=== PATIENT | female | born 1985 | race Caucasian/White ===

== ENCOUNTER 2023-04-18 13:20 | Outpatient (AMB) | payer OTHER, SELFPAY ==
[2023-04-18 13:48] VITALS: BP 145/79; PULSE 96; RESP 18; O2SAT 96
--- NOTE | 2023-04-18 13:48 | MHC.OFFVIS ---
Intake Vital Signs 04/18/23 13:48 Weight 180 lb BP 145/79 H Blood Pressure Location Lt brachial Position Sitting Respiration 18 Pulse 96 Pulse Source Pulse Oximeter Pulse Oximetry (%) 96 Oxygen Delivery Method Room Air Intake Visit Reasons: Chronic back pain, Scoliosis/Lvm Allergies codeine Adverse Reaction (Unknown, Verified 04/18/23 14:00) Unknown Opioids - Morphine Analogues Adverse Reaction (Unknown, Verified 04/18/23 14:00) Unknown oxycodone Adverse Reaction (Unknown, Verified 04/18/23 14:00) Unknown HPI HPI Comments History of Present Illness Details Lise is a very pleasant 37 year old female who presents to the office today for evaluation and management of her chronic all over back pain. Patient reports that she has been suffering with this pain for ?my entire life ?. She states that she was bored with scoliosis, diagnosed as a child and has been suffering with pain since. She denies any treatment for the scoliosis previously. Patient does have a history of left S IJ fusion and L5-S1 partial discectomy both performed in 2018. She states her surgeon has since retired. She had evaluation with neurosurgeon less than 1 year ago and was told that surgery was not an option for treatment. All imaging has been completed echo [facility], she does not know when her most recent MRI was, records have been requested. Patient states she has never done physical therapy for her back, chiropractor has declined to treat her due to her scoliosis and she has never tried acupuncture or massage. She reports a remote history of injections to her back and states that they ?never worked ?. She is currently taking a muscle relaxer as needed and reports she only uses this when it is very bad, naproxen daily which provides some relief. Patient has red flag symptoms including new loss of bowel, bladder or saddle anesthesia. In terms of muscle damage condition is described as aching, spasming, shooting, tiring, exhausting and throbbing. Pain is constant throughout the entire day and night, negatively impacting her enjoyment of life, general activity, mood, normal work, recreational activities, sleep and walking. Review of Systems Const All systems reviewed & are unremarkable except as noted in HPI and below Physical Exam Vital Signs: Last Vital Signs Pulse 96 04/18/23 13:48 Resp 18 04/18/23 13:48 BP 145/79 H 04/18/23 13:48 Pulse Ox 96 04/18/23 13:48 Oxygen Delivery Method Room Air 04/18/23 13:48 General: awake, alert, oriented. Answers questions appropriately. Fully engaged in examination. Skin: warm, dry, intact HEENT: Normocephalic. Hearing intact. Cardiac: External chest normal in appearance. Respiratory: No cough, audible wheezing or stridor. Abdomen: without gross distension. MS: No obvious swelling or deformities. Able to stand on bilateral tiptoes and bilateral heels.? Able to transition from sit to stand unassisted. Ambulates with bilaterally normal heel strike and toe off SLR with and without dorsiflexion negative bilaterally Mark positive on left ROM: Flexion to 40 degrees, extension to 10 degrees. both with reported pain increase Tender to palpation over upper/middle/lower trapezius, tender to palpation across lower back. Tender to palpation over lumbar paraspinal muscles and PSIS. Neurological: Oriented to person, place, time and situation. Thought process intact. No gait abnormalities appreciated. Psychiatric: Appropriate mood and affect. Good judgment and insight. Assessment & Plan Assessment & Plan (1) Lower back pain: Code(s): M54.50 - Low back pain, unspecified (2) Trapezius muscle strain: Code(s): S46.819A - Strain of other muscles, fascia and tendons at shoulder and upper arm level, unspecified arm, initial encounter (3) Myofascial muscle pain: Code(s): M79.18 - Myalgia, other site (4) Post laminectomy syndrome: Code(s): M96.1 - Postlaminectomy syndrome, not elsewhere classified Yasemin Lezama presents the office today for evaluation and management of her chronic back pain. Order placed for PT eval and treat. Rec given to patient to take to physical therapy office closer to her home as she lives quite a distance from [facility]. Order placed for baclofen 5 mg p.o. t.i.d., patient instructed on use. Records have been requested from [facility] to include recent imaging. Patient is unsure when her last MRI was. Advised patient that if he had has been over 1 year we will plan for update of the MRI. Discussed options for treatment including diagnostic interventional testing, epidural steroid injections, peripheral nerve stimulation with Sprint, RFA and more permanent neuromodulation. Informational pamphlets provided. Patient is suffering from post laminectomy syndrome, we discussed in length Nevro spinal cord stimulator. Patient advised she would need mental health clearance with psych eval prior to any implantable devices. Brochures for Nevro and [employer]vant[employer] point given to the patient. She will review these before her next visit. All questions and concerns have been answered and patient agrees with the plan. Follow up after trial of PT, muscle relaxer and after review of records. Orders: Orders PT Evaluation and Treatment Today M54.50 - Low back pain, unspecified, M79.18 - Myalgia, other site, S46.819A - Strain of other muscles, fascia and tendons at shoulder and upper arm level, unspecified arm, initial encounter Medications: New baclofen may cause drowsiness. do not drive while taking this medication. Do not take with alcohol or other [employer] depressants 5 mg PO TID 60 tabs 0RF Coding Level of Care Code New Pt Level 4 (62780) Diagnoses Lower back pain M54.50 Trapezius muscle strain S46.819A Myofascial muscle pain M79.18 Post laminectomy syndrome M96.1
== END 2023-04-18 14:32 | disposition home or self-care (01) ==
PROVIDERS: PCP Nurse Practitioner Family; Referring Provider Family Medicine; Visit Provider Registered Nurse Emergency
DX: M54.50 Low back pain, unspecified (principal); S46.819A Strain of other muscles, fascia and tendons at shoulder and upper arm level, unspecified arm, initial encounter; M79.18 Myalgia, other site; M96.1 Postlaminectomy syndrome, not elsewhere classified
CPT/HCPCS: 99204

== ENCOUNTER → 2023-04-18 13:20 | Outpatient (BNVA) | payer OTHER, SELFPAY | PROVIDERS: PCP Nurse Practitioner Family; Referring Provider Family Medicine; Visit Provider Registered Nurse Emergency | DX: M54.50 Low back pain, unspecified (principal); M79.18 Myalgia, other site; M96.1 Postlaminectomy syndrome, not elsewhere classified; S46.819A Strain of other muscles, fascia and tendons at shoulder and upper arm level, unspecified arm, initial encounter; X58.XXXA Exposure to other specified factors, initial encounter; Y93.9 Activity, unspecified; Y92.9 Unspecified place or not applicable; Y99.9 Unspecified external cause status | CPT/HCPCS: 99202 ==

== ENCOUNTER 2023-09-18 10:32 | Outpatient (AMB) | payer OTHER, SELFPAY ==
--- NOTE | 2023-09-18 10:44 | HO.SPINEOV ---
Intake Intake Visit Reasons: degenerative disc disease Intake Note: Ms. Zamorano is here today c/o low back pain. 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 She is a pleasant 37-year-old female who comes in today with a chief complaint of low back pain with radiation into her left lower extremity. She states that this has been ongoing for the past few years, and was previously addressed with a L5-S1 left-sided [place]diske[place] [address] Reeves. She states that her symptoms never fully resolved, and have progressed over time. They are now to the point where she has shooting pains diffusely down her left leg and numbness in her left foot. The numbness in her left foot has caused her to fall several times per her report. She is unable to identify a specific dermatomal distribution and reports that her pain is all throughout the leg, and the numbness is all over her foot. Additionally, she reports right-sided axial low back pain which is newer, and has became more prevalent over the course of the last 6 months. She has a pertinent surgical history of a left-sided SI joint fusion in a left total knee arthroplasty. She reports that bending over/lifting makes her pain worse, but is unable to identify any positional changes that help alleviate her pain. She attempted physical therapy, and reports she had to stop a few weeks ago as it caused her too much pain. She has tried a plethora of [id number] remedies, and is currently taking cyclobenzaprine and naproxen which provide her with modest pain relief. PMH: History of left-sided SI joint fusion and left-sided L5-S1 microdiskectomy completed by Dr. Reeves from [facility] (both done in 2018, he has since retired). History of left-sided total knee replacement. Hx of Asthma. Social hx: Patient does not smoke, reports no substance use. Medications: Albuterol, azelastine, baclofen, cyclobenzaprine, epinephrine, out Chirinos, mometasone, montelukast, naproxen. Allergies: Codeine, oxycodone. Physical exam: The patient has 4/5 strength with knee flexion on the left. The rest of her strength testing is 5/5. Her sensation is grossly intact. Her reflexes are 2+ intact. (-) Mark's, (-) Blanca finger test, (-) Mckeon's, (-) clonus, (-) straight leg raise bilaterally. The patient sits on her right side bracing herself in the right side of the chair. She is able to rise from a seated position without difficulty. She does walk with a somewhat antalgic gait favoring her right side. Imaging review: MRI of the lumbar spine completed at [facility] shows an L5-S1 posterior disc bulge causing severe left sided foraminal stenosis and compression of the left S1 nerve root. There is also what appears to be a slight grade 1 spondylolisthesis at L5-S1. cervical MRI also complete at [facility] is generally unremarkable from a neurosurgery standpoint. Impression: Lise is a pleasant 37-year-old female who comes in today with a chief complaint of low back pain with radiation into her left lower extremity. Interestingly, her low back pain is right-sided axial and her radiculopathy is left-sided. She is unable to identify a specific dermatomal distribution in which her pain radiates, but does state that the pain is severe and constant throughout the day. She also endorses a feeling of complete numbness in her left foot, however states that it waxes and wanes in severity throughout the day. This is particularly concerning because she is now experiencing falls per her report because of the numbness in her foot. I believe that Lise is a good candidate for a left-sided L5-S1 microdiskectomy. Due to the slight spondylolisthesis seen at L5-S1 I will be sending her for a set of flexion/extension x-rays to ensure that she does not have any instability at this level. Assuming that the x-rays do not show significant instability I will be presenting her as a case to Dr. Rajan for an L5-S1 left sided microdiskectomy. I will call the patient update her after I have reviewed this case with Dr. Rajan. Thank you for allowing us to care for your patient. The total time spent with this visit with this patient was 45 minutes reviewing history, physical exam, Cervical and Lumabr MRI imaging review, and implementation of treatment plan or further diagnostic testing Hiren Rajan MD,PhD [facility] Orders: Orders XR lumbar spine 4V min Today M54.16 - Radiculopathy, lumbar region Coding Level of Care Code New Pt Level 4 (92279) Diagnoses Lumbar radiculopathy M54.16
== END 2023-09-18 11:28 | disposition home or self-care (01) ==
PROVIDERS: PCP Nurse Practitioner Family; Referring Provider Family Medicine; Visit Provider Physician Assistant
DX: M54.16 Radiculopathy, lumbar region (principal)
CPT/HCPCS: 99204

== ENCOUNTER 2023-09-18 10:32 | Outpatient (REF) | payer OTHER, SELFPAY ==
--- NOTE | ~2023-09-18 | XR_ITS ---
EXAMINATION: XR LUMBOSACRAL SPINE WITH OBLIQUES CLINICAL INFORMATION: Radiculopathy lumbar region. COMPARISON: None available. TECHNIQUE: AP, lateral neutral, flexion, and extension views of the lumbar spine FINDINGS: Two coiled devices overlie the upper sacrum on the left. Radiopaque device overlies the upper thoracic spine on the frontal view, but is not included on the lateral view. S-shaped thoracolumbar scoliosis. Facet arthritis in the lower lumbar spine. Mild multilevel lumbar spondylosis with loss of disc space height at L5-S1. XR/XR lumbar spine 4V min IMPRESSION: Mild multilevel lumbar spondylosis with loss of disc space height at L5-S1.
== END 2023-09-18 10:33 | disposition home or self-care (01) ==
LOC: HO.HOSX 10:32
PROVIDERS: PCP Nurse Practitioner Family; Visit Provider Physician Assistant
DX: M54.16 Radiculopathy, lumbar region (principal)
CPT/HCPCS: 72110; 99202

== ENCOUNTER 2023-11-13 06:35 | Day surgery (SDC) | payer OTHER, SELFPAY ==
[2023-10-30 12:12] VITALS: BP 133/87; PULSE 84; RESP 16; O2SAT 98; BMI 32.9
--- NOTE | 2023-10-30 12:42 | HO.ANESPROP2 ---
Documented by User: Therese Cordoba NP 10/30/23 12:52 HPI - Anesthesia Eval Consult details Narrative: 37yo F for Left L5-S1 MicroLumbar discectomy Recent sinus infx, abx course completed, resolved Seasonal allergies - allergy shots weekly No CP/SOB with ADLs PONV. Scop patch not effective. Will try aponvie TMJ. No surgery, never locked open. OK right now. Tx with massage and heat when flares up Asthma. Stable. No rescue inhaler for a few months. Unable to swallow pills, needs crushed PMFSH Active Problems Active Problems: All Active Problems Lumbar radiculopathy (Acute) Post laminectomy syndrome (Acute) Lower back pain (Acute) Trapezius muscle strain (Acute) Myofascial muscle pain (Acute) Past Medical History Medical History Fragrance hypersensitivity Hypoglycemia TMJ tenderness, right Osteoarthritis CTS (carpal tunnel syndrome) PONV (postoperative nausea and vomiting) DJD (degenerative joint disease) Asthma Seasonal allergies Environmental allergies Scoliosis Back pain Family History Family history of problems with anesthesia: No Surgical History Surgical History Hx of surgical fusion joint Hx of lumbar discectomy (~2018) History of arthroplasty of left knee Hx of sinus surgery Hx of bilateral breast reduction surgery History of ear surgery History of Problems with Anesthesia: Yes (PONV - scopolamine patch ineffective) Social History Social History Are you a primary health care social worker to a significant other at home: No Do you presently have visiting nurse or other home services: No Comment: aware of trip hazard Patient Tobacco Use Status: Never used Tobacco Second Hand Smoke Exposure: Yes (parents smoked in the home) Use of substances other than those prescribed or required for medical reasons: No Have you been hit, kicked, punched, or otherwise hurt by someone within the past year? If so, by whom?: No Are you DNR?: No Advance Directives: No Advance Directives Information Provided: Yes Advance Directives on File: No Recently lost weight without trying: No Nutrition Risks: No Nutritional Risk Patient : No FDLMP: 09/2022 : No Poor oral hygiene: No Meds Allergies Allergy/AdvReac Type Severity Reaction Status Date / Time codeine Allergy Severe Anaphylaxis Verified 11/13/23 07:04 oxycodone Allergy Intermediate skin Verified 11/13/23 07:04 redness morphine AdvReac Intermediate Nausea and Verified 11/13/23 07:04 Vomiting Opioids - Morphine Analogues AdvReac Unknown Unknown Verified 11/13/23 07:04 flu vaccine Allergy Severe Nausea and Uncoded 11/13/23 07:04 Vomiting, dehydration, weakness Home Medications ?Medication ?Instructions ?Recorded ?Confirmed ?Last Taken ?Type COVID-19 antigen test (QuickVue #1 ea 04/17/23 Unknown History At-Home COVID-19 Test kit) albuterol sulfate 2.5 mg/3 mL 2.5 mg inhalation Q4-6H PRN 04/17/23 10/30/23 Unknown History (0.083 %) solution for nebulization Shortness Of Breath Or Wheezing albuterol sulfate 90 mcg/actuation 2 inh inhalation Q4-6H PRN 04/17/23 10/30/23 Unknown History aerosol inhaler Shortness Of Breath Or Wheezing cyclobenzaprine 10 mg tablet 10 mg PO BEDTIME 04/17/23 10/30/23 Unknown History epinephrine 0.3 mg/0.3 mL 0.3 ml subcut ONCE PRN Allergic 04/17/23 10/30/23 Unknown History injection, auto-injector Reaction levonorgestrel 0.15 mg-ethinyl 1 tab PO DAILY 04/17/23 10/30/23 Unknown History estradiol 0.03 mg tablet (Altavera (28)) montelukast 10 mg tablet 10 mg PO DAILY 04/17/23 10/30/23 Unknown History naproxen 500 mg tablet 500 mg PO BID 04/17/23 10/30/23 Unknown History diphenhydramine HCl 25 mg tablet 25 mg PO TID PRN Allergic Reaction 10/30/23 10/30/23 Unknown History (Benadryl Allergy) fluticasone furoate 100 1 ea inhalation DAILY 10/30/23 10/30/23 Unknown History mcg-vilanterol 25 mcg/dose inhalation powder (Breo Ellipta) topiramate 100 mg tablet 100 mg PO DAILY PRN Headache 10/30/23 10/30/23 Unknown History triamcinolone acetonide 55 mcg 1 spray intranasal DAILY PRN 10/30/23 10/30/23 Unknown History nasal spray aerosol (Nasacort) Allergy Symptoms Exam Height,Weight and Vital Signs: Height 5 ft 2 in Weight 81.647 kg Last Vital Signs Pulse 84 10/30/23 12:12 Resp 16 10/30/23 12:12 BP 133/87 10/30/23 12:12 Pulse Ox 98 10/30/23 12:12 O2 Del Method Room Air 10/30/23 12:12 Airway Mallampati Class: III (Limited mouth opening d/t TMJ) TM Dist: >3cm Neck ROM: Full Heart: RRR Lungs: CTAB Assessment and Plan Assessment Anesthesia Assessment: Anesthesia Plan Discussed and PAT Visit Final Anesthetic Review Family History of Problems with Anesthesia: No History of Problems with Anesthesia: Yes (PONV - scopolamine patch ineffective) Documented by User: Viri Wilson MD 11/13/23 09:35 PMFSH Active Problems Active Problems: All Active Problems Lumbar radiculopathy (Acute) Post laminectomy syndrome (Acute) Lower back pain (Acute) Trapezius muscle strain (Acute) Myofascial muscle pain (Acute) Asthma- allergic. No symptoms for 2 months Past Medical History Medical History Fragrance hypersensitivity Hypoglycemia TMJ tenderness, right Osteoarthritis CTS (carpal tunnel syndrome) PONV (postoperative nausea and vomiting) DJD (degenerative joint disease) Asthma Seasonal allergies Environmental allergies Scoliosis Back pain Family History Family history of problems with anesthesia: No Surgical History Surgical History Hx of surgical fusion joint Hx of lumbar discectomy (~2018) History of arthroplasty of left knee Hx of sinus surgery Hx of bilateral breast reduction surgery History of ear surgery Social History Social History Are you a primary health care social worker to a significant other at home: No Do you presently have visiting nurse or other home services: No Comment: aware of trip hazard Patient Tobacco Use Status: Never used Tobacco Second Hand Smoke Exposure: Yes (parents smoked in the home) Use of substances other than those prescribed or required for medical reasons: No Have you been hit, kicked, punched, or otherwise hurt by someone within the past year? If so, by whom?: No Are you DNR?: No Advance Directives: No Advance Directives Information Provided: Yes Advance Directives on File: No Recently lost weight without trying: No Nutrition Risks: No Nutritional Risk Patient : No FDLMP: 09/2022 : No Poor oral hygiene: No Meds Allergies Allergy/AdvReac Type Severity Reaction Status Date / Time codeine Allergy Severe Anaphylaxis Verified 11/13/23 07:04 oxycodone Allergy Intermediate skin Verified 11/13/23 07:04 redness morphine AdvReac Intermediate Nausea and Verified 11/13/23 07:04 Vomiting Opioids - Morphine Analogues AdvReac Unknown Unknown Verified 11/13/23 07:04 flu vaccine Allergy Severe Nausea and Uncoded 11/13/23 07:04 Vomiting, dehydration, weakness Home Medications ?Medication ?Instructions ?Recorded ?Confirmed ?Last Taken ?Type COVID-19 antigen test (QuickVue #1 ea 04/17/23 Unknown History At-Home COVID-19 Test kit) albuterol sulfate 2.5 mg/3 mL 2.5 mg inhalation Q4-6H PRN 04/17/23 10/30/23 Unknown History (0.083 %) solution for nebulization Shortness Of Breath Or Wheezing albuterol sulfate 90 mcg/actuation 2 inh inhalation Q4-6H PRN 04/17/23 10/30/23 Unknown History aerosol inhaler Shortness Of Breath Or Wheezing cyclobenzaprine 10 mg tablet 10 mg PO BEDTIME 04/17/23 10/30/23 Unknown History epinephrine 0.3 mg/0.3 mL 0.3 ml subcut ONCE PRN Allergic 04/17/23 10/30/23 Unknown History injection, auto-injector Reaction levonorgestrel 0.15 mg-ethinyl 1 tab PO DAILY 04/17/23 10/30/23 Unknown History estradiol 0.03 mg tablet (Altavera (28)) montelukast 10 mg tablet 10 mg PO DAILY 04/17/23 10/30/23 Unknown History naproxen 500 mg tablet 500 mg PO BID 04/17/23 10/30/23 Unknown History diphenhydramine HCl 25 mg tablet 25 mg PO TID PRN Allergic Reaction 10/30/23 10/30/23 Unknown History (Benadryl Allergy) fluticasone furoate 100 1 ea inhalation DAILY 10/30/23 10/30/23 Unknown History mcg-vilanterol 25 mcg/dose inhalation powder (Breo Ellipta) topiramate 100 mg tablet 100 mg PO DAILY PRN Headache 10/30/23 10/30/23 Unknown History triamcinolone acetonide 55 mcg 1 spray intranasal DAILY PRN 10/30/23 10/30/23 Unknown History nasal spray aerosol (Nasacort) Allergy Symptoms Exam Height,Weight and Vital Signs: Height 5 ft 2 in Weight 81.647 kg Last Vital Signs Pulse 84 10/30/23 12:12 Resp 16 10/30/23 12:12 BP 133/87 10/30/23 12:12 Pulse Ox 98 10/30/23 12:12 O2 Del Method Room Air 10/30/23 12:12 Vital Signs Temp Pulse Resp BP Pulse Ox O2 Del Method 11/13/23 07:35 98 18 11/13/23 07:07 97.3 F 98 18 136/84 100 Room Air Pertinent Lab Results Pertinent Lab Results: Lab Results 11/13/23 11/13/23 Range/Units 06:42 07:33 POC Glucose 102 (60-115) mg/dL Urine Test NEGATIVE (NEGATIVE) Airway Mallampati Class: IV (Limited mouth opening d/t TMJ. Overbite. Prominent top incisors) TM Dist: >3cm Neck ROM: Full Assessment and Plan Assessment Anesthesia Assessment: Anesthesia Plan Discussed and Chart Reviewed Final Anesthetic Review Family History of Problems with Anesthesia: No NPO: Yes ASA Class: II Final Preanesthetic Review: No Changes in Pt Med Stat, Meds/Allgs Chart Reviewed, Consent Obtained/Reviewed and Anes Risks/Benef Reviewed Patient Risk: Intermediate Procedure Risk: Intermediate Assessment/Block/Sedation in SS: Assess/Block/Sedation-SS Anesthetic Plan Anesthetic Plan: GA Disposition: Standard PACU
[2023-11-13] VITALS (12 sets, daily range): BP systolic 121–140; BP diastolic 72–84; PULSE 86–104; RESP 14–21; TEMP 36.2–36.3; O2SAT 94–100; BMI 33.5
--- NOTE | ~2023-11-13 | FL_ITS ---
EXAMINATION: XR FLUOROSCOPY WITH IMAGES CLINICAL INFORMATION: Microlumbar discectomy L5-S1. COMPARISON: None available. TECHNIQUE: Fluoroscopy Supervised By: Dr. Yuri Rajan. Fluoroscopy Time: 0.2 seconds. Cumulative Dose: 1.2558 mGy. DAP: 4354 Gycm2. Images: 3. FINDINGS: Intraoperative fluoroscopy and spot films were performed during a procedure in the OR. Bennett or instruments are seen at the L5-S1 level. Please see Dr. Yuri Rajan's report for complete details. FL/FL guidance in OR IMPRESSION: Intraoperative fluoroscopy and spot films were obtained. Please see Dr. Yuri Rajan's report for complete details.
--- NOTE | 2023-11-13 06:55 | MHC.SHP ---
Pre-Procedural Eval Section A - 24 Hr Update-Section A only Date of Service: 11/13/23 Section B - Complete if H&P > 30 days Chief Complaint: Radiculopathy, lumbar region Allergies: Allergies Allergy/AdvReac Type Severity Reaction Status Date / Time codeine Allergy Severe Anaphylaxis Verified 10/30/23 10:17 oxycodone Allergy Intermediate skin Verified 10/30/23 10:17 redness morphine AdvReac Intermediate Nausea and Verified 10/30/23 10:17 Vomiting Opioids - Morphine Analogues AdvReac Unknown Unknown Verified 04/18/23 14:00 flu vaccine Allergy Severe Nausea and Uncoded 10/30/23 12:27 Vomiting, dehydration, weakness Review of Systems Sugical H&P ROS: Negative: Constitution, Cardiovascular, Respiratory, Neurological, Psychiatric, Hem-Onc, Allergic/Immunologic, Gastrointestinal, Genitourinary, Musculoskeletal, Integumentary, Endocrine and Eyes/Ears/Nose/Throat Exam Surgical H&P Exam: Not Evaluated: HEENT, Not Evaluated: Heart, Not Evaluated: Lungs, Not Evaluated: Extremities, Not Evaluated: Abdomen, Not Evaluated: Skin and Not Evaluated: Neurological Plan I have reviewed the history and physical and performed a pertinent physical examination on my patient. No changes have occurred unless specified. Plan remains the same, right-sided L5-S1 microdiskectomy. Time Spent With Patient Time: Total time managing care of this patient today __9__ minutes.
[2023-11-13 07:17] LABS: UPreg QC Valid YES; Urine Pregnancy NEGATIVE (NEGATIVE)
[2023-11-13] MEDS: Albuterol Sulfate (0.083%) 2.5 MG/3 ML VIAL.NEB INHALE (07:25)
[2023-11-13] MEDS: Aprepitant 32 MG/4.4 ML VIAL IVPUSH (07:29)
[2023-11-13] MEDS: Lactated Ringers 1,000 ML 100 ML IVCONT (07:29)
[2023-11-13] MEDS: methocarbamoL 750 MG TABLET PO (07:30)
[2023-11-13 07:36] LABS: Glucose, Whole Blood 102 mg/dL (60-115)
[2023-11-13] MEDS: Scopolamine 1.5 MG PATCH.TD.3 TRANSDERMA (09:38)
--- NOTE | 2023-11-13 10:59 | P.OP_ITS ---
Operative Note Operative Note Date of Service: 11/13/23 Narrative: Preoperative diagnosis: Recurrent left S1 radiculopathy due to disc herniation Postoperative diagnosis: Same Procedure: Recurrent L5-S1 lumbar microdiskectomy , left side with microscope Surgeon: Yunier Rajan MD, PhD Hydrochloric Area Supervisor: VALDO Montoya This patient underwent a lumbar microdiskectomy 2018 in another institution. She presented with recurrent symptoms. MRI suspicious for recurrent disc herniation compressing the left S1 nerve root.. The patient was offered a repeat lumbar microdiskectomy to decompress the nerve root. The procedure complications were explained. The patient was consented. The patient was brought to the operating room and endotracheally intubated. The patient was turned in a prone position on the Leandro frame. Prepping and draping was done followed by time-out. The previous mid lumbar incision was made followed by release of the paravertebral muscles on the left side side to expose the L5-S1 interspace. An intraoperative x-rays obtained to confirm the correct level. The microscope was brought in. The previous L5 laminotomy was extended cranially. The thecal sac and the origin of the S1 nerve root was identified. Scar tissue was released from S1 nerve root in the lateral recess. An annulotomy was done with a pituitary some fragments were removed from under the S1 nerve root. However most compression was caused by scar tissue wrist was removed as well. This resulted in an excellent decompression of the S1 nerve root. Hemostasis was done. The microscope was removed. Marcaine was injected intramuscularly.The incision was closed in two layers. Steri-Strips used to approximate seizure. An op-site were taken there was used to cover the incision. All sponge and needle counts were correct. Patient was extubated and transported in stable condition to recovery room. this procedure was done with the aid of a physician contract assistant who performed the initial exposure until the microscope was brought in and performed the closure of the incision. Anesthesia: General Blood loss: 10 mL Complications: None Specimen: None Surgical time: 45 minutes Disposition: Discharge home
[2023-11-13] MEDS: fentaNYL citrate/PF 100 MCG/2 ML VIAL 25 MCG IVPUSH ×2 (11:46→11:51)
[2023-11-13 12:03] LABS: Glucose, Whole Blood 126 mg/dL (60-115)
--- NOTE | 2023-11-13 12:19 | PM.DS ---
DS: Providers Provider Date of Service: 11/13/23 Primary care physician: RANDEE Garcia DS: Summary Time Attestation Discharge Coordination Time (in mins): 15 Quality: Safe Use of Opioids Does Pt have an Active Cancer Diagnosis on the Problem List?: No Quality: Stroke Does the patient have a stroke diagnosis?: No Physical Exam Vital Signs: Vital Signs: Last Vital Signs Temp 97.2 F 11/13/23 11:11 Pulse 89 11/13/23 11:56 Resp 14 11/13/23 11:56 BP 121/79 11/13/23 11:56 Pulse Ox 97 11/13/23 11:56 O2 Del Method Room Air 11/13/23 11:56 O2 Flow Rate 3 11/13/23 11:26 BMI result Body Mass Index 33.5 DS: Data Data Completed and Pending Labs on day of discharge: Laboratory Results - last 24 hr 11/13/23 11/13/23 11/13/23 06:42 07:33 11:36 POC Glucose 102 126 H Urine Test NEGATIVE Discharge Plan Discharge Patient Disposition: Home, Self-Care Referrals: Kylee Gómez FNP [Primary Care Provider] - 1 Week Discharge Medications: New hydrocodone-acetaminophen 5-325 mg tablet 1 tab PO Q6H PRN (Reason: severe pain (scale score 7-10)) Qty: 30 0RF Rx Instructions: Partial Fill upon patient request. Continued fluticasone furoate-vilanterol [Breo Ellipta] 100-25 mcg/dose blister with device 1 ea INHALATION DAILY topiramate 100 mg tablet 100 mg PO DAILY PRN (Reason: Headache) diphenhydramine HCl [Benadryl Allergy] 25 mg Tablet 25 mg PO TID PRN (Reason: Allergic Reaction) triamcinolone acetonide [Nasacort] 55 mcg Aerosol,Fleming 1 spray INTRANASAL DAILY PRN (Reason: Allergy Symptoms) Rx Instructions: administer into each nostril montelukast 10 mg tablet 10 mg PO DAILY albuterol sulfate 2.5 mg /3 mL (0.083 %) solution for nebulization 2.5 mg inhalation Q4-6H PRN (Reason: Shortness Of Breath Or Wheezing) naproxen 500 mg tablet 500 mg PO BID albuterol sulfate 90 mcg/actuation HFA aerosol inhaler 2 inh inhalation Q4-6H PRN (Reason: Shortness Of Breath Or Wheezing) cyclobenzaprine 10 mg tablet 10 mg PO BEDTIME levonorgestrel-ethinyl estrad [Altavera (28)] 0.15-0.03 mg tablet 1 tab PO DAILY epinephrine 0.3 mg/0.3 mL auto-injector 0.3 ml subcut ONCE PRN (Reason: Allergic Reaction) (DME) [employer] At-Home COVID-19 Test Kit See Rx Instructions .ROUTE DIRECTED Qty: 1 Rx Instructions: As directed Discharge Orders: Discharge Order (Routine); Ordered 11/13/23 Ordered By: Hiren Hurley Diet: Advance to usual diet Activity on Discharge: As tolerated Activity Restrictions/Additional Instructions: After your spinal surgery we ask you to observe the following restrictions/guidelines: Activity: It is normal to feel some discomfort as you increase your activity, but that will improve with time. We ask you avoid heavy lifting or acitivities that cause pain. As a general rule, 8lbs is a safe limit for lifting right after surgery. Walk as much as you feel comfortable but not to exhaustion. You will feel extra tired the first few days after surgery. Stay well hydrated. It is OK to walk up and down stairs You may return to driving when you are off narcotics (such as vicodin, oxycodone, dilaudid, etc), and you are back to normal functional capacity. If you have any concerns please check with office before driving. Return to work is specific to each patient and each surgery, so please speak with your doctor/PA at first follow up. Please bring paperwork such as FMLA at that time if you need it filled out. Medications: We will give you a short supply of narcotics after surgery (usually one weeks worth). If you need more please call the office but do not use more than prescribed. You will need to give our office 48 hours notice if you need narcotics refilled and we do not fill narcotics on weekends or evenings. If you are on a narcotic, it is a good idea to take a stool softener such as colace or senna to avoid constipation If you take blood thinner such as aspirin, Plavix, Coumadin, Effient, Eliquis etc for conditions such as Afib, DVT, Pulmonary embolus, coronary disease, stents etc please speak with your surgeon about specific details as to when you can resume these medications. You can resume NSAIDs on post op day 1 (eg: Motrin, Naproxen, etc). Follow up: Please call the office, , after surgery to arrange a 3 week follow up for wound check. Wound Care: You may remove your dressing on the first day after surgery. ?You may ?leave open to air. Please do not remove the steri strips underneath. they will fall off on their own in one week. IT IS NORMAL FOR THE WOUND TO OOZE OR BE BLOODY FOR A FEW DAYS AFTER SURGERY. ?IF THIS HAPPENS JUST PLACE NEW DRESSING OVER IT TO AVOID STAINING CLOTHES. You may shower on post op day # 1 We ask that you do not let the water soak the wound. If it does get wet, just towel dry lightly. Please do not scrub your incision or place any type of chemical/ointment on the wound. No tub baths, pools or jacuzzis for one month. If you have any leaking or redness from your wound, or fevers, please call the office. Print Language: Mohawk
== END 2023-11-13 13:03 | disposition home or self-care (01) ==
PROVIDERS: Nurse Practitioner; PCP Nurse Practitioner Family; Visit Provider Neurological Surgery
PROC: (CPT 63042; principal; 2023-11-13 09:20)
DX: M51.16 Intervertebral disc disorders with radiculopathy, lumbar region (principal); J45.909 Unspecified asthma, uncomplicated; M96.1 Postlaminectomy syndrome, not elsewhere classified; Z79.899 Other long term (current) drug therapy
CPT/HCPCS: 63042; 81025; 82947; 94640; C9145; J0131; J0330; J0690; J1100; J1885; J2250; J2405; J2704; J3010

== ENCOUNTER → 2023-11-13 06:35 | Outpatient (BNV) | payer OTHER, SELFPAY | PROVIDERS: PCP Nurse Practitioner Family; Visit Provider Neurological Surgery | DX: M51.17 Intervertebral disc disorders with radiculopathy, lumbosacral region (principal) | CPT/HCPCS: 63042; 99499 ==

== ENCOUNTER 2023-12-05 11:25 | Outpatient (AMB) | payer OTHER, SELFPAY ==
--- NOTE | 2023-12-05 11:27 | HO.SPINEOV ---
Intake Visit Reasons: 1st post op Intake Note: Ms. Zamorano is here today for 1st post-op Business Systems Analyst Required: No Allergies codeine Allergy (Severe, Verified 11/13/23 07:04) Anaphylaxis oxycodone Allergy (Intermediate, Verified 11/13/23 07:04) skin redness morphine Adverse Reaction (Intermediate, Verified 11/13/23 07:04) Nausea and Vomiting Opioids - Morphine Analogues Adverse Reaction (Unknown, Verified 11/13/23 07:04) Unknown flu vaccine Allergy (Severe, Uncoded 11/13/23 07:04) Nausea and Vomiting, dehydration, weakness Assessment & Plan Assessment & Plan (1) S/P lumbar microdiscectomy: Code(s): Z98.890 - Other specified postprocedural states Category: Surgical Plan Procedure: Recurrent L5-S1 lumbar microdiskectomy , left side Lise comes in today for her 1st postoperative visit. Unfortunately, she reports that her left-sided leg pain is still very similar to how it was prior to surgery. Thankfully, she is up walking around and completing the majority of her ADLs. She reports an overall lack of compliance with her postoperative recommendations, and states there have been situations around the home where she has to ?do things? and ends up lifting twisting bending etc. unfortunately this is likely contributing to her postoperative inflammation and causing her symptoms to persist. She states that the pain medications we gave him after surgery did not do anything, so she has mostly been relying on naproxen. I advised her to stop this for a few days, utilize Tylenol, and take Medrol Dosepak that I am going to be sending into her pharmacy. Ideally that will help get her inflammation under control. I encouraged her to refrain from any excessive heavy lifting bending/twisting and to stay out of her pool as she asked about that as well. No new neurological deficits. Patient is able to ambulate well, rises from a seated position without difficulty. Incision site is closed, well healing, with no signs of drainage. She was concerned that a tiny piece of scabbing may be a suture that it protruded through the skin, so I cleansed the area with alcohol, cut the tiny piece of atypical scab off with sterile scissors, and reapproximated the area with exofin. At the end of this visit I also discussed with the patient that Dr. Babb is not going to be able to readjust her SI joint fusion screws as she would previously requested. I sent in a Medrol Dosepak to her pharmacy. We will follow-up with the patient in 6 weeks for their 2nd postoperative visit. Hiren Rajan MD,PhD [facility] Medications: New methylprednisolone PO PER PKG DIR 21 ea 0RF Discontinued methylprednisolone Discontinued Reason: Entered in error PO PER PKG DIR 21 ea 0RF Coding Level of Care Code Global (92028) Diagnoses S/P lumbar microdiscectomy Z98.890
== END 2023-12-05 11:40 | disposition home or self-care (01) ==
PROVIDERS: PCP Nurse Practitioner Family; Visit Provider Physician Assistant
DX: Z98.890 Other specified postprocedural states (principal)
CPT/HCPCS: 99024

== ENCOUNTER → 2023-12-05 11:25 | Outpatient (BNVA) | payer OTHER, SELFPAY | PROVIDERS: PCP Nurse Practitioner Family; Visit Provider Physician Assistant | DX: Z48.89 Encounter for other specified surgical aftercare (principal); Z98.890 Other specified postprocedural states | CPT/HCPCS: 99212 ==

== ENCOUNTER 2024-01-13 11:29 | Outpatient (AMB) | payer OTHER, SELFPAY ==
--- NOTE | 2024-01-13 10:23 | A.SPINEOV_ITS ---
Intake Visit Reasons: 2nd post op Intake Note: Ms. Zamorano is here today for her 2nd post-op visit. Architectural Project Manager Required: No Allergies codeine Allergy (Severe, Verified 11/13/23 07:04) Anaphylaxis oxycodone Allergy (Intermediate, Verified 11/13/23 07:04) skin redness morphine Adverse Reaction (Intermediate, Verified 11/13/23 07:04) Nausea and Vomiting Opioids - Morphine Analogues Adverse Reaction (Unknown, Verified 11/13/23 07:04) Unknown flu vaccine Allergy (Severe, Uncoded 11/13/23 07:04) Nausea and Vomiting, dehydration, weakness Assessment & Plan Assessment & Plan (1) S/P lumbar microdiscectomy: Code(s): Z98.890 - Other specified postprocedural states Category: Surgical Plan Procedure: Left sided L5-S1 lumbar microdiskectomy for recurrent disc herniation Lise is a pleasant 38 y/o female who comes in today for a subsequent follow up visit after having a L5-S1 microdiskectomy completed by Dr. Rajan. She reports continued severe left-sided shooting radiculopathy since the surgery. She states that it is actually worsened and now includes numbness in her anterior thigh. She feels the steroid regimen was not helpful for her at all. As she stated prior to surgery, there is no specific distribution to her pain, but she feels the pain diffusely throughout her leg. She is able to locate a specific area for numbness as previously described. She has not been able to return to work aside from a few hours per week. She is filing disability with t he state, and is very concerned that her symptoms will not resolve. She is in obvious pain/agony on examination. She sits on her right hip avoiding the left. She walks with an antalgic gait favoring her right side. Her posterior incision site appears closed and well healed. As previously discussed during her last office visit I am concerned that she began extensive activity around the home to quickly after her microdiskectomy. She may have had a reherniation at the area. She has already susceptible to this as this was a recurrent disc herniation microdiskectomy. I would like to send her for a stat lumbar MRI, to evaluate for any evidence of reherniation. After this MRI is completed we will see her back in the office to discuss options. In the meantime I encouraged her to call the office if she develops any saddle anesthesia, bowel or bladder incontinence, or diffuse numbness throughout the foot/leg. The patient understands and agrees to this plan. Hiren Rajan MD,PhD [facility] Orders: Orders MR lumbar spine wo con Today Z98.890 - Other specified postprocedural states Coding Level of Care Code Global (17317) Diagnoses S/P lumbar microdiscectomy Z98.890
== END 2024-01-13 12:11 | disposition home or self-care (01) ==
PROVIDERS: PCP Nurse Practitioner Family; Visit Provider Physician Assistant
DX: Z98.890 Other specified postprocedural states (principal)
CPT/HCPCS: 99024

== ENCOUNTER → 2024-01-13 11:29 | Outpatient (BNVA) | payer OTHER, SELFPAY | PROVIDERS: PCP Nurse Practitioner Family; Visit Provider Physician Assistant | DX: Z48.89 Encounter for other specified surgical aftercare (principal); Z98.890 Other specified postprocedural states | CPT/HCPCS: 99212 ==

== ENCOUNTER 2024-01-14 20:13 | Outpatient (REF) | payer OTHER, SELFPAY ==
--- NOTE | ~2024-01-14 | MR_ITS ---
MR LUMBAR SPINE WITHOUT CONTRAST CLINICAL INFORMATION: Leg numbness status post lumbar microdiscectomy. COMPARISON: Lumbar spine radiographs September 18, 2023. TECHNIQUE: MRI of the lumbar spine was obtained using routine sequences without contrast. FINDINGS: There are 5 nonrib-bearing lumbar-type vertebral bodies. There is a partially imaged rightward convex scoliotic curvature of the thoracic spine and there is a leftward convex scoliotic curvature of the upper lumbar spine. The vertebral body heights are maintained. There is moderate disc volume loss and there is disc desiccation at L5-S1. Remaining disc volumes are preserved and the remaining discs remain well-hydrated. There is no bone marrow edema. There are no acute fractures. Partially imaged left SI joint screws. There are no significant extraspinal soft tissue findings. The imaged lower thoracic spinal cord is unremarkable. The conus terminates at the L2 level. At L1-L2, the disc contour is normal and there is no central canal stenosis nor foraminal stenosis. At L2-L3, there is a shallow right paracentral disc protrusion that mildly indents the right ventral thecal sac. There is no central canal stenosis and there is no foraminal stenosis. At L3-L4, there is a diffuse annular disc bulge and there is moderate bilateral facet arthropathy. There is no central canal stenosis and there is no foraminal stenosis. At L4-L5, there is a diffuse annular disc bulge and there is severe bilateral facet arthropathy and ligamentum flavum thickening. No central canal stenosis and no foraminal stenosis. At L5-S1, there are postoperative changes following left hemilaminectomy and microdiscectomy. There is a favored recurrent left paracentral disc protrusion compressing the traversing left S1 nerve root within the left subarticular zone. There is also granulation/scar tissue within the epidural space inseparable from the traversing left S1 nerve root. Postcontrast imaging could be obtained to more definitively distinguish between disc and scar. The central canal remains patent and there is no foraminal stenosis. MR/MR lumbar spine wo con IMPRESSION: At L5-S1, there are postoperative changes following left hemilaminectomy and microdiscectomy. There is a favored recurrent left paracentral disc protrusion compressing the traversing left S1 nerve root within the left subarticular zone. There is also granulation/scar tissue within the epidural space inseparable from the traversing left S1 nerve root. Postcontrast imaging could be obtained to more definitively distinguish between disc and scar tissue.
== END 2024-01-14 20:14 | disposition home or self-care (01) ==
LOC: HO.MRI 20:13
PROVIDERS: PCP Nurse Practitioner Family; Visit Provider Physician Assistant
DX: Z98.890 Other specified postprocedural states (principal)
CPT/HCPCS: 72148

== ENCOUNTER 2024-01-20 13:06 | Outpatient (AMB) | payer OTHER, SELFPAY ==
--- NOTE | 2024-01-20 13:17 | HO.SPINEOV ---
Intake Visit Reasons: MRI follow up Intake Note: Ms. Zamorano is here today for her Mri f/u Hosted Services Analyst Required: No Allergies codeine Allergy (Severe, Verified 11/13/23 07:04) Anaphylaxis oxycodone Allergy (Intermediate, Verified 11/13/23 07:04) skin redness morphine Adverse Reaction (Intermediate, Verified 11/13/23 07:04) Nausea and Vomiting Opioids - Morphine Analogues Adverse Reaction (Unknown, Verified 11/13/23 07:04) Unknown flu vaccine Allergy (Severe, Uncoded 11/13/23 07:04) Nausea and Vomiting, dehydration, weakness Assessment & Plan Assessment & Plan (1) Lumbar radiculopathy: Code(s): M54.16 - Radiculopathy, lumbar region Category: Medical Plan Mrs Zamorano is coming in today to review her MRI. She had a redo left L5-S1 microdiskectomy done about 2 months ago. She did not experience any improvement in the pain before surgery shooting down her left leg. The operative report dictated suggests that there was not much in the way of disc material found but rather mostly scar tissue which was debulked and the S1 nerve root was well decompressed at the time of closure. She did not have even a single day of relief from the leg pain, in fact she states that it is 10 times worse. It shoots down from the buttock into the posterior thigh into the posterior calf and at times will go into her foot. This is very similar to what happened when she had her 1st microdiskectomy done by Dr. Shahid. She did not have any relief of the leg pain at that time either. This is all suggesting that she could have a chronic radiculopathy related to nerve damage from the original disc herniation. Her current MRI shows postsurgical changes at L5-S1. I do not have the old MRI to compare but there is a small disc bulge on the left with possibly some displacement of the left S1 nerve root. Unfortunately the study was done without contrast which would be helpful to isolate the nerve root from the scar tissue and the disc herniation that we see. It appears that there is something there that may still be deflecting the S1 nerve root posteriorly, but in light of the fact that Dr. Rajan did not find a disc herniation of any meaningful size last time and that it was mostly scar tissue suggests that this is probably what we are dealing with currently. It would be different if the patient had had a significant relief for a period of time but then the symptoms came back, but she is very clear that not even for 1 day did she have any relief for the pain. The discussion was had last week with her about a possible fusion, but we need to be clear about the fact that there is likely some degree of nerve damage that success of the fusion will not be as high as it normally would. She is willing to undertake any surgery that we can do to try to alleviate any of the compression of the nerve. I will have to review this with Dr. Rajan to see if he is willing to offer her surgery or if he thinks this is something that should go in the direction of a spinal cord stimulator instead. Eder Rajan MD, PhD [facility] Coding Level of Care Code Global (32152) Diagnoses Lumbar radiculopathy M54.16
== END 2024-01-20 13:38 | disposition home or self-care (01) ==
PROVIDERS: PCP Nurse Practitioner Family; Visit Provider Physician Assistant
DX: M54.16 Radiculopathy, lumbar region (principal)
CPT/HCPCS: 99024

== ENCOUNTER → 2024-01-20 13:06 | Outpatient (BNVA) | payer OTHER, SELFPAY | PROVIDERS: PCP Nurse Practitioner Family; Visit Provider Physician Assistant | DX: M54.16 Radiculopathy, lumbar region (principal) | CPT/HCPCS: 99212 ==

== ENCOUNTER 2024-02-14 08:30 | Outpatient (AMB) | payer MEDICAID, SELFPAY ==
--- NOTE | 2024-02-14 08:52 | A.OFFVIS_ITS ---
Vital Signs 02/14/24 08:53 Height 5 ft 2 in Weight 180 lb BMI 32.9 BP 134/70 Blood Pressure Location Rt brachial Position Sitting Pulse 112 H Pulse Source Pulse Oximeter Pulse Oximetry (%) 97 Oxygen Delivery Method Room Air Intake Visit Reasons: Postlaminectomy Syndrome Allergies codeine Allergy (Severe, Verified 02/14/24 08:54) Anaphylaxis fluticasone [From Flonase] Allergy (Severe, Verified 02/14/24 08:56) Anaphylaxis oxycodone Allergy (Intermediate, Verified 02/14/24 08:54) skin redness morphine Adverse Reaction (Intermediate, Verified 02/14/24 08:54) Nausea and Vomiting Opioids - Morphine Analogues Adverse Reaction (Unknown, Verified 02/14/24 08:54) Unknown flu vaccine Allergy (Severe, Uncoded 02/14/24 08:54) Nausea and Vomiting, dehydration, weakness Medication List - Last Reconciled 02/14/24 by Corina Gay albuterol sulfate 90 mcg/actuation 2 inhalations inhalation Q4-6H PRN albuterol sulfate 2.5 mg inhalation Q4-6H PRN COVID-19 antigen test (QuickVue At-Home COVID-19 Test kit) As directed cyclobenzaprine 10 mg PO BEDTIME diphenhydramine HCl (Benadryl Allergy) 25 mg PO TID PRN epinephrine 0.3 mL subcut ONCE PRN fluticasone furoate-vilanterol 100-25 mcg/dose (Breo Ellipta) 1 ea inhalation DAILY hydrocodone-acetaminophen 5-325 mg 1 tab PO Q8H PRN levonorgestrel-ethinyl estrad 0.15-0.03 mg (Altavera (28)) 1 tab PO DAILY methylprednisolone PO PER PKG DIR montelukast 10 mg PO DAILY naproxen 500 mg PO BID topiramate 100 mg PO DAILY PRN triamcinolone acetonide (Nasacort) 1 spray intranasal DAILY PRN HPI Comments Details: Lise presents back to the office today for follow-up chronic back pain in the setting of post laminectomy syndrome Since last visit patient was evaluated by Neurosurgery. She underwent microdiskectomy on 10/2023 without improvement of her symptoms She has been suffering with left lower back pain with radiation down the left leg. This has worsened since her visit here 1 year ago. Completed physical therapy approximately 7 months ago without improvement of her symptoms. Patient has return here to further discuss spinal cord stimulation. Currently taking muscle relaxers and nonsteroidal anti-inflammatory medications without improvement of her pain. Has tried gabapentin but did not tolerate. Pain today is rated a 7/10, constant. Left lower back pain with radiation down the left leg. Also endorses left leg numbness and weakness. She has had to quit her job secondary to this pain. Denies red flag symptoms including new loss of bowel, bladder or saddle anesthe junaid. Recent MRI reviewed, results as per below Initial visit 04/18/2023: Lise is a very pleasant 37 year old female who presents to the office today for evaluation and management of her chronic all over back pain. Patient reports that she has been suffering with this pain for ?my entire life ?. She states that she was bored with scoliosis, diagnosed as a child and has been suffering with pain since. She denies any treatment for the scoliosis previously. Patient does have a history of left S IJ fusion and L5-S1 partial discectomy both performed in 2018. She states her surgeon has since retired. She had evaluation with neurosurgeon less than 1 year ago and was told that surgery was not an option for treatment. All imaging has been completed echo [facility], she does not know when her most recent MRI was, records have been requested. Patient states she has never done physical therapy for her back, chiropractor has declined to treat her due to her scoliosis and she has never tried acupuncture or massage. She reports a remote history of injections to her back and states that they ?never worked ?. She is currently taking a muscle relaxer as needed and reports she only uses this when it is very bad, naproxen daily which provides some relief. Patient has red flag symptoms including new loss of bowel, bladder or saddle anesthesia. In terms of muscle damage condition is described as aching, spasming, shooting, tiring, exhausting and throbbing. Pain is constant throughout the entire day and night, negatively impacting her enjoyment of life, general activity, mood, normal work, recreational activities, sleep and walking. [facility] Medical History Fragrance hypersensitivity Hypoglycemia TMJ tenderness, right Osteoarthritis CTS (carpal tunnel syndrome) PONV (postoperative nausea and vomiting) DJD (degenerative joint disease) Asthma Seasonal allergies Environmental allergies Scoliosis Back pain Surgical History Hx of surgical fusion joint Hx of lumbar discectomy (~2018) History of arthroplasty of left knee Hx of sinus surgery Hx of bilateral breast reduction surgery History of ear surgery Social History Are you a primary health care attorney to a significant other at home: No Do you presently have visiting nurse or other home services: No Comment: aware of trip hazard Patient Tobacco Use Status: Never used Tobacco Second Hand Smoke Exposure: Yes (parents smoked in the home) Review of Systems Const All systems reviewed & are unremarkable except as noted in HPI and below Physical Exam Vital Signs: Last Vital Signs Pulse 112 H 02/14/24 08:53 BP 134/70 02/14/24 08:53 Pulse Ox 97 02/14/24 08:53 Oxygen Delivery Method Room Air 02/14/24 08:53 BMI result Body Mass Index 32.9 General: awake, alert, oriented. Answers questions appropriately. Fully engaged in examination. Appears uncomfortable Skin: warm, dry, intact HEENT: Normocephalic. Hearing intact. Cardiac: External chest normal in appearance. Respiratory: No cough, audible wheezing or stridor. Abdomen: without gross distension. MS: No obvious swelling or deformities. Able to stand on bilateral tiptoes and bilateral heels.? Able to transition from sit to stand unassisted. Ambulates with bilaterally normal heel strike and toe off SLR positive unless Mark positive on left ROM: Flexion to 50 degrees, extension to 10 degrees. both with reported pain increase Tenderness to palpation left paraspinal muscles and left lumbar musculature. Negative footdrop Neurological: Oriented to person, place, time and situation. Thought process intact. Ambulates with the use of a cane Psychiatric: Appropriate mood and affect. Good judgment and insight. Results Reviewed Results Reviewed: 01/14/24 MR/MR lumbar spine wo con FINDINGS: There are 5 nonrib-bearing lumbar-type vertebral bodies. There is a partially imaged rightward convex scoliotic curvature of the thoracic spine and there is a leftward convex scoliotic curvature of the upper lumbar spine. The vertebral body heights are maintained. There is moderate disc volume loss and there is disc desiccation at L5-S1. Remaining disc volumes are preserved and the remaining discs remain well-hydrated. There is no bone marrow edema. There are no acute fractures. Partially imaged left SI joint screws. There are no significant extraspinal soft tissue findings. The imaged lower thoracic spinal cord is unremarkable. The conus terminates at the L2 level. At L1-L2, the disc contour is normal and there is no central canal stenosis nor foraminal stenosis. At L2-L3, there is a shallow right paracentral disc protrusion that mildly indents the right ventral thecal sac. There is no central canal stenosis and there is no foraminal stenosis. At L3-L4, there is a diffuse annular disc bulge and there is moderate bilateral facet arthropathy. There is no central canal stenosis and there is no foraminal stenosis. At L4-L5, there is a diffuse annular disc bulge and there is severe bilateral facet arthropathy and ligamentum flavum thickening. No central canal stenosis and no foraminal stenosis. At L5-S1, there are postoperative changes following left hemilaminectomy and microdiscectomy. There is a favored recurrent left paracentral disc protrusion compressing the traversing left S1 nerve root within the left subarticular zone. There is also granulation/scar tissue within the epidural space inseparable from the traversing left S1 nerve root. Postcontrast imaging could be obtained to more definitively distinguish between disc and scar. The central canal remains patent and there is no foraminal stenosis. IMPRESSION: At L5-S1, there are postoperative changes following left hemilaminectomy and microdiscectomy. There is a favored recurrent left paracentral disc protrusion compressing the traversing left S1 nerve root within the left subarticular zone. There is also granulation/scar tissue within the epidural space inseparable from the traversing left S1 nerve root. Postcontrast imaging could be obtained to more definitively distinguish between disc and scar tissue. Assessment & Plan Assessment & Plan (1) Lower back pain: Code(s): M54.50 - Low back pain, unspecified Category: Medical (2) Trapezius muscle strain: Code(s): S46.819A - Strain of other muscles, fascia and tendons at shoulder and upper arm level, unspecified arm, initial encounter Category: Medical (3) Myofascial muscle pain: Code(s): M79.18 - Myalgia, other site Category: Medical (4) Post laminectomy syndrome: Code(s): M96.1 - Postlaminectomy syndrome, not elsewhere classified Category: Medical Plan Lise presents back to the office today for follow-up chronic back pain and to discuss spinal cord stimulation Patient has exhausted conservative therapy including nonsteroidal anti- inflammatory medications, physical therapy, muscle relaxers and surgical intervention. Discussed options for treatment including diagnostic interventional testing, epidural steroid injections, peripheral nerve stimulation with [employer], RFA and more permanent neuromodulation. Informational pamphlets provided. Patient is suffering from post laminectomy syndrome, we discussed in length spinal cord stimulator with [employer] ([employer] Patient advised she would need mental health clearance with psych eval prior to any implantable devices, [employer] pamphlet was provided. She would like to proceed with SCS trial. Will call [employer]. Patient advised we can not proceed with scheduling the procedure until we have mental health clearance. Will schedule for fluoroscopy guided SCS trial with [employer] under anesthesia. New prescription for amitriptyline, 10 mg at bedtime. May increase to 20 mg at bedtime after 2 weeks if tolerating well. All questions and concerns have been answered and patient agrees with the plan. Follow up after procedure, sooner if needed Medications: New amitriptyline 10mg daily at bedtime for 2 weeks then may increase to 20mg daily at bedtime. 10 mg PO BEDTIME 60 tabs 0RF Coding Level of Care Code Est Pt Level 4 (08300) Diagnoses Lower back pain M54.50 Trapezius muscle strain S46.819A Myofascial muscle pain M79.18 Post laminectomy syndrome M96.1
[2024-02-14 08:53] VITALS: BP 134/70; PULSE 112; O2SAT 97; BMI 32.9
== END 2024-02-14 09:28 | disposition home or self-care (01) ==
PROVIDERS: PCP Nurse Practitioner Family; Visit Provider Registered Nurse Emergency
DX: M54.50 Low back pain, unspecified (principal); S46.819A Strain of other muscles, fascia and tendons at shoulder and upper arm level, unspecified arm, initial encounter; M79.18 Myalgia, other site; M96.1 Postlaminectomy syndrome, not elsewhere classified
CPT/HCPCS: 99214

== ENCOUNTER → 2024-02-14 08:30 | Outpatient (BNVA) | payer MEDICAID, SELFPAY | PROVIDERS: PCP Nurse Practitioner Family; Visit Provider Registered Nurse Emergency | DX: M54.50 Low back pain, unspecified (principal); M79.18 Myalgia, other site; M96.1 Postlaminectomy syndrome, not elsewhere classified; S46.819A Strain of other muscles, fascia and tendons at shoulder and upper arm level, unspecified arm, initial encounter; X58.XXXA Exposure to other specified factors, initial encounter; Y93.9 Activity, unspecified; Y92.9 Unspecified place or not applicable; Y99.9 Unspecified external cause status | CPT/HCPCS: 99212 ==

== ENCOUNTER → 2024-06-26 10:38 | Day surgery (SDC) | payer MEDICAID, SELFPAY ==
--- NOTE | 2024-06-25 09:09 | HO.ANESPROP2 ---
Documented by User: Therese Cordoba NP 06/25/24 09:12 HPI - Anesthesia Eval Consult details Narrative: 38yo F for Spinal Cord Stimulation Trial s/p Left L5-S1 MicroLumbar discectomy 10/2023 with GA-ETT 7 PONV. Scop patch not effective. No documented nausea post discectomy with Zofran 4mg TMJ. No surgery, never locked open. Tx with massage and heat when flares up Asthma. Stable. No rescue inhaler for a few months. Unable to swallow pills, needs crushed PMFSH Active Problems Active Problems: All Active Problems S/P lumbar microdiscectomy (Acute) Lumbar radiculopathy (Acute) Post laminectomy syndrome (Acute) Lower back pain (Acute) Trapezius muscle strain (Acute) Myofascial muscle pain (Acute) Past Medical History Medical History Fragrance hypersensitivity Hypoglycemia TMJ tenderness, right Osteoarthritis CTS (carpal tunnel syndrome) PONV (postoperative nausea and vomiting) DJD (degenerative joint disease) Asthma Seasonal allergies Environmental allergies Scoliosis Back pain Family History Family history of problems with anesthesia: No Surgical History Surgical History Hx of surgical fusion joint Hx of lumbar discectomy (~2018) History of arthroplasty of left knee Hx of sinus surgery Hx of bilateral breast reduction surgery History of ear surgery History of Problems with Anesthesia: Yes (PONV - scopolamine patch ineffective) Social History Social History Are you a primary patient care representative to a significant other at home: No Do you presently have visiting nurse or other home services: No Comment: aware of trip hazard Patient Tobacco Use Status: Former Tobacco user Second Hand Smoke Exposure: Yes (parents smoked in the home) Have you been hit, kicked, punched, or otherwise hurt by someone within the past year? If so, by whom?: No Are you DNR?: No Advance Directives: No Advance Directives Information Provided: Yes Recently lost weight without trying: No Nutrition Risks: No Nutritional Risk FDLMP: every 3 months Meds Allergies Allergy/AdvReac Type Severity Reaction Status Date / Time codeine Allergy Severe Anaphylaxis Verified 06/26/24 11:29 fluticasone [From Flonase] Allergy Severe Anaphylaxis Verified 06/26/24 11:29 oxycodone Allergy Intermediate skin Verified 02/14/24 08:54 redness morphine AdvReac Intermediate Nausea and Verified 06/26/24 11:29 Vomiting Opioids - Morphine Analogues AdvReac Unknown Unknown Verified 06/26/24 11:29 flu vaccine Allergy Severe Nausea and Uncoded 06/26/24 11:29 Vomiting, dehydration, weakness Home Medications ?Medication ?Instructions ?Recorded ?Confirmed ?Last Taken ?Type COVID-19 antigen test (QuickVue #1 ea 04/17/23 06/26/24 Unknown History At-Home COVID-19 Test kit) albuterol sulfate 2.5 mg/3 mL 2.5 mg inhalation Q4-6H PRN 04/17/23 06/26/24 Unknown History (0.083 %) solution for nebulization Shortness Of Breath Or Wheezing albuterol sulfate 90 mcg/actuation 2 inh inhalation Q4-6H PRN 04/17/23 06/26/24 Unknown History aerosol inhaler Shortness Of Breath Or Wheezing cyclobenzaprine 10 mg tablet 10 mg PO BEDTIME 04/17/23 06/26/24 Unknown History epinephrine 0.3 mg/0.3 mL 0.3 ml subcut ONCE PRN Allergic 04/17/23 06/26/24 Unknown History injection, auto-injector Reaction levonorgestrel 0.15 mg-ethinyl 1 tab PO DAILY 04/17/23 06/26/24 Unknown History estradiol 0.03 mg tablet (Altavera (28)) montelukast 10 mg tablet 10 mg PO DAILY 04/17/23 06/26/24 Unknown History naproxen 500 mg tablet 500 mg PO BID 04/17/23 06/26/24 Unknown History diphenhydramine HCl 25 mg tablet 25 mg PO TID PRN Allergic Reaction 10/30/23 06/26/24 Unknown History (Benadryl Allergy) fluticasone furoate 100 1 ea inhalation DAILY 10/30/23 06/26/24 Unknown History mcg-vilanterol 25 mcg/dose inhalation powder (Breo Ellipta) topiramate 100 mg tablet 100 mg PO DAILY PRN Headache 10/30/23 06/26/24 Unknown History triamcinolone acetonide 55 mcg 1 spray intranasal DAILY PRN 10/30/23 06/26/24 Unknown History nasal spray aerosol (Nasacort) Allergy Symptoms Exam Airway Mallampati Class: IV (Limited mouth opening d/t TMJ. Overbite. Prominent top incisors) TM Dist: >3cm Neck ROM: Full Assessment and Plan Assessment Anesthesia Assessment: Chart Reviewed Final Anesthetic Review Family History of Problems with Anesthesia: No History of Problems with Anesthesia: Yes (PONV - scopolamine patch ineffective) Documented by User: Lara Cunningham MD 06/26/24 12:54 PMFSH Past Medical History Medical History Fragrance hypersensitivity Hypoglycemia TMJ tenderness, right Osteoarthritis CTS (carpal tunnel syndrome) PONV (postoperative nausea and vomiting) DJD (degenerative joint disease) Asthma Seasonal allergies Environmental allergies Scoliosis Back pain Surgical History Surgical History Hx of surgical fusion joint Hx of lumbar discectomy (~2018) History of arthroplasty of left knee Hx of sinus surgery Hx of bilateral breast reduction surgery History of ear surgery Social History Social History Are you a primary patient care representative to a significant other at home: No Do you presently have visiting nurse or other home services: No Comment: aware of trip hazard Patient Tobacco Use Status: Former Tobacco user Second Hand Smoke Exposure: Yes (parents smoked in the home) Have you been hit, kicked, punched, or otherwise hurt by someone within the past year? If so, by whom?: No Are you DNR?: No Advance Directives: No Advance Directives Information Provided: Yes Recently lost weight without trying: No Nutrition Risks: No Nutritional Risk FDLMP: every 3 months Meds Allergies Allergy/AdvReac Type Severity Reaction Status Date / Time codeine Allergy Severe Anaphylaxis Verified 06/26/24 11:29 fluticasone [From Flonase] Allergy Severe Anaphylaxis Verified 06/26/24 11:29 oxycodone Allergy Intermediate skin Verified 02/14/24 08:54 redness morphine AdvReac Intermediate Nausea and Verified 06/26/24 11:29 Vomiting Opioids - Morphine Analogues AdvReac Unknown Unknown Verified 06/26/24 11:29 flu vaccine Allergy Severe Nausea and Uncoded 06/26/24 11:29 Vomiting, dehydration, weakness Home Medications ?Medication ?Instructions ?Recorded ?Confirmed ?Last Taken ?Type COVID-19 antigen test (QuickVue #1 ea 04/17/23 06/26/24 Unknown History At-Home COVID-19 Test kit) albuterol sulfate 2.5 mg/3 mL 2.5 mg inhalation Q4-6H PRN 04/17/23 06/26/24 Unknown History (0.083 %) solution for nebulization Shortness Of Breath Or Wheezing albuterol sulfate 90 mcg/actuation 2 inh inhalation Q4-6H PRN 04/17/23 06/26/24 Unknown History aerosol inhaler Shortness Of Breath Or Wheezing cyclobenzaprine 10 mg tablet 10 mg PO BEDTIME 04/17/23 06/26/24 Unknown History epinephrine 0.3 mg/0.3 mL 0.3 ml subcut ONCE PRN Allergic 04/17/23 06/26/24 Unknown History injection, auto-injector Reaction levonorgestrel 0.15 mg-ethinyl 1 tab PO DAILY 04/17/23 06/26/24 Unknown History estradiol 0.03 mg tablet (Altavera (28)) montelukast 10 mg tablet 10 mg PO DAILY 04/17/23 06/26/24 Unknown History naproxen 500 mg tablet 500 mg PO BID 04/17/23 06/26/24 Unknown History diphenhydramine HCl 25 mg tablet 25 mg PO TID PRN Allergic Reaction 10/30/23 06/26/24 Unknown History (Benadryl Allergy) fluticasone furoate 100 1 ea inhalation DAILY 10/30/23 06/26/24 Unknown History mcg-vilanterol 25 mcg/dose inhalation powder (Breo Ellipta) topiramate 100 mg tablet 100 mg PO DAILY PRN Headache 10/30/23 06/26/24 Unknown History triamcinolone acetonide 55 mcg 1 spray intranasal DAILY PRN 10/30/23 06/26/24 Unknown History nasal spray aerosol (Nasacort) Allergy Symptoms Exam Airway Heart: rrr Lungs: cta Assessment and Plan Assessment Anesthesia Assessment: Anesthesia Plan Discussed Final Anesthetic Review NPO: Yes ASA Class: III Final Preanesthetic Review: No Changes in Pt Med Stat, Meds/Allgs Chart Reviewed, Consent Obtained/Reviewed and Anes Risks/Benef Reviewed Patient Risk: Intermediate Procedure Risk: Low Anesthetic Plan Anesthetic Plan: MAC: Disposition: Standard PACU
[2024-06-26] MEDS: Lactated Ringers 1,000 ML 100 ML IVCONT (11:18)
[2024-06-26 11:28] VITALS: BP 127/82; PULSE 96; RESP 18; TEMP 36.8; O2SAT 98; BMI 32.9
[2024-06-26 11:58] LABS: UPreg QC Valid YES; Urine Pregnancy NEGATIVE (NEGATIVE)
--- NOTE | 2024-06-26 12:16 | MHC.SHP ---
Pre-Procedural Eval Section A - 24 Hr Update-Section A only Date of Service: 06/26/24 The patient is an INPATIENT: No Changes since office visit: Yes Patient answered all questions The patient has been examined within 24 hours of the surgical procedure. The History & Physical has been completed within 30 days and I have reviewed it.: No Section B - Complete if H&P > 30 days Chief Complaint: Postlaminectomy syndrome, not elsewhere classified Details of Present Illness: as above Relevant Family History (Specify if Yes): No Relevant Social History: None Present Medications: see Short Stay Collaborative assessment Medical History: No relevant PMH History of Previous Operations: Relevant previous surgery/procedure and date(s) Allergies: Allergies Allergy/AdvReac Type Severity Reaction Status Date / Time codeine Allergy Severe Anaphylaxis Verified 06/26/24 11:29 fluticasone [From Flonase] Allergy Severe Anaphylaxis Verified 06/26/24 11:29 oxycodone Allergy Intermediate skin Verified 02/14/24 08:54 redness morphine AdvReac Intermediate Nausea and Verified 06/26/24 11:29 Vomiting Opioids - Morphine Analogues AdvReac Unknown Unknown Verified 06/26/24 11:29 flu vaccine Allergy Severe Nausea and Uncoded 06/26/24 11:29 Vomiting, dehydration, weakness Review of Systems Sugical H&P ROS: Negative: Constitution, Cardiovascular, Respiratory, Neurological, Psychiatric, Hem-Onc, Allergic/Immunologic, Gastrointestinal, Genitourinary, Integumentary, Endocrine and Eyes/Ears/Nose/Throat and Yes, Specify: Musculoskeletal (postlaminectomy syndrome) Exam Surgical H&P Exam: Normal: HEENT, Normal: Heart, Normal: Lungs, Normal: Extremities, Normal: Abdomen, Normal: Skin and Normal: Neurological Plan Diagnosis/Plan: Unchanged I have reviewed the history and physical and performed a pertinent physical examination on my patient. No changes have occurred unless specified. Time Spent With Patient Time: Total time managing care of this patient today ____ minutes.
--- NOTE | 2024-06-26 12:23 | P.OP_ITS ---
Operative Note Operative Note Date of Service: 06/26/24 Narrative: Trial of [place] [employer] spinal cord stimulator thoracic position. Lise is very pleasant 38 years old lady who came today- to the operating room for trial of spinal cord stimulator [employer] for the treatment of postlaminectomy syndrome and chronic pain syndrome. ?Preoperatively patient received ? cefazolin 2 g approximately 20 minutes before the incision. After obtaining informed consent where risks and benefits as well as alternatives were explained to the patient including risk of bleeding, infection, peripheral nerve damage, spinal cord damage and headache, the patient was taken to the operating room. She was positioned prone on operating table, ASA monitor were applied and the patient was minimally sedated. ?Time-out was performed delineating correct site, side, the nature of the procedure, patient's allergy, preoperative antibiotic if needed.? All operating room staff was participating in OR time-out procedure. Patient's entire back was prepped with Chloraprep twice and draped with full body fenestrated laparoscopy drape.? Sterilely draped C-arm was brought over operating field and square picture of the T11, T12, L1, L2 vertebrae? were demonstrated on the screen.? Severe scoliosis was noted. The position of the C- arm during the case was adjusted appropriately to receive images as close to sq as possible. ?Attention FIRST? was concentrated on the T12-L1 epidural interspace. The location of the projection of L2 vertebra right pedicle was found on the skin using C-arm.? This location was injected with mixture of lidocaine 2% and ropi vacaine 0.5% - 5 cc. and subcutaneous tissues were also anesthetized with the same solution.? After that 11 blade was used to make a small calista on the skin.? 10 cm 14 gauge? introducer epidural needle was inserted through the calista and advanced to right T12-L1 epidural interspace. The advancement of the needle was performed on anterior posterior and lateral views. Loss of resistance to air technique were used to locate epidural space. Guitar wire was used to confirm position of the needle in the epidural space, and after that epidural stimulating lead was inserted and? advanced in the posterior epidural space to the top of T8 vertebral body projection. The position of the electrode was verified by anterior posterior and lateral views. The right side inserted el ectrode was positioned as close to midline as possible. ? .? After that? the location of the projection of the LEFT pedicle center of the?L2 vertebra was found on the skin using C-arm.? This location was injected with mixture of lidocaine 2% and Marcaine 0.5% 5 cc.? After that 11 blade was used to make a calista on the skin.? 10 cm 14 gauge introducer epidural needle was inserted through the calista and advanced to T11-T12 epidural interspace.? The advancement of the needle was performed on anterior posterior and lateral views.? Guitar wire and loss of resistance to air technique were used to locate epidural space.? When guitar wire was spread in the epidural fashion, epidural lead was inserted through the needle. After the the epidural lead advanced into the posterior epidural space and advanced to the top of T9 projection epidural space also very close to midline slightly left to the existing electrode. Lateral view demonstrated position of the lead in the posterior epidural space. the position of electrodes in the posterior epidural space was verified by Fluoroscopy image. At this moment patient was awake and stimulation was applied. The patient reported stimulation corresponding to the area of her pain. After that the skin at the site of the mixture of lidocaine 2% and ropivacaine 0.5% one-to-one was injected, the epidural needles were withdrawn, the stylette wires were removed from the epidural leads.? The anchoring devices were dislodged on the leads and advanced to the level of the skin.? The anchoring devices were sutured with two 0-0 ?Silk sutures per each anchor to the skin of the patient. The central fixation screw of each anchor was rotated until three clicks were heard. The leads were connected to testing device.? Bacitracin ointment was applied to the entrance point of bilateral wires.? Sterile dressing was applied to the patient's back.? The testing device was also taped to the patient's back.? the patient tolerated procedure well she was taken outside of the operating room to recovery room.
[2024-06-26 14:26] VITALS: BP 124/89; PULSE 93; RESP 16; TEMP 36.1; O2SAT 99
--- NOTE | 2024-06-26 14:31 | P.BOP_ITS ---
Brief Operative Note Date of Service: 06/26/24 Pre-op diagnosis: Postlaminectomy syndrome, chronic pain syndrome. Post-op diagnosis: same Procedure: Trial of [place] [employer] spinal cord stimulator. Surgeon: Anuel Metz MD Anesthesia: MAC Was an Cash Applications Associate used for this Procedure?: No Estimated blood loss (mL): 8 Condition: stable Disposition: PACU
[2024-06-26 14:40] VITALS: BP 127/79; PULSE 93; RESP 16; O2SAT 99
[2024-06-26 14:55] VITALS: BP 126/84; PULSE 95; RESP 16; O2SAT 99
[2024-06-26 15:10] VITALS: BP 123/61; PULSE 95; RESP 16; TEMP 36.1; O2SAT 99
[2024-06-26 15:25] VITALS: BP 132/58; PULSE 95; RESP 16; TEMP 36.1; O2SAT 99
== END | disposition home or self-care (01) ==
PROVIDERS: Nurse Practitioner; PCP Nurse Practitioner Family; Visit Provider Anesthesiology
PROC: (CPT 63650; principal; 2024-06-26 12:30)
DX: M96.1 Postlaminectomy syndrome, not elsewhere classified (principal); G89.4 Chronic pain syndrome; M41.85 Other forms of scoliosis, thoracolumbar region; Z79.899 Other long term (current) drug therapy; Z79.1 Long term (current) use of non-steroidal anti-inflammatories (NSAID); Z79.51 Long term (current) use of inhaled steroids; Z88.5 Allergy status to narcotic agent; Z88.8 Allergy status to other drugs, medicaments and biological substances; Z88.7 Allergy status to serum and vaccine
CPT/HCPCS: 63650 ×2; 81025; C1889; C1897; J0665; J0690; J2003; J2250; J2704; Q9967

== ENCOUNTER → 2024-06-26 10:38 | Outpatient (BNV) | payer MEDICAID, SELFPAY | PROVIDERS: PCP Nurse Practitioner Family; Visit Provider Anesthesiology | DX: M96.1 Postlaminectomy syndrome, not elsewhere classified (principal) | CPT/HCPCS: 63650 ==

== ENCOUNTER 2024-07-03 09:23 | Outpatient (AMB) | payer MEDICAID, SELFPAY ==
--- NOTE | 2024-07-03 09:25 | MHC.OFFVIS ---
Vital Signs 07/03/24 09:26 Height 5 ft 2 in Weight 180 lb BMI 32.9 BP 132/67 Blood Pressure Location Lt brachial Position Sitting Respiration 16 Pulse 118 H Pulse Source Pulse Oximeter Pulse Oximetry (%) 98 Oxygen Delivery Method Room Air Intake Visit Reasons: S/p [place] [employer] SCS Trial 06/26/24 Allergies codeine Allergy (Severe, Verified 07/03/24 09:33) Anaphylaxis fluticasone [From Flonase] Allergy (Severe, Verified 07/03/24 09:33) Anaphylaxis oxycodone Allergy (Intermediate, Verified 07/03/24 09:33) skin redness morphine Adverse Reaction (Intermediate, Verified 07/03/24 09:33) Nausea and Vomiting Opioids - Morphine Analogues Adverse Reaction (Unknown, Verified 07/03/24 09:33) Unknown flu vaccine Allergy (Severe, Uncoded 07/03/24 09:33) Nausea and Vomiting, dehydration, weakness Medication List - Last Reconciled 07/03/24 by Katlin Orozco LPN albuterol sulfate 90 mcg/actuation 2 inhalations inhalation Q4-6H PRN albuterol sulfate 2.5 mg inhalation Q4-6H PRN amitriptyline 10 mg PO BEDTIME COVID-19 antigen test ([employer] At-Home COVID-19 Test kit) As directed cyclobenzaprine 10 mg PO BEDTIME diphenhydramine HCl (Benadryl Allergy) 25 mg PO TID PRN epinephrine 0.3 mL subcut ONCE PRN fluticasone furoate-vilanterol 100-25 mcg/dose (Breo Ellipta) 1 ea inhalation DAILY levonorgestrel-ethinyl estrad 0.15-0.03 mg (Altavera (28)) 1 tab PO DAILY montelukast 10 mg PO DAILY naproxen 500 mg PO BID topiramate 100 mg PO DAILY PRN triamcinolone acetonide (Nasacort) 1 spray intranasal DAILY PRN HPI Comments Details: Patient presents back to the office today for follow up, 1 week S/P SCS trial with [place] [facility] She reports 90% pain relief with improvement in function and mobility Was able to ambulate without a cane, slept better and did not cry because of the pain. Denies any untoward effects of the device. Prior: Lise presents back to the office today for follow-up chronic back pain in the setting of post laminectomy syndrome Since last visit patient was evaluated by Neurosurgery. She underwent microdiskectomy on 10/2023 without improvement of her symptoms She has been suffering with left lower back pain with radiation down the left leg. This has worsened since her visit here 1 year ago. Completed physical therapy approximately 7 months ago without improvement of her symptoms. Patient has return here to further discuss spinal cord stimulation. Currently taking muscle relaxers and nonsteroidal anti-inflammatory medications without improvement of her pain. Has tried gabapentin but did not tolerate. Pain today is rated a 7/10, constant. Left lower back pain with radiation down the left leg. Also endorses left leg numbness and weakness. She has had to quit her job secondary to this pain. Denies red flag symptoms including new loss of bowel, bladder or saddle anesthesia. Recent MRI reviewed, results as per below Initial visit 04/18/2023: Lise is a very pleasant 37 year old female who presents to the office today for evaluation and management of her chronic all over back pain. Patient reports that she has been suffering with this pain for ?my entire life ?. She states that she was bored with scoliosis, diagnosed as a child and has been suffering with pain since. She denies any treatment for the scoliosis previously. Patient does have a history of left S IJ fusion and L5-S1 partial discectomy both performed in 2018. She states her surgeon has since retired. She had evaluation with neurosurgeon less than 1 year ago and was told that surgery was not an option for treatment. All imaging has been completed echo [facility], she does not know when her most recent MRI was, records have been requested. Patient states she has never done physical therapy for her back, chiropractor has declined to treat her due to her scoliosis and she has never tried acupuncture or massage. She reports a remote history of injections to her back and states that they ?never worked ?. She is currently taking a muscle relaxer as needed and reports she only uses this when it is very bad, naproxen daily which provides some relief. Patient has red flag symptoms including new loss of bowel, bladder or saddle anesthesia. In terms of muscle damage condition is described as aching, spasming, shooting, tiring, exhausting and throbbing. Pain is constant throughout the entire day and night, negatively impacting her enjoyment of life, general activity, mood, normal work, recreational activities, sleep and walking. [facility] Medical History Fragrance hypersensitivity Hypoglycemia TMJ tenderness, right Osteoarthritis CTS (carpal tunnel syndrome) PONV (postoperative nausea and vomiting) DJD (degenerative joint disease) Asthma Seasonal allergies Environmental allergies Scoliosis Back pain Surgical History Hx of surgical fusion joint Hx of lumbar discectomy (~2018) History of arthroplasty of left knee Hx of sinus surgery Hx of bilateral breast reduction surgery History of ear surgery Social History Are you a primary property caretaker to a significant other at home: No Do you presently have visiting nurse or other home services: No Comment: aware of trip hazard Patient Tobacco Use Status: Former Tobacco user Second Hand Smoke Exposure: Yes (parents smoked in the home) Review of Systems Const All systems reviewed & are unremarkable except as noted in HPI and below Physical Exam Vital Signs: Last Vital Signs Pulse 118 H 07/03/24 09:26 Resp 16 07/03/24 09:26 BP 132/67 07/03/24 09:26 Pulse Ox 98 07/03/24 09:26 Oxygen Delivery Method Room Air 07/03/24 09:26 BMI result Body Mass Index 32.9 General: awake, alert, oriented. Answers questions appropriately. Fully engaged in examination. Appears uncomfortable Skin: warm, dry, intact HEENT: Normocephalic. Hearing intact. Cardiac: External chest normal in appearance. Respiratory: No cough, audible wheezing or stridor. Abdomen: without gross distension. MS: No obvious swelling or deformities. Neurological: Oriented to person, place, time and situation. Thought process intact. Psychiatric: Appropriate mood and affect. Good judgment and insight. [place] [employer] SCS Trial lead removal: Dressing was taken down, area was cleansed with chloraprep, insertion site was visualized and without redness/irritation/drainage. Sutures removed and both leads withdrawn without resistance; leads examined and noted to be without concern, tips intact. Area cleansed again, bacitracin dressing was applied, area covered with tegaderm. Results Reviewed Results Reviewed: 01/14/24 MR/MR lumbar spine wo con FINDINGS: There are 5 nonrib-bearing lumbar-type vertebral bodies. There is a partially imaged rightward convex scoliotic curvature of the thoracic spine and there is a leftward convex scoliotic curvature of the upper lumbar spine. The vertebral body heights are maintained. There is moderate disc volume loss and there is disc desiccation at L5-S1. Remaining disc volumes are preserved and the remaining discs remain well-hydrated. There is no bone marrow edema. There are no acute fractures. Partially imaged left SI joint screws. There are no significant extraspinal soft tissue findings. The imaged lower thoracic spinal cord is unremarkable. The conus terminates at the L2 level. At L1-L2, the disc contour is normal and there is no central canal stenosis nor foraminal stenosis. At L2-L3, there is a shallow right paracentral disc protrusion that mildly indents the right ventral thecal sac. There is no central canal stenosis and there is no foraminal stenosis. At L3-L4, there is a diffuse annular disc bulge and there is moderate bilateral facet arthropathy. There is no central canal stenosis and there is no foraminal stenosis. At L4-L5, there is a diffuse annular disc bulge and there is severe bilateral facet arthropathy and ligamentum flavum thickening. No central canal stenosis and no foraminal stenosis. At L5-S1, there are postoperative changes following left hemilaminectomy and microdiscectomy. There is a favored recurrent left paracentral disc protrusion compressing the traversing left S1 nerve root within the left subarticular zone. There is also granulation/scar tissue within the epidural space inseparable from the traversing left S1 nerve root. Postcontrast imaging could be obtained to more definitively distinguish between disc and scar. The central canal remains patent and there is no foraminal stenosis. IMPRESSION: At L5-S1, there are postoperative changes following left hemilaminectomy and microdiscectomy. There is a favored recurrent left paracentral disc protrusion compressing the traversing left S1 nerve root within the left subarticular zone. There is also granulation/scar tissue within the epidural space inseparable from the traversing left S1 nerve root. Postcontrast imaging could be obtained to more definitively distinguish between disc and scar tissue. Assessment & Plan Assessment & Plan (1) Lower back pain: Code(s): M54.50 - Low back pain, unspecified Category: Medical (2) Trapezius muscle strain: Code(s): S46.819A - Strain of other muscles, fascia and tendons at shoulder and upper arm level, unspecified arm, initial encounter Category: Medical (3) Myofascial muscle pain: Code(s): M79.18 - Myalgia, other site Category: Medical (4) Post laminectomy syndrome: Code(s): M96.1 - Postlaminectomy syndrome, not elsewhere classified Category: Medical Plan Lise presents back to the office today for follow-up, one-week status post [place] [employer] SCS trial She reports 90% pain relief with improvement in function and mobility during the trial. Leads removed as per above. Patient tolerated well. Patient is suffering from post laminectomy syndrome, we discussed at length spinal cord stimulator implant. Will schedule for fluoroscopy guided SCS trial with [employer] under anesthesia. All questions and concerns have been answered and patient agrees with the plan. Follow up after procedure, sooner if needed Coding Level of Care Code Est Pt Level 3 (48350) Complex EM visit Add On G2211 Diagnoses Lower back pain M54.50 Trapezius muscle strain S46.819A Myofascial muscle pain M79.18 Post laminectomy syndrome M96.1
[2024-07-03 09:26] VITALS: BP 132/67; PULSE 118; RESP 16; O2SAT 98; BMI 32.9
== END 2024-07-03 09:52 | disposition home or self-care (01) ==
PROVIDERS: PCP Nurse Practitioner Family; Visit Provider Registered Nurse Emergency
DX: M54.50 Low back pain, unspecified (principal); S46.819A Strain of other muscles, fascia and tendons at shoulder and upper arm level, unspecified arm, initial encounter; M79.18 Myalgia, other site; M96.1 Postlaminectomy syndrome, not elsewhere classified
CPT/HCPCS: 99213

== ENCOUNTER → 2024-07-03 09:23 | Outpatient (BNVA) | payer MEDICAID, SELFPAY | PROVIDERS: PCP Nurse Practitioner Family; Visit Provider Registered Nurse Emergency | DX: M96.1 Postlaminectomy syndrome, not elsewhere classified (principal); M54.50 Low back pain, unspecified; M79.18 Myalgia, other site; S46.819A Strain of other muscles, fascia and tendons at shoulder and upper arm level, unspecified arm, initial encounter | CPT/HCPCS: 99212 ==

== ENCOUNTER → 2024-07-24 06:00 | Outpatient (BNV) | payer MEDICAID, SELFPAY | PROVIDERS: PCP Nurse Practitioner Family; Visit Provider Anesthesiology | DX: M96.1 Postlaminectomy syndrome, not elsewhere classified (principal) | CPT/HCPCS: 63650; 63685 ==

== ENCOUNTER → 2024-07-31 09:16 | Outpatient (AMB) | payer MEDICAID, SELFPAY | END | disposition home or self-care (01) | PROVIDERS: PCP Nurse Practitioner Family; Visit Provider Registered Nurse Emergency | CPT/HCPCS: 99024 ==

== ENCOUNTER → 2024-07-31 09:16 | Outpatient (BNVA) | payer MEDICAID, SELFPAY | PROVIDERS: PCP Nurse Practitioner Family; Visit Provider Registered Nurse Emergency | DX: M54.50 Low back pain, unspecified (principal); M79.18 Myalgia, other site; M96.1 Postlaminectomy syndrome, not elsewhere classified; S46.819A Strain of other muscles, fascia and tendons at shoulder and upper arm level, unspecified arm, initial encounter; X58.XXXA Exposure to other specified factors, initial encounter; Y93.9 Activity, unspecified; Y92.9 Unspecified place or not applicable; Y99.9 Unspecified external cause status | CPT/HCPCS: 99212 ==

== ENCOUNTER 2024-08-07 09:06 | Outpatient (AMB) | payer MEDICAID, SELFPAY ==
--- NOTE | 2024-08-07 09:13 | MHC.OFFVIS ---
Vital Signs 08/07/24 09:18 Height 5 ft 2 in Weight 180 lb BMI 32.9 BP 131/77 Blood Pressure Location Lt brachial Position Sitting Pulse 91 Pulse Source Pulse Oximeter Pulse Oximetry (%) 97 Oxygen Delivery Method Room Air Intake Visit Reasons: S/p [place] [employer] SCS Implant (2nd Visit) 07/24/24 Intake Note: Pain today 4/10 Technical Delivery Manager Required: No Accompanied by: Self / Same As Patient Allergies codeine Allergy (Severe, Verified 08/07/24 09:19) Anaphylaxis fluticasone [From Flonase] Allergy (Severe, Verified 08/07/24 09:19) Anaphylaxis oxycodone Allergy (Intermediate, Verified 08/07/24 09:19) skin redness morphine Adverse Reaction (Intermediate, Verified 08/07/24 09:19) Nausea and Vomiting Opioids - Morphine Analogues Adverse Reaction (Unknown, Verified 08/07/24 09:19) Unknown flu vaccine Allergy (Severe, Uncoded 07/24/24 06:24) Nausea and Vomiting, dehydration, weakness HPI Comments Details: Patient presents back to the office today for follow-up, two weeks status post SCS implant with [place] [employer] Pain today is rated as a 4/10. Average pain relief 60-70%. Denies any untoward effects with the procedure. States in the week after implant she was diagnosed with COVID, last week she was diagnosed with flu a. Due to the viral illnesses she has not been getting around or doing as much as she would hope. This has made evaluating the results of SCS implant difficult. Initial visit 04/18/2023: Lsie is a very pleasant 37 year old female who presents to the office today for evaluation and management of her chronic all over back pain. Patient reports that she has been suffering with this pain for ?my entire life ?. She states that she was bored with scoliosis, diagnosed as a child and has been suffering with pain since. She denies any treatment for the scoliosis previously. Patient does have a history of left S IJ fusion and L5-S1 partial discectomy both performed in 2018. She states her surgeon has since retired. She had evaluation with neurosurgeon less than 1 year ago and was told that surgery was not an option for treatment. All imaging has been completed echo [facility], she does not know when her most recent MRI was, records have been requested. Patient states she has never done physical therapy for her back, chiropractor has declined to treat her due to her scoliosis and she has never tried acupuncture or massage. She reports a remote history of injections to her back and states that they ?never worked ?. She is currently taking a muscle relaxer as needed and reports she only uses this when it is very bad, naproxen daily which provides some relief. Patient has red flag symptoms including new loss of bowel, bladder or saddle anesthesia. In terms of muscle damage condition is described as aching, spasming, shooting, tiring, exhausting and throbbing. Pain is constant throughout the entire day and night, negatively impacting her enjoyment of life, general activity, mood, normal work, recreational activities, sleep and walking. [facility] Medical History Fragrance hypersensitivity Hypoglycemia TMJ tenderness, right Osteoarthritis CTS (carpal tunnel syndrome) PONV (postoperative nausea and vomiting) DJD (degenerative joint disease) Asthma Seasonal allergies Environmental allergies Scoliosis Back pain Surgical History Hx of surgical fusion joint Hx of lumbar discectomy (~2018) History of arthroplasty of left knee Hx of sinus surgery Hx of bilateral breast reduction surgery History of ear surgery Social History Household Members Other:: S.O. parents Are you a primary career professional to a significant other at home: No Do you presently have visiting nurse or other home services: No Comment: aware of trip hazard Patient Tobacco Use Status: Former Tobacco user Second Hand Smoke Exposure: Yes (parents smoked in the home) Review of Systems Const All systems reviewed & are unremarkable except as noted in HPI and below Physical Exam Vital Signs: Last Vital Signs Pulse 91 08/07/24 09:18 BP 131/77 08/07/24 09:18 Pulse Ox 97 08/07/24 09:18 Oxygen Delivery Method Room Air 08/07/24 09:18 BMI result Body Mass Index 32.9 General: awake, alert, oriented. Answers questions appropriately. Fully engaged in examination. Appears uncomfortable Skin: warm, dry, intact HEENT: Normocephalic. Hearing intact. Cardiac: External chest normal in appearance. Respiratory: No cough, audible wheezing or stridor. Abdomen: without gross distension. MS: No obvious swelling or deformities. Neurological: Oriented to person, place, time and situation. Thought process intact. Psychiatric: Appropriate mood and affect. Good judgment and insight. Dressings removed. The two incisional wounds were examined today. They are healing without complications. The wounds are clean, no pathological discharge, no redness, no swelling, no local temperature, no tenderness on palpation. [place] removed from both incisions, patient tolerated well. The wounds were washed with ChloraPrep and bacitracin ointment with dry sterile dressings were applied. Patient is wearing abdominal binder. Results Reviewed Results Reviewed: 01/14/24 MR/MR lumbar spine wo con FINDINGS: There are 5 nonrib-bearing lumbar-type vertebral bodies. There is a partially imaged rightward convex scoliotic curvature of the thoracic spine and there is a leftward convex scoliotic curvature of the upper lumbar spine. The vertebral body heights are maintained. There is moderate disc volume loss and there is disc desiccation at L5-S1. Remaining disc volumes are preserved and the remaining discs remain well-hydrated. There is no bone marrow edema. There are no acute fractures. Partially imaged left SI joint screws. There are no significant extraspinal soft tissue findings. The imaged lower thoracic spinal cord is unremarkable. The conus terminates at the L2 level. At L1-L2, the disc contour is normal and there is no central canal stenosis nor foraminal stenosis. At L2-L3, there is a shallow right paracentral disc protrusion that mildly indents the right ventral thecal sac. There is no central canal stenosis and there is no foraminal stenosis. At L3-L4, there is a diffuse annular disc bulge and there is moderate bilateral facet arthropathy. There is no central canal stenosis and there is no foraminal stenosis. At L4-L5, there is a diffuse annular disc bulge and there is severe bilateral facet arthropathy and ligamentum flavum thickening. No central canal stenosis and no foraminal stenosis. At L5-S1, there are postoperative changes following left hemilaminectomy and microdiscectomy. There is a favored recurrent left paracentral disc protrusion compressing the traversing left S1 nerve root within the left subarticular zone. There is also granulation/scar tissue within the epidural space inseparable from the traversing left S1 nerve root. Postcontrast imaging could be obtained to more definitively distinguish between disc and scar. The central canal remains patent and there is no foraminal stenosis. IMPRESSION: At L5-S1, there are postoperative changes following left hemilaminectomy and microdiscectomy. There is a favored recurrent left paracentral disc protrusion compressing the traversing left S1 nerve root within the left subarticular zone. There is also granulation/scar tissue within the epidural space inseparable from the traversing left S1 nerve root. Postcontrast imaging could be obtained to more definitively distinguish between disc and scar tissue. Assessment & Plan Assessment & Plan (1) Lower back pain: Code(s): M54.50 - Low back pain, unspecified Category: Medical (2) Trapezius muscle strain: Code(s): S46.819A - Strain of other muscles, fascia and tendons at shoulder and upper arm level, unspecified arm, initial encounter Category: Medical (3) Myofascial muscle pain: Code(s): M79.18 - Myalgia, other site Category: Medical (4) Post laminectomy syndrome: Code(s): M96.1 - Postlaminectomy syndrome, not elsewhere classified Category: Medical Plan Patient presented to the office today for follow-up, 2 weeks status post Implantation of SCS [employer] [employer]. Endorses 60-70% pain relief since implant. Denies any untoward effects. Sutures were removed and dressings changed, as per above Continue wearing abdominal binder. Reviewed activity restrictions. All questions were answered and patient agrees with the plan. Follow up as needed.. Coding Level of Care Code Est Pt Level 3 (95532) Complex EM visit Add On G2211 Diagnoses Lower back pain M54.50 Trapezius muscle strain S46.819A Myofascial muscle pain M79.18 Post laminectomy syndrome M96.1
[2024-08-07 09:18] VITALS: BP 131/77; PULSE 91; O2SAT 97; BMI 32.9
--- OUTSIDE RECORDS SUMMARY | 2024-08-07 09:30 | XMS_ITS | Encounter Summary ---
Author Organization [employer] Address [address] [place] [address] Care Team Providers Care Wire Fence Builder Name Role Phone Kylee Gómez Primary Care Provider +1 -[phone] Gladys Foster Unavailable Unavailable Encounter Details Date Type Department Care Team (Late st Contact Info) Description 07/15/[address] [facility] [address] [place] [address] Kylee Gómez FNP [address] [place] [address] Social History Tobacco Use Types Packs/Day Years Used Date Smoking Tobacco: Never Passive Smoke Exposure: Never Smokeless Tobacco: Never Alcohol Use Standard Drinks/Week Comments Not Currently 0 (1 standard drink = 0.6 oz pur e alcohol) Alcohol Answer Date Recorded How often do you have a drink containing alcohol ? 0 04/25/2024 How many drinks containing a lcohol do you have on a typical day when you are drinking? 0 04/25/2024 How often do you have six or more drinks on one occasion? 0 04/25/2024 Depression Answer Date Recorded Patient Health Questionnaire-9 Score 25 05/12/2024 Patient Health Questionnaire-9 Score 25 05/12/2024 Last PHQ-9: Questionnaire Data Not on file 1 07/12/2023 Housing Stability Answer Date Recorded What is your housing situation today? I have viridiana garcia 04/25/[address] you li ve. Do you have problems with any of the following? None of the above 04/25/2024 Food Insecurity Answer Date Recorded Within the past 12 months, y ou worried that your food would run out before you got money to buy more: Never True 04/25/2024 Within the past 12 months,th e food you bought just didn't last and you didn't have enough money to get more: Never True 07/2023 Transportation Answer Date Recorded In the past 12 months, has l ack of transportation kept you from medical appts, meetings, work or from getting things needed for daily living? No 04/25/2024 Intimate Partner Violence Answer Date R ecorded Within the last year, have y ou been afraid of your partner or ex-partner? 2 04/25/2024 Within the last year, have y ou been humiliated or emotionally abused in other ways by your partner or ex-partner? 2 Within the last year, have y ou been kicked, hit, slapped, or otherwise physically hurt by your partner or ex-partner? 2 04/25/2024 Within the last year, have y ou been raped or forced to have any kind of sexual activity by your partner or ex-partner? 2 04/25/2024 Utilities Answer Date Recorded In the past 12 months, has t he [employer], gas, oil or water [employer] threatened to shut off services in your home? No 04/25/2024 Depression Answer Date Recorded Patient Health Questionnaire-2 Score 6 05/12/2024 Internet Access Answer Date Recorded Internet Access Q1 Yes 04/25/2024 Internet Access Q2 Not on file 04/25/2024 Comments No Sex and Gender Information Value Date Recorded Sex Assigned at Female 06/29/2022 3:16 PM EST Legal Sex Female 8:34 PM EDT Gender Identity Female 06/29/2022 3:16 PM EST Sexual Orientation Don't know 06/29/2022 3: 16 PM EST documented as of this encounter Miscellaneous Notes * Telephone Encounter - Yarelis Akbar - 07/21/2024 3:20 PM EST error documented in this encounter Plan of Treatment Upcoming Encounters Date Type Department Care Team (Late st Contact Info) Description 01/19/2025 8:30 AM EDT Office Visit [facility] [address] [place] [address] [place] [address] Jazmine Perez documented as of this encounter Visit Diagnoses Not on filedocumented in this encounter Additional Health Concerns Assessment Noted Time PHQ-9 Depression Total Score: 25 024 4:14 PM EST documented as of this encounter Care Teams Wire Fence Builder Relationship Specialty Start Date End Date Kylee Gómez FNP [address] [place] [address] PCP - General Family Medicine 07/05/22 Gladys Foster Health Navigator 04/27/24 documented as of this encounter
--- OUTSIDE RECORDS SUMMARY | 2024-08-07 09:30 | XMS_ITS | Encounter Summary ---
Author Organization [employer] Address [address] [place] [address] 7[address] [place] [address] Care Team Providers Care Home Care Companion Name Role Phone Kylee Gómez Primary Care Provider +1 [phone] Gladys Foster Unavailable Unavailable Reason for Visit * Reason Comments Med Refill Encounter Details Date Type Department Care Team (Late st Contact Info) Description 07/09/[address] [facility] MED[facility] [address] [place] [address] Kylee Gómez FNP [address] [place] [address] Encounter for contraceptive management, unspecified Social History Tobacco Use Types Packs/Day Years [...] the past 12 months, has t he electric, gas, oil or water company threatened to shut off services in your [...] PM EST documented as of this encounter Plan of Treatment Upcoming Encounters Date Type Department Care Team (Late st Contact Info) Description 01/19/2025 8:30 AM EDT Office Visit [facility] [address] [place] [address] Jazmine Perez documented as of this encounter Visit Diagnoses Diagnosis Encounter for contraceptive management, unspecified documented in this encounter Additional Health Concerns Assessment Noted Time PHQ-9 Depression Total Score: 25 024 4:14 PM EST documented as of this encounter Care Teams Home Care Companion Relationship Specialty Start Date End Date Kylee Gómez FNP [address] [place] [address] PCP - General Family Medicine 07/05/22 Gladys Foster Health Navigator 04/27/24 documented as of this encounter
--- OUTSIDE RECORDS SUMMARY | 2024-08-07 09:30 | XMS_ITS | Encounter Summary ---
Author Organization [employer] Address [address] [place] [address] 7[address] [place] [address] Care Team Providers Care Drop Wire Hanger Name Role Phone Kylee Gómez Primary Care Provider [phone] [phone] Gladys Foster Unavailable Unavailable Encounter Details Date Type Department Care Team (Late st Contact Info) Description 12/17/2023 Orders Only [facility] [address] [place] [address] Kylee Gómez FNP [address] [place] [address] Social History Tobacco Use Types Packs/Day Years Used Date Smoking Tobacco: Never Alcohol Use Standard Drinks/Week Comments Not Currently 0 (1 standard drink = 0.6 oz pur e alcohol) Comments Unknown Sex and Gender Information Value Date Recorded Sex Assigned at Female 06/29/2022 3:16 PM EST Legal Sex Female 8:34 PM EDT Gender Identity Female 06/29/2022 3:16 PM EST Sexual Orientation Don't know 06/29/2022 3: 16 PM EST documented as of this encounter Plan of Treatment Upcoming Encounters Date Type Department Care Team (Late st Contact Info) Description 01/19/2025 8:30 AM EDT Office Visit [facility] [address] [place] [address] Jazmine Perez documented as of this encounter Procedures Procedure Name Priority Date/Time Associated Diagnosis Comments XR LUMBAR SPINE COMPLETE 4+ VW Routine 09/18/2023 12:12 PM EDT documented in this encounter Results * XR LUMBAR SPINE COMPLETE 4+ VW (09/18/2023 12:12 PM EDT) Anatomical Region Laterality Modality Radiographic Edita ging Kylee JEFF IMG XR PROCEDURES Final R esult documented in this encounter Visit Diagnoses Not on filedocumented in this encounter Care Teams Drop Wire Hanger Relationship Specialty Start Date End Date Kylee Gómez FNP [address] [place] [address] PCP - General Family Medicine 07/05/22 Gladys Foster Health Navigator 04/27/24 documented as of this encounter
--- OUTSIDE RECORDS SUMMARY | 2024-08-07 09:30 | XMS_ITS | Encounter Summary ---
Author Organization [employer] Address [address] [place] [address] 7[address] [place] [address] Care Team Providers Care Merchandise Team Manager Name Role Phone Kylee Gómez Primary Care Provider [phone] [phone] Gladys Foster Unavailable Unavailable Encounter Details Date Type Department Care Team (Late st Contact Info) Description 10/09/2023 Orders Only [facility] [address] [place] [address] Kylee Gómez FNP [address] [place] [address] Social History Tobacco Use Types Packs/Day Years [...] Description 01/19/2025 8:30 AM EDT Office Visit [facility] [address] [place] [address] Jazmine Perez documented as of this encounter Procedures Procedure Name Priority Date/Time Associated Diagnosis Comments PULMONARY FUNCTION TESTING Routine 10/03/2023 10:21 AM EDT documented in this encounter Results * Pulmonary function testing (10/03/2023 10:21 AM EDT) Kylee JEFF PFT ORDERABLES Final Res ult documented in this encounter Visit Diagnoses Not on filedocumented in this encounter Care Teams Merchandise Team Manager Relationship Specialty Start Date End Date Kylee Gómez FNP [address] [place] [address] PCP - General Family Medicine 07/05/22 Gladys Foster Health Navigator 04/27/24 documented as of this encounter
--- OUTSIDE RECORDS SUMMARY | 2024-08-07 09:30 | XMS_ITS | Encounter Summary ---
Author Organization [employer] Address [address] [place] [address] [address]t [place] [address] Care Team Providers Care Licensed Psychologist Name Role Phone Kylee Gómez Primary Care Provider +1 [phone] Gladys Foster Unavailable Unavailable Encounter Details Date Type Department Care Team (Late st Contact Info) Description 04/20/2024 Orders Only [facility] [address] [place] [address] Kylee Gómez FNP [address] [place] [address] Social History Tobacco Use Types Packs/Day Years [...] Description 01/19/2025 8:30 AM EDT Office Visit [facility] D[facility] [address] [place] [address] Jazmine Perez documented as of this encounter Procedures Procedure Name Priority Date/Time Associated Diagnosis Comments PATHOLOGY REPORT (HISTOPATHOLOGY) Routine 04/16/2024 1:38 PM EDT documented in this encounter Results * Pathology Report (Histopathology) (04/16/2024 1:38 PM EDT) Tissue Kylee JEFF LAB PATHOLOGY ORDERABLES Final Result documented in this encounter Visit Diagnoses Not on filedocumented in this encounter Care Teams Licensed Psychologist Relationship Specialty Start Date End Date Kylee Gómez FNP [address] [place] [address] PCP - General Family Medicine 07/05/22 Gladys Foster Health Navigator 04/27/24 documented as of this encounter
--- OUTSIDE RECORDS SUMMARY | 2024-08-07 09:30 | XMS_ITS | Encounter Summary ---
Author Organization [employer] Address [address] [place] [address] Care Team Providers Care Intelligence Senior Sergeant Name Role Phone Kylee Gómez PASTEURIZING MACHINE OPERATOR Primary Care Provider [phone] [phone] Gladys Foster Unavailable Unavailable Reason for Visit * Reason Comments Routine Cleaning Dental Exam Encounter Details Date Type Department Care Team (Latest Contact Info) Description 07/15/2024 11:00 AM EST Office Visit [facility] [address] [place] [address] Chaya Lewis Encounter for dental examination (Primary Dx); Stage 2 grade B generalized periodontitis per AAP/EFP 2017 classification Social History Tobacco Use Types Packs/Day Years [...] t he electric, gas, oil or water [employer] threatened to shut off services in your [...] PM EST documented as of this encounter Progress Notes * Chaya Lewis - 07/15/2024 11:00 AM EST Subjective: CC: Pt. Presents to the clinic for routine cleaning. MH: no changes since last visit Objective: Extra oral exam: WNL Intra oral exam: Adult OCS: WNL. Progression of periodontal problems. Perio Case Type: Type II Generalized. Grade B Oral Hygiene: Fair. Generalized moderate plaque and calculus. X-rays: FMX exposed for evaluation. Assessment and plan: Light scaling with hand instruments and Cavitron. ultrasonic with Releaf high speed suction Polishing done with handpiece and prophy angle with paste. OHI:tooth brushing with Degroot technique and flossing instruction. I/O limited mouth opening, Patient unable to open wide for maxillary for the PA second molars Exam complete by Dr. Retana. Advised pt. On brushing habits, use of waterpik and flossing NV: Hygiene recall NOTES: Patient did great!! Chaya Lewis documented in this encounter Plan of Treatment Upcoming Encounters Date Type Department Care Team (Late st Contact Info) Description 01/19/2025 8:30 AM EDT Office Visit [facility] [address] [place] [address] Jazmine Perez documented as of this encounter Procedures Procedure Name Priority Date/Time Associated Diagnosis Comments Full PROPHYLAXIS - ADULT Routine 025 11:00 AM EST PERIODIC ORAL EVALUATION - ESTABLISHED PATIENT Routine 07/15/2024 11:00 AM EST ORAL HYGIENE INSTRUCTIONS Routine 2024 11:00 AM EST INTRAORAL - COMPLETE SERIES OF RADIOGRAPHIC IMAGES Routine 07/15/2024 11:00 AM EST CASE PRESENTATION, DETAILED AND EXTENSIVE TREATMENT PLANNING Routine 07/15/2024 11:00 AM EST documented in this encounter Visit Diagnoses Diagnosis Encounter for dental examination- Primary Stage 2 grade B generalized periodontitis per AAP/EFP 2017 classification documented in this encounter Additional Health Concerns Assessment Noted Time PHQ-9 Depression Total Score: 25 024 4:14 PM EST documented as of this encounter Care Teams Intelligence Senior Sergeant Relationship Specialty Start Date End Date Kylee Gómez FNP [address] [place] [address] PCP - General Family Medicine 07/05/22 Gladys Foster Health Navigator 04/27/24 documented as of this encounter
--- OUTSIDE RECORDS SUMMARY | 2024-08-07 09:30 | XMS_ITS | Encounter Summary ---
Author Organization [employer] Address [address] [place] [address] [address]t [address] [place] [id number] Care Team Providers Care Cork Molder Name Role Phone Kylee Gómez Primary Care Provider +1 -[phone] Gladys Foster Unavailable Unavailable Encounter Details Date Type Department Care Team (Latest Contact Info) Description 07/20/2019 Abstract [facility] Dental, Provider, DDS Social History Tobacco Use Types Packs/Day Years Used Date Smoking Tobacco: Never Assessed Comments Unknown Sex and Gender Information Value [...] 01/19/2025 8:30 AM EDT Office Visit [facility] [address] [place] [address] Jazmine Perez documented as of this encounter Visit Diagnoses Not on filedocumented in this encounter Care Teams Cork Molder Relationship Specialty Start Date End Date Kylee Gómez FNP [address] [place] [address] PCP - General Family Medicine 07/05/22 Gladys Foster Health Navigator 04/27/24 documented as of this encounter
--- OUTSIDE RECORDS SUMMARY | 2024-08-07 09:30 | XMS_ITS | Encounter Summary ---
Author Organization [employer] Address [address] [place] [address] [address] [place] [address] Care Team Providers Care Neurosurgery Research Director Name Role Phone Kylee Gómez Primary Care Provider +1 -[phone] Gladys Foster Unavailable Unavailable Encounter Details Date Type Department Care Team (Latest Contact Info) Description 01/22/2022 Abstract [facility] Dental, Provider, DDS Social [...] 01/19/2025 8:30 AM EDT Office Visit [facility] [address] [place] [address] Jazmine Perez documented as of this encounter Visit Diagnoses Not on filedocumented in this encounter Care Teams Neurosurgery Research Director Relationship Specialty Start Date End Date Kylee Gómez FNP [address] [place] [address] PCP - General Family Medicine 07/05/22 Gladys Foster Health Navigator 04/27/24 documented as of this encounter
--- OUTSIDE RECORDS SUMMARY | 2024-08-07 09:30 | XMS_ITS | Encounter Summary ---
Author Organization [employer] Address [address] [place] [address] [address] [place] [address] Care Team Providers Care Wind Energy Systems Installer Name Role Phone Kylee Gómez Primary Care Provider +1 -[phone] Gladys Foster Unavailable Unavailable Reason for Visit * Reason Onset Date Comments RTT, difficulty breathing 08/03/2024 Encounter Details Date Type Department Care Team (Late st Contact Info) Description 08/03/2024 Telephone [facility] [address] [place] [address] Kylee Gómez FNP [address] [place] [address] RTT, difficulty breathing Social History Tobacco Use Types Packs/Day Years [...] encounter Miscellaneous Notes * Telephone Encounter - Deysi Albert LPN - 08/03/2024 9:14 AM EST Call transferred to nursing. Patient was seen on 07/26/24 for c/o SOB, nasal drainage and temp. at [facility] and discharged on 07/27/24. Dx: Covid 19. Patient was given Paxlovid and completed medication. Patient states she tested negative for Covid on 07/30/24. Patient states she went to bed last night and hada fever of 101.4. Patient took Nyquil and went to bed. Fever remains the same today. Advised patient to take tylenol now. Patient complains of continued cough, at times phlegm is cloudy white/yellow. Also c/o sometimes yellow nasal drainage. Patient denies SOB, states she has been using her inhaler. Patient has been in contact with her father in law who states is also sick. Patient thinks shehas pneumonia. RTT appointment scheduled today, will arrive 15 mins early for testing. * Telephone Encounter - Annetta Aly - 08/03/2024 8:49 AM EST Patient called stating she is having difficulty breathing through her nose and can only breath through her mouth. Patient states she refuses to go the hospital to wait and has a fever of 101.4 that started last night (08/02/24). Patient states she had a spinal cord stimulator implant on 07/24/24. Patient states on Saturday (07/26/24), she tested positive for COVID and last (07/30/24) she tested negative COVID. Patient states symptoms include: not able to breath through nose, my throat is sore, choking on everything going down on the back of throat including mucus and buggers, tested negative for the flu and RSV. Patient would like a call back. Okay to leave a detailed message. Thank you! documented in this encounter Plan of Treatment Upcoming Encounters Date Type Department Care Team (Late st Contact Info) Description 01/19/2025 8:30 AM EDT Office Visit [facility] [address] [place] [address] Jazmine Perez documented as of this encounter Visit Diagnoses Not on filedocumented in this encounter Additional Health Concerns Assessment Noted Time PHQ-9 Depression Total Score: 024 4:14 PM EST documented as of this encounter Care Teams [employer] Energy Systems Installer Relationship Specialty Start Date End Date Kylee Gómez FNP [address] [facility] [place] [address] PCP - General Family Medicine 07/05/22 Gladys Foster Health Navigator 04/27/24 documented as of this encounter
--- OUTSIDE RECORDS SUMMARY | 2024-08-07 09:30 | XMS_ITS | Clinical Summary ---
Author Organization [employer] Address [address] [place] [address] [address] [place] [address] Care Team Providers Care Manager Rn Name Role Phone Kylee Gómez MUSIC THERAPY SPECIALIST Primary Care Provider [phone] Gladys Foster Unavailable Unavailable Allergies Active Allergy Reactions Criticality Noted Date Comments Codeine 02/27/2017 Other reaction(s): mouth swelling/sores Swelling of mouth Fluticasone 04/01/2018 Due to smell Cephalexin Nausea 07/06/2024 Stomach pain Morphine Nausea And Vomiting 12/18/2021 Oxycodone 02/27/2017 Other reaction(s): legs turned red Other reaction(s): GI Upset Pollen Extract Unknown 07/04/2022 Powder Scent Fragrance 07/24/2019 All perfumes Sumatriptan 07/04/2022 Other reaction(s): dizziness Medications diphenhydrAMINE (BENADryl) 25 MG tablet 1 tablet in the morning and 1 tablet at noon and 1 tablet in the evening and 1 tablet before bedtime. 013 Active EPINEPHrine (Epipen) 0.3 MG/0.3ML injection syringe DIRECTED INJECTION ONCE NEEDED FOR ANAPHYLAXIS 1 DAY 022 Active triamcinolone (Nasacort) 55 MCG/ACT nasal inhaler Administer 2 sprays into affected nostril(s) in the morning. Active albuterol (2.5 MG/3ML) 0.083% nebulizer solution PLEASE SEE ATTACHED FOR DETAILED DIRECTIONS 022 Active albuterol 108 (90 Base) MCG/ACT inhaler Inhale 2 puffs every 4 (four) hours if needed. 021 Active topiramate (Topamax) 100 MG tablet Take 100 mg by mouth at bedtime. Active montelukast (Singulair) 10 MG tablet Take 10 mg by mouth at bedtime. Active cyclobenzaprine (Flexeril) 10 MG tabletIndication s:Chronic pain of left knee TAKE 1 TABLET BY MOUTH AT BEDTIME NEEDED FOR MUSCLE SPASM 30 tablet Active Breo Ellipta 200-25 MCG/ACT aerosol powder TAKE 1 PUFF BY MOUTH EVERY DAY Active hydrOXYzine HCl (Atarax) 25 MG tabletIndication s:Anxiety Take 1 tablet (25 mg) by mouth if needed at bedtime for anxiety for up to 180 doses. 90 tablet 1 Active amitriptyline (Elavil) 10 MG tabletIndication s:Anxiety Take 1 tablet (10 mg) by mouth if needed at bedtime for sleep. 90 tablet 2 024 2024 Active pregabalin (Lyrica) 25 MG capsuleIndicatio ns:Degenerative disc disease at L5-S1 level Take 1 capsule (25 mg) by mouth 2 times daily. 60 capsule Active Altavera 0.15-30 MG-MCG tabletIndication s:Encounter for contraceptive management, unspecified TAKE 1 TABLET ORALLY ONCE A DAY. SKIP PLACEBO WEEK 2 MONTHS OUT OF EVERY 3 PACKS 84 DAYS 112 tablet 2 Active naproxen (EC Naprosyn) 500 MG EC tablet Take 500 mg by mouth with breakfast and with evening meal. Do not crush, chew, or split. Active Altavera 0.15-30 MG-MCG tabletIndication s:Encounter for contraceptive management, unspecified TAKE 1 TABLET ORALLY ONCE A DAY. SKIP PLACEBO WEEK 2 MONTHS OUT OF EVERY 3 PACKS 84 DAYS 112 tablet 2 024 2024 Discontinued(R eorder (will not trigger notification to Pharmacy)) predniSONE (Deltasone) 20 MG tablet /08/23 024 2024 Discontinued predniSONE (Deltasone) 20 MG tabletIndication s:Eustachian tube dysfunction, left Take 1 tablet (20 mg) by mouth Once per day for 5 days. 5 tablet 025 2024 amoxicillin-clav ulanate (Augmentin) 875-125 MG tablet Take 1 tablet by mouth 2 times daily for 10 days. 20 tablet 025 2024 Active Problems Problem Noted Date Diagnosed Date Acute maxillary sinusitis 07/16/2024 Eustachian tube dysfunction, left 07/16/2024 Recurrent sinus infections 05/26/2024 Assessment & Plan (05/26/2024 9:53 PM EST): No red flag symptoms, start warm salt water gargles TID/HS, rest, hydration Antibiotic as ordered and followup in person if any new or worsening symptoms or no improvement Vaginal odor 03/23/2024 Overview (03/23/2024): A/P: Lise Zamorano is a 38 y.o. female G0 here to discuss US and management of painful/heavy periods. Desires definitive management. Does not desire future fertility. Discussed options for management again. Discussed concerns around surgery with back injury and surgical history. - plan for EMB to begin preop planning - vaginitis swab collected for vaginal odor complaint. Problem List Items Addressed This Visit None Visit Diagnoses Vaginal odor - Primary Relevant Orders Vaginitis (VG), NuSwab New Prescriptions No medications on file Return in about 2 weeks (around 03/12/2024) for fu endometrail biopsy. Ale Kinney MD Chronic pain of left knee 08/29/2023 Overview (03/02/2024): 3/4 - coritsone knee injection, continues with pain Sinusitis, maxillary, chronic 09/26/2022 Assessment & Plan (10/14/2023 9:36 AM EDT): Sx consistent with sinusitis. Will tx with augmentin, SED. Pt unable to take pills so will send suspension. Continue allergy meds Degenerative disc disease at L5-S1 level 023 Overview (03/02/2024): -Tried and failed meloxicam, lidocaine patch and capsaicin cream for pain -MR refill, referral for psych eval for spinal cord stimulator Scoliosis 07/05/2022 Overview (03/02/2024): Chronic back pain. Was seen at [facility] 05/25/22 and recommended non- operative tx. They suggested PT, injections. Referred to [facility] neurosurgery for second opinion and she said it was not useful. Was referred for pain management. MRI 06/2023 showed Cervical spine degenerative changes as described, most notable at C3-C4 where there is worsened moderate spinal canal stenosis. No evidence of high-grade foraminal stenosis. Has was referred to PT by pain management but stopped going due to pain. She states pain is now radiating down right leg. Will trial lyrica for this at this time, while awaiting spinal cord stimulator eval Assessment & Plan (08/23/2023 11:17 AM EST): Gave note for work that state she should be allowed to sit prn and wear pants other than jeasn due to ongoing back pain. She should continue with pain management will defer to them regarding continued tx Seasonal allergies 12/16/2017 Overview (09/26/2022): Last Assessment & Plan: Worsening symptoms of rhinosinusitis with postnasal drip. Continued to nasal sprays with nasal steroids and Azelastine. Nasal saline mist provided for trial Recommend resume montelukast as above. Patient to call if no improvement. Continue immunotherapy. Will need to back up dose 1 level today given missing over 2 weeks of therapies. Moderate persistent asthma without complication 12/16/2017 Overview (09/26/2022): Last Assessment & Plan: Mild intermittent versus persistent asthma. Currently off all maintenance therapy though with recent exacerbation. Multiple allergic triggers including mold in the home concerning for poorly controlled asthma. For start with resuming Glucotrol and inhibitor. Poor compliance with twice daily Accolate, thus will retry montelukast 10 mg nightly. Patient tolerated well in the past. If inadequate control, would resume low-dose ICS/LAMA. Encounters Date Type Department Care Team Description 08/03/2024 3:15 PM EST Office Visit [address] [address] Kitty Mason, Influenza A (Primary Dx); Moderate persistent asthma without complication 08/03/[address] [address] Kylee Gómez FNP RTT, difficulty breathing 07/16/2024 11:00 AM EST Office Visit [address] [address] Deysi Hutson FNP-C Acute maxillary sinusitis, recurrence not specified (Primary Dx); Eustachian tube dysfunction, left 07/15/2024 11:00 AM EST Office Visit [facility] [address] [place] [address] Chaya Lewis Encounter for dental examination (Primary Dx); Stage 2 grade B generalized periodontitis per AAP/EFP 2017 classification 07/15/[address] [address] Kylee Gómez FNP 07/09/[address] [address] Kylee Gómez FNP Encounter for contraceptive management, unspecified 07/06/2024 9:40 AM EST Office Visit [address] [address] Kylee Gómez FNP Stomach pain (Primary Dx); Nail deformity 06/29/[address] [address] Kylee Gómez FNP Degenerative disc disease at L5-S1 level 06/29/[address] [address] Beatriz Chavez RN 05/26/2024 7:00 PM EST Telemedicine [facility] MEDICAL [address] [place] [address] Cely Olmos NP Recurrent sinus infections (Primary Dx) 05/20/2024 Telephone [facility] MEDICAL [address] [place] [address] Francia Ko CNP 05/15/2024 Orders Only [facility] [address] [place] [address] Kylee Gómez FNP 05/12/2024 4:00 PM EST Consult [facility] [address] [place] [address] Francia Ko CNP Preoperative clearance (Primary Dx); Anxiety; PTSD (post-traumatic stress disorder); Severe episode of recurrent major depressive disorder, without psychotic features (CMS/HCC) from Last 3 Months Immunizations Name Administration Dates Next Due HPV 9-Valent 05/02/2007,02/28/2007,09/03/2006 Hep B, adult 11/16/2009,10/17/2009 Meningococcal MCV4P [id number]-135 02/28/2007 TD (adult), 2 Lf tetanus tox oid, preservative free, adsorbed 12/14/2008 Tdap 07/25/2011 Social History Tobacco Use Types Packs/Day Years Used Date Smoking Tobacco: Never Passive Smoke Exposure: Never Smokeless Tobacco: Never Tobacco Cessation:Counseling Given: Not Answered Alcohol Use Standard Drinks/Week Comments Not Currently [...] Don't know 06/29/2022 3: 16 PM EST Last Filed Vital Signs Vital Sign Reading Time Taken Comments Blood Pressure 121/78 08/03/2024 3:03 PM EST Pulse 114 08/03/2024 3:03 PM EST Temperature 36.7 ??C (98.1 ??F) 08/03/2024 3:03 PM ES T Respiratory Rate 16 07/16/2024 10:59 AM EST Oxygen Saturation 97% 08/03/2024 3:03 PM EST Inhaled Oxygen Concentration - - Weight 81.6 kg (180 lb) 08/03/2024 3:03 PM EST Height 157.5 cm (5' 2 ) 08/03/2024 3:03 PM EST Body Mass Index 32.92 08/03/2024 3:03 PM EST Plan of Treatment Upcoming Encounters Date Type Department Care Team (Late st Contact Info) Description 01/19/2025 8:30 AM EDT Office Visit [facility] [address] [place] [address] Jazmine Perez Health Maintenance Due Date Last Done Comments HIV Screening 1986 Hepatitis C Screening 2004 HPV Vaccines (3 - 3-dose series) 07/25/2007 05/02/2007, 02/28/2007, 09/03/2006 Cervical Cancer Screening 08/02/2016 HPV/Cotest 08/02/2016 Pap Smear 08/02/2016 08/02/2011, 06/15/2010 DTaP/Tdap/Td Vaccines (2 - Td or Tdap) 07/25/2021 07/25/2011, 12/14/2008 COVID-19 Vaccine ( - 2023- season) 2024 Influenza Vaccine (#1) 2024 Depression Monitoring (PHQ-9) 11/09/2024 05/12/2024, 05/12/2024 Pneumococcal Vaccine: Pediatrics (0 to 5 Years) and At-Risk Patients (6 to 49) Years) (1 of 2 - PCV) 12/17/2024 Postponed from 2005 (Patient Refused) Dental Oral Exam 01/13/2025 07/15/2024, 02/2023, 07/17/2021, Additional history exists Dental Prophylaxis 01/13/2025 07/15/2024, 0 08/02/2022, 01/22/2022, Additional history exists Alcohol/Substance Use Screening 04/25/2025 04/25/2024 Family Planning (PISQ) 04/25/2025 04/25/2024 SDOH Screening 04/25/2025 04/25/2024 Depression Screening 05/12/2025 05/12/2024, 05/12/20 24 Dental X-Ray: Bitewings 07/16/2025 07/15/19 25, 07/17/2021, 12/08/2020, Additional history exists Tobacco Screening 07/16/2025 07/16/2024 Dental X-Ray: Full Mouth 07/16/2027 025, 10/26/2022, 04/08/2008, Additional history exists Zoster Vaccines (1 of 2) 2036 RSV Patients and Patients Aged 60 years or older (1 - 1-dose 75+ series) 2061 Meningococcal Vaccine Aged Out 02/28/2007 No víctor henrique eligible based on patient's age to complete this topic Hepatitis B Vaccines Discontinued 11/16/2009, 10/18/19 10 HIB Vaccines Aged Out No longer eligi ble based on patient's age to complete this topic Hepatitis A Vaccines Aged Out No long er eligible based on patient's age to complete this topic IPV Vaccines Aged Out No longer eligi ble based on patient's age to complete this topic RSV under 20 months Aged Out No longe r eligible based on patient's age to complete this topic Rotavirus Vaccines Aged Out No longer eligible based on patient's age to complete this topic Procedures Procedure Name Priority Date/Time Associated Diagnosis Comments POCT RAPID COVID ANTIGEN Routine 08/03/2024 3:37 PM EST Influenza A Moderate persistent asthma without complication POCT INFLUENZA A/B Routine 08/03/2024 3: 35 PM EST Influenza A Moderate persistent asthma without complication CASE PRESENTATION, DETAILED AND EXTENSIVE TREATMENT PLANNING Routine 07/15/2024 11:00 AM EST ORAL HYGIENE INSTRUCTIONS Routine 07/15/2024 11:00 AM EST Full PROPHYLAXIS - ADULT Routine 07/15/2024 11:00 AM EST PERIODIC ORAL EVALUATION - ESTABLISHED PATIENT Routine 07/15/2024 11:00 AM EST INTRAORAL - COMPLETE SERIES OF RADIOGRAPHIC IMAGES Routine 07/15/2024 11:00 AM EST URINE CULTURE, ROUTINE (NON ORDERABLE) Routine 07/08/2024 10:48 AM EST MICROSCOPIC EXAMINATION (NON ORDERABLE) Routine 07/08/2024 10:48 AM EST URINALYSIS, COMPLETE, WITH REFLEX TO CULTURE Routine 07/08/2024 10:48 AM EST Stomach pain VITAMIN B12 Routine 07/08/2024 10:40 AM EST Nail deformity FOLATE, SERUM Routine 07/08/2024 10:40 AM EST Nail deformity AMYLASE Routine 07/08/2024 10:39 AM EST Stomach pain LIPASE Routine 07/08/2024 10:39 AM EST Stomach pain COMPREHENSIVE METABOLIC PANEL Routine 07/08/2024 10:39 AM EST Stomach pain TSH W/REFLEX TO FT4 Routine 07/08/2024 1 0:39 AM EST Hair loss EMG Routine 05/14/2024 11:51 AM EST PAP SMEAR Routine 08/02/2011 12:00 AM EST from Last 3 Months or Most Recently Relevant to Health Maintenance Results * POCT Rapid COVID Ag (08/03/2024 3:37 PM EST) Pathologist [facility] Rapid COVID Ag Negative Swab 08/03/2024 3:37 PM EST [facility] POINT OF CARE TEST ENTER/EDIT ORDERABLES Final Result * (ABNORMAL) POCT Influenza A/B manually resulted (08/03/2024 3:35 PM EST) Pathologist [facility] Rapid Influenza A Ag Positive(A) Negative, Indeterminate Rapid Influenza B Ag Negative Negative, Indeterminate Swab 08/03/2024 3:35 PM EST [facility] POINT OF CARE TEST ENTER/EDIT ORDERABLES Final Result * Urine Culture, Routine (07/08/2024 10:48 AM EST) Pathologist [facility] Culture, Urine, Routine Final report [facility] 2 Result 1 No growth [facility] 2 07/08/2024 10:4 8 AM EST 07/08/2024 Narrative [facility] 2 - 07/10/2024 2:05 PM EST Performed at: ??02 - [facility] [address], [address], [place], [place] ??[id number] Nurse Office: Sha Damon MD, Phone: ??[phone] [facility] HISTORICAL/NON ORDERABLE LABS Final Result Performing Organization Address [facility]/ZIP Co de Phone Number [facility] 2 * (ABNORMAL) Microscopic Examination (07/08/2024 10:48 AM EST) WBC, Urine 0-5 0 - 5 /hpf [facility] 1 RBC, Urine 0-2 0 - 2 /hpf [facility] 1 Epithelial Cells (non renal) >10(A) 0 - 10 /hpf [facility] 1 Casts None seen None seen /lpf [facility] 1 Crystals Present(A) N/A [facility] 1 Crystal Type Calcium Oxalate N/A [facility] 1 Bacteria Many(A) None seen/Few [facility] 1 07/08/2024 10:4 8 AM EST 07/08/2024 Narrative [facility] 1 - 07/10/2024 2:05 PM EST Performed at: ??01 - [facility] [address] ??[id number] Nurse Office: Cha Alford MD, Phone: ??[phone] [facility] HISTORICAL/NON ORDERABLE LABS Final Result Performing Organization Address [facility]/ZIP Co de Phone Number [facility] 1 * (ABNORMAL) Urinalysis, Complete, with Reflex to Culture (07/08/2024 10:48 AM EST) Specific [place] 1.029 1.005 - 1.030 [facility] 1 pH, Urine 5.5 5.0 - 7.5 [facility] 1 Color Yellow Yellow [facility] 1 Appearance Cloudy(A) Clear [facility] 1 Leukocyte esterase, Urine Negative Negative [facility] 1 Protein,Urine Trace Negative/Tra ce [facility] 1 Glucose, Urine Negative Negative [facility] 1 Ketones,Urine Negative Negative [facility] 1 Occult Blood,Urine Negative Negative [facility] 1 Bilirubin,Urine Negative Negative [facility] 1 Urobilinogen,Se mi-Qn 0.2 0.2 - 1.0 mg/dL [facility] 1 Nitrite,Urine Negative Negative [facility] 1 Microscopic Examination [facility] 1 Comment:Microscopic follows if indicated. Microscopic Examination See below: [facility] 1 Comment:Microscopic was magaly cated and was performed. Urinalysis Reflex [facility] 1 Comment:This specimen has re flexed to a Urine Culture. Urine 07/08/2024 10:4 8 AM EST 07/08/2024 Narrative [facility] 1 - 07/10/2024 2:05 PM EST Performed at: ??[address] ??[id number] Nurse Office: Cha Alford MD, Phone: ??[phone] [facility] Hien l Result Performing Organization Address [facility] de Phone Number [facility] 1 * Folate (07/08/2024 10:40 AM EST) Pathologist [facility] Folate, Serum 12.2 >3.0 ng/mL [facility] 1 Comment: A serum folate concentration of less than 3.1 ng/mL is considered to represent clinical deficiency. Blood Venous blood specimen / Unknown 07/08/2024 10:40 AM EST 07/08/2024 Narrative [facility] 1 - 07/09/2024 6:05 AM EST Performed at: ??01 - [address] ??[id number] Nurse Office: Cha Alford MD, Phone: ??[phone] [facility]e [facility] LAB BLOOD ORDERABLES Hien l Result Performing Organization Address [facility] Co de Phone Number [facility] 1 * Vitamin B12 (07/08/2024 10:40 AM EST) Vitamin B12 266 232 - 1,245 pg/mL [facility] 1 Blood Venous blood specimen / Unknown 07/08/2024 10:40 AM EST 07/08/2024 Narrative [facility] 1 - 07/09/2024 6:05 AM EST Performed at: ??[address] [facility] [address] ??[id number] Nurse Office: Cha Alford MD, Phone: ??[phone] [facility] LAB BLOOD ORDERABLES Hien l Result Performing Organization Address [facility] Co de Phone Number [facility] 1 * TSH with Reflex to Free T4 [[id number]] (07/08/2024 10:39 AM EST) TSH 1.140 0.450 - 4.500 uIU/mL [facility] 1 Blood Venous blood specimen / Unknown 07/08/2024 10:39 AM EST 07/08/2024 Narrative [facility] 1 - 07/09/2024 12:05 AM EST Performed at: ??01 - [facility] ??[id number] Nurse Office: Cha Alford MD, Phone: ??[phone] [facility] LAB BLOOD ORDERABLES Hien l Result Performing Organization Address City/[facility] Co de Phone Number [facility] 1 * Lipase (07/08/2024 10:39 AM EST) Lipase 33 14 - 72 U/L [facility] 1 Blood Venous blood specimen / Unknown 07/08/2024 10:39 AM EST 07/08/2024 Narrative [facility] 1 - 07/09/2024 8:07 AM EST Performed at: ??[address] [facility] [address] ??[id number] Nurse Office: Cha Alford MD, Phone: ??[phone] [facility] LAB BLOOD ORDERABLES Hien l Result [facility] * Amylase (07/08/2024 10:39 AM EST) Pathologist [facility] Amylase 72 31 - 110 U/L [facility] 1 Blood Venous blood specimen / Unknown 07/08/2024 10:39 AM EST 07/08/2024 Narrative [facility] 1 - 07/14/2024 8:05 PM EST Performed at: ??01 - [facility] [address] ??[id number] Nurse Office: Cha Alford MD, Phone: ??[phone] [facility] LAB BLOOD ORDERABLES Hien l Result Performing Organization Address [facility] Co de Phone Number [facility] 1 * (ABNORMAL) Comprehensive metabolic panel (07/08/2024 10:39 AM EST) [facility] Glucose 89 70 - 99 mg/dL [facility] 1 Urea Nitrogen (BUN) 12 6 - 20 mg/dL [facility] 1 Creatinine, Serum 0.80 0.57 - 1.00 mg/dL [facility] 1 eGFR 97 >59 mL/min/1.7 3 [facility] 1 BUN/Creatinine Ratio 15 9 - 23 [facility] 1 Sodium 138 134 - 144 mmol/L [facility] 1 Potassium 4.3 3.5 - 5.2 mmol/L [facility] 1 Chloride 106 96 - 106 mmol/L [facility] 1 Anion Gap 15.0 10.0 - 18.0 mmol/L [facility] 1 Carbon Dioxide 17(L) 20 - 29 mmol/L [facility] 1 Calcium 9.8 8.7 - 10.2 mg/dL [facility] 1 Protein, Total 7.1 6.0 - 8.5 g/dL [facility] 1 Albumin 4.3 3.9 - 4.9 g/dL [facility] 1 Globulin 2.8 1.5 - 4.5 g/dL [facility] 1 Bilirubin, Total 0.2 0.0 - 1.2 mg/dL [facility] 1 Alkaline Phosphatase 68 44 - 121 IU/L [facility] 1 AST 21 0 - 40 IU/L [facility] 1 ALT 27 0 - 32 IU/L [facility] 1 Blood Venous blood specimen / Unknown 07/08/2024 10:39 AM EST 07/08/2024 Narrative [facility] 1 - 07/09/2024 12:05 AM EST Performed at: ??01 - [facility] [address] ??[id number] Nurse Office: Cha Alford MD, Phone: ??[phone] [facility] LAB BLOOD ORDERABLES Hien l Result [facility] 1 * EMG (05/14/2024 11:51 AM EST) [facility] NEUROLOGY ORDERABLES Hien l Result * Pap Smear (08/02/2011 12:00 AM EST) Swab Historical Provider LAB CYTOLOGY ORDERABLES F inal Result from Last 3 Months or Most Recently Relevant to Health Maintenance Insurance [facility] AD[place] Care Teams Manager Rn Relationship Specialty Start Date End Date Kylee Gómez FNP [address] [place] [address] PCP - General Family Medicine 07/05/22 Gladys Foster Navigator 04/27/24
--- OUTSIDE RECORDS SUMMARY | 2024-08-07 09:30 | XMS_ITS | Encounter Summary ---
Author Organization [employer] Address [address] [facility] [address] [place] [address] Care Team Providers Care Automated Logistics Specialist Name Role Phone Kylee Gómez Primary Care Provider [phone] Gladys Foster Unavailable Unavailable Encounter Details Date Type Department Care Team (Late st Contact Info) Description 05/15/2024 Orders Only [facility] [address] [place] [address] Kylee Gómez FNP [address] [place] [address] Social History Tobacco Use Types Packs/Day Years [...] t he electric, gas, oil or water [employer] threatened to shut off services in your [...] Description 01/19/2025 8:30 AM EDT Office Visit [facility] [address] [place] [address] Jazmine Perez documented as of this encounter Procedures Procedure Name Priority Date/Time Associated Diagnosis Comments EMG Routine 05/14/2024 11:51 AM EST documented in this encounter Results * EMG (05/14/2024 11:51 AM EST) Kylee JEFF NEUROLOGY ORDERABLES Hien l Result documented in this encounter Visit Diagnoses Not on filedocumented in this encounter Additional Health Concerns Assessment Noted Time PHQ-9 Depression Total Score: 25 024 4:14 PM EST documented as of this encounter Care Teams Automated Logistics Specialist Relationship Specialty Start Date End Date Kylee Gómez FNP [address] [place] [address] PCP - General Family Medicine 07/05/22 Gladys Foster Health Navigator 04/27/24 documented as of this encounter
--- OUTSIDE RECORDS SUMMARY | 2024-08-07 09:30 | XMS_ITS | Encounter Summary ---
Author Organization [employer] Address [address] [place] [address] [address] [place] [address] Care Team Providers Care Senior Tech Manufacturing Engineering Name Role Phone Kylee Gómez Primary Care Provider [phone] Gladys Foster Unavailable Unavailable Encounter Details Date Type Department Care Team (Late Contact Info) Description 12/12/2022 Orders Only [facility] MEDICAL [address] [place] [address] Kylee Gómez FNP [address] [place] [address] Social History Tobacco Use Types Packs/Day Years [...] Don't know 06/29/2022 3: 16 PM EST COVID-19 Exposure Response Date Recorded In the last 10 days, have yo u been in contact with someone who was confirmed or suspected to have Coronavirus/COVID-19? No / Unsure 12/03/2022 10:57 AM EDT documented as of this encounter Plan of Treatment Upcoming Encounters Date Type Department Care Team (Late st Contact Info) Description 01/19/2025 8:30 AM EDT Office Visit [facility] [address] [place] [address] Jazmine Perez documented as of this encounter Visit Diagnoses Not on filedocumented in this encounter Care Teams [employer] Manufacturing Engineering Relationship Specialty Start Date End Date Kylee Gómez FNP [address] [place] [address] PCP - General Family Medicine 07/05/22 Gladys Foster Navigator 04/27/24 documented as of this encounter
--- OUTSIDE RECORDS SUMMARY | 2024-08-07 09:30 | XMS_ITS | Encounter Summary ---
Author Organization [employer] Address [address] [facility] [address] [place] [address] Care Team Providers Care Engagement Manager Name Role Phone Kylee Gmóez Primary Care Provider [phone] Gladys Foster Unavailable Unavailable Reason for Visit * Reason Comments Med Change Request Encounter Details Date Type Department Care Team (Late st Contact Info) Description 12/19/2023 Refill [facility] [address] [place] [address] Kylee Gómez FNP [address] [place] [address] Social History Tobacco Use Types Packs/Day Years [...] encounter Miscellaneous Notes * Telephone Encounter - RANDEE Xavier - 12/20/2023 3:58 PM EDT Pt will get otc * Telephone Encounter - Beatriz Chavez RN - 12/20/2023 3:14 PM EDT Placed call to [facility], they do not stock this product and state it is OTC. Advised patient to purchase OTC, she is agreeable. documented in this encounter Plan of Treatment Upcoming Encounters Date Type Department Care Team (Late st Contact Info) Description 01/19/2025 8:30 AM EDT Office Visit [facility] [address] [place] [address] Jazmine Perez documented as of this encounter Visit Diagnoses Not on filedocumented in this encounter Care Teams Engagement Manager Relationship Specialty Start Date End Date Kylee Gómez FNP [address] [place] [address] PCP - General Family Medicine 07/05/22 Gladys Foster Health Navigator 04/27/24 documented as of this encounter
--- OUTSIDE RECORDS SUMMARY | 2024-08-07 09:30 | XMS_ITS | Encounter Summary ---
Author Organization [employer] Address [address] [place] [address] Care Team Providers Care Equal Opportunity Director Name Role Phone JefranibertKylee FITNESS MANAGEMENT DIRECTOR Primary Care Provider [phone] Gladys Foster Unavailable Unavailable Reason for Visit * Reason Comments Cough Headache Nasal congestion sta rt 07/26/24 Encounter Details Date Type Department Care Team (Late st Contact Info) Description 08/03/2024 3:15 PM EST Office Visit [facility] [address] [place] [address] Kitty Mason DO [address] [place] [address] Influenza A (Primary Dx); Moderate persistent asthma without complication Social History Tobacco Use Types Packs/Day Years [...] PM EST documented as of this encounter Last Filed Vital Signs Vital Sign Reading Time Taken Comments Blood Pressure 121/78 08/03/2024 3:03 PM EST Pulse 114 08/03/2024 3:03 PM EST Temperature 36.7 ??C (98.1 ??F) 08/03/2024 3:03 PM ES T Respiratory Rate - - Oxygen Saturation 97% 08/03/2024 3:03 PM EST Inhaled Oxygen Concentration - - Weight 81.6 kg (180 lb) 08/03/2024 3:03 PM EST Height 157.5 cm (5' 2 ) 08/03/2024 3:03 PM EST Body Mass Index 32.92 08/03/2024 3:03 PM EST documented in this encounter Progress Notes * Kitty Mason, DO - 08/03/2024 3:15 PM EST 08/03/24 Lise Zamoarno 1985 [id number] HPI: Lise Zamorano is a 38 y.o. female here today for Cough and Headache (Nasal congestion start 07/26/24). SUBJECTIVE: Lise Zamorano is a 38 y.o. female who present complaining of flu-like symptoms: fevers, chills, myalgias, congestion, sore throat and cough for 8 days. Seen in ED 07/26/24 positive COVID-19; then tested negative 07/30/24. Symptoms worsened again yesterday 08/02/24. Thick mucus in back of throat, coughing up mucus. Occasional dyspnea with exertion, but not severe. Denies wheezing. Of note, had spinal cord stimulator placed 07/23/24 and has not been using Breo as she was told to avoid steroids post procedure. OBJECTIVE: ASSESSMENT: Influenza PLAN: Review of Symptoms: ROS negative except as noted in HPI Physical Exam: BP 121/78 (BP Location: Right arm, Patient Position: Sitting) Pulse (!) 114 Temp 98.1 ??F (36.7??C) (Tympanic) Ht 5' 2 (1.575 m) Wt 180 lb (81.6 kg) SpO2 97% BMI 32.92 kg/m?? Appears moderately ill but not toxic; temperature as noted in vitals. Pharynx mildly erythematous. Cervical adenopathy present. Nasal mucosa erythematous, clear rhinorrhea noted, with enlarged nasal turbinates. Breathing nonlabored, with mildly diminished breath sounds, but no wheezes, rales, or rhonchi. Office Visit on 08/03/2024 Component Date Value Ref Range Status Rapid Influenza A Ag 08/03/2024 Positive (A) Negative, Indeterminate Final Rapid Influenza B Ag 08/03/2024 Negative Negative, Indeterminate Final Rapid COVID Ag 08/03/2024 Negative Final ASSESSMENT AND PLAN Diagnosis Plan 1. Influenza A POCT Influenza A/B manually resulted POCT Rapid COVID Ag 2. Moderate persistent asthma without complication POCT Influenza A/B manually resulted POCT Rapid COVID Ag Symptomatic therapy suggested: rest, increase fluids, use mist of vaporizer prn, OTC acetaminophen,ibuprofen, antihistamine-decongestant of choice, cough suppressant of choice. And albuterol prn. Call or return to clinic prn if these symptoms worsen or fail to improve as anticipated. No follow-ups on file. Kitty Mason DO [facility] [address] [place] [address] documented in this encounter Plan of Treatment Upcoming Encounters Date Type Department Care Team (Late st Contact Info) Description 01/19/2025 8:30 AM EDT Office Visit [facility] [address] [place] [address] Jazmine Perez documented as of this encounter Procedures Procedure Name Priority Date/Time Associated Diagnosis Comments POCT RAPID COVID ANTIGEN Routine 08/03/2024 3:37 PM EST Influenza A Moderate persistent asthma without complication POCT INFLUENZA A/B Routine 08/03/2024 3: 35 PM EST Influenza A Moderate persistent asthma without complication documented in this encounter Results * POCT Rapid COVID Ag (08/03/2024 3:37 PM EST) Rapid COVID Ag Negative Swab 08/03/2024 3:37 PM EST Kitty Mason DO POINT OF CARE TEST ENTER/EDIT ORDERABLES Final Result * (ABNORMAL) POCT Influenza A/B manually resulted (08/03/2024 3:35 PM EST) Rapid Influenza A Ag Positive(A) Negative, Indeterminate Rapid Influenza B Ag Negative Negative, Indeterminate Swab 08/03/2024 3:35 PM EST [facility] POINT OF CARE TEST ENTER/EDIT ORDERABLES Final Result documented in this encounter Visit Diagnoses Diagnosis Influenza A- Primary Influenza with other respiratory manifestations Moderate persistent asthma without complication documented in this encounter Additional Health Concerns Assessment Noted Time PHQ-9 Depression Total Score: 25 024 4:14 PM EST documented as of this encounter Care Teams Equal Opportunity Director Relationship Specialty Start Date End Date Kylee Gómez FNP [address] [place] [address] PCP - General Family Medicine 07/05/22 Gladys Foster Health Navigator 04/27/24 documented as of this encounter
--- OUTSIDE RECORDS SUMMARY | 2024-08-07 09:30 | XMS_ITS | Encounter Summary ---
Author Organization [employer] Address [address] [place] [address] Care Team Providers Care Deckhand Engineer Name Role Phone JefKylee herr SOLUTIONS ARCHITECT Primary Care Provider [phone] Gladys Foster Unavailable Unavailable Reason for Visit * Reason Comments Sinus Problem Pt here today with a complaint of sinus congestion, pain in her L ear, ongoing for the past few days Encounter Details Date Type Department Care Team (Late st Contact Info) Description 07/16/2024 11:00 AM EST Office Visit [facility] [address] [place] [address] Deysi Hutson FNP-C [address] [place] [address] Acute maxillary sinusitis, recurrence not specified (Primary Dx); Eustachian tube dysfunction, left Social History Tobacco Use Types Packs/Day Years [...] Sign Reading Time Taken Comments Blood Pressure 124/84 07/16/2024 10:59 AM EST Pulse 84 07/16/2024 10:59 AM EST Temperature 36.6 ??C (97.8 ??F) 07/16/2024 10:[address] Respiratory Rate 16 07/16/2024 10:59 AM EST Oxygen Saturation - - Inhaled Oxygen Concentration - - Weight 81.6 kg (180 lb) 07/16/2024 10:59 AM EST Height 157.5 cm (5' 2 ) 07/16/2024 10:59 AM EST Body Mass Index 32.92 07/16/2024 10:59 AM EST documented in this encounter Progress Notes * Deysi ReyesAntonia, SOLUTIONS ARCHITECT-C - 07/16/2024 11:00 AM EST Subjective Patient ID: Lise Zamorano is a 38 y.o. female who presents for Sinus Problem (Pt here today with acomplaint of sinus congestion, pain in her L ear, ongoing for the past few days). HPI Pt began to develop a sinus infection on Saturday07/10/2024. Symptoms include PND with a nasty taste, coughing and blowing green mucus. No fevers. Pain under both eyes. Patient has not been taking anything except benadryl which is not working. Pt is scheduled for stimulator placement next week and does not wish to have it posponed. Review of Systems Constitutional: Positive for appetite change. HENT: Positive for congestion, ear pain, postnasal drip, sinus pressure and sinus pain. Eyes: Negative. Respiratory: Positive for cough. Negative for shortness of breath, wheezing and stridor. Gastrointestinal: Negative. Endocrine: Negative. Genitourinary: Negative. Musculoskeletal: Negative. Skin: Negative. Allergic/Immunologic: Positive for environmental allergies. Neurological: Negative. Hematological: Negative. Psychiatric/Behavioral: Negative. All other systems reviewed and are negative. Objective Physical Exam Vitals and nursing note reviewed. Constitutional: Appearance: Normal appearance. HENT: Head: Normocephalic and atraumatic. Right Ear: Ear canal and external ear normal. Left Ear: Ear canal and external ear normal. Ears: Comments: Bulging of RT TM Nose: Congestion and rhinorrhea present. Mouth/Throat: Mouth: Mucous membranes are dry. Pharynx: Oropharyngeal exudate and posterior oropharyngeal erythema present. Cardiovascular: Rate and Rhythm: Normal rate and regular rhythm. Pulses: Normal pulses. Heart sounds: Normal heart sounds. Pulmonary: Breath sounds: No stridor. No wheezing, rhonchi or rales. Chest: Chest wall: No tenderness. Skin: General: Skin is warm and dry. Neurological: General: No focal deficit present. Mental Status: She is alert and oriented to person, place, and time. Assessment/Plan Augmentin 875/125 ordered. Take 2 x daily with food and complete all medication even if you think condition has resolved. Take one prednisone tab daily for 5 days. Obtain OTC 12 hour extended relief Sudafed, not Sudafed PE. You will need to obtain it from the pharmacy desk. Drink plenty of fluids to thin mucus. Visit Vitals BP 124/84 (BP Location: Left arm, Patient Position: Held, BP Cuff Size: Large adult) Pulse 84 Temp 97.8 ??F (36.6 ??C) Resp 16 Allergies Allergen Reactions Codeine Other reaction(s): mouth swelling/sores Swelling of mouth Fluticasone Due to smell Keflex [Cephalexin] Nausea Stomach pain Morphine Nausea And Vomiting Oxycodone Other reaction(s): legs turned red Other reaction(s): GI Upset Pollen Extract Unknown Powder Scent Fragrance All perfumes Sumatriptan Other reaction(s): dizziness Allergies Allergen Reactions Codeine Other reaction(s): mouth swelling/sores Swelling of mouth Fluticasone Due to smell Keflex [Cephalexin] Nausea Stomach pain Morphine Nausea And Vomiting Oxycodone Other reaction(s): legs turned red Other reaction(s): GI Upset Pollen Extract Unknown Powder Scent Fragrance All perfumes Sumatriptan Other reaction(s): dizziness Current Outpatient Medications on File Prior to Visit Medication Sig Dispense Refill albuterol (2.5 MG/3ML) 0.083% nebulizer solution PLEASE SEE ATTACHED FOR DETAILED DIRECTIONS albuterol 108 (90 Base) MCG/ACT inhaler Inhale 2 puffs every 4 (four) hours if needed. Altavera 0.15-30 MG-MCG tablet TAKE 1 TABLET ORALLY ONCE A DAY. SKIP PLACEBO WEEK 2 MONTHS OUT OF EVERY 3 PACKS 84 DAYS 112 tablet 2 amitriptyline (Elavil) 10 MG tablet Take 1 tablet (10 mg) by mouth if needed at bedtime for sleep. 90 tablet 2 Breo Ellipta 200-25 MCG/ACT aerosol powder TAKE 1 PUFF BY MOUTH EVERY DAY cyclobenzaprine (Flexeril) 10 MG tablet TAKE 1 TABLET BY MOUTH AT BEDTIME NEEDED FOR MUSCLE SPASM 30 tablet 0 diphenhydrAMINE (BENADryl) 25 MG tablet 1 tablet in the morning and 1 tablet at noon and 1 tablet in the evening and 1 tablet before bedtime. EPINEPHrine (Epipen) 0.3 MG/0.3ML injection syringe DIRECTED INJECTION ONCE NEEDED FOR ANAPHYLAXIS 1 DAY hydrOXYzine HCl (Atarax) 25 MG tablet Take 1 tablet (25 mg) by mouth if needed at bedtime for anxiety for up to 180 doses. 90 tablet 1 montelukast (Singulair) 10 MG tablet Take 10 mg by mouth at bedtime. pregabalin (Lyrica) 25 MG capsule Take 1 capsule (25 mg) by mouth 2 times daily. 60 capsule 0 topiramate (Topamax) 100 MG tablet Take 100 mg by mouth at bedtime. triamcinolone (Nasacort) 55 MCG/ACT nasal inhaler Administer 2 sprays into affected nostril(s) in the morning. [DISCONTINUED] predniSONE (Deltasone) 20 MG tablet No current facility-administered medications on file prior to visit. documented in this encounter Plan of Treatment Upcoming Encounters Date Type Department Care Team (Late st Contact Info) Description 01/19/2025 8:30 AM EDT Office Visit [facility] [address] [place] [address] Jazmien Perez documented as of this encounter Visit Diagnoses Diagnosis Acute maxillary sinusitis, recurrence not specified- Primary Eustachian tube dysfunction, left documented in this encounter Additional Health Concerns Assessment Noted Time PHQ-9 Depression Total Score: 25 024 4:14 PM EST documented as of this encounter Care Teams Deckhand Engineer Relationship Specialty Start Date End Date Kylee Gómez FNP [address] [place] [address] PCP - General Family Medicine 07/05/22 Gladys Foster Health Navigator 04/27/24 documented as of this encounter
== END 2024-08-07 09:43 | disposition home or self-care (01) ==
PROVIDERS: PCP Nurse Practitioner Family; Visit Provider Registered Nurse Emergency
DX: M54.50 Low back pain, unspecified (principal); S46.819A Strain of other muscles, fascia and tendons at shoulder and upper arm level, unspecified arm, initial encounter; M79.18 Myalgia, other site; M96.1 Postlaminectomy syndrome, not elsewhere classified
CPT/HCPCS: 99213

== ENCOUNTER → 2024-08-07 09:06 | Outpatient (BNVA) | payer MEDICAID, SELFPAY | PROVIDERS: PCP Nurse Practitioner Family; Visit Provider Registered Nurse Emergency | DX: M54.50 Low back pain, unspecified (principal); M79.18 Myalgia, other site; M96.1 Postlaminectomy syndrome, not elsewhere classified; S46.819A Strain of other muscles, fascia and tendons at shoulder and upper arm level, unspecified arm, initial encounter; X58.XXXA Exposure to other specified factors, initial encounter; Y93.9 Activity, unspecified; Y92.9 Unspecified place or not applicable; Y99.9 Unspecified external cause status | CPT/HCPCS: 99212 ==

== ENCOUNTER 2024-09-09 14:32 | Outpatient (AMB) | payer MEDICAID, SELFPAY ==
--- NOTE | 2024-09-09 14:37 | MHC.OFFVIS ---
Vital Signs 09/09/24 14:38 Height 5 ft 2 in Weight 180 lb BMI 32.9 BP 135/82 Blood Pressure Location Lt brachial Position Sitting Respiration 16 Pulse 115 H Pulse Source Pulse Oximeter Pulse Oximetry (%) 98 Oxygen Delivery Method Room Air Intake Visit Reasons: Neck Pain Casing Running Machine Tender Required: No Allergies codeine Allergy (Severe, Verified 09/09/24 14:39) Anaphylaxis fluticasone [From Flonase] Allergy (Severe, Verified 09/09/24 14:39) Anaphylaxis oxycodone Allergy (Intermediate, Verified 09/09/24 14:39) skin redness morphine Adverse Reaction (Intermediate, Verified 09/09/24 14:39) Nausea and Vomiting Opioids - Morphine Analogues Adverse Reaction (Unknown, Verified 09/09/24 14:39) Unknown flu vaccine Allergy (Severe, Uncoded 09/09/24 14:39) Nausea and Vomiting, dehydration, weakness Medication List - Last Reconciled 09/09/24 by Katlin Orozco LPN albuterol sulfate 90 mcg/actuation 2 inhalations inhalation Q4-6H PRN albuterol sulfate 2.5 mg inhalation Q4-6H PRN amitriptyline 10 mg PO BEDTIME COVID-19 antigen test ([employer] At-Home COVID-19 Test kit) As directed cyclobenzaprine 10 mg PO BEDTIME diphenhydramine HCl (Benadryl Allergy) 25 mg PO TID PRN epinephrine 0.3 mL subcut ONCE PRN fluticasone furoate-vilanterol 100-25 mcg/dose (Breo Ellipta) 1 ea inhalation DAILY hydroxyzine HCl 25 mg PO DAILY levonorgestrel-ethinyl estrad 0.15-0.03 mg (Altavera (28)) 1 tab PO DAILY montelukast 10 mg PO DAILY naproxen 500 mg PO BID pregabalin 25 mg PO BID topiramate 100 mg PO DAILY PRN triamcinolone acetonide (Nasacort) 1 spray intranasal DAILY PRN HPI Comments Details: The patient is a 38-year-old female presenting with management of chronic cervical and lower back pain. She reports that neck pain is longstanding and progressively worsening, characterized as a constant, dull ache that becomes sharp with certain movements or pressure. The pain radiates into her head, exacerbating her migraine headaches. Despite treatment with naproxen and cyclobenzaprine, relief is inadequate. The patient reports neck pain is exacerbated by pressure from glasses and certain head movements. Her medical history includes osteoarthritis in her neck, aggravating the cervical pain, and this condition has likewise been challenging to manage with current treatments. She mentions earlier back surgery but no cervical surgeries and seeks non-surgical pain relief methods to improve functionality. Her goal is to achieve adequate pain control to improve daily living activities without heavy reliance on multiple pain medications. - Onset and Timing: Chronic, worsening over many years - Quality: Dull ache, becomes sharp with movement or pressure - Location: Neck and head, radiating into the head; Lower back - Exacerbating Factors: Wearing glasses, pressure in the neck area, sitting, walking, certain neck movements - Relieving Factors: Temporary relief with anti-inflammatory medications - Interference with Activities: Impacts activities of daily living - Affect: Reports impact on daily function and mood due to chronic pain - Analgesia: Using naproxen and cyclobenzaprine without adequate relief; migraines uncontrolled by current regimen - Adverse Effects: None reported from current medications - Activities of Daily Living: Pain limits activity, including walking and sitting; patient desires improved function without multiple medications - Aberrant Drug Related Behaviors: None reported Prior: Patient presents back to the office today for follow-up, two weeks status post SCS implant with [facility] Pain today is rated as a 4/10. Average pain relief 60-70%. Denies any untoward effects with the procedure. States in the week after implant she was diagnosed with COVID, last week she was diagnosed with flu a. Due to the viral illnesses she has not been getting around or doing as much as she would hope. This has made evaluating the results of SCS implant difficult. Initial visit 04/18/2023: Lise is a very pleasant 37 year old female who presents to the office today for evaluation and management of her chronic all over back pain. Patient reports that she has been suffering with this pain for ?my entire life ?. She states that she was bored with scoliosis, diagnosed as a child and has been suffering with pain since. She denies any treatment for the scoliosis previously. Patient does have a history of left S IJ fusion and L5-S1 partial discectomy both performed in 2018. She states her surgeon has since retired. She had evaluation with neurosurgeon less than 1 year ago and was told that surgery was not an option for treatment. All imaging has been completed echo [facility], she does not know when her most recent MRI was, records have been requested. Patient states she has never done physical therapy for her back, chiropractor has declined to treat her due to her scoliosis and she has never tried acupuncture or massage. She reports a remote history of injections to her back and states that they ?never worked ?. She is currently taking a muscle relaxer as needed and reports she only uses this when it is very bad, naproxen daily which provides some relief. Patient has red flag symptoms including new loss of bowel, bladder or saddle anesthesia. In terms of muscle damage condition is described as aching, spasming, shooting, tiring, exhausting and throbbing. Pain is constant throughout the entire day and night, negatively impacting her enjoyment of life, general activity, mood, normal work, recreational activities, sleep and walking. [facility] Medical History Fragrance hypersensitivity Hypoglycemia TMJ tenderness, right Osteoarthritis CTS (carpal tunnel syndrome) PONV (postoperative nausea and vomiting) DJD (degenerative joint disease) Asthma Seasonal allergies Environmental allergies Scoliosis Back pain Surgical History Hx of surgical fusion joint Hx of lumbar discectomy (~2018) History of arthroplasty of left knee Hx of sinus surgery Hx of bilateral breast reduction surgery History of ear surgery Social History Household Members Other:: S.O. parents Are you a primary pharmacist critical care to a significant other at home: No Do you presently have visiting nurse or other home services: No Comment: aware of trip hazard Patient Tobacco Use Status: Former Tobacco user Second Hand Smoke Exposure: Yes (parents smoked in the home) Review of Systems Const Details: - Neurological: Reports headaches, worsened by neck pain - Musculoskeletal: Reports worsening of chronic neck and back pain Physical Exam Vital Signs: Last Vital Signs Pulse 115 H 09/09/24 14:38 Resp 16 09/09/24 14:38 BP 135/82 09/09/24 14:38 Pulse Ox 98 09/09/24 14:38 Oxygen Delivery Method Room Air 09/09/24 14:38 BMI result Body Mass Index 32.9 General: awake, alert, oriented. Answers questions appropriately. Fully engaged in examination. Appears uncomfortable Skin: warm, dry, intact HEENT: Normocephalic. Hearing intact. Cardiac: External chest normal in appearance. Respiratory: No cough, audible wheezing or stridor. Abdomen: without gross distension. MS: No obvious swelling or deformities. CS: Visible inspection without gross abnormality Tenderness to palpation over occiput Tender to palpation midline cervical vertebrae and cervical paraspinal muscles decreased cervical ROM in all planes Spurling compression test positive BUE strength 5/5 Neurological: Oriented to person, place, time and situation. Thought process intact. Psychiatric: Appropriate mood and affect. Good judgment and insight. Results Reviewed Results Reviewed: 01/14/24 MR/MR lumbar spine wo con FINDINGS: There are 5 nonrib-bearing lumbar-type vertebral bodies. There is a partially imaged rightward convex scoliotic curvature of the thoracic spine and there is a leftward convex scoliotic curvature of the upper lumbar spine. The vertebral body heights are maintained. There is moderate disc volume loss and there is disc desiccation at L5-S1. Remaining disc volumes are preserved and the remaining discs remain well-hydrated. There is no bone marrow edema. There are no acute fractures. Partially imaged left SI joint screws. There are no significant extraspinal soft tissue findings. The imaged lower thoracic spinal cord is unremarkable. The conus terminates at the L2 level. At L1-L2, the disc contour is normal and there is no central canal stenosis nor foraminal stenosis. At L2-L3, there is a shallow right paracentral disc protrusion that mildly indents the right ventral thecal sac. There is no central canal stenosis and there is no foraminal stenosis. At L3-L4, there is a diffuse annular disc bulge and there is moderate bilateral facet arthropathy. There is no central canal stenosis and there is no foraminal stenosis. At L4-L5, there is a diffuse annular disc bulge and there is severe bilateral facet arthropathy and ligamentum flavum thickening. No central canal stenosis and no foraminal stenosis. At L5-S1, there are postoperative changes following left hemilaminectomy and microdiscectomy. There is a favored recurrent left paracentral disc protrusion compressing the traversing left S1 nerve root within the left subarticular zone. There is also granulation/scar tissue within the epidural space inseparable from the traversing left S1 nerve root. Postcontrast imaging could be obtained to more definitively distinguish between disc and scar. The central canal remains patent and there is no foraminal stenosis. IMPRESSION: At L5-S1, there are postoperative changes following left hemilaminectomy and microdiscectomy. There is a favored recurrent left paracentral disc protrusion compressing the traversing left S1 nerve root within the left subarticular zone. There is also granulation/scar tissue within the epidural space inseparable from the traversing left S1 nerve root. Postcontrast imaging could be obtained to more definitively distinguish between disc and scar tissue. Assessment & Plan Assessment & Plan (1) Lower back pain: Code(s): M54.50 - Low back pain, unspecified Category: Medical (2) Trapezius muscle strain: Code(s): S46.819A - Strain of other muscles, fascia and tendons at shoulder and upper arm level, unspecified arm, initial encounter Category: Medical (3) Myofascial muscle pain: Code(s): M79.18 - Myalgia, other site Category: Medical (4) Post laminectomy syndrome: Code(s): M96.1 - Postlaminectomy syndrome, not elsewhere classified Category: Medical (5) Cervical spondylosis: Code(s): M47.812 - Spondylosis without myelopathy or radiculopathy, cervical region Category: Medical Plan We addressed the chronic cervical the patient is experiencing, considering her history of cervical osteoarthritis. I discussed proceeding with a potential temporary peripheral nerve stimulator to address her pain with less dependency on medications, pending insurance authorization. This device could offer significant relief and improve her daily function. If approved, we plan to initiate one side and follow with the other two weeks subsequently. We have reviewed her current medications and noted the inadequate relief they offer, aligning with her goal of improved activity levels and reduced pain. We also agreed on the next steps for follow-up contingent upon insurance feedback. I thoroughly reviewed with the patient her chronic pain management options. We discussed the application of a temporary peripheral nerve stimulator as a means to provide her relief from chronic cervical neck pain. I provided a detailed explanation on the stimulator?s mechanism, procedure, expected relief, and longevity of effect. We opted to submit insurance authorization for this device and discussed timeline and procedural details for its application, should it be approved. If insurance requires diagnostic injections before the stimulator, I informed the patient of these prerequisites. We also considered revisiting medial branch blocks as alternative treatment plans if traditional injections were necessary. We agreed on the goal to rectify her pain while minimizing medication load and explored follow-up plans accordingly. - Await contact for scheduling if temporary nerve stimulator is approved by insurance. - Understand that two separate appointments are necessary for the complete stimulator procedure. - Continue using current medications as directed until further interventions. - Monitor and report any increase in pain or adverse effects from current medications. - Follow any specific procedural preparation instructions if provided before upcoming appointments. - Contact our office if there are new symptoms or worsening of current symptoms. Patient was informed and verbally consented to the use of an ambient scribe for clinic note documentation during this visit. Coding Level of Care Code Est Pt Level 3 (02368) Complex EM visit Add On G2211 Diagnoses Lower back pain M54.50 Trapezius muscle strain S46.819A Myofascial muscle pain M79.18 Post laminectomy syndrome M96.1 Cervical spondylosis M47.812
[2024-09-09 14:38] VITALS: BP 135/82; PULSE 115; RESP 16; O2SAT 98; BMI 32.9
--- OUTSIDE RECORDS SUMMARY | 2024-09-09 16:50 | XMS_ITS | Encounter Summary ---
Author Organization [email or web address] Address [address] [place] [address] [address] [place] [address] Care Team Providers Care Roulette Dealer Name Role Phone Kylee Gómez Primary Care Provider [phone] Gladys Foster Unavailable Unavailable Encounter Details Date Type Department Care Team (Late st Contact Info) Description 12/17/2023 Orders Only [facility] [address] [place] [address] Kylee Gómez FNP [address] [place] [address] Social History Tobacco Use Types Packs/Day Years [...] Description 01/19/2025 8:30 AM EDT Office Visit [facility] DENTAL [address] [place] [address] Jazmine Perez documented as of this encounter [...] on filedocumented in this encounter Care Teams Roulette Dealer Relationship Specialty Start Date End Date Kylee Gómez FNP [address] [place] [address] PCP - General Family Medicine 07/05/22 Gladys Foster Health Navigator 04/27/24 documented as of this encounter
--- OUTSIDE RECORDS SUMMARY | 2024-09-09 16:50 | XMS_ITS | Encounter Summary ---
Author Organization [employer] Address [address] [place] [address] [address] [place] [address] Care Team Providers Care Marketing Analytics Manager Name Role Phone Kylee Gómez Primary Care Provider [phone] Gladys Foster Unavailable Unavailable Encounter Details Date Type Department Care Team (Late Contact Info) Description 12/12/2022 Orders Only [facility] MEDICAL [address] [place] [address] Kylee Gómez FNP [address] [place] [address] Social History Tobacco Use Types Packs/Day Years [...] AM EDT Office Visit [facility] DENTAL [address] [place] [address] Jazmine Perez documented as of this encounter Visit Diagnoses Not on filedocumented in this encounter Care Teams Marketing Analytics Manager Relationship Specialty Start Date End Date Kylee Gómez FNP [address] [place] [address] PCP - General Family Medicine 07/05/22 Gladys Foster Navigator 04/27/24 documented as of this encounter
--- OUTSIDE RECORDS SUMMARY | 2024-09-09 16:50 | XMS_ITS | Encounter Summary ---
Author Organization [employer] Address [address] [place] [address] [address] [place] [address] Care Team Providers Care Wood Sash And Frame Carpenter Name Role Phone Kylee Gómez Primary Care Provider [phone] Gladys Foster Unavailable Unavailable Reason for Visit * Reason Onset Date Comments Med Refill 09/01/2024 Encounter Details Date Type Department Care Team (Late st Contact Info) Description 09/01/2024 Refill [place] [facility] MEDICAL [address] [place] [address] Kylee Gómez FNP [address] [place] [address] Degenerative disc disease at L5-S1 level Social History Tobacco Use Types Packs/Day Years [...] encounter Miscellaneous Notes * Telephone Encounter - Annetta Lu - 09/01/2024 9:44 AM EDT Patient called to refill prescription: naproxen (Naprosyn) 500 MG tablet Sig: TAKE 1 TABLET BY MOUTH TWICE A DAY (MORNING & BEDTIME ) NEEDED FOR MILD PAIN Patient states she is all out. Pharmacy: [id number] - [place], [place] - [address] AT [address]EXT TO [facility] documented in this encounter Plan of Treatment Upcoming Encounters Date Type Department Care Team (Late st Contact Info) Description 01/19/2025 8:30 AM EDT Office Visit [facility] D[facility]AL [address] [place] [address] Jazmine Perez documented as of this encounter Visit Diagnoses Diagnosis Degenerative disc disease at L5-S1 level documented in this encounter Additional Health Concerns Assessment Noted Time PHQ-9 Depression Total Score: 25 024 4:14 PM EST documented as of this encounter Care Teams Wood Sash And Frame Carpenter Relationship Specialty Start Date End Date Kylee Gómez FNP [address] [place] [address] PCP - General Family Medicine 07/05/22 Gladys Foster Health Navigator 04/27/24 documented as of this encounter
--- OUTSIDE RECORDS SUMMARY | 2024-09-09 16:50 | XMS_ITS | Encounter Summary ---
Author Organization [employer] Address [address] [facility] [address] [place] [address] Care Team Providers Care Pole Peeling Machine Operator Helper Name Role Phone RicoKylee RANDEE Primary Care Provider [phone] Gladys Foster Unavailable Unavailable Encounter Details Date Type Department Care Team ([facility] st Contact Info) Description 09/04/2024 Population Health Risk Score [facility] ([facility]) Department [address] [address] Provider, Population Health Generic Social History Tobacco Use Types Packs/Day Years [...] 01/19/2025 8:30 AM EDT Office Visit [facility] DENTAL [address] [place] [address] Jazmine Perez documented as of this encounter Visit Diagnoses Not on filedocumented in this encounter Additional Health Concerns Assessment Noted Time PHQ-9 Depression Total Score: 25 024 4:14 PM EST documented as of this encounter Care Teams Pole Peeling Machine Operator Helper Relationship Specialty Start Date End Date Kylee Gómez FNP [address] [place] [address] PCP - General Family Medicine 07/05/22 Gladys Foster Health Navigator 04/27/24 documented as of this encounter
--- OUTSIDE RECORDS SUMMARY | 2024-09-09 16:50 | XMS_ITS | Encounter Summary ---
Author Organization [employer] Address [address] [facility] [address] [place] [address] Care Team Providers Care Charter Coordinator Name Role Phone Kylee Gómez Primary Care Provider [phone] Gladys Foster Unavailable Unavailable Reason for Visit * Reason Onset Date Comments request 2 printed letters to waste picker 09/01/2024 Encounter Details Date Type Department Care Team (Late st Contact Info) Description 09/01/2024 Telephone [facility] [address] [place] [address] Kylee Gómez FNP [address] [place] [address] request 2 printed letters to waste picker Social History Tobacco Use Types Packs/Day Years [...] encounter Miscellaneous Notes * Telephone Encounter - Renetta Woodward LPN - 09/03/2024 2:55 PM EDT Pt. Came in and picked up the letters and felt that the letters were satisfactory. No questions voiced. * Telephone Encounter - Renetta Woodward LPN - 09/03/2024 11:11 AM EDT Spoke with pt. She will come to [facility] this afternoon for the PW she needs. * Telephone Encounter - Annetta Lu - 09/03/2024 10:05 AM EDT Patient left voicemail on 09/03/24 at 8:09 am stating fabian, this is Lise Zamorano, I'm calling because I was supposed to waste picker a letter at the help desk rep to bring to the meat curer and there's nobody'sin the medical department, they said that there's nothing for me to waste picker. So I'm actually kind of angry because it was supposed to go to the meat curer today. I messaged you guys through the portal last week and I was told on 08/26/24 that I would have had it by the 08/27/24 and nobody has messaged me or anything like that back. So I'm actually kind of mad right now. Please call me back. It's [phone]. Thank you. * Telephone Encounter - Audrey Roach LPN - 09/01/2024 1:[address] [facility] will print letters for patient * Telephone Encounter - Annetta Lu - 09/01/2024 9:50 AM EDT Patient called stating I need to give my meat curer two letters about my disabilities but can't figureout how to print them, the letters are: 1.) Letter from [facility] - see letter on 08/26/24 regarding patient's conditions 2.) Letter from [employer] - see TE on 05/20/25 regarding social security Patient states she would like to waste picker the two printed letters at [facility] tomorrow (09/02/24). TE sent to nursing, please advise, thank you! documented in this encounter Plan of Treatment Upcoming Encounters Date Type Department Care Team (Late st Contact Info) Description 01/19/2025 8:30 AM EDT Office Visit [facility] DENTAL [address] [place] [address] Jazmine Perez documented as of this encounter Visit Diagnoses Not on filedocumented in this encounter Additional Health Concerns Assessment Noted Time PHQ-9 Depression Total Score: 25 024 4:14 PM EST documented as of this encounter Care Teams Charter Coordinator Relationship Specialty Start Date End Date Kylee Gómez FNP [address] [place] [address] PCP - General Family Medicine 07/05/22 Gladys Foster Health Navigator 04/27/24 documented as of this encounter
--- OUTSIDE RECORDS SUMMARY | 2024-09-09 16:50 | XMS_ITS | Encounter Summary ---
Author Organization [employer] Address [address] [place] [address] [address] [place] [address] Care Team Providers Care Test Grader Name Role Phone Kylee Gómez Primary Care Provider [phone] Gladys Foster Unavailable Unavailable Encounter Details Date Type Department Care Team (Late st Contact Info) Description 10/09/2023 Orders Only [facility] [address] [place] [address] Kylee Gómez FNP [address] [place] [address] Social History Tobacco Use Types Packs/Day Years [...] Description 01/19/2025 8:30 AM EDT Office Visit [facility] DENTAL [address] [place] [address] Jazmine Perez documented as of this encounter Procedures Procedure Name Priority Date/Time Associated Diagnosis Comments PULMONARY FUNCTION TESTING Routine 10/03/2023 10:21 AM EDT documented in this encounter Results * Pulmonary function testing (10/03/2023 10:21 AM EDT) Kylee JEFF PFT ORDERABLES Final Res ult documented in this encounter Visit Diagnoses Not on filedocumented in this encounter Care Teams Test Grader Relationship Specialty Start Date End Date Kylee Gómez FNP [address] [place] [address] PCP - General Family Medicine 07/05/22 Gladys Foster Health Navigator 04/27/24 documented as of this encounter
--- OUTSIDE RECORDS SUMMARY | 2024-09-09 16:50 | XMS_ITS | Encounter Summary ---
Author Organization [employer] Address [address] [place] [address] 7t [place] [address] Care Team Providers Care Preparer Name Role Phone Kylee Gómez Primary Care Provider +1 -[phone] Gladys Foster Unavailable Unavailable Encounter Details Date Type Department Care Team (Late st Contact Info) Description 04/20/2024 Orders Only [facility] [address] [place] [address] Kylee Gómez FNP [address] [place] [address] Social History Tobacco Use Types Packs/Day Years [...] Description 01/19/2025 8:30 AM EDT Office Visit [facility] DENTAL [address] [place] [address] Jazmine Perez documented as of this encounter Procedures Procedure Name Priority Date/Time Associated Diagnosis Comments PATHOLOGY REPORT (HISTOPATHOLOGY) Routine 04/16/2024 1:38 PM EDT documented in this encounter Results * Pathology Report (Histopathology) (04/16/2024 1:38 PM EDT) Tissue Kylee JEFF LAB PATHOLOGY ORDERABLES Final Result documented in this encounter Visit Diagnoses Not on filedocumented in this encounter Care Teams Preparer Relationship Specialty Start Date End Date Kylee Gómez FNP [address] [place] [address] PCP - General Family Medicine 07/05/22 Gladys Foster Health Navigator 04/27/24 documented as of this encounter
--- OUTSIDE RECORDS SUMMARY | 2024-09-09 16:50 | XMS_ITS | Clinical Summary ---
Author Organization [employer] Address [address] [place] [address] 7t [place] [address] Care Team Providers Care Web Site Admin Name Role Phone Kylee Gómez DERMATOLOGY SALES REPRESENTATIVE Primary Care Provider +1 -[phone] Gladys Foster Unavailable Unavailable Allergies Active Allergy [...] Take 100 mg by mouth at bedtime. 023 Active montelukast (Singulair) 10 MG tablet Take 10 mg by mouth at bedtime. 024 Active cyclobenzaprine (Flexeril) 10 MG tabletIndication s:Chronic pain of left knee TAKE 1 TABLET BY MOUTH AT BEDTIME NEEDED FOR MUSCLE SPASM 30 tablet 024 Active Breo Ellipta 200-25 MCG/ACT aerosol powder TAKE 1 PUFF BY MOUTH EVERY DAY 024 Active hydrOXYzine HCl (Atarax) 25 MG tabletIndication s:Anxiety Take 1 tablet (25 mg) by mouth if needed at bedtime for anxiety for up to 180 doses. 90 tablet 1 024 Active amitriptyline (Elavil) 10 MG tabletIndication s:Anxiety Take 1 tablet (10 mg) by mouth if needed at bedtime for sleep. 90 tablet 2 024 2024 Active pregabalin (Lyrica) 25 MG capsuleIndicatio ns:Degenerative disc disease at L5-S1 level Take 1 capsule (25 mg) by mouth 2 times daily. 60 capsule 025 Active Altavera 0.15-30 MG-MCG tabletIndication s:Encounter for contraceptive management, unspecified TAKE 1 TABLET ORALLY ONCE A DAY. SKIP PLACEBO WEEK 2 MONTHS OUT OF EVERY 3 PACKS 84 DAYS 112 tablet 2 025 Active naproxen (EC Naprosyn) 500 MG EC tabletIndication s:Degenerative disc disease at L5-S1 level Take 1 tablet (500 mg) by mouth with breakfast and with evening meal for 720 doses. /90 days, Do not crush, chew, or split. 180 tablet 3 025 2025 Active naproxen (EC Naprosyn) 500 MG EC tablet Take 500 mg by mouth with breakfast and with evening meal. Do not crush, chew, or split. 2024 Discontinued(R eorder (will not trigger notification to Pharmacy)) Active Problems Problem Noted Date Diagnosed Date [...] (03/02/2024): Chronic back pain. Was seen at [facility] 05/25/22 and recommended non- operative tx. They suggested PT, injections. Referred to [facility] neurosurgery for second opinion and she said [...] Encounters Date Type Department Care Team Description 09/04/2024 Population Health Risk Score [facility] (C3) Department [address] [id number] Provider, Population Health Generic 09/01/2024 Telephone [facility] [address] [place] [address] Kylee Gómez FNP request 2 printed letters to cigar packer and picker 09/01/[address] [address] Kylee Gómez FNP Degenerative disc disease at L5-S1 level 08/03/2024 3:15 PM EST Office Visit [address] [address] Kitty Mason DO Influenza A (Primary Dx); Moderate persistent asthma without complication 08/03/[address] [address] Kylee Gómez FNP RTT, difficulty breathing 07/16/2024 11:00 AM EST Office Visit [address] [address] Deysi Hutson FNP-C Acute maxillary sinusitis, recurrence not specified (Primary Dx); Eustachian tube dysfunction, left 07/15/2024 11:00 AM EST Office Visit [facility] DENTAL [address] [place] [address] Chaya Lewis Encounter for dental examination (Primary Dx); Stage 2 grade B generalized periodontitis per AAP/EFP 2017 classification 07/15/[address] [address] Kylee Gómez FNP 07/09/[address] [address] Kylee Gómez FNP Encounter for contraceptive management, unspecified 07/06/2024 9:40 AM EST Office Visit [address] [address] Kylee Gómez FNP Stomach pain (Primary Dx); Nail deformity 06/29/[address] [address] Kylee Gómez FNP Degenerative disc disease at L5-S1 level 06/29/2024 Telephone [place] [address] [place] [address] Beatriz Chavez RN from Last 3 Months Immunizations Name Administration [...] the past 12 months, has t he [facility], [employer], oil or water [employer] threatened to shut off services in your [...] Description 01/19/2025 8:30 AM EDT Office Visit [facility] D[facility] [address] [place] [address] Jazmine Perez Health Maintenance Due Date Last Done Comments HIV Screening 1986 Hepatitis C Screening 2004 HPV Vaccines (3 - 3-dose series) 07/25/2007 05/02/2007, 02/28/2007, 09/03/2006 Cervical Cancer Screening 08/02/2016 HPV/Cotest 08/02/2016 Pap Smear 08/02/2016 08/02/2011, 06/15/2010 DTaP/Tdap/Td Vaccines (2 - Td or Tdap) 07/25/2021 07/25/2011, 12/14/2008 COVID-19 Vaccine ( - season) 2024 Influenza Vaccine (#1) 2024 Depression [...] 07/08/2024 1 0:39 AM EST Hair loss PAP SMEAR Routine 08/02/2011 12:00 AM EST from Last 3 Months or Most Recently Relevant to Health Maintenance Results * POCT Rapid COVID Ag (08/03/2024 3:37 PM EST) Rapid COVID Ag Negative Swab 08/03/2024 3:37 PM EST [facility] POINT OF CARE TEST ENTER/EDIT ORDERABLES Final Result * (ABNORMAL) POCT Influenza A/B manually resulted (08/03/2024 3:35 PM EST) Pathologist [facility] Rapid Influenza A Ag Positive(A) Negative, Indeterminate Rapid Influenza B Ag Negative Negative, Indeterminate Swab 08/03/2024 3:35 PM EST [facility] POINT OF CARE TEST ENTER/EDIT ORDERABLES Final Result * Urine Culture, Routine (07/08/2024 10:48 AM EST) Pathologist [facility] Culture, Urine, Routine Final report [facility] 2 Result 1 No growth [facility] 2 07/08/2024 10:4 8 AM EST 07/08/2024 Narrative [facility] 2 - 07/10/2024 2:05 PM EST Performed at: ??02 - [facility] [address], [place], [place] ??[id number] Sales Service Rep: Sha Damon MD, Phone: ??[phone] Kylee JEFF HISTORICAL/NON ORDERABLE LABS Final Result [facility] * (ABNORMAL) Microscopic Examination (07/08/2024 10:48 AM EST) Pathologist [facility] WBC, Urine 0-5 0 - 5 /hpf [...] PM EST Performed at: ??01 - [facility] [address] ??[id number] Sales Service Rep: Cha Alford MD, Phone: ??[phone] Kylee Gómez DERMATOLOGY SALES REPRESENTATIVE HISTORICAL/NON ORDERABLE LABS Final Result [facility] 1 * (ABNORMAL) Urinalysis, Complete, with Reflex to Culture (07/08/2024 10:48 AM EST) Specific [place] 1.029 1.005 - 1.030 [facility] 1 pH, [...] 2:05 PM EST Performed at: ??01 - [facility] ??[id number] Sales Service Rep: Cha Alford MD, Phone: ??[phone] [facility] LAB URINE ORDERABLES Hien l Result Performing Organization Address [facility] de Phone Number [facility] 1 * Folate (07/08/2024 10:40 AM EST) Folate, Serum 12.2 >3.0 ng/mL [facility] 1 Comment: A serum folate concentration of less than 3.1 ng/mL is considered to represent clinical deficiency. Blood Venous blood specimen / Unknown 07/08/2024 10:40 AM EST 07/08/2024 Narrative [facility] 1 - 07/09/2024 6:05 AM EST Performed at: ??01 - [facility] [address] ??[id number] Sales Service Rep: Cha Alford MD, Phone: ??[phone] [facility] LAB BLOOD ORDERABLES Hien l Result Performing Organization Address [facility] Phone Number [facility] * Vitamin B12 (07/08/2024 10:40 AM EST) Pathologist [facility] Vitamin B12 266 232 - 1,245 pg/mL [facility] 1 Blood Venous blood specimen / Unknown 07/08/2024 10:40 AM EST 07/08/2024 Narrative [facility] 1 - 07/09/2024 6:05 AM EST Performed at: ??01 - [facility] ??[id number] Sales Service Rep: Cha Alford MD, Phone: ??[phone] [facility] LAB BLOOD ORDERABLES Hien l Result Performing Organization Address [facility] Co de Phone Number [facility] 1 * TSH with Reflex to Free T4 [[id number]] (07/08/2024 10:39 AM EST) TSH 1.140 0.450 - 4.500 uIU/mL [facility] 1 Blood Venous blood specimen / Unknown 07/08/2024 10:39 AM EST 07/08/2024 Narrative [facility] 1 - 07/09/2024 12:05 AM EST Performed at: ??01 - [facility] [address] ??[id number] Sales Service Rep: Cha Alford MD, Phone: ??[phone] [facility] LAB BLOOD ORDERABLES Hien l Result Performing Organization Address City/[facility] de Phone Number [facility] * Lipase (07/08/2024 10:39 AM EST) Lipase 33 14 - 72 U/L [facility] 1 Blood Venous blood specimen / Unknown 07/08/2024 10:39 AM EST 07/08/2024 Narrative [facility] 1 - 07/09/2024 8:07 AM EST Performed at: ??[address] ??[id number] Sales Service Rep: Cha Alford MD, Phone: ??[phone] [facility] LAB BLOOD ORDERABLES Hien l Result Performing Organization Address City/[facility] Co de Phone Number [facility] * Amylase (07/08/2024 10:39 AM EST) Amylase 72 31 - 110 U/L [facility] 1 Blood Venous blood specimen / Unknown 07/08/2024 10:39 AM EST 07/08/2024 Narrative [facility] 1 - 07/14/2024 8:05 PM EST Performed at: ??[address] ??[id number] Sales Service Rep: Cha Alford MD, Phone: ??[phone] Kylee Golnemesio [facility] LAB BLOOD ORDERABLES Hien l Result [facility] * (ABNORMAL) Comprehensive metabolic panel (07/08/2024 10:39 AM EST) Glucose 89 70 - 99 mg/dL [facility] [...] AM EST Performed at: ??01 - [facility] [address] ??[id number] Sales Service Rep: Cha Alford MD, Phone: ??[phone] [facility] Rico [facility] LAB BLOOD ORDERABLES Hien l Result [facility] 1 * Pap Smear (08/02/2011 12:00 AM EST) Swab Historical Provider LAB CYTOLOGY ORDERABLES F inal Result from Last 3 Months or Most Recently Relevant to Health Maintenance Insurance [facility] C3 DENTAL-[facility] MEDICAID STAND ADULT Care Teams Web Site Admin Relationship Specialty Start Date End Date Kylee Gómez FNP [address] [facility] [place] [address] PCP - General Family Medicine 07/05/22 Gladys Foster Navigator 04/27/24
--- OUTSIDE RECORDS SUMMARY | 2024-09-09 16:50 | XMS_ITS | Encounter Summary ---
Author Organization [employer] Address [address] [facility] 7t [place] [address] Care Team Providers Care Instructional Design Consultant Name Role Phone Kylee Gómez Primary Care Provider +1 -[phone] Gladys Foster Unavailable Unavailable Encounter Details Date Type Department Care Team (Late st Contact Info) Description 05/15/2024 Orders Only [facility] [address] [place] [address] Kylee Gómez FNP [address] [place] [address] Social History Tobacco Use Types Packs/Day Years [...] t he electric, gas, oil or water [employer] threatened to shut off services in your [...] Description 01/19/2025 8:30 AM EDT Office Visit [facility] D[facility] [address] [place] [address] Jazmine Perez documented as of this encounter [...] documented as of this encounter Care Teams Instructional Design Consultant Relationship Specialty Start Date End Date Kylee Gómez FNP [address] [place] [address] PCP - General Family Medicine 07/05/22 Gladys Foster Health Navigator 04/27/24 documented as of this encounter
--- OUTSIDE RECORDS SUMMARY | 2024-09-09 16:50 | XMS_ITS | Encounter Summary ---
Author Organization [employer] Address [address] [place] [address] 7t h Floor [place] [id number] Care Team Providers Care Case Work Aide Name Role Phone Kylee Gómez Primary Care Provider +1 -[phone] Gladys Foster Unavailable Unavailable Encounter Details Date [...] 01/19/2025 8:30 AM EDT Office Visit [facility] D[facility] [address] [place] [address] Jazmine Perez documented as of this encounter Visit Diagnoses Not on filedocumented in this encounter Care Teams Case Work Aide Relationship Specialty Start Date End Date Kylee Gómez FNP [address] [place] [address] PCP - General Family Medicine 07/05/22 Gladys Foster Health Navigator 04/27/24 documented as of this encounter
--- OUTSIDE RECORDS SUMMARY | 2024-09-09 16:50 | XMS_ITS | Encounter Summary ---
Author Organization [employer] Address [address] [facility] 7t [place] [address] Care Team Providers Care Drier Tender Name Role Phone Kylee Gómez Primary Care Provider +1 -[phone] Gladys Foster Unavailable Unavailable Reason for Visit * Reason Comments Med Change Request Encounter Details Date Type Department Care Team (Late st Contact Info) Description 12/19/[address] [facility] MEDICAL [address] [place] [address] Kylee Gómez FNP [address] [place] [address] Social History Tobacco Use Types Packs/Day Years [...] 12/20/2023 3:14 PM EDT Placed call to [facility], they do not stock this product and state it is OTC. Advised patient to purchase OTC, she is agreeable. documented in this encounter Plan of Treatment Upcoming Encounters Date Type Department Care Team (Late st Contact Info) Description 01/19/2025 8:30 AM EDT Office Visit Karley [facility] D[facility] [address] [place] [address] Jazmine Perez documented as of this encounter Visit Diagnoses Not on filedocumented in this encounter Care Teams Drier Tender Relationship Specialty Start Date End Date Kylee Gómez FNP [address] [place] [address] PCP - General Family Medicine 07/05/22 Gladys Foster Health Navigator 04/27/24 documented as of this encounter
--- OUTSIDE RECORDS SUMMARY | 2024-09-09 16:50 | XMS_ITS | Encounter Summary ---
Author Organization [email or web address] Address [address] [place] [address] 7t [place] [address] Care Team Providers Care Record Press Operator Name Role Phone Kylee Gómez Primary Care Provider +1 -[phone] Gladys Foster Unavailable Unavailable Encounter Details Date [...] 01/19/2025 8:30 AM EDT Office Visit Kar[facility] DENTAL [address] [place] [address] Jazmine Perez documented as of this encounter Visit Diagnoses Not on filedocumented in this encounter Care Teams Record Press Operator Relationship Specialty Start Date End Date Kylee Gómez FNP [address] [place] [address] PCP - General Family Medicine 07/05/22 Gladys Foster Health Navigator 04/27/24 documented as of this encounter
== END 2024-09-09 15:40 | disposition home or self-care (01) ==
LOC: HO.PMC 14:33
PROVIDERS: PCP Nurse Practitioner Family; Visit Provider Registered Nurse Emergency
DX: M54.50 Low back pain, unspecified (principal); S46.819A Strain of other muscles, fascia and tendons at shoulder and upper arm level, unspecified arm, initial encounter; M79.18 Myalgia, other site; M96.1 Postlaminectomy syndrome, not elsewhere classified; M47.812 Spondylosis without myelopathy or radiculopathy, cervical region
CPT/HCPCS: 99213

== ENCOUNTER → 2024-09-09 14:32 | Outpatient (BNVA) | payer MEDICAID, SELFPAY | PROVIDERS: PCP Nurse Practitioner Family; Visit Provider Registered Nurse Emergency | DX: M54.50 Low back pain, unspecified (principal); M47.812 Spondylosis without myelopathy or radiculopathy, cervical region; M79.18 Myalgia, other site; M96.1 Postlaminectomy syndrome, not elsewhere classified; G89.4 Chronic pain syndrome; S46.819A Strain of other muscles, fascia and tendons at shoulder and upper arm level, unspecified arm, initial encounter | CPT/HCPCS: 99212 ==

== ENCOUNTER 2024-11-03 06:20 | Outpatient (REF) | payer MEDICAID, SELFPAY ==
--- NOTE | ~2024-11-03 | FL_ITS ---
EXAMINATION: FL GUIDANCE ONLY HISTORY: M47.812 - Spondylosis without myelopathy or radiculopathy, cervical region COMPARISON: None available. TECHNIQUE: Fluoroscopy time: 0.2 minutes. Cumulative Dose: [id number] mGy. DAP: [id number] mGym2 Images: 2. FINDINGS: Fluoroscopic spot films of the cervical spine in the AP projection demonstrate a lead in the right neck. FL/FL guidance in treatment room IMPRESSION: Fluoroscopy during procedure. Please see procedure report for additional information. Electronically signed by: Erich Lopez MD 11/03/2024 02:59 PM EDT
--- OUTSIDE RECORDS SUMMARY | 2024-11-03 06:22 | XMS_ITS | Encounter Summary ---
Author Organization [employer] Address [address] [facility] 7t [place] [address] Care Team Providers Care Machine Erector Name Role Phone Kylee Gómez [facility] Primary Care Provider +1 -[phone] Gladys Foster Unavailable Unavailable Reason for Visit * Reason Onset Date Comments Med Refill 11/02/2024 Encounter Details Date Type Department Care Team (Late st Contact Info) Description 11/02/2024 Refill Kar[facility] MED[facility] [address] [place] [address] Kylee Gómez FNP [address] [place] [address] Anaphylaxis, sequela; Chronic pain of left knee Social History Tobacco Use Types Packs/Day Years [...] encounter Miscellaneous Notes * Telephone Encounter - Radha Oliva - 11/02/2024 10:25 AM EDT EPINEPHrine (Epipen) 0.3 MG/0.3ML injection syringe Taken as needed cyclobenzaprine (Flexeril) 10 MG tablet Once a day CASS: 10/03/24 NOV: 11/04/24 [id number] [place], [place] - [address] AT NEXT TO [facility] documented in this encounter Plan of Treatment Upcoming Encounters Date Type Department Care Team (Late st Contact Info) Description 11/04/2024 2:00 PM EDT Office Visit [facility] MEDICAL [address] [place] [address] Kylee Gómez FNP [address] [place] [address] 01/19/2025 8:30 AM EDT Office Visit [facility] DENTAL [address] [place] [address] Jazmine Perez documented as of this encounter Visit Diagnoses Diagnosis Anaphylaxis, sequela Chronic pain of left knee documented in this encounter Additional Health Concerns Assessment Noted Time PHQ-9 Depression Total Score: 25 024 4:14 PM EST documented as of this encounter Care Teams Machine Erector Relationship Specialty Start Date End Date Kylee Gómez FNP [address] [place] [address] PCP - General Family Medicine 07/05/22 Gladys Foster Health Navigator 04/27/24 documented as of this encounter
--- OUTSIDE RECORDS SUMMARY | 2024-11-03 06:22 | XMS_ITS | Encounter Summary ---
Author Organization [employer] Address [address] [facility] 7t [place] [address] Care Team Providers Care Automatic Tire Tester Name Role Phone Kylee Gómez MOTORCYCLE ENGINE ASSEMBLER Primary Care Provider +1 -[phone] Gladys Foster Unavailable Unavailable Reason for Visit * Reason Comments Dental Exam Jaw pain Encounter Details Date Type Department Care Team (Late st Contact Info) Description 11/02/2024 9:30 AM EDT Office Visit [facility] D[facility] [address] [place] [address] Ligia Mitchell DDS [address] [place] [address] Pain, dental (Primary Dx); Dental caries Social History Tobacco Use Types Packs/Day Years [...] as of this encounter Progress Notes * Ligia Mitchell DDS - 11/02/2024 9:30 AM EDT Pt rtc for apt. No changes in med Hx. Pt was asked Covid 19 screening questions. A pre-rinse with [employer] mouthrinse for 1 min was completed. Dx: #30 MOD decay Admin: 2X 1 carpule 1.7 ml 2% Lidocaine 1:100,00 epi via IAB Tooth/teeth: #30 MOD Composite baptism prepared with complete caries removal and incomplete removal of existing restorations. Isolated area with high speed suction and cotton rolls. Bite block in place Liner/Base/Cement: [employer] Used [employer] [place] [employer] Preparation filled with composite material and with composite flowable material. Shade: A3. Trimmed and Polished. Verified occlusion and contacts. Notes:Pt reports return of severe jaw pain, this time she does not have limited opening, but it hurts to eat. Last year she had similar problem, that she was referred for but unable to follow throughdue to expense of eval and xrays, then symptoms resolved until now. Advised soft diet, avoiding repetitive chewing like gum. Pt to have nerve stimulator implanted in neck for 60 days, may also help jaw pain. Advised pt to continue pain med regimen when allowed. Consider occlusal guard if symptoms do not resolve. NV: re-eval jaw pain prn ARR documented in this encounter Plan of Treatment Upcoming Encounters Date Type Department Care Team (Late st Contact Info) Description 11/04/2024 2:00 PM EDT Office Visit [facility] MEDICAL [address] [place] [address] Kylee Gómez FNP [address] [place] [address] 01/19/2025 8:30 AM EDT Office Visit [facility] DENTAL [address] [place] [address] Jazmine Perez documented as of this encounter Procedures Procedure Name Priority Date/Time Associated Diagnosis Comments 30 MOD RESIN-BASED COMPOSITE - 3 SURF, POSTERIOR Routine 11/02/2024 9:30 AM EDT Dental caries 2 LIMITED ORAL EVALUATION - PROBLEM FOCUSED Routine 11/02/2024 9:30 AM EDT Pain, dental CASE PRESENTATION, DETAILED AND EXTENSIVE TREATMENT PLANNING Routine 11/02/2024 9:30 AM EDT Pain, dental Dental caries documented in this encounter Visit Diagnoses Diagnosis Pain, dental- Primary Dental caries Unspecified dental caries documented in this encounter Additional Health Concerns Assessment Noted Time PHQ-9 Depression Total Score: 25 11/19/2 024 4:14 PM EST documented as of this encounter Care Teams Automatic Tire Tester Relationship Specialty Start Date End Date Kylee Gómez FNP [address] [place] [address] PCP - General Family Medicine 07/05/22 Gladys Foster Health Navigator 04/27/24 documented as of this encounter
--- OUTSIDE RECORDS SUMMARY | 2024-11-03 06:22 | XMS_ITS | Encounter Summary ---
Author Organization [employer] Address [address] [place] [address] 7 [place] [address] Care Team Providers Care Beam Saw Operator Name Role Phone Kylee Gómez Primary Care Provider +1 -[phone] Gladys Foster Unavailable Unavailable Encounter Details Date Type Department Care Team (Late st Contact Info) Description 12/17/2023 Orders Only [facility] [address] [place] [address] Kylee Gómez FNP [address] [place] [address] Social History Tobacco Use Types Packs/Day Years [...] Description 11/04/2024 2:00 PM EDT Office Visit [facility] MEDICAL [address] [place] [address] Kylee Gómez FNP [address] [place] [address] 01/19/2025 8:30 AM EDT Office Visit [facility][1] DENTAL [address] [place] [address] Jazmine Perez documented as of this encounter [...] on filedocumented in this encounter Care Teams Beam Saw Operator Relationship Specialty Start Date End Date Kylee Gómez FNP [address] [facility] [place] [address] PCP - General Family Medicine 07/05/22 Gladys Foster Health Navigator 04/27/24 documented as of this encounter
--- OUTSIDE RECORDS SUMMARY | 2024-11-03 06:22 | XMS_ITS | Encounter Summary ---
Author Organization [employer] Address [address] [facility] 7t [place] [address] Care Team Providers Care Agricultural Extension Educator Name Role Phone Kylee Gómez Primary Care Provider +1 -[phone] Gladys Foster Unavailable Unavailable Reason for Visit * Reason Comments Med Change Request Encounter Details Date Type Department Care Team (Late st Contact Info) Description 12/19/2023 Refill Karley [facility] MEDICAL [address] [place] [address] Kylee Gómez FNP [address] [place] [address] Social History Tobacco Use Types Packs/Day Years [...] 12/20/2023 3:14 PM EDT Placed call to [facility], they do not stock this product and state it is OTC. Advised patient to purchase OTC, she is agreeable. documented in this encounter Plan of Treatment Upcoming Encounters Date Type Department Care Team (Late st Contact Info) Description 11/04/2024 2:00 PM EDT Office Visit [facility] MEDICAL [address] [place] [address] Kylee Gómez FNP [address] [place] [address] 01/19/2025 8:30 AM EDT Office Visit [facility] DENTAL [address] [place] [address] Jazmine Perez documented as of this encounter Visit Diagnoses Not on filedocumented in this encounter Care Teams Agricultural Extension Educator Relationship Specialty Start Date End Date Kylee Gómez FNP [address] [place] [address] PCP - General Family Medicine 07/05/22 Gladys Foster Health Navigator 04/27/24 documented as of this encounter
--- OUTSIDE RECORDS SUMMARY | 2024-11-03 06:22 | XMS_ITS | Encounter Summary ---
Author Organization [employer] Address [address] [facility] 7t [place] [address] Care Team Providers Care Deli Bakery Clerk Name Role Phone Kylee Gómez Primary Care Provider +1 [phone] Gladys Foster Unavailable Unavailable Encounter Details Date Type Department Care Team (Late st Contact Info) Description 05/15/2024 Orders Only [facility] [address] [place] [address] Kylee Gómez FNP [address] [place] [address] Social History Tobacco Use Types Packs/Day Years [...] Description 11/04/2024 2:00 PM EDT Office Visit [facility] MED[facility] [address] [place] [address] Kylee Gómez FNP [address] [place] [address] 01/19/2025 8:30 AM EDT Office Visit [facility] DENTAL [address] [place] [address] Jazmine Perez documented as of this encounter [...] documented as of this encounter Care Teams Deli Bakery Clerk Relationship Specialty Start Date End Date Kylee Gómez FNP [address] [place] [address] PCP - General Family Medicine 07/05/22 Gladys Foster Health Navigator 04/27/24 documented as of this encounter
--- OUTSIDE RECORDS SUMMARY | 2024-11-03 06:22 | XMS_ITS | Encounter Summary ---
Author Organization [employer] Address [address] [facility] [address] [place] [address] Care Team Providers Care Medication Coordinator Name Role Phone Kylee Gómez Primary Care Provider +1 [phone] Gladys Foster Unavailable Unavailable Encounter Details Date [...] Description 11/04/2024 2:00 PM EDT Office Visit [facility] MEDICAL [address] [place] [address] Kylee Gómez FNP 58 [place] [address] 01/19/2025 8:30 AM EDT Office Visit [facility] DENTAL [address] [place] [address] Jazmine Perez documented as of this encounter Visit Diagnoses Not on filedocumented in this encounter Care Teams Medication Coordinator Relationship Specialty Start Date End Date Kylee Gómez FNP 58 [place] [address] PCP - General Family Medicine 07/05/22 Gladys Foster Health Navigator 04/27/24 documented as of this encounter
--- OUTSIDE RECORDS SUMMARY | 2024-11-03 06:22 | XMS_ITS | Encounter Summary ---
Author Organization [employer] Address [address] [place] [address] 7 [place] [address] Care Team Providers Care Tape Making Machine Operator Name Role Phone Kylee Gómez Primary Care Provider +1 [phone] Gladys Foster Unavailable Unavailable Encounter Details Date Type Department Care Team (Late st Contact Info) Description 04/20/2024 Orders Only [facility] [address] [place] [address] Kylee Gómez FNP [address] [place] [address] Social History Tobacco Use Types Packs/Day Years [...] Description 11/04/2024 2:00 PM EDT Office Visit [facility] MEDICAL [address] [place] [address] Kylee Gómez FNP 58 [place] [address] 01/19/2025 8:30 AM EDT Office Visit [facility] DENTAL [address] [place] [address] Jazmine Perez documented as of this encounter Procedures Procedure Name Priority Date/Time Associated Diagnosis Comments PATHOLOGY REPORT (HISTOPATHOLOGY) Routine 04/16/2024 1:38 PM EDT documented in this encounter Results * Pathology Report (Histopathology) (04/16/2024 1:38 PM EDT) Tissue Kylee JEFF LAB PATHOLOGY ORDERABLES Final Result documented in this encounter Visit Diagnoses Not on filedocumented in this encounter Care Teams Tape Making Machine Operator Relationship Specialty Start Date End Date Kylee Gómez FNP [address] [facility] [place] [address] PCP - General Family Medicine 07/05/22 Gladys Foster Health Navigator 04/27/24 documented as of this encounter
--- OUTSIDE RECORDS SUMMARY | 2024-11-03 06:22 | XMS_ITS | Encounter Summary ---
Author Organization [employer] Address [address] [place] [address] [address] [place] [address] Care Team Providers Care Irs Agent Name Role Phone Kylee Gómez Primary Care Provider [phone] [phone] Gladys Foster Unavailable Unavailable Encounter Details Date [...] Description 11/04/2024 2:00 PM EDT Office Visit [facility] MEDICAL [address] [place] [address] Kylee Gómez FNP [address] [place] [address] 01/19/2025 8:30 AM EDT Office Visit [facility] DENTAL [address] [place] [address] Jazmine Perez documented as of this encounter Visit Diagnoses Not on filedocumented in this encounter Care Teams Irs Agent Relationship Specialty Start Date End Date Kylee Gómez FNP 58 [place] [address] PCP - General Family Medicine 07/05/22 Gladys Foster Health Navigator 04/27/24 documented as of this encounter
--- OUTSIDE RECORDS SUMMARY | 2024-11-03 06:22 | XMS_ITS | Encounter Summary ---
Author Organization [employer] Address 75 [facility] 7t [place] [address] Care Team Providers Care Industrial Safety And Health Manager Name Role Phone Kylee Gómez Primary Care Provider [phone] [phone] Gladys Foster Unavailable Unavailable Encounter Details Date Type Department Care Team (Late st Contact Info) Description 12/12/2022 Orders Only [facility] [address] [place] [address] Kylee Gómez FNP 58 [place] [address] Social History Tobacco Use Types Packs/Day Years [...] Description 11/04/2024 2:00 PM EDT [facility] [address] [place] [address] Kylee Gómez FNP 58 [place] [address] 01/19/2025 8:30 AM EDT Office Visit [facility] DENTAL [address] [place] [address] Jazmine Perez documented as of this encounter Visit Diagnoses Not on filedocumented in this encounter Care Teams Industrial Safety And Health Manager Relationship Specialty Start Date End Date Kylee Gómez FNP [address] [place] [address] PCP - General Family Medicine 07/05/22 Gladys Foster Health Navigator 04/27/24 documented as of this encounter
--- OUTSIDE RECORDS SUMMARY | 2024-11-03 06:22 | XMS_ITS | Clinical Summary ---
Author Organization [employer] Address [address] [place] [address] 7t [place] [address] Care Team Providers Care Fire Extinguisher Repairer Name Role Phone Kylee Gómez [facility] Primary Care Provider +1 [phone] Gladys Foster Unavailable Unavailable Allergies Active Allergy [...] and 1 tablet before bedtime. 013 Active albuterol (2.5 MG/3ML) 0.083% nebulizer solution PLEASE SEE ATTACHED FOR DETAILED DIRECTIONS 022 Active albuterol 108 (90 Base) MCG/ACT inhaler Inhale 2 puffs every 4 (four) hours if needed. 021 Active topiramate (Topamax) 100 MG tablet Take 100 mg by mouth at bedtime. 023 Active Breo Ellipta 200-25 MCG/ACT aerosol powder [...] split. 180 tablet 3 025 2025 Active EPINEPHrine (Epipen) 0.3 MG/0.3ML injection syringeIndicatio ns:Anaphylaxis, sequela Inject into upper leg as needed for anaphylaxis Call 911 after use. 0.3 mL 3 025 Active cyclobenzaprine (Flexeril) 10 MG tabletIndication s:Chronic pain of left knee TAKE 1 TABLET BY MOUTH AT BEDTIME NEEDED FOR MUSCLE SPASM 30 tablet 025 Active EPINEPHrine (Epipen) 0.3 MG/0.3ML injection syringe DIRECTED INJECTION ONCE NEEDED FOR ANAPHYLAXIS 1 DAY 022 2024 Discontinued(R eorder (will not trigger notification to Pharmacy)) cyclobenzaprine (Flexeril) 10 MG tabletIndication s:Chronic pain of left knee TAKE 1 TABLET BY MOUTH AT BEDTIME NEEDED FOR MUSCLE SPASM 30 tablet 024 2024 Discontinued(R eorder (will not trigger notification to Pharmacy)) cyclobenzaprine (Flexeril) 10 MG tabletIndication s:Chronic pain of left knee TAKE 1 TABLET BY MOUTH AT BEDTIME NEEDED FOR MUSCLE SPASM 30 tablet 025 2024 Discontinued(R eorder (will not trigger notification [...] (03/02/2024): Chronic back pain. Was seen at [facility] 05/25/22 and recommended non- operative tx. They suggested PT, injections. Referred to [facility] neurosurgery for second opinion and she said [...] Encounters Date Type Department Care Team Description 11/02/2024 9:30 AM EDT Office Visit [facility] DENTAL [address] [place] [address] Ligia Mitchell DDS Pain, dental (Primary Dx); Dental caries 11/02/[address] [address] Kylee Gómez FNP Anaphylaxis, sequela; Chronic pain of left knee 10/23/[address] [address] Kylee Gómez FNP discuss x-ray results 10/07/[address] [address] Kylee Gómez FNP Chronic pain of left knee 09/30/2024 4:00 PM EDT Office Visit [address] [address] Francia Ko CNP Degenerative disc disease at L5-S1 level (Primary Dx); Degenerative disc disease, cervical; Chronic pain of left knee; Chronic migraine without aura without status migrainosus, not intractable; Anxiety 09/24/[address] [address] Kylee Gómez FNP Paperwork/Forms 09/04/2024 Population Health Risk Score [facility] (C3) Department [address] [place] [id number] Provider, Population Health Generic 09/01/[address] [address] Kylee Gómez FNP request 2 printed letters to hop picker 09/01/[address] [address] Kylee Gómez FNP Degenerative disc disease at L5-S1 level from Last 3 Months Immunizations Name Administration [...] Sign Reading Time Taken Comments Blood Pressure 121/77 09/30/2024 3:51 PM EDT Pulse 101 09/30/2024 3:51 PM EDT Temperature 36.5 ??C (97.7 ??F) 09/30/2024 3:51 PM ED T Respiratory Rate 16 07/16/2024 10:59 AM EST Oxygen Saturation 98% 09/30/2024 3:51 PM EDT Inhaled Oxygen Concentration - - Weight 81.6 kg (180 lb) 09/30/2024 3:51 PM EDT Height 157.5 cm (5' 2 ) 09/30/2024 3:51 PM EDT Body Mass Index 32.92 09/30/2024 3:51 PM EDT Plan of Treatment Upcoming Encounters Date Type Department Care Team (Late st Contact Info) Description 11/04/2024 2:00 PM EDT Office Visit [facility] MEDICAL [address] [place] [address] Kylee Gómez FNP 58 [place] [address] 01/19/2025 8:30 AM EDT Office Visit [facility] DENTAL [address] [place] [address] Jazmine Perez Health Maintenance Due Date Last Done Comments HIV Screening 1986 Hepatitis C Screening 2004 HPV Vaccines (3 - 3-dose series) 07/25/2007 05/02/2007, 02/28/2007, 09/03/2006 Cervical Cancer Screening 08/02/2016 HPV/Cotest 08/02/2016 Pap Smear 08/02/2016 08/02/2011, 06/15/2010 DTaP/Tdap/Td Vaccines (2 - Td or Tdap) 07/25/2021 07/25/2011, 12/14/2008 COVID-19 Vaccine ( - 2023- season) 2024 Influenza Vaccine (#1) 2024 Pneumococcal Vaccine: Pediatrics (0 to 5 Years) [...] 07/17/2021, 12/08/2020, Additional history exists Tobacco Screening 09/30/2025 09/30/2024 Dental X-Ray: Full Mouth 07/16/2027 025, 10/26/2022, 04/08/2008, Additional history exists Zoster Vaccines (1 of 2) 2036 RSV Patients and Patients Aged 60 years or older (1 - 1-dose 75+ series) 2061 Meningococcal Vaccine Aged Out 02/28/2007 No víctor henrique eligible based on patient's age to complete this topic Hepatitis B Vaccines Discontinued 11/16/2009, 04/26/20 10 HIB Vaccines Aged Out No longer [...] Procedure Name Priority Date/Time Associated Diagnosis Comments 2 LIMITED ORAL EVALUATION - PROBLEM FOCUSED Routine 11/02/2024 9:30 AM EDT Pain, dental CASE PRESENTATION, DETAILED AND EXTENSIVE TREATMENT PLANNING Routine 11/02/2024 9:30 AM EDT Pain, dental Dental caries 30 MOD RESIN-BASED COMPOSITE - 3 SURF, POSTERIOR Routine 11/02/2024 9:30 AM EDT Dental caries MR CERVICAL SPINE WO CONTRAST Routine 10/21/2024 Degenerative disc disease, cervical Full PROPHYLAXIS - ADULT Routine 025 11:00 AM EST INTRAORAL - COMPLETE SERIES OF RADIOGRAPHIC IMAGES Routine 07/15/2024 11:00 AM EST PERIODIC ORAL EVALUATION - ESTABLISHED PATIENT Routine 07/15/2024 11:00 AM EST PAP SMEAR Routine 08/02/2011 12:00 AM EST from Last 3 Months or Most Recently Relevant to Health Maintenance Results * MR Cervical Spine w/o Contrast (10/21/2024) Anatomical Region Laterality Modality Spine, C-spine Magnetic Resonan ce Francia Ko CNP IMG MRI PROCEDURES Final Resu lt * Pap Smear (08/02/2011 12:00 AM EST) Swab us Historical Provider LAB CYTOLOGY ORDERABLES F inal Result from Last 3 Months or Most Recently Relevant to Health Maintenance Insurance [facility] [place] AD[place] Care Teams Fire Extinguisher Repairer Relationship Specialty Start Date End Date Kylee Gómez FNP [address] [place], [place] PCP - General Family Medicine 07/05/22 Gladys Foster Health Navigator 04/27/24
--- OUTSIDE RECORDS SUMMARY | 2024-11-03 06:22 | XMS_ITS | Encounter Summary ---
Author Organization [employer] Address [address] [place] [address] 7 [place] [address] Care Team Providers Care Vocational Training Instructor Name Role Phone Kylee Gómez Primary Care Provider +1 -[phone] Gladys Foster Unavailable Unavailable Encounter Details Date Type Department Care Team (Late st Contact Info) Description 10/09/2023 Orders Only [facility] [address] [place] [address] Kylee Gómez FNP [address] [place] [address] Social History Tobacco Use Types Packs/Day Years [...] Description 11/04/2024 2:00 PM EDT Office Visit [facility] MEDICAL [address] [place] [address] Kylee Gómez FNP [address] [place] [address] 01/19/2025 8:30 AM EDT Office Visit [facility] DENTAL [address] [place] [address] Jazmine Perez documented as of this encounter Procedures Procedure Name Priority Date/Time Associated Diagnosis Comments PULMONARY FUNCTION TESTING Routine 10/03/2023 10:21 AM EDT documented in this encounter Results * Pulmonary function testing (10/03/2023 10:21 AM EDT) Kylee JEFF PFT ORDERABLES Final Res ult documented in this encounter Visit Diagnoses Not on filedocumented in this encounter Care Teams Vocational Training Instructor Relationship Specialty Start Date End Date Kylee Gómez FNP [address] [facility] [place] [address] PCP - General Family Medicine 07/05/22 Gladys Foster Health Navigator 04/27/24 documented as of this encounter
--- OUTSIDE RECORDS SUMMARY | 2024-11-03 06:22 | XMS_ITS | Encounter Summary ---
Author Organization [employer] Address 75 [facility] 7 [place] [address] Care Team Providers Care Field Reviewer Name Role Phone Kylee Gómez Primary Care Provider +1 -[phone] Gladys Foster Unavailable Unavailable Reason for Visit * Reason Onset Date Comments discuss x-ray results 10/23/2024 Encounter Details Date Type Department Care Team (Late st Contact Info) Description 10/23/2024 Telephone [facility] MEDICAL [address] [place] [address] Kylee Gómez FNP [address] [place] [address] discuss x-ray results Social History Tobacco Use Types Packs/Day Years [...] Telephone Encounter - Renetta Woodward LPN - 10/27/2024 9:00 AM EDT Spoke with Lise. Reviewed MRI results. She will be seeing her neurosurgeon Dr. Anuel Metz from [facility] on November 03. She will be having a procedure that will implant a machine for her pain. She already has an implanted spinal cord stimulator. Her neck is where the pain is the worstcausing her to have more migraines. It was suggested to her to f/u with you so I scheduled an OV after she sees neurosurgery. Just FYI to KG. * Telephone Encounter - Francia Ko CNP - 10/26/2024 5:12 PM EDT Note previously placed in results of MRI and ok to advise pt, thanks: Mild to moderate multilevel cervical spondylosis in setting of congenital canal narrowing, progression of moderate canal narrowing at C4-C5. Follow up with pain management and your PCP * Telephone Encounter - Audrey Roach LPN - 10/26/2024 3:00 PM EDT To ordering provider to review. * Telephone Encounter - Renetta Woodward LPN - 10/26/2024 10:40 AM EDT Please review and advise On MRI findings. * Telephone Encounter - Audrey Roach LPN - 10/23/2024 4:45 PM EDT Spoke with patient. Patient had a MRI not a xray. Please obtain records from [facility] * Telephone Encounter - Annetta Lu - 10/23/2024 4:13 PM EDT Patient called stating I had an x-ray on my neck on Saturday (10/21/24) and I'd like someone to call me regarding the results of the x-ray, thank you! documented in this encounter Plan of Treatment Upcoming Encounters Date Type Department Care Team (Late st Contact Info) Description 11/04/2024 2:00 PM EDT Office Visit [facility] MEDICAL [address] [place] [address] Kylee Gómez FNP [address] [place] [address] 01/19/2025 8:30 AM EDT Office Visit [facility] DENTAL [address] [place] [address] Jazmine Perez documented as of this encounter Visit Diagnoses Not on filedocumented in this encounter Additional Health Concerns Assessment Noted Time PHQ-9 Depression Total Score: 25 024 4:14 PM EST documented as of this encounter Care Teams Field Reviewer Relationship Specialty Start Date End Date Kylee Gómez FNP [address] [place] [address] PCP - General Family Medicine 07/05/22 Gladys Foster Health Navigator 04/27/24 documented as of this encounter
== END 2024-11-03 06:21 | disposition home or self-care (01) ==
LOC: CF 06:20
PROVIDERS: Visit Provider Anesthesiology
DX: M47.812 Spondylosis without myelopathy or radiculopathy, cervical region (principal)
CPT/HCPCS: 64555; C1778; J2003

== ENCOUNTER 2024-11-03 12:11 | Outpatient (AMB) | payer MEDICAID, SELFPAY ==
[2024-11-03 12:27] VITALS: BP 120/80; PULSE 87; RESP 16; O2SAT 95
--- NOTE | 2024-11-03 12:27 | A.OFFVIS_ITS ---
Vital Signs 11/03/24 12:27 11/03/24 13:04 BP 120/80 120/82 Blood Pressure Location Lt brachial Lt brachial Position Sitting Sitting Respiration 16 16 Pulse 87 82 Pulse Source Pulse Oximeter Pulse Oximeter Pulse Oximetry (%) 95 98 Oxygen Delivery Method Room Air Room Air Intake Visit Reasons: RIGHT C4 SPRINT PNS TRIAL Strategic Communications Specialist Required: No Allergies codeine Allergy (Severe, Verified 11/03/24 12:28) Anaphylaxis fluticasone [From Flonase] Allergy (Severe, Verified 11/03/24 12:28) Anaphylaxis oxycodone Allergy (Intermediate, Verified 11/03/24 12:28) skin redness morphine Adverse Reaction (Intermediate, Verified 11/03/24 12:28) Nausea and Vomiting Opioids - Morphine Analogues Adverse Reaction (Unknown, Verified 11/03/24 12:28) Unknown flu vaccine Allergy (Severe, Uncoded 11/03/24 12:28) Nausea and Vomiting, dehydration, weakness Medication List - Last Reconciled 11/03/24 by Katlin Orozco LPN albuterol sulfate 90 mcg/actuation 2 inhalations inhalation Q4-6H PRN albuterol sulfate 2.5 mg inhalation Q4-6H PRN amitriptyline 10 mg PO BEDTIME COVID-19 antigen test (QuickVue At-Home COVID-19 Test kit) As directed cyclobenzaprine 10 mg PO BEDTIME diphenhydramine HCl (Benadryl Allergy) 25 mg PO TID PRN epinephrine 0.3 mL subcut ONCE PRN fluticasone furoate-vilanterol 100-25 mcg/dose (Breo Ellipta) 1 ea inhalation DAILY hydroxyzine HCl 25 mg PO DAILY levonorgestrel-ethinyl estrad 0.15-0.03 mg (Altavera (28)) 1 tab PO DAILY montelukast 10 mg PO DAILY naproxen 500 mg PO BID pregabalin 25 mg PO BID topiramate 100 mg PO DAILY PRN triamcinolone acetonide (Nasacort) 1 spray intranasal DAILY PRN PFSH Medical History Fragrance hypersensitivity Hypoglycemia TMJ tenderness, right Osteoarthritis CTS (carpal tunnel syndrome) PONV (postoperative nausea and vomiting) DJD (degenerative joint disease) Asthma Seasonal allergies Environmental allergies Scoliosis Back pain Surgical History Hx of surgical fusion joint Hx of lumbar discectomy (~2018) History of arthroplasty of left knee Hx of sinus surgery Hx of bilateral breast reduction surgery History of ear surgery Social History Household Members Other:: S.O. parents Are you a primary landcare facilitator to a significant other at home: No Do you presently have visiting nurse or other home services: No Comment: aware of trip hazard Patient Tobacco Use Status: Former Tobacco user Second Hand Smoke Exposure: Yes (parents smoked in the home) Physical Exam Vital Signs: Last Vital Signs Pulse 82 11/03/24 13:04 Resp 16 11/03/24 13:04 BP 120/82 11/03/24 13:04 Pulse Ox 98 11/03/24 13:04 Oxygen Delivery Method Room Air 11/03/24 13:04 Assessment & Plan Assessment & Plan (1) Cervical spondylosis: Code(s): M47.812 - Spondylosis without myelopathy or radiculopathy, cervical region Category: Medical Plan SPRINT C5 right PNS. Percutaneous implantation of peripheral nerve stimulation Sprint system. After the risks, benefits and alternatives were discussed with the patient and informed consent was obtained, patient was placed in the prone position and p added to foster comfort. Time out was performed delineating correct site and side of the procedure , name and of the patient, patient participated in time out procedure. Entire posterior neck, occipital portion of the head, upper back were prepped with ChloraPrep and draped with sterile utility towels. C-arm was brought over the operating field and clear picture of the C5 lamina on the right was delineated on the screen. The upper central portion of the lamina was chosen as a target of the needle tip insertion . After identifying and marking the intended target, the skin around the planned entry point and the subcutaneous tissues were injected with local anesthetic forming skin wheal.. A percutaneous sleeve and stimulating probe lead introduction system were assembled, inserted and advanced through the skin wheal to the point of interest under C-arm view in tunnel vision fashion, the introducer needle was delivered to a location in proximity to the nerve. Multiple stimulation parameters were used to deliver stimulation to the nerve in concert with stimulating at multiple positions around the nerve. nerve target acquisition was confirmed noting generation of in the corresponding to the nerve being stimulated. Various electrical parameter combinations were tested, and the lead location was adjusted (physically relocated) until the patient indicated overlapping the distribution of the patient?s typical region of pain. The stimulating probe was removed from the introducer and a percutaneous lead was guided through the needle and delivered to a location in similar proximity to the nerve. Final location was verified with electrical stimulation. The introducer needle was removed, and the exposed end of the percutaneous lead was attached to an external stimulator unit. At the end of the case various electrical parameter combinations were again tested until the patient indicated paresthesia or muscle tension overlapping the distribution of the patient?s typical region of pain. After confirming that lead impedance was in the normal range, the external unit was detached, the needle was removed, and the lead was anchored at the skin. The lead was threaded into the connector block and electrical continuity and desired patient response was confirmed. The connector block was attached to the external stimulator unit. The site was covered with a sterile occlusive dressing and a image was taken to document final placement Orders: Orders FL guidance in treatment room Today M47.812 - Spondylosis without myelopathy or radiculopathy, cervical region AMB Sprint PNS Today M47.812 - Spondylosis without myelopathy or radiculopathy, cervical region Medications: New lidocaine HCl 5 mL subcut ONCE 5 mL 0RF M47.812 - Spondylosis without myelopathy or radiculopathy, cervical region Coding Level of Care Code Procedure Only Diagnoses Cervical spondylosis M47.812 Implantable Device Implantable Device Implantable Devices Qty Certified Athletic Trainer Implant Date Expiration Date Analgesic PENS system 1 [employer] 11/03/24 Analgesic spinal cord electrical stimulation system 1 [employer] NEUROMODULATION Intralign 07/24/24 09/30/25 Analgesic spinal cord electrical stimulation system 1 [employer] NEUROMODULATION Intralign 07/24/24 10/16/25 Analgesic spinal cord electrical stimulation system 1 [employer] NEUROMODULATION Intralign 06/26/24 04/06/26 Analgesic spinal cord electrical stimulation system 1 [employer] Intralign 06/26/24 05/27/26 Analgesic spinal cord electrical stimulation system 1 [employer] NEUROMODULATION Intralign 06/26/24 05/27/26 Analgesic spinal cord electrical stimulation system 1 [employer] Intralign 07/24/24 04/23/26 [employer] 32 IPG SPINAL STIM 1 07/24/24 05/20/26
[2024-11-03 13:04] VITALS: BP 120/82; PULSE 82; RESP 16; O2SAT 98
--- OUTSIDE RECORDS SUMMARY | 2024-11-03 13:24 | XMS_ITS | Encounter Summary ---
Author Organization [employer] Address [address] [facility] 7t [place] [address] Care Team Providers Care Digital Media Analyst Name Role Phone Kylee Gómez Primary Care Provider +1 -[phone] Gladys Foster Unavailable Unavailable Encounter Details Date Type Department Care Team (Late st Contact Info) Description 12/12/2022 Orders Only [facility] [address] [place] [address] Kylee Gómez FNP [address] [place] [address] Social History Tobacco Use Types Packs/Day Years [...] Description 11/04/2024 2:00 PM EDT Office Visit [facility] [address] [place] [address] Kylee Gómez FNP [address] [place] [address] 01/19/2025 8:30 AM EDT Office Visit [facility] [address] [place] [address] Jazmine Perez documented as of this encounter Visit Diagnoses Not on filedocumented in this encounter Care Teams Digital Media Analyst Relationship Specialty Start Date End Date Kylee Gómez FNP [address] [place] [address] PCP - General Family Medicine 07/05/22 Gladys Foster Health Navigator 04/27/24 documented as of this encounter
--- OUTSIDE RECORDS SUMMARY | 2024-11-03 13:24 | XMS_ITS | Encounter Summary ---
Author Organization [email or web address] Address [address] [facility] 7 [place] [address] Care Team Providers Care Occupancy Specialist Name Role Phone Kylee Gómez Primary Care Provider +1 -[phone] Gladys Foster Unavailable Unavailable Reason for Visit * Reason Onset Date Comments discuss x-ray results 10/23/2024 Encounter Details Date Type Department Care Team (Late st Contact Info) Description 10/23/2024 Telephone [place] [facility] [address] [place] [address] Kylee Gómez FNP [address] [place] [address] discuss x-ray results Social History Tobacco Use [...] seeing her neurosurgeon Dr. Anuel Metz from [facility] on November 03. She will [...] not a xray. Please obtain records from [facility] * Telephone Encounter - Annetta Lu - [...] Description 11/04/2024 2:00 PM EDT Office Visit [place] [facility] [address] [place] [address] Kylee Gómez FNP [address] [place] [address] 01/19/2025 8:30 AM EDT Office Visit [facility] DENTAL [address] [place] [address] Jazmine Perez documented as of this encounter Visit Diagnoses Not on filedocumented in this encounter Additional Health Concerns Assessment Noted Time PHQ-9 Depression Total Score: 25 024 4:14 PM EST documented as of this encounter Care Teams Occupancy Specialist Relationship Specialty Start Date End Date Kylee Gómez FNP [address] [place] [address] PCP - General Family Medicine 07/05/22 Gladys Foster Health Navigator 04/27/24 documented as of this encounter
--- OUTSIDE RECORDS SUMMARY | 2024-11-03 13:24 | XMS_ITS | Encounter Summary ---
Author Organization [employer] Address [address] [place] [address] [facility] [place] [address] Care Team Providers Care Sales And Marketing Director Name Role Phone Kylee Gómez Primary Care Provider +1 -[phone] Gladys Foster Unavailable Unavailable Encounter Details Date [...] Description 11/04/2024 2:00 PM EDT Office Visit [facility] MEDICAL [address] [place] [address] Kylee Gómez FNP [address] [place] [address] 01/19/2025 8:30 AM EDT Office Visit [facility] DENTAL [address] [place] [address] Jazmine Perez documented as of this encounter Visit Diagnoses Not on filedocumented in this encounter Care Teams Sales And Marketing Director Relationship Specialty Start Date End Date Kylee Gómez FNP [address] [place] [address] PCP - General Family Medicine 07/05/22 Gladys Foster Health Navigator 04/27/24 documented as of this encounter
--- OUTSIDE RECORDS SUMMARY | 2024-11-03 13:24 | XMS_ITS | Encounter Summary ---
Author Organization [employer] Address 75 [facility] 7t [place] [address] Care Team Providers Care Sales And Service Consultant Name Role Phone Kylee Gómez Primary Care Provider +1 -[phone] Gladys Foster Unavailable Unavailable Encounter Details Date Type Department Care Team (Late st Contact Info) Description 05/15/2024 Orders Only [facility] [address] [place] [address] Kylee Gómez FNP [address] [place] [address] Social History Tobacco Use Types Packs/Day Years [...] Description 11/04/2024 2:00 PM EDT Office Visit [place] [facility] [address] [place] [address] Kylee Gómez FNP [address] [place] [address] 01/19/2025 8:30 AM EDT Office Visit [facility] [address] [place] [address] Jazmine Perez documented as of this encounter [...] documented as of this encounter Care Teams Sales And Service Consultant Relationship Specialty Start Date End Date Kylee Gómez FNP [address] [place] [address] PCP - General Family Medicine 07/05/22 Gladys Foster Health Navigator 04/27/24 documented as of this encounter
--- OUTSIDE RECORDS SUMMARY | 2024-11-03 13:24 | XMS_ITS | Encounter Summary ---
Author Organization [employer] Address 75 [facility] 7t [place] [address] Care Team Providers Care Manager Of Financial Reporting Name Role Phone Kylee Gómez [facility] Primary Care Provider +1 -[phone] Gladys Foster Unavailable Unavailable Reason for Visit * Reason Onset Date Comments Med Refill 11/02/2024 Encounter Details Date Type Department Care Team (Late st Contact Info) Description 11/02/2024 Refill [facility] MED[facility] [address] [place] [address] Kylee Gómez FNP [address] [place] [address] Anaphylaxis, sequela; Chronic pain of left knee [...] CASS: 10/03/24 NOV: 11/04/24 [id number] [place], [place] - [address] AT [address] [facility] documented in this encounter Plan of Treatment Upcoming Encounters Date Type Department Care Team (Late st Contact Info) Description 11/04/2024 2:00 PM EDT Office Visit [facility] MEDICAL [address] [place] [address] Kylee Gómez FNP [address] [place] [address] 01/19/2025 8:30 AM EDT Office Visit [facility] DENTAL [address] [place] [address] Jazmine Perez documented as of this encounter Visit Diagnoses Diagnosis Anaphylaxis, sequela Chronic pain of left knee documented in this encounter Additional Health Concerns Assessment Noted Time PHQ-9 Depression Total Score: 25 024 4:14 PM EST documented as of this encounter Care Teams Manager Of Financial Reporting Relationship Specialty Start Date End Date Kylee Gómez FNP [address] [place] [address] PCP - General Family Medicine 07/05/22 Gladys Foster Health Navigator 04/27/24 documented as of this encounter
--- OUTSIDE RECORDS SUMMARY | 2024-11-03 13:24 | XMS_ITS | Encounter Summary ---
Author Organization [employer] Address [address] [place] [address] 7 [place] [address] Care Team Providers Care Senior Environmental Practice Leader Name Role Phone Kylee Gómez Primary Care Provider [phone] [phone] Gladys Foster Unavailable Unavailable Encounter Details Date Type Department Care Team (Late st Contact Info) Description 10/09/2023 Orders Only [facility] [address] [place] [address] Kylee Gómez FNP [address] [place] [address] Social History Tobacco Use Types Packs/Day Years [...] Description 11/04/2024 2:00 PM EDT Office Visit [facility] MEDICAL [address] [place] [address] Kylee Gómez FNP [address] [place] [address] 01/19/2025 8:30 AM EDT Office Visit [facility] DENTAL [address] [place] [address] Jazmine Perez documented as of this encounter Procedures Procedure Name Priority Date/Time Associated Diagnosis Comments PULMONARY FUNCTION TESTING Routine 10/03/2023 10:21 AM EDT documented in this encounter Results * Pulmonary function testing (10/03/2023 10:21 AM EDT) Kylee JEFF PFT ORDERABLES Final Res ult documented in this encounter Visit Diagnoses Not on filedocumented in this encounter Care Teams Senior Environmental Practice Leader Relationship Specialty Start Date End Date Kylee Gómez FNP [address] [facility] [place] [address] PCP - General Family Medicine 07/05/22 Gladys Foster Health Navigator 04/27/24 documented as of this encounter
--- OUTSIDE RECORDS SUMMARY | 2024-11-03 13:24 | XMS_ITS | Encounter Summary ---
Author Organization [employer] Address 75 [facility] 7t [place] [address] Care Team Providers Care Human Resources Talent Manager Name Role Phone Kylee Gómez BONDING SUPERVISOR Primary Care Provider +1 -[phone] Gladys Foster Unavailable Unavailable Reason for Visit * Reason Comments Dental Exam Jaw pain Encounter Details Date Type Department Care Team (Late st Contact Info) Description 11/02/2024 9:30 AM EDT Office Visit [facility] [address] [place] [address] Ligia Mitchell DDS [address] [place] [address] Pain, dental (Primary Dx); Dental caries Social [...] epi via [employer] Tooth/teeth: #30 MOD Composite cheondoism prepared with complete caries removal and incomplete removal of existing restorations. Isolated area with high speed suction and cotton rolls. Bite block in place Liner/Base/Cement: [employer] [place] [facility] Preparation filled with composite material and [...] PM EDT Office Visit [facility] MEDICAL [address] [place] [address] Kylee Gómez FNP 58 [place] [address] 01/19/2025 8:30 AM EDT Office Visit [facility] DENTAL [address] [place] [address] Jazmine Perez documented as of this encounter [...] documented as of this encounter Care Teams Human Resources Talent Manager Relationship Specialty Start Date End Date Kylee Gómez FNP [address] [facility] [place] [address] PCP - General Family Medicine 07/05/22 Gladys Foster Health Navigator 04/27/24 documented as of this encounter
--- OUTSIDE RECORDS SUMMARY | 2024-11-03 13:24 | XMS_ITS | Encounter Summary ---
Author Organization [employer] Address 75 [facility] [place] [address] Care Team Providers Care Cost Reduction Engineer Name Role Phone Kylee Gómez Primary Care Provider +1 -[phone] Gladys Foster Unavailable Unavailable Encounter Details Date [...] 2:00 PM EDT Office Visit [facility] MEDICAL [address] [place] [address] Kylee Gómez FNP [address] [place] [address] 01/19/2025 8:30 AM EDT Office Visit [facility] DENT[facility] [address] [place] [address] Jazmine Perez documented as of this encounter Visit Diagnoses Not on filedocumented in this encounter Care Teams Cost Reduction Engineer Relationship Specialty Start Date End Date Kylee Gómez FNP 58 [place] [address] PCP - General Family Medicine 07/05/22 Gladys Foster Health Navigator 04/27/24 documented as of this encounter
--- OUTSIDE RECORDS SUMMARY | 2024-11-03 13:24 | XMS_ITS | Encounter Summary ---
Author Organization [employer] Address 75 [facility] 7t [place] [address] Care Team Providers Care Brickmason Helper Name Role Phone Kylee Gómez Primary Care Provider +1 -[phone] Gladys Foster Unavailable Unavailable Reason for Visit * Reason Comments Med Change Request Encounter Details Date Type Department Care Team (Late st Contact Info) Description 12/19/2023 Refill [facility] MED[facility] [address] [place] [address] Kylee Gómez FNP 58 [place] [address] Social History Tobacco Use Types Packs/Day Years [...] 3:14 PM EDT Placed call to [facility] [place], they do not stock this product and state it is OTC. Advised patient to purchase OTC, she is agreeable. documented in this encounter Plan of Treatment Upcoming Encounters Date Type Department Care Team (Late st Contact Info) Description 11/04/2024 2:00 PM EDT Office Visit [facility] MED[facility] [address] [place] [address] Kylee Gómez FNP [address] [place] [address] 01/19/2025 8:30 AM EDT Office Visit [facility] [address] [place] [address] Jazmine Perez documented as of this encounter Visit Diagnoses Not on filedocumented in this encounter Care Teams Brickmason Helper Relationship Specialty Start Date End Date Kylee Gómez FNP 58 [place] [address] PCP - General Family Medicine 07/05/22 Gladys Foster Health Navigator 04/27/24 documented as of this encounter
--- OUTSIDE RECORDS SUMMARY | 2024-11-03 13:24 | XMS_ITS | Encounter Summary ---
Author Organization [employer] Address [address] [place] [address] 7 [place] [address] Care Team Providers Care Head Filter Press Tender Name Role Phone Kylee Gómez Primary Care Provider +1 -[phone] Gladys Foster Unavailable Unavailable Encounter Details Date Type Department Care Team (Late st Contact Info) Description 04/20/2024 Orders Only [facility] [address] [place] [address] Kylee Gómez FNP [address] [place] [address] Social History Tobacco Use Types Packs/Day Years [...] Description 11/04/2024 2:00 PM EDT Office Visit [facility] MEDICAL [address] [place] [address] Kylee Gómez FNP 58 [place] [address] 01/19/2025 8:30 AM EDT Office Visit [facility] DENTAL [address] [place] [address] Jazmine Perez documented as of this encounter Procedures Procedure Name Priority Date/Time Associated Diagnosis Comments PATHOLOGY REPORT (HISTOPATHOLOGY) Routine 04/16/2024 1:38 PM EDT documented in this encounter Results * Pathology Report (Histopathology) (04/16/2024 1:38 PM EDT) Tissue Kylee JE[facility] LAB PATHOLOGY ORDERABLES Final Result documented in this encounter Visit Diagnoses Not on filedocumented in this encounter Care Teams Head Filter Press Tender Relationship Specialty Start Date End Date Kylee Gómez FNP [address] [facility] [place] [address] PCP - General Family Medicine 07/05/22 Gladys Foster Health Navigator 04/27/24 documented as of this encounter
--- OUTSIDE RECORDS SUMMARY | 2024-11-03 13:24 | XMS_ITS | Clinical Summary ---
Author Organization [employer] Address [address] [place] [address] 7t [place] [address] Care Team Providers Care Workers' Compensation Magistrate Name Role Phone Kylee Gómez [facility] Primary Care Provider +1 -[phone] Gladys Foster Unavailable Unavailable Allergies Active Allergy [...] (03/02/2024): Chronic back pain. Was seen at [facility] 05/25/22 and recommended non- operative tx. They suggested PT, injections. Referred to [facility] neurosurgery for second opinion and she said [...] Description 11/02/2024 9:30 AM EDT Office Visit [facility] DENTAL [address] [place] [address] Ligia Mitchell DDS Pain, dental (Primary Dx); Dental caries 11/02/[address] [address] Kylee Gómez FNP Anaphylaxis, sequela; Chronic pain of left knee 10/23/[address] [address] Kylee Gómez FNP discuss x-ray results 10/07/[address] [address] Kylee Gómze FNP Chronic pain of left knee 09/30/2024 4:00 PM EDT Office Visit [address] [address] Francia Ko CNP Degenerative disc disease at L5-S1 level (Primary Dx); Degenerative disc disease, cervical; Chronic pain of left knee; Chronic migraine without aura without status migrainosus, not intractable; Anxiety 09/24/[address] [address] Kylee Gómez FNP Paperwork/Forms 09/04/2024 Population Health Risk Score [facility] ([facility]) Department [address] [place] [id number] Provider, Population Health Generic 09/01/[address] [address] Kylee Gómez FNP request 2 printed letters to corn picker 09/01/[address] [address] Kylee Gómez FNP Degenerative disc disease at [...] Description 11/04/2024 2:00 PM EDT Office Visit [facility] MEDICAL [address] [place] [address] Kylee Gómez FNP 58 [place] [address] 01/19/2025 8:30 AM EDT Office Visit [facility] DENT[facility] [address] [place] [address] Jazmine Perez Health Maintenance Due Date Last [...] Most Recently Relevant to Health Maintenance Insurance [facility] ST[place] AD[place] Care Teams Workers' Compensation Magistrate Relationship Specialty Start Date End Date Kylee Gómez FNP 58 [place], [place] PCP - General Family Medicine 07/05/22 Gladys Foster Health Navigator 04/27/24
--- OUTSIDE RECORDS SUMMARY | 2024-11-03 13:24 | XMS_ITS | Encounter Summary ---
Author Organization [employer] Address [address] [place] [address] 7 [place] [address] Care Team Providers Care Literacy Specialist Name Role Phone Kylee Gómez Primary Care Provider +1 -[phone] Gladys Foster Unavailable Unavailable Encounter Details Date Type Department Care Team (Late st Contact Info) Description 12/17/2023 Orders Only [place] [facility] [address] [place] [address] Kylee Gómez FNP [address] [place] [address] Social History Tobacco Use Types Packs/Day Years [...] Description 11/04/2024 2:00 PM EDT Office Visit [facility] MEDICAL [address] [place] [address] Kylee Gómez FNP 58 [place] [address] 01/19/2025 8:30 AM EDT Office Visit [facility] DENTAL [address] [place] [address] Jazmine Perez documented as of this encounter [...] on filedocumented in this encounter Care Teams Literacy Specialist Relationship Specialty Start Date End Date Kylee Gómez FNP [address] [facility] [place] [address] PCP - General Family Medicine 07/05/22 Gladys Foster Health Navigator 04/27/24 documented as of this encounter
== END 2024-11-03 13:16 | disposition home or self-care (01) ==
LOC: HO.PMCPRC 12:11
PROVIDERS: PCP Nurse Practitioner Family; Visit Provider Anesthesiology
DX: M47.812 Spondylosis without myelopathy or radiculopathy, cervical region (principal)
CPT/HCPCS: 64555

== ENCOUNTER 2024-11-11 12:42 | Outpatient (AMB) | payer MEDICAID, SELFPAY ==
--- NOTE | 2024-11-11 12:43 | MHC.OFFVIS ---
Vital Signs 11/11/24 12:47 Height 5 ft 2 in Weight 180 lb BMI 32.9 BP 141/82 H Blood Pressure Location Rt brachial Position Sitting Pulse 94 Intake Visit Reasons: RIGHT C4 SPRINT PNS TRIAL Allergies codeine Allergy (Severe, Verified 11/11/24 12:50) Anaphylaxis fluticasone [From Flonase] Allergy (Severe, Verified 11/11/24 12:50) Anaphylaxis oxycodone Allergy (Intermediate, Verified 11/11/24 12:50) skin redness morphine Adverse Reaction (Intermediate, Verified 11/11/24 12:50) Nausea and Vomiting silver [From Tegaderm AG Mesh] Adverse Reaction (Mild, Verified 11/11/24 12:55) Redness of Skin Opioids - Morphine Analogues Adverse Reaction (Unknown, Verified 11/11/24 12:50) Unknown flu vaccine Allergy (Severe, Uncoded 11/03/24 12:28) Nausea and Vomiting, dehydration, weakness HPI Comments Details: The patient is a 38-year-old female presenting for pain management following right C-5 Sprint peripheral nerve stimulator placement and preparation for left-side procedure next week. She reports a notable improvement in right-side neck pain post-procedure but continues to experience pain in the left side that exacerbates when looking to the left. She has a history of cervical disc disease with disc narrowing, which is believed to contribute to her pain. Recent imaging noted disc narrowing, aligning with increased pain in her narrative. An allergy to specific Tegaderm dressings was identified, resulting in a significant skin reaction, managed with Benadryl. The patient?s need for additional no-sting barrier supplies was addressed. - Onset: Following right C5 Sprint nerve stimulator placement - Quality and Character: Improvement in pain on the right, persistent pain on the left side; occasional discomfort in other nerve areas - Location: Cervical region, specifically neck - Areas of Radiation: Triggering sensation in the nerve pathways - Exacerbating Factors: Head movement to the left - Relieving Factors: Adjustment of stimulation levels - Affect: Improved mood with pain management success on the right side - Analgesia: Reports improvement of pain with the nerve stimulator on right side; continued left neck pain - Adverse Effects: Allergic reactions linked to specific dressings - Activities of Daily Living: Right-side neck pain improvement aiding function; left pain remains a barrier when turning head - Aberrant Drug Related Behaviors: No issues reported [facility] Medical History Fragrance hypersensitivity Hypoglycemia TMJ tenderness, right Osteoarthritis CTS (carpal tunnel syndrome) PONV (postoperative nausea and vomiting) DJD (degenerative joint disease) Asthma Seasonal allergies Environmental allergies Scoliosis Back pain Surgical History Hx of surgical fusion joint Hx of lumbar discectomy (~2018) History of arthroplasty of left knee Hx of sinus surgery Hx of bilateral breast reduction surgery History of ear surgery Social History Household Members Other:: S.O. parents Are you a primary care specialist to a significant other at home: No Do you presently have visiting nurse or other home services: No Comment: aware of trip hazard Patient Tobacco Use Status: Former Tobacco user Second Hand Smoke Exposure: Yes (parents smoked in the home) Review of Systems Const Details: - Neurological: Reports improvement in pain on the right side following nerve stimulation - Musculoskeletal: Reports left-sided neck pain worsened by movement to the left - Allergic/Immunologic: Reports allergic reactions to certain Tegaderm dressings - Integumentary: Reports localized reaction with itching and burning managed by Benadryl Physical Exam Vital Signs: Last Vital Signs Pulse 94 11/11/24 12:47 BP 141/82 H 11/11/24 12:47 BMI result Body Mass Index 32.9 General: awake, alert, oriented. Answers questions appropriately. Fully engaged in examination. Appears uncomfortable Skin: warm, dry, intact. No rashes, redness, warmth, swelling, drainage noted HEENT: Normocephalic. Hearing intact. Cardiac: External chest normal in appearance. Respiratory: No cough, audible wheezing or stridor. Abdomen: without gross distension. MS: No obvious swelling or deformities. CS: Visible inspection without gross abnormality. Neurological: Oriented to person, place, time and situation. Thought process intact. Psychiatric: Appropriate mood and affect. Good judgment and insight. Results Reviewed Results Reviewed: 01/14/24 MR/MR lumbar spine wo con FINDINGS: There are 5 nonrib-bearing lumbar-type vertebral bodies. There is a partially imaged rightward convex scoliotic curvature of the thoracic spine and there is a leftward convex scoliotic curvature of the upper lumbar spine. The vertebral body heights are maintained. There is moderate disc volume loss and there is disc desiccation at L5-S1. Remaining disc volumes are preserved and the remaining discs remain well-hydrated. There is no bone marrow edema. There are no acute fractures. Partially imaged left SI joint screws. There are no significant extraspinal soft tissue findings. The imaged lower thoracic spinal cord is unremarkable. The conus terminates at the L2 level. At L1-L2, the disc contour is normal and there is no central canal stenosis nor foraminal stenosis. At L2-L3, there is a shallow right paracentral disc protrusion that mildly indents the right ventral thecal sac. There is no central canal stenosis and there is no foraminal stenosis. At L3-L4, there is a diffuse annular disc bulge and there is moderate bilateral facet arthropathy. There is no central canal stenosis and there is no foraminal stenosis. At L4-L5, there is a diffuse annular disc bulge and there is severe bilateral facet arthropathy and ligamentum flavum thickening. No central canal stenosis and no foraminal stenosis. At L5-S1, there are postoperative changes following left hemilaminectomy and microdiscectomy. There is a favored recurrent left paracentral disc protrusion compressing the traversing left S1 nerve root within the left subarticular zone. There is also granulation/scar tissue within the epidural space inseparable from the traversing left S1 nerve root. Postcontrast imaging could be obtained to more definitively distinguish between disc and scar. The central canal remains patent and there is no foraminal stenosis. IMPRESSION: At L5-S1, there are postoperative changes following left hemilaminectomy and microdiscectomy. There is a favored recurrent left paracentral disc protrusion compressing the traversing left S1 nerve root within the left subarticular zone. There is also granulation/scar tissue within the epidural space inseparable from the traversing left S1 nerve root. Postcontrast imaging could be obtained to more definitively distinguish between disc and scar tissue. Assessment & Plan Assessment & Plan (1) Lower back pain: Code(s): M54.50 - Low back pain, unspecified Category: Medical (2) Trapezius muscle strain: Code(s): S46.819A - Strain of other muscles, fascia and tendons at shoulder and upper arm level, unspecified arm, initial encounter Category: Medical (3) Myofascial muscle pain: Code(s): M79.18 - Myalgia, other site Category: Medical (4) Post laminectomy syndrome: Code(s): M96.1 - Postlaminectomy syndrome, not elsewhere classified Category: Medical (5) Cervical spondylosis: Code(s): M47.812 - Spondylosis without myelopathy or radiculopathy, cervical region Category: Medical Plan The patient will continue with her current regimen while preparing for the upcoming left-side nerve stimulator placement. We plan to address the persistent left-side neck pain through this procedure. Adjustments to stimulation settings will be made as needed in follow-ups. Additional no-sting barrier supplies will be arranged, and monitoring for any adverse skin reactions to dressings will be emphasized. Her treatment plan seeks to enhance day-to-day functionality while managing potential allergic reactions effectively. During this visit, I outlined the patient's current progress following her right C5 Sprint peripheral nerve stimulator procedure, highlighting the improvement in right-side neck pain. We discussed the anticipated outcomes and procedure for her left-side stimulator placement next week and further emphasized the necessity of continued management for her cervical disc disease. I provided guidance on addressing allergic reactions linked to Tegaderm dressings, and the patient was in agreement with the recommended plans for ongoing care and pain management. Follow-ups were outlined for post-procedure evaluation. Patient was informed and verbally consented to the use of an ambient scribe for clinic note documentation during this visit. Patient Instructions: - Continue using no-sting skin barriers and contact supplier if refills are necessary. - Monitor and report any changes in pain levels or new symptoms. - Take Benadryl for allergic reactions to dressings as advised. - Attend scheduled follow-up visits promptly after the left-side placement. - Modify nerve stimulation levels if discomfort occurs or pain recurs. Coding Level of Care Code Est Pt Level 3 (34748) Complex EM visit Add On G2211 Diagnoses Lower back pain M54.50 Trapezius muscle strain S46.819A Myofascial muscle pain M79.18 Post laminectomy syndrome M96.1 Cervical spondylosis M47.812
[2024-11-11 12:47] VITALS: BP 141/82; PULSE 94; BMI 32.9
--- OUTSIDE RECORDS SUMMARY | 2024-11-11 13:23 | XMS_ITS | Encounter Summary ---
Author Organization [employer] Address [address] [place] [address] [facility] [place] [address] Care Team Providers Care Convention Manager Name Role Phone Kylee Gómez Primary Care Provider +1 [phone] Gladys Foster Unavailable Unavailable Encounter Details Date Type Department Care Team (Late st Contact Info) Description 10/09/2023 Orders Only [facility] [address] [place] [address] Kylee Gómez FNP [address] [place] [address] Social History Tobacco Use Types Packs/Day Years [...] Care Team (Late st Contact Info) Description 12/08/2024 9:40 AM EDT Office Visit [facility] MEDICAL [address] [place] [address] Kylee Gómez FNP [address] [place] [address] 01/19/2025 8:30 AM EDT Office Visit [facility] DENTAL [address] [place] [address] Jazmine Perez documented as of this encounter Procedures Procedure Name Priority Date/Time Associated Diagnosis Comments PULMONARY FUNCTION TESTING Routine 10/03/2023 10:21 AM EDT documented in this encounter Results * Pulmonary function testing (10/03/2023 10:21 AM EDT) Kylee JEFF PFT ORDERABLES Final Res ult documented in this encounter Visit Diagnoses Not on filedocumented in this encounter Care Teams Convention Manager Relationship Specialty Start Date End Date Kylee Gómez FNP [address] [facility] [place] [address] PCP - General Family Medicine 07/05/22 Gladys Foster Health Navigator 04/27/24 documented as of this encounter
--- OUTSIDE RECORDS SUMMARY | 2024-11-11 13:23 | XMS_ITS | Encounter Summary ---
Author Organization [employer] Address [address] [place] [address] [facility] [place] [address] Care Team Providers Care Message Broker Developer Name Role Phone Kylee Góemz Primary Care Provider +1 [phone] Gladys Foster Unavailable Unavailable Encounter Details Date [...] Description 12/08/2024 9:40 AM EDT Office Visit [facility] MEDICAL [address] [place] [address] Kylee Gómez FNP [address] [place] [address] 01/19/2025 8:30 AM EDT Office Visit [facility] DENTAL [address] [place] [address] Jazmine Perez documented as of this encounter Visit Diagnoses Not on filedocumented in this encounter Care Teams Message Broker Developer Relationship Specialty Start Date End Date Kylee Gómez FNP [address] [place] [address] PCP - General Family Medicine 07/05/22 Gladys Foster Health Navigator 04/27/24 documented as of this encounter
--- OUTSIDE RECORDS SUMMARY | 2024-11-11 13:23 | XMS_ITS | Encounter Summary ---
Author Organization [employer] Address [address] [place] [address] 7t [place] [address] Care Team Providers Care Barber Name Role Phone Kylee Gómez Primary Care Provider +1 [phone] Gladys Foster Unavailable Unavailable Reason for Visit * Reason Comments Med Change Request Encounter Details Date Type Department Care Team (Late st Contact Info) Description 12/19/[address] [place] [facility] MEDICAL [address] [place] [address] Kylee Gómez FNP [address] [place] [address] Social History Tobacco Use Types Packs/Day Years [...] 3:14 PM EDT Placed call to [facility] [place], they do not stock this product and state it is OTC. Advised patient to purchase OTC, she is agreeable. documented in this encounter Plan of Treatment Upcoming Encounters Date Type Department Care Team (Late st Contact Info) Description 12/08/2024 9:40 AM EDT Office Visit [facility] MEDICAL [address] [place] [address] Kylee Gómez FNP [address] [place] [address] 01/19/2025 8:30 AM EDT Office Visit [facility] DENTAL [address] [place] [address] Jazmine Perez documented as of this encounter Visit Diagnoses Not on filedocumented in this encounter Care Teams Barber Relationship Specialty Start Date End Date Kylee Gómez FNP [address] [place] [address] PCP - General Family Medicine 07/05/22 Gladys Foster Health Navigator 04/27/24 documented as of this encounter
--- OUTSIDE RECORDS SUMMARY | 2024-11-11 13:23 | XMS_ITS | Encounter Summary ---
Author Organization [employer] Address [address] [place] [address] [address] [address] Care Team Providers Care Home Inspector Name Role Phone Kylee Gómez Primary Care Provider [phone] [phone] Gladys Foster Unavailable Unavailable Encounter Details Date [...] Description 12/08/2024 9:40 AM EDT Office Visit [facility] MEDICAL [address] [place] [address] Kylee Gómez FNP [address] [place] [address] 01/19/2025 8:30 AM EDT Office Visit [facility] DENTAL [address] [place] [address] Jazmine Perez documented as of this encounter Visit Diagnoses Not on filedocumented in this encounter Care Teams Home Inspector Relationship Specialty Start Date End Date Kylee Gómez FNP [address] [place] [address] PCP - General Family Medicine 07/05/22 Gladys Foster Health Navigator 04/27/24 documented as of this encounter
--- OUTSIDE RECORDS SUMMARY | 2024-11-11 13:23 | XMS_ITS | Encounter Summary ---
Author Organization [employer] Address [address] [place] [address] 7 [place] [address] Care Team Providers Care Director Global Sales Name Role Phone Kylee Gómez Primary Care Provider [phone] [phone] Gladys Foster Unavailable Unavailable Encounter Details Date Type Department Care Team (Late st Contact Info) Description 12/12/2022 Orders Only [facility] [address] [place] [address] Kylee Gómez FNP [address] [place] [address] Social History Tobacco Use Types Packs/Day Years [...] Description 12/08/2024 9:40 AM EDT Office Visit [facility] [address] [place] [address] Kylee Gómez FNP [address] [place] [address] 01/19/2025 8:30 AM EDT Office Visit [facility] DENTAL [address] [place] [address] Jazmine Perez documented as of this encounter Visit Diagnoses Not on filedocumented in this encounter Care Teams Director Global Sales Relationship Specialty Start Date End Date Kylee Gómez FNP [address] [place] [address] PCP - General Family Medicine 07/05/22 Gladys Foster Health Navigator 04/27/24 documented as of this encounter
--- OUTSIDE RECORDS SUMMARY | 2024-11-11 13:24 | XMS_ITS | Encounter Summary ---
Author Organization [employer] Address [address] [place] [address] [facility] [place] [address] Care Team Providers Care Division Merchandise Manager Name Role Phone Kylee Gómez Primary Care Provider [phone] [phone] Gladys Foster Unavailable Unavailable Encounter Details Date Type Department Care Team (Late st Contact Info) Description 04/20/2024 Orders Only [facility] [address] [place] [address] Kylee Gómez FNP [address] [place] [address] Social History Tobacco Use Types Packs/Day Years [...] Description 12/08/2024 9:40 AM EDT Office Visit [facility] MEDICAL [address] [place] [address] Kylee Gómez FNP [address] [place] [address] 01/19/2025 8:30 AM EDT Office Visit [facility] DENTAL [address] [place] [address] Jazmine Perez documented as of this encounter Procedures Procedure Name Priority Date/Time Associated Diagnosis Comments PATHOLOGY REPORT (HISTOPATHOLOGY) Routine 04/16/2024 1:38 PM EDT documented in this encounter Results * Pathology Report (Histopathology) (04/16/2024 1:38 PM EDT) Tissue Kylee JEFF LAB PATHOLOGY ORDERABLES Final Result documented in this encounter Visit Diagnoses Not on filedocumented in this encounter Care Teams Division Merchandise Manager Relationship Specialty Start Date End Date Kylee Gómez FNP [address] [facility] [place] [address] PCP - General Family Medicine 07/05/22 Gladys Foster Health Navigator 04/27/24 documented as of this encounter
--- OUTSIDE RECORDS SUMMARY | 2024-11-11 13:24 | XMS_ITS | Encounter Summary ---
Author Organization [employer] Address [address] [facility] 7t [place] [address] Care Team Providers Care Life Skills Worker Name Role Phone Kylee Gómez Primary Care Provider [phone] [phone] Gladys Foster Unavailable Unavailable Encounter Details Date Type Department Care Team (Late st Contact Info) Description 05/15/2024 Orders Only [facility] [address] [place] [address] Kylee Gómez FNP [address] [place] [address] Social History Tobacco Use Types Packs/Day Years [...] Description 12/08/2024 9:40 AM EDT Office Visit [place] MEDICAL [address] [place] [address] Kylee Gómez FNP [address] [place] [address] 01/19/2025 8:30 AM EDT Office Visit [facility] DENTAL [address] [place] [address] Jazmine Perez documented as of this encounter [...] documented as of this encounter Care Teams Life Skills Worker Relationship Specialty Start Date End Date Kylee Gómez FNP [address] [place] [address] PCP - General Family Medicine 07/05/22 Gladys Foster Health Navigator 04/27/24 documented as of this encounter
--- OUTSIDE RECORDS SUMMARY | 2024-11-11 13:24 | XMS_ITS | Clinical Summary ---
Author Organization [employer] Address [address] [place] [address] 7t [place] [address] Care Team Providers Care Vp Outcomes Name Role Phone Kylee Gómez [facility] Primary Care Provider [phone] [phone] Gladys Foster Unavailable Unavailable Allergies Active Allergy [...] (03/02/2024): Chronic back pain. Was seen at [facility] 05/25/22 and recommended non- operative tx. They suggested PT, injections. Referred to [facility] neurosurgery for second opinion and she [...] Description 11/02/2024 9:30 AM EDT Office Visit [facility] DENTAL [address] [place] [address] Ligia Mitchell DDS Pain, dental (Primary Dx); Dental caries 11/02/[address] [address] Kylee Gómez FNP Anaphylaxis, sequela; Chronic pain of left knee 10/23/[address] [address] Kylee Gómez FNP discuss x-ray results 10/07/[address] [address] Kylee Gómez FNP Chronic pain of left knee 09/30/2024 4:00 PM EDT Office Visit [address] [address] Francia Ko CNP Degenerative disc disease at L5-S1 level (Primary Dx); Degenerative disc disease, cervical; Chronic pain of left knee; Chronic migraine without aura without status migrainosus, not intractable; Anxiety 09/24/[address] [address] Kylee Gómez FNP Paperwork/Forms 09/04/2024 Population Health Risk Score [facility] () Department [address] [place] [id number] Provider, Population Health Generic 09/01/[address] [address] Kylee Gómez FNP request 2 printed letters to picking crew supervisor 09/01/[address] [address] Kylee Gómez FNP Degenerative disc disease at L5-S1 level from Last 3 Months Immunizations Immunization Administration Dates Next Due HPV 9-Valent 05/02/2007,02/28/2007,09/03/2006 [...] the past 12 months, has t he [employer], gas, oil or water company threatened to [...] Description 12/08/2024 9:40 AM EDT Office Visit [facility] MEDICAL [address] [place] [address] Kylee Gómez FNP [address] [place] [address] 01/19/2025 8:30 AM EDT Office Visit [facility] DENTAL [address] [place] [address] Jazmine Perez Health Maintenance Due Date Last Done Comments HIV Screening 1986 Hepatitis C Screening 2004 HPV Vaccines (3 - 3-dose series) 07/25/2007 05/02/2007, 02/28/2007, 09/03/2006 Cervical Cancer Screening 08/02/2016 HPV/Cotest 08/02/2016 Pap Smear 08/02/2016 08/02/2011, 06/15/2010 DTaP/Tdap/Td Vaccines (2 - Td or Tdap) 07/25/2021 07/25/2011, 12/14/2008 COVID-19 Vaccine (1 - 2023- season) 2024 Influenza Vaccine (#1) [...] 04/25/2024 Depression Screening 05/12/2025 05/12/2024, 05/12/20 24 Disability Screening 07/06/2025 07/06/2024 Dental X-Ray: Bitewings 07/16/2025 07/15/19 25, 07/17/2021, [...] on patient's age to complete this topic Meningococcal B Vaccine Aged Out No l onger eligible based on patient's age to complete [...] Most Recently Relevant to Health Maintenance Insurance [facility] [place] AD[place] Care Teams Vp Outcomes Relationship Specialty Start Date End Date Kylee Gómez FNP [address] [place] [address] PCP - General Family Medicine 07/05/22 Gladys Foster [facility] Navigator 04/27/24
--- OUTSIDE RECORDS SUMMARY | 2024-11-11 13:24 | XMS_ITS | Encounter Summary ---
Author Organization [employer] Address [address] [facility] 7 [place] [address] Care Team Providers Care Expert Medical Writer Name Role Phone Kylee Gómez Primary Care Provider +1 [phone] Gladys Foster Unavailable Unavailable Reason for Visit * Reason Onset Date Comments discuss x-ray results 10/23/2024 Encounter Details Date Type Department Care Team (Late st Contact Info) Description 10/23/2024 Telephone [facility] MED[facility] [address] [place] [address] Kylee Gómez FNP [address] [place] [address] discuss x-ray results Social History Tobacco Use [...] seeing her neurosurgeon Dr. Anuel Metz from [facility] on November 03. She will [...] not a xray. Please obtain records from [facility] * Telephone Encounter - Annetat Lu - 10/23/2024 4:13 PM EDT Patient called stating I had an x-ray on my neck on Saturday (10/21/24) and I'd like someone to call me regarding the results of the x-ray, thank you! documented in this encounter Plan of Treatment Upcoming Encounters Date Type Department Care Team (Late st Contact Info) Description 12/08/2024 9:40 AM EDT Office Visit [facility] MEDICAL [address] [place] [address] Kylee Gómez FNP [address] [place] [address] 01/19/2025 8:30 AM EDT Office Visit [facility] DENTAL [address] [place] [address] Jazmine Perez documented as of this encounter Visit Diagnoses Not on filedocumented in this encounter Additional Health Concerns Assessment Noted Time PHQ-9 Depression Total Score: 25 024 4:14 PM EST documented as of this encounter Care Teams Expert Medical Writer Relationship Specialty Start Date End Date Kylee Gómez FNP [address] [place] [address] PCP - General Family Medicine 07/05/22 Gladys Foster Health Navigator 04/27/24 documented as of this encounter
--- OUTSIDE RECORDS SUMMARY | 2024-11-11 13:24 | XMS_ITS | Encounter Summary ---
Author Organization [employer] Address [address] [place] [address] [facility] [place] [address] Care Team Providers Care Stock Control Clerk Name Role Phone Kylee Gómez Primary Care Provider [phone] Gladys Foster Unavailable Unavailable Encounter Details Date Type Department Care Team (Late st Contact Info) Description 12/17/2023 Orders Only [facility] [address] [place] [address] Kylee Gómez FNP [address] [place] [address] Social History Tobacco Use Types Packs/Day Years [...] Visit [facility] MEDICAL [address] [place] [address] Kylee Gómez FNP [address] [place] [address] 01/19/2025 8:30 AM EDT Office Visit [facility] DENTAL [address] [place] [address] Jazmine Perez documented as of this encounter [...] on filedocumented in this encounter Care Teams Stock Control Clerk Relationship Specialty Start Date End Date Kylee Gómez FNP [address] [facility] [place] [address] PCP - General Family Medicine 07/05/22 Gladys Foster Health Navigator 04/27/24 documented as of this encounter
== END 2024-11-11 13:05 | disposition home or self-care (01) ==
LOC: HO.PMC 12:42
PROVIDERS: PCP Nurse Practitioner Family; Visit Provider Registered Nurse Emergency
DX: M54.50 Low back pain, unspecified (principal); S46.819A Strain of other muscles, fascia and tendons at shoulder and upper arm level, unspecified arm, initial encounter; M79.18 Myalgia, other site; M96.1 Postlaminectomy syndrome, not elsewhere classified; M47.812 Spondylosis without myelopathy or radiculopathy, cervical region
CPT/HCPCS: 99024

== ENCOUNTER → 2024-11-11 12:42 | Outpatient (BNVA) | payer MEDICAID, SELFPAY | PROVIDERS: PCP Nurse Practitioner Family; Visit Provider Registered Nurse Emergency | DX: M54.50 Low back pain, unspecified (principal); M79.18 Myalgia, other site; M96.1 Postlaminectomy syndrome, not elsewhere classified; M47.812 Spondylosis without myelopathy or radiculopathy, cervical region; S46.819D Strain of other muscles, fascia and tendons at shoulder and upper arm level, unspecified arm, subsequent encounter | CPT/HCPCS: 99212 ==

== ENCOUNTER 2024-11-17 06:52 | Outpatient (REF) | payer MEDICAID, SELFPAY ==
--- NOTE | ~2024-11-17 | FL_ITS ---
EXAMINATION: FL GUIDANCE ONLY HISTORY: M47.812 - Spondylosis without myelopathy or radiculopathy, cervical region COMPARISON: None available. TECHNIQUE: Fluoroscopy time: 0.1 minutes. Cumulative Dose: 1.43 mGy. DAP: 0.0128 mGym2 Images: 1. FINDINGS: A single fluoroscopic spot film of the cervical spine in the AP projection demonstrates leads in the neck bilaterally. FL/FL guidance in treatment room IMPRESSION: Fluoroscopy during procedure. Please see procedure report for additional information. Electronically signed by: Erich Lopez MD 11/17/2024 03:40 PM EDT
--- OUTSIDE RECORDS SUMMARY | 2024-11-17 06:55 | XMS_ITS | Encounter Summary ---
Author Organization [employer] Address [address] [place] [address] 7 [place] [address] Care Team Providers Care Director Of Rehabilitation And Wellness Name Role Phone Kylee Gómez Primary Care Provider [phone] Gladys Foster Unavailable Unavailable Encounter Details Date Type Department Care Team (Late st Contact Info) Description 12/12/2022 Orders Only [facility] 58 [place] [address] Kylee Gómez FNP 58 [place] [address] Social History Tobacco Use Types Packs/Day Years [...] Description 12/08/2024 9:40 AM EDT Office Visit [facility] 58 [place] [address] Kylee Gómez FNP [address] [place] [address] 01/19/2025 8:30 AM EDT Office Visit [facility] D[facility] [address] [place] [address] Jazmine Perez documented as of this encounter Visit Diagnoses Not on filedocumented in this encounter Care Teams Director Of Rehabilitation And Wellness Relationship Specialty Start Date End Date Kylee Gómez FNP [address] [place] [address] PCP - General Family Medicine 07/05/22 Gladys Foster Health Navigator 04/27/24 documented as of this encounter
== END 2024-11-17 06:53 | disposition home or self-care (01) ==
LOC: CF 06:52
PROVIDERS: Visit Provider Anesthesiology
DX: M47.812 Spondylosis without myelopathy or radiculopathy, cervical region (principal)
CPT/HCPCS: 64555; J2003

== ENCOUNTER 2024-11-17 12:23 | Outpatient (AMB) | payer MEDICAID, SELFPAY ==
[2024-11-17 12:56] VITALS: BP 134/80; PULSE 96; RESP 18; O2SAT 98
--- NOTE | 2024-11-17 12:56 | A.OFFVIS_ITS ---
Vital Signs 11/17/24 12:56 11/17/24 13:33 Weight 180 lb BP 134/80 155/91 H Blood Pressure Location Lt brachial Lt brachial Position Sitting Sitting Respiration 18 20 Pulse 96 96 Pulse Source Pulse Oximeter Pulse Oximeter Pulse Oximetry (%) 98 Oxygen Delivery Method Room Air Intake Visit Reasons: LEFT C4 SPRINT PNS TRIAL Identification Printing Machine Setter Required: No Allergies codeine Allergy (Severe, Verified 11/17/24 12:57) Anaphylaxis fluticasone [From Flonase] Allergy (Severe, Verified 11/17/24 12:57) Anaphylaxis oxycodone Allergy (Intermediate, Verified 11/17/24 12:57) skin redness morphine Adverse Reaction (Intermediate, Verified 11/17/24 12:57) Nausea and Vomiting silver [From Tegaderm [employer] Mesh] Adverse Reaction (Mild, Verified 11/17/24 12:57) Redness of Skin Opioids - Morphine Analogues Adverse Reaction (Unknown, Verified 11/17/24 12:57) Unknown flu vaccine Allergy (Severe, Uncoded 11/03/24 12:28) Nausea and Vomiting, dehydration, weakness PFSH Medical History Fragrance hypersensitivity Hypoglycemia TMJ tenderness, right Osteoarthritis CTS (carpal tunnel syndrome) PONV (postoperative nausea and vomiting) DJD (degenerative joint disease) Asthma Seasonal allergies Environmental allergies Scoliosis Back pain Surgical History Hx of surgical fusion joint Hx of lumbar discectomy (~2018) History of arthroplasty of left knee Hx of sinus surgery Hx of bilateral breast reduction surgery History of ear surgery Social History Household Members Other:: S.O. parents Are you a primary healthcare technician to a significant other at home: No Do you presently have visiting nurse or other home services: No Comment: aware of trip hazard Patient Tobacco Use Status: Former Tobacco user Second Hand Smoke Exposure: Yes (parents smoked in the home) Physical Exam Vital Signs: Last Vital Signs Pulse 96 11/17/24 13:33 Resp 20 11/17/24 13:33 BP 155/91 H 11/17/24 13:33 Pulse Ox 98 11/17/24 12:56 Oxygen Delivery Method Room Air 11/17/24 12:56 Assessment & Plan Assessment & Plan (1) Cervical spondylosis: Code(s): M47.812 - Spondylosis without myelopathy or radiculopathy, cervical region Category: Medical Plan SPRINT C5 left PNS. Percutaneous implantation of peripheral nerve stimulation Sprint system. After the risks, benefits and alternatives were discussed with the patient and informed consent was obtained, patient was placed in the prone position and padded to foster comfort. Time out was performed delineating correct site and side of the procedure , name and of the patient, patient participated in time out procedure. Entire posterior neck, occipital portion of the head, upper back were prepped with ChloraPrep and draped with sterile utility towels. C-arm was brought over the operating field and clear picture of the C5 lamina on the left was delineated on the screen. The upper central portion of the lamina was chosen as a target of the needle tip insertion . After identifying and marking the intended target, the skin around the planned entry point and the subcutaneous tissues were injected with local anesthetic forming skin wheal.. A percutaneous sleeve and stimulating probe lead introduction system were assembled, inserted and advanced through the skin wheal to the point of inter est under C-arm view in tunnel vision fashion, the introducer needle was delivered to a location in proximity to the nerve. Multiple stimulation parameters were used to deliver stimulation to the nerve in concert with stimulating at multiple positions around the nerve. nerve target acquisition was confirmed noting generation of in the corresponding to the nerve being stimulated. Various electrical parameter combinations were tested, and the lead location was adjusted (physically relocated) until the patient indicated overlapping the distribution of the patient?s typical region of pain. The stimulating probe was removed from the introducer and a percutaneous lead was guided through the needle and delivered to a location in similar proximity to the nerve. Final location was verified with electrical stimulation. The introducer needle was removed, and the exposed end of the percutaneous lead was attached to an external stimulator unit. At the end of the case various electrical parameter combinations were again tested until the patient indicated paresthesia or muscle tension overlapping the distribution of the patient?s typical region of pain. After confirming that lead impedance was in the normal range, the external unit was detached, the needle was removed, and the lead was anchored at the skin. The lead was threaded into the connector block and electrical continuity and desired patient response was confirmed. The connector block was attached to the external stimulator unit. The site was covered with a sterile occlusive dressing and a image was taken to document final placement Orders: Orders FL guidance in treatment room Today M47.812 - Spondylosis without myelopathy or radiculopathy, cervical region Coding Level of Care Code Procedure Only Diagnoses Cervical spondylosis M47.812 Implantable Device Implantable Device Implantable Devices Qty Director Of Admissions Implant Date Expiration Date Analgesic PENS system 1 [employer] 11/03/24 Analgesic PENS system 1 SPR Ning [employer] 11/17/24 Analgesic spinal cord electrical stimulation system 1 Reviews42 NEUROMODULATION tabulate 07/24/24 09/30/25 Analgesic spinal cord electrical stimulation system 1 Reviews42 NEUROMODULATION tabulate 07/24/24 10/16/25 Analgesic spinal cord electrical stimulation system 1 Reviews42 NEUROMODULATION tabulate 06/26/24 04/06/26 Analgesic spinal cord electrical stimulation system 1 Reviews42 NEUROMODULATION tabulate 06/26/24 05/27/26 Analgesic spinal cord electrical stimulation system 1 Reviews42 NEUROMODULATION tabulate 06/26/24 05/27/26 Analgesic spinal cord electrical stimulation system 1 120 Sports 07/24/24 04/23/26 WAVEWRITER 32 IPG SPINAL STIM 1 07/24/24 05/20/26
[2024-11-17 13:33] VITALS: BP 155/91; PULSE 96; RESP 20
== END 2024-11-17 13:47 | disposition home or self-care (01) ==
LOC: HO.PMCPRC 12:23
PROVIDERS: PCP Nurse Practitioner Family; Visit Provider Anesthesiology
DX: M47.812 Spondylosis without myelopathy or radiculopathy, cervical region (principal)
CPT/HCPCS: 64555

== ENCOUNTER 2024-11-25 11:47 | Outpatient (AMB) | payer MEDICAID, SELFPAY ==
[2024-11-25 12:05] VITALS: BP 134/85; PULSE 98; RESP 16; O2SAT 98; BMI 32.9
--- NOTE | 2024-11-25 12:05 | MHC.OFFVIS ---
Vital Signs 11/25/24 12:05 Height 5 ft 2 in Weight 180 lb BMI 32.9 BP 134/85 Blood Pressure Location Rt brachial Position Sitting Respiration 16 Pulse 98 Pulse Source Pulse Oximeter Pulse Oximetry (%) 98 Oxygen Delivery Method Room Air Intake Visit Reasons: LEFT C4 SPRINT PNS TRIAL Gourmet Coffee Attendant Required: No Allergies codeine Allergy (Severe, Verified 11/25/24 12:06) Anaphylaxis fluticasone [From Flonase] Allergy (Severe, Verified 11/25/24 12:06) Anaphylaxis oxycodone Allergy (Intermediate, Verified 11/25/24 12:06) skin redness morphine Adverse Reaction (Intermediate, Verified 11/25/24 12:06) Nausea and Vomiting silver [From Tegaderm AG Mesh] Adverse Reaction (Mild, Verified 11/25/24 12:06) Redness of Skin Opioids - Morphine Analogues Adverse Reaction (Unknown, Verified 11/25/24 12:06) Unknown flu vaccine Allergy (Severe, Uncoded 11/03/24 12:28) Nausea and Vomiting, dehydration, weakness HPI Comments Details: The patient is a 38-year-old female presenting for pain management following left cervical Sprint placement one-week ago. Right side was performed 3 weeks ago. She reports a improvement in neck pain and range of motion. Continues with left worse than right pain. Over the weekend started having difficulty with the device, it would be and she was unable to use it. She contacted the [employer] hotel services sales representative, a new device was sent in the mail. Ibuprofen Sprint is in the office with the patient today to reconnect. [employer] hotel services sales representative also met with the patient today to reprogram her lumbar spinal cord stimulator. [facility] Medical History Fragrance hypersensitivity Hypoglycemia TMJ tenderness, right Osteoarthritis CTS (carpal tunnel syndrome) PONV (postoperative nausea and vomiting) DJD (degenerative joint disease) Asthma Seasonal allergies Environmental allergies Scoliosis Back pain Surgical History Hx of surgical fusion joint Hx of lumbar discectomy (~2018) History of arthroplasty of left knee Hx of sinus surgery Hx of bilateral breast reduction surgery History of ear surgery Social History Household Members Other:: S.O. parents Are you a primary day care director to a significant other at home: No Do you presently have visiting nurse or other home services: No Comment: aware of trip hazard Patient Tobacco Use Status: Former Tobacco user Second Hand Smoke Exposure: Yes (parents smoked in the home) Review of Systems Const All systems reviewed & are unremarkable except as noted in HPI and below Physical Exam Vital Signs: Last Vital Signs Pulse 98 11/25/24 12:05 Resp 16 11/25/24 12:05 BP 134/85 11/25/24 12:05 Pulse Ox 98 11/25/24 12:05 Oxygen Delivery Method Room Air 11/25/24 12:05 BMI result Body Mass Index 32.9 General: awake, alert, oriented. Answers questions appropriately. Fully engaged in examination. Appears uncomfortable Skin: warm, dry, intact. No rashes, redness, warmth, swelling, drainage noted HEENT: Normocephalic. Hearing intact. Cardiac: External chest normal in appearance. Respiratory: No cough, audible wheezing or stridor. Abdomen: without gross distension. MS: No obvious swelling or deformities. CS: Visible inspection without gross abnormality. Neurological: Oriented to person, place, time and situation. Thought process intact. Psychiatric: Appropriate mood and affect. Good judgment and insight. Sprint dressing change: Existing dressing removed, Area cleansed with chloraprep. Site dry, clean without redness, swelling, warmth, bruising or drainage. Lead secure devices removed. Area cleansed again with chloraprep, once dry skin barrier protectant wipe applied. New lead secure devices applied, tegaderm applied. Patient tolerated procedure well. Results Reviewed Results Reviewed: 01/14/24 MR/MR lumbar spine wo con FINDINGS: There are 5 nonrib-bearing lumbar-type vertebral bodies. There is a partially imaged rightward convex scoliotic curvature of the thoracic spine and there is a leftward convex scoliotic curvature of the upper lumbar spine. The vertebral body heights are maintained. There is moderate disc volume loss and there is disc desiccation at L5-S1. Remaining disc volumes are preserved and the remaining discs remain well-hydrated. There is no bone marrow edema. There are no acute fractures. Partially imaged left SI joint screws. There are no significant extraspinal soft tissue findings. The imaged lower thoracic spinal cord is unremarkable. The conus terminates at the L2 level. At L1-L2, the disc contour is normal and there is no central canal stenosis nor foraminal stenosis. At L2-L3, there is a shallow right paracentral disc protrusion that mildly indents the right ventral thecal sac. There is no central canal stenosis and there is no foraminal stenosis. At L3-L4, there is a diffuse annular disc bulge and there is moderate bilateral facet arthropathy. There is no central canal stenosis and there is no foraminal stenosis. At L4-L5, there is a diffuse annular disc bulge and there is severe bilateral facet arthropathy and ligamentum flavum thickening. No central canal stenosis and no foraminal stenosis. At L5-S1, there are postoperative changes following left hemilaminectomy and microdiscectomy. There is a favored recurrent left paracentral disc protrusion compressing the traversing left S1 nerve root within the left subarticular zone. There is also granulation/scar tissue within the epidural space inseparable from the traversing left S1 nerve root. Postcontrast imaging could be obtained to more definitively distinguish between disc and scar. The central canal remains patent and there is no foraminal stenosis. IMPRESSION: At L5-S1, there are postoperative changes following left hemilaminectomy and microdiscectomy. There is a favored recurrent left paracentral disc protrusion compressing the traversing left S1 nerve root within the left subarticular zone. There is also granulation/scar tissue within the epidural space inseparable from the traversing left S1 nerve root. Postcontrast imaging could be obtained to more definitively distinguish between disc and scar tissue. Assessment & Plan Assessment & Plan (1) Lower back pain: Code(s): M54.50 - Low back pain, unspecified Category: Medical (2) Trapezius muscle strain: Code(s): S46.819A - Strain of other muscles, fascia and tendons at shoulder and upper arm level, unspecified arm, initial encounter Category: Medical (3) Myofascial muscle pain: Code(s): M79.18 - Myalgia, other site Category: Medical (4) Post laminectomy syndrome: Code(s): M96.1 - Postlaminectomy syndrome, not elsewhere classified Category: Medical (5) Cervical spondylosis: Code(s): M47.812 - Spondylosis without myelopathy or radiculopathy, cervical region Category: Medical Plan The patient will continue with her current regimen and contact [employer] hotel services sales representative as needed. Adjustments to stimulation settings will be made as needed in follow-ups. Continue with dressing changes as instructed. During this visit, I outlined the patient's current progress following her bilateral cervical Sprint peripheral nerve stimulator procedure, highlighting the improvement in neck pain. We discussed the anticipated outcomes and further emphasized the necessity of continued management for her cervical disc disease. The patient was in agreement with the recommended plans for ongoing care and pain management. Follow-ups were outlined for post-procedure evaluation. Continue to keep in close contact with spinal cord stimulator hotel services sales representative to adjust settings as needed. Patient was informed and verbally consented to the use of an ambient scribe for clinic note documentation during this visit. Coding Level of Care Code Est Pt Level 3 (62883) Complex EM visit Add On G2211 Diagnoses Lower back pain M54.50 Trapezius muscle strain S46.819A Myofascial muscle pain M79.18 Post laminectomy syndrome M96.1 Cervical spondylosis M47.812
--- OUTSIDE RECORDS SUMMARY | 2024-11-25 12:32 | XMS_ITS | Encounter Summary ---
Author Organization [employer] Address [address] [place] [address] 7 [place] [address] Care Team Providers Care Distillery Laborer Name Role Phone Kylee Gómez Primary Care Provider [phone] Gladys Foster Unavailable Unavailable Encounter Details Date Type Department Care Team (Late st Contact Info) Description 12/12/2022 Orders Only [facility] [address] [place] [address] Kylee Gómez FNP 58 [place] [address] Social History Tobacco Use Types Packs/Day Years [...] Description 12/08/2024 9:40 AM EDT Office Visit [facility] [address] [place] [address] Kylee Gómez FNP 58 [place] [address] 01/19/2025 8:30 AM EDT Office Visit [facility] [address] [place] [address] Jazmine Perez documented as of this encounter Visit Diagnoses Not on filedocumented in this encounter Care Teams Distillery Laborer Relationship Specialty Start Date End Date Kylee Gómez FNP [address] [place] [address] PCP - General Family Medicine 07/05/22 Gladys Foster Health Navigator 04/27/24 documented as of this encounter
== END 2024-11-25 12:21 | disposition home or self-care (01) ==
LOC: HO.PMC 11:48
PROVIDERS: PCP Nurse Practitioner Family; Visit Provider Registered Nurse Emergency
DX: M54.50 Low back pain, unspecified (principal); S46.819A Strain of other muscles, fascia and tendons at shoulder and upper arm level, unspecified arm, initial encounter; M79.18 Myalgia, other site; M96.1 Postlaminectomy syndrome, not elsewhere classified; M47.812 Spondylosis without myelopathy or radiculopathy, cervical region
CPT/HCPCS: 99024

== ENCOUNTER → 2024-11-25 11:47 | Outpatient (BNVA) | payer MEDICAID, SELFPAY | PROVIDERS: PCP Nurse Practitioner Family; Visit Provider Registered Nurse Emergency | DX: M54.50 Low back pain, unspecified (principal); S46.819A Strain of other muscles, fascia and tendons at shoulder and upper arm level, unspecified arm, initial encounter; M79.18 Myalgia, other site; M96.1 Postlaminectomy syndrome, not elsewhere classified; M47.812 Spondylosis without myelopathy or radiculopathy, cervical region; X58.XXXA Exposure to other specified factors, initial encounter; Y93.9 Activity, unspecified; Y92.9 Unspecified place or not applicable; Y99.9 Unspecified external cause status; Z96.82 Presence of neurostimulator | CPT/HCPCS: 99212 ==

== ENCOUNTER 2024-12-30 13:07 | Outpatient (AMB) | payer MEDICAID, SELFPAY ==
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
[2024-12-30 13:09] VITALS: BP 140/89; PULSE 104; RESP 16; O2SAT 99; BMI 32.9
--- NOTE | 2024-12-30 13:09 | A.OFFVIS_ITS ---
Vital Signs 3 12/30/24 13:09 Height 5 ft 2 in Weight 180 lb BMI 32.9 BP 140/89 H Blood Pressure Location Lt brachial Position Sitting Respiration 16 Pulse 104 H Pulse Source Pulse Oximeter Pulse Oximetry (%) 99 Oxygen Delivery Method Room Air Intake Visit Reasons: RIGHT C4 SPRINT REMOVAL Law Firm Partner Required: No Accompanied by: Self / Same As Patient Allergies codeine Allergy (Severe, Verified 12/30/24 13:21) Anaphylaxis fluticasone (From Flonase) Allergy (Severe, Verified 12/30/24 13:21) Anaphylaxis oxycodone Allergy (Intermediate, Verified 12/30/24 13:21) skin redness morphine Adverse Reaction (Intermediate, Verified 12/30/24 13:21) Nausea and Vomiting silver (From Tegaderm AG Mesh) Adverse Reaction (Mild, Verified 12/30/24 13:21) Redness of Skin Opioids - Morphine Analogues Adverse Reaction (Unknown, Verified 12/30/24 13:21) Unknown flu vaccine Allergy (Severe, Uncoded 11/03/24 12:28) Nausea and Vomiting, dehydration, weakness HPI Comments Details: Patient presents back to the office today for follow-up, removal of right cervical sprint. Right cervical Sprint removed, as per below. She reports 70% improvement in pain in the right steroid neck. Continues with Sprint on the left side. Endorses stiffness of the neck on the left side with some continued limited range of motion. [employer] auto service representative also met with the patient today to reprogram her lumbar spinal cord stimulator. [facility] Medical History Fragrance hypersensitivity Hypoglycemia TMJ tenderness, right Osteoarthritis CTS (carpal tunnel syndrome) PONV (postoperative nausea and vomiting) DJD (degenerative joint disease) Asthma Seasonal allergies Environmental allergies Scoliosis Back pain Surgical History Hx of surgical fusion joint Hx of lumbar discectomy (~2018) History of arthroplasty of left knee Hx of sinus surgery Hx of bilateral breast reduction surgery History of ear surgery Social History Household Members Other:: S.O. parents Are you a primary animal caretaker supervisor to a significant other at home: No Do you presently have visiting nurse or other home services: No Comment: aware of trip hazard Patient Tobacco Use Status: Former Tobacco user Second Hand Smoke Exposure: Yes (parents smoked in the home) Review of Systems Const All systems reviewed & are unremarkable except as noted in HPI and below Physical Exam Vital Signs: Last Vital Signs Pulse 104 H 12/30/24 13:09 Resp 16 12/30/24 13:09 BP 140/89 H 12/30/24 13:09 Pulse Ox 99 12/30/24 13:09 Oxygen Delivery Method Room Air 12/30/24 13:09 BMI result Body Mass Index 32.9 General: awake, alert, oriented. Answers questions appropriately. Fully engaged in examination. Appears uncomfortable Skin: warm, dry, intact. No rashes, redness, warmth, swelling, drainage noted HEENT: Normocephalic. Hearing intact. Cardiac: External chest normal in appearance. Respiratory: No cough, audible wheezing or stridor. Abdomen: without gross distension. MS: No obvious swelling or deformities. CS: Visible inspection without gross abnormality. Neurological: Oriented to person, place, time and situation. Thought process intact. Psychiatric: Appropriate mood and affect. Good judgment and insight. Right cervical Sprint removal: Dressing removed, Site dry, clean, intact. Area cleansed with chloraprep, lead removed with intact tip. Area cleansed again with chloraprep, bacitracin dressing with tegaderm applied. Patient tolerated removal well. Dressing applied to left cervical sprint. Results Reviewed Results Reviewed: 01/14/24 MR/MR lumbar spine wo con FINDINGS: There are 5 nonrib-bearing lumbar-type vertebral bodies. There is a partially imaged rightward convex scoliotic curvature of the thoracic spine and there is a leftward convex scoliotic curvature of the upper lumbar spine. The vertebral body heights are maintained. There is moderate disc volume loss and there is disc desiccation at L5-S1. Remaining disc volumes are preserved and the remaining discs remain well-hydrated. There is no bone marrow edema. There are no acute fractures. Partially imaged left SI joint screws. There are no significant extraspinal soft tissue findings. The imaged lower thoracic spinal cord is unremarkable. The conus terminates at the L2 level. At L1-L2, the disc contour is normal and there is no central canal stenosis nor foraminal stenosis. At L2-L3, there is a shallow right paracentral disc protrusion that mildly indents the right ventral thecal sac. There is no central canal stenosis and there is no foraminal stenosis. At L3-L4, there is a diffuse annular disc bulge and there is moderate bilateral facet arthropathy. There is no central canal stenosis and there is no foraminal stenosis. At L4-L5, there is a diffuse annular disc bulge and there is severe bilateral facet arthropathy and ligamentum flavum thickening. No central canal stenosis and no foraminal stenosis. At L5-S1, there are postoperative changes following left hemilaminectomy and microdiscectomy. There is a favored recurrent left paracentral disc protrusion compressing the traversing left S1 nerve root within the left subarticular zone. There is also granulation/scar tissue within the epidural space inseparable from the traversing left S1 nerve root. Postcontrast imaging could be obtained to more definitively distinguish between disc and scar. The central canal remains patent and there is no foraminal stenosis. IMPRESSION: At L5-S1, there are postoperative changes following left hemilaminectomy and microdiscectomy. There is a favored recurrent left paracentral disc protrusion compressing the traversing left S1 nerve root within the left subarticular zone. There is also granulation/scar tissue within the epidural space inseparable from the traversing left S1 nerve root. Postcontrast imaging could be obtained to more definitively distinguish between disc and scar tissue. Assessment & Plan Assessment & Plan (1) Lower back pain: Code(s): M54.50 - Low back pain, unspecified Category: Medical (2) Trapezius muscle strain: Code(s): S46.819A - Strain of other muscles, fascia and tendons at shoulder and upper arm level, unspecified arm, initial encounter Category: Medical (3) Myofascial muscle pain: Code(s): M79.18 - Myalgia, other site Category: Medical (4) Post laminectomy syndrome: Code(s): M96.1 - Postlaminectomy syndrome, not elsewhere classified Category: Medical (5) Cervical spondylosis: Code(s): M47.812 - Spondylosis without myelopathy or radiculopathy, cervical region Category: Medical Plan Right cervical Sprint removed, as per above. Patient tolerated well. Follow up as planned for removal of the left sprint. Plan for additional physical therapy with dry needling for left trapezius muscle strain after Sprint removal. Patient will inquire about locations closer to her home where this is in offered service. If no improvement after physical therapy/dry needling will consider trigger point injections. All questions and concerns were answered, patient agrees with the plan. Follow- up for left sprint removal as planned, sooner if needed. Coding Level of Care Code Est Pt Level 3 (76912) Complex EM visit Add On G2211 Diagnoses Lower back pain M54.50 Trapezius muscle strain S46.819A Myofascial muscle pain M79.18 Post laminectomy syndrome M96.1 Cervical spondylosis M47.812
== END 2024-12-30 13:29 | disposition home or self-care (01) ==
LOC: HO.PMC 13:08
PROVIDERS: PCP Nurse Practitioner Family; Visit Provider Registered Nurse Emergency
DX: M54.50 Low back pain, unspecified (principal); S46.819A Strain of other muscles, fascia and tendons at shoulder and upper arm level, unspecified arm, initial encounter; M79.18 Myalgia, other site; M96.1 Postlaminectomy syndrome, not elsewhere classified; M47.812 Spondylosis without myelopathy or radiculopathy, cervical region
CPT/HCPCS: 99213

== ENCOUNTER → 2024-12-30 13:07 | Outpatient (BNVA) | payer MEDICAID, SELFPAY | PROVIDERS: PCP Nurse Practitioner Family; Visit Provider Registered Nurse Emergency | DX: M47.812 Spondylosis without myelopathy or radiculopathy, cervical region (principal); M54.50 Low back pain, unspecified; M79.18 Myalgia, other site; M96.1 Postlaminectomy syndrome, not elsewhere classified; S46.811A Strain of other muscles, fascia and tendons at shoulder and upper arm level, right arm, initial encounter | CPT/HCPCS: 99212 ==

== ENCOUNTER 2025-01-13 12:47 | Outpatient (AMB) | payer MEDICAID, SELFPAY ==
--- NOTE | 2025-01-13 12:58 | A.OFFVIS_ITS ---
Vital Signs 3 01/13/25 12:59 Height 5 ft 2 in Weight 180 lb BMI 32.9 BP 130/82 Blood Pressure Location Lt brachial Position Sitting Respiration 16 Pulse 96 Pulse Source Pulse Oximeter Pulse Oximetry (%) 97 Oxygen Delivery Method Room Air Intake Visit Reasons: LEFT SPRINT C4 REMOVAL Intake Note: Left sprint removal Tip intact. Revenue Tax Specialist Required: No Accompanied by: Self / Same As Patient Allergies codeine Allergy (Severe, Verified 01/13/25 13:07) Anaphylaxis fluticasone (From Flonase) Allergy (Severe, Verified 01/13/25 13:07) Anaphylaxis oxycodone Allergy (Intermediate, Verified 01/13/25 13:07) skin redness morphine Adverse Reaction (Intermediate, Verified 01/13/25 13:07) Nausea and Vomiting silver (From Tegaderm AG Mesh) Adverse Reaction (Mild, Verified 01/13/25 13:07) Redness of Skin Opioids - Morphine Analogues Adverse Reaction (Unknown, Verified 01/13/25 13:07) Unknown flu vaccine Allergy (Severe, Uncoded 11/03/24 12:28) Nausea and Vomiting, dehydration, weakness HPI Comments Details: The patient is a 39-year-old female presenting with neck pain and management of chronic conditions, removal of left cervical sprint. The patient experiences neck pain characterized by a crunching sensation and bone spurs, with the right side feeling better than the left. She is not interested in trying physical therapy at this time. Endorses 70% pain relief of the right side after sprint PNS trial, minimal improvement in her left-sided neck pain. She does state that for the last 2-1/2 weeks the sprint device was not working. She had contacted the Sprint independent sales representative and was expecting replacement parts in the mail but they did not arrive. Therefore she has not used it in over 2 weeks. The patient has scoliosis, contributing to a hump on her back, which she associates with poor posture. She has been advised to work on posture and consider using a brace to improve alignment. - Neck pain with crunching sensation and bone spurs, right side feels better than left - Burning sensation from spine down side after attempting to get on a swing - Pain does not radiate to shoulder, but history of rotator cuff tear - Affect: Pain impacts daily activities and posture - Analgesia: No specific pain medications discussed - Adverse Effects: None reported - Activities of Daily Living: Pain affects posture and physical activities - Aberrant Drug Related Behaviors: None reported [facility] Medical History Fragrance hypersensitivity Hypoglycemia TMJ tenderness, right Osteoarthritis CTS (carpal tunnel syndrome) PONV (postoperative nausea and vomiting) DJD (degenerative joint disease) Asthma Seasonal allergies Environmental allergies Scoliosis Back pain Surgical History Hx of surgical fusion joint Hx of lumbar discectomy (~2018) History of arthroplasty of left knee Hx of sinus surgery Hx of bilateral breast reduction surgery History of ear surgery Social History Household Members Other:: S.O. parents Are you a primary animal care supervisor to a significant other at home: No Do you presently have visiting nurse or other home services: No Comment: aware of trip hazard Patient Tobacco Use Status: Former Tobacco user Second Hand Smoke Exposure: Yes (parents smoked in the home) Review of Systems Const Details: - Dermatological: Reports second degree sunburn on face, peeling skin - Musculoskeletal: Reports neck pain with crunching sensation, scoliosis, and carpal tunnel syndrome - Neurological: Denies pain radiating to shoulder, reports history of rotator cuff tear Physical Exam Exam Exam: General: awake, alert, oriented. Answers questions appropriately. Fully engaged in examination. Appears uncomfortable Skin: warm, dry, intact. No rashes, redness, warmth, swelling, drainage noted HEENT: Normocephalic. Hearing intact. Cardiac: External chest normal in appearance. Respiratory: No cough, audible wheezing or stridor. Abdomen: without gross distension. MS: No obvious swelling or deformities. CS: Visible inspection without gross abnormality. Neurological: Oriented to person, place, time and situation. Thought process intact. Psychiatric: Appropriate mood and affect. Good judgment and insight. Left cervical Sprint removal: Dressing removed, Site dry, clean, intact. Area cleansed with chloraprep, lead removed with intact tip. Area cleansed again with chloraprep, bacitracin dressing with tegaderm applied. Patient tolerated removal well. Vital Signs: Last Vital Signs Pulse 96 01/13/25 12:59 Resp 16 01/13/25 12:59 BP 130/82 07/23/25 12:59 Pulse Ox 97 01/13/25 12:59 Oxygen Delivery Method Room Air 01/13/25 12:59 BMI result Body Mass Index 32.9 Results Reviewed Results Reviewed: 01/14/24 MR/MR lumbar spine wo con FINDINGS: There are 5 nonrib-bearing lumbar-type vertebral bodies. There is a partially imaged rightward convex scoliotic curvature of the thoracic spine and there is a leftward convex scoliotic curvature of the upper lumbar spine. The vertebral body heights are maintained. There is moderate disc volume loss and there is disc desiccation at L5-S1. Remaining disc volumes are preserved and the remaining discs remain well-hydrated. There is no bone marrow edema. There are no acute fractures. Partially imaged left SI joint screws. There are no significant extraspinal soft tissue findings. The imaged lower thoracic spinal cord is unremarkable. The conus terminates at the L2 level. At L1-L2, the disc contour is normal and there is no central canal stenosis nor foraminal stenosis. At L2-L3, there is a shallow right paracentral disc protrusion that mildly indents the right ventral thecal sac. There is no central canal stenosis and there is no foraminal stenosis. At L3-L4, there is a diffuse annular disc bulge and there is moderate bilateral facet arthropathy. There is no central canal stenosis and there is no foraminal stenosis. At L4-L5, there is a diffuse annular disc bulge and there is severe bilateral facet arthropathy and ligamentum flavum thickening. No central canal stenosis and no foraminal stenosis. At L5-S1, there are postoperative changes following left hemilaminectomy and microdiscectomy. There is a favored recurrent left paracentral disc protrusion compressing the traversing left S1 nerve root within the left subarticular zone. There is also granulation/scar tissue within the epidural space inseparable from the traversing left S1 nerve root. Postcontrast imaging could be obtained to more definitively distinguish between disc and scar. The central canal remains patent and there is no foraminal stenosis. IMPRESSION: At L5-S1, there are postoperative changes following left hemilaminectomy and microdiscectomy. There is a favored recurrent left paracentral disc protrusion compressing the traversing left S1 nerve root within the left subarticular zone. There is also granulation/scar tissue within the epidural space inseparable from the traversing left S1 nerve root. Postcontrast imaging could be obtained to more definitively distinguish between disc and scar tissue. Assessment & Plan Assessment & Plan (1) Lower back pain: Code(s): M54.50 - Low back pain, unspecified Category: Medical (2) Trapezius muscle strain: Code(s): S46.819A - Strain of other muscles, fascia and tendons at shoulder and upper arm level, unspecified arm, initial encounter Category: Medical (3) Myofascial muscle pain: Code(s): M79.18 - Myalgia, other site Category: Medical (4) Post laminectomy syndrome: Code(s): M96.1 - Postlaminectomy syndrome, not elsewhere classified Category: Medical (5) Cervical spondylosis: Code(s): M47.812 - Spondylosis without myelopathy or radiculopathy, cervical region Category: Medical Plan The patient is encouraged to explore physical therapy options to improve range of motion and alleviate discomfort. Posture improvement is recommended, potentially using a brace to aid in alignment and reduce the hump associated with poor posture and scoliosis. Amitriptyline refilled per patient request. All questions and concerns were answered. Patient agrees with the plan. Follow up as needed if pain worsens. Patient was informed and verbally consented to the use of an ambient scribe for clinic note documentation during this visit. Medications: New 2 amitriptyline 10 mg PO BEDTIME 30 tabs 3RF Patient Instructions: - Consider physical therapy for neck pain management. - Work on improving posture and consider using a brace for scoliosis. - Take amitriptyline as prescribed Coding Level of Care Code Est Pt Level 3 (62546) Complex EM visit Add On G2211 Diagnoses Lower back pain M54.50 Trapezius muscle strain S46.819A Myofascial muscle pain M79.18 Post laminectomy syndrome M96.1 Cervical spondylosis M47.812
[2025-01-13 12:59] VITALS: BP 130/82; PULSE 96; RESP 16; O2SAT 97; BMI 32.9
--- OUTSIDE RECORDS SUMMARY | 2025-01-13 13:09 | XMS_ITS | Encounter Summary ---
Author Organization [employer] Address [address] [place] [address] [address] [place] [address] Care Team Providers Care Supervisor Slitting And Shipping Name Role Phone Kylee Gómez Primary Care Provider [phone] Gladys Foster Unavailable Unavailable Encounter Details Date [...] 01/19/2025 8:30 AM EDT Office Visit [facility] [address] [place] [address] Jazmine Perez documented as of this encounter Visit Diagnoses Not on filedocumented in this encounter Care Teams Supervisor Slitting And Shipping Relationship Specialty Start Date End Date Kylee Gómez FNP [address] [place] [address] PCP - General Family Medicine 07/05/22 Gladys Foster Health Navigator 04/27/24 documented as of this encounter
--- OUTSIDE RECORDS SUMMARY | 2025-01-13 13:09 | XMS_ITS | Encounter Summary ---
Author Organization [facility] Address [address] [place] [address] [place] [address] Phone Care Team Providers Care Waistline Joiner Name Role Phone Ajay Hart MD Unavailable [phone] Candida Bangura [facility] Unavailable [phone] Willam Sullivan MD Unavailable [phone] Kylee Gómez [facility] Primary Care Prov ider Kylee Gómez [facility] Primary Care Prov ider Encounter Details Date Type Department Care Team (Late st Contact Info) Description 05/29/2023 Procedure Pass [facility], [address] [address] Social History Tobacco Use Types Packs/Day Years [...] as food, clothing, or medical care? No 05/03/2023 In the past 12 months have y ou been in a relationship with a person who hurts, threatens, or tries to control you? No 05/03/2023 Are you denied basic needs s uch as food, clothing, or medical care? No 05/03/2023 In the past 12 months have y ou been in a relationship with a person who hurts, threatens, or tries to control you? No 05/03/2023 Comments No Sex and Gender Information Value Date Recorded Sex Assigned at Female 07/01/2017 9:38 AM EST Legal Sex Female 9:11 PM EDT Gender Identity Female 07/01/2017 9:38 AM EST Sexual Orientation Straight 07/01/2017 9: 38 AM EST documented as of this encounter Plan of Treatment Upcoming Encounters Date Type Department Care Team ([facility] st Contact Info) Description 01/14/2025 11:00 AM EDT Nurse Only [facility] Pulmonary, Allergy and Critical Care Medicine [address] [place] [id number] Ajay Hart MD [address] [place] [phone] [email or web address] 01/20/2025 11:00 AM EDT Nurse Only [facility] Pul[facility], Allergy and Critical Care Medicine [address] [place] [address] Ajay Hart MD [address] [place] [phone] 01/28/2025 10:30 AM EDT Nurse Only [facility], Allergy and [facility] Medicine [address] [place] [address] Ajay Hart MD [address] [place] [phone] [email or web address] 02/04/2025 11:00 AM EDT Nurse Only [facility] Pul[facility], Allergy and Critical Care Medicine [address] [place] [address] Ajay Hart MD [address] [place] [phone] [email or web address] 02/11/2025 11:00 AM EDT Nurse Only [facility], Allergy and Critical Care Medicine [address] [place] [address] Ajay Hart MD [address] [place] [phone] [email or web address] 02/18/2025 1:00 PM EDT Nurse Only [facility] [address] [place] [address] Ajay Hart MD [address] [place] [phone] [email or web address] 06/14/2025 11:00 AM EST Office Visit [facility] Pul[facility], Allergy and Critical Care Medicine [address] [place] [address] Ajay Hart MD [address] [place] [phone] documented as of this encounter Visit Diagnoses Not on filedocumented in this encounter Additional Health Concerns Infection Onset Date Last Indicated Resolved Time CoV-Exposed Comment:Positive COVID-19 07/26/2024 07/26/2024 07/27/2024 12: 42 AM EST CoV-Risk 07/26/2024 07/26/2024 07/27/2024 12:4 2 AM EST COVID-19 07/26/2024 07/26/2024 08/16/2024 1:21 AM EST documented as of this encounter Care Teams Waistline Joiner Relationship Specialty Start Date End Date Kylee Gómez CNP [address] [place] [address] PCP - General Nurse Practitioner 12/06/22 02/04/24 Kylee Gómez CNP [address] [place] [address] PCP - General Nurse Practitioner 02/05/24 Ajay Hart MD [address] [place] [phone] [email or web address] Historical LMR Provider 04/13/17 Candida Bangura CNP [address] [place] [id number] [email or web address] Historical LMR Provider 04/13/17 Willam Sullivan MD [address] [place] [id number] Historical LMR Provider 04/13/17 documented as of this encounter Additional Source Comments The information contained in this document represents components of the legal health record. It is not the complete legal health record.[facility]
== END 2025-01-13 13:32 | disposition home or self-care (01) ==
LOC: HO.PMC 12:47
PROVIDERS: PCP Nurse Practitioner Family; Visit Provider Registered Nurse Emergency
DX: M54.50 Low back pain, unspecified (principal); S46.819A Strain of other muscles, fascia and tendons at shoulder and upper arm level, unspecified arm, initial encounter; M79.18 Myalgia, other site; M96.1 Postlaminectomy syndrome, not elsewhere classified; M47.812 Spondylosis without myelopathy or radiculopathy, cervical region
CPT/HCPCS: 99213

== ENCOUNTER → 2025-01-13 12:47 | Outpatient (BNVA) | payer MEDICAID, SELFPAY | PROVIDERS: PCP Nurse Practitioner Family; Visit Provider Registered Nurse Emergency | DX: M79.18 Myalgia, other site (principal); S46.819A Strain of other muscles, fascia and tendons at shoulder and upper arm level, unspecified arm, initial encounter; M54.50 Low back pain, unspecified; M96.1 Postlaminectomy syndrome, not elsewhere classified; M47.812 Spondylosis without myelopathy or radiculopathy, cervical region | CPT/HCPCS: 99212 ==

== ENCOUNTER 2025-04-20 06:15 | Outpatient (REF) | payer MEDICAID, SELFPAY ==
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
--- OUTSIDE RECORDS SUMMARY | 2025-04-15 11:00 | XMS_ITS | Encounter Summary ---
Author Organization [facility] Address [address] [place] [address] Phone Care Team Providers Care Artist Consultant Name Role Phone Ajay Hart MD Unavailable [phone] Candida Bangura COUNTER CUTTER Unavailable Willam Sullivan MD Unavailable Kylee Gómez [facility] Primary Care Prov ider Encounter Details Date Type Department Care Team (Late st Contact Info) Description 04/15/2025 11:00 AM EDT Nurse Only [facility] Pulmonary, Allergy and Critical Care Medicine 10 [place] [address] Ajay Hart MD 10 [facility] 2nd [place] [address] [email or web address] Seasonal allergies (Primary Dx) Social History Tobacco Use Types Packs/Day Years [...] AM EST documented as of this encounter Progress Notes * Temo Lawrence RN - 04/15/2025 11:00 AM EDT Dosage: Maintenance Build Up Week 33 Dx: J30.2 An antihistamine was taken prior to the visit. No changes in medications reported. No new or worsening asthma symtoms. Patient reports swelling from last injection only on the KEITH (Trees/Grasses). Consent on file. Skin clean, dry, and intact. Sites cleansed with alcohol prep. Office-supplied serums subcutaneously administered as follows: Grass/Tree, 0.5 mL, 1:1 concentrate KEITH Weeds, 0.5 mL, 1:1 concentrate into RLA Cat/Mite, 0.5 mL, 1:1 concentrate into DIANA Molds, 0.5 mL, 1: 1 concentrate into the LLA All Vials 02/09/2026 Bendryl Cream applied to injections. No immediate reaction. Pt declined to wait in office for 30 minutes. documented in this encounter Plan of Treatment Upcoming Encounters Date Type Department Care Team ([facility] st Contact Info) Description 04/22/2025 11:00 AM EDT Nurse Only [facility] Pulmonary, Allergy and Critical Care Medicine [address] [place] [address] Ajay Hart MD [address] [place] [address] [email or web address] 04/28/2025 11:00 AM EST Nurse Only [facility] Pul[facility], Allergy and Critical [facility] Medicine [address] [place] [address] Ajay Hart MD [address] [place] [address] [email or web address] 05/06/2025 11:00 AM EST Nurse Only [facility], Allergy and Critical [facility] Medicine [address] [place] [address] Ajay Hart MD [address] [place] [address] 05/13/2025 11:00 AM EST Nurse Only [facility] Pulmonary, Allergy and Critical Care Medicine [address] [place] [address] Ajay Hart MD [address] [place] [address] 06/14/2025 11:00 AM EST Office Visit [facility], Allergy and Critical [facility] Medicine [address] [place] [address] Ajay Hart MD [address] [place] [address] [email or web address] documented as of this encounter Visit Diagnoses Diagnosis Seasonal allergies- Primary Allergic rhinitis, cause unspecified documented in this encounter Care Teams Artist Consultant Relationship Specialty Start Date End Date Kylee Gómez CNP [address] [place] [address] PCP - General Nurse Practitioner 02/05/24 Ajay Hart MD [address] [place] [address] [email or web address] Historical LMR Provider 04/13/17 Candida Bangura CNP [address] [place] [address] [email or web address] Historical LMR Provider 04/13/17 Willam Sullivan MD [address] [place] [address] [email or web address] Historical LMR Provider 04/13/17 documented as of this encounter Additional Source Comments The information contained in this document represents components of the legal health record. It is not the complete legal health record.[facility]
--- NOTE | ~2025-04-20 | FL_ITS ---
EXAMINATION: FLUOROSCOPY GUIDANCE FOR NEEDLE PLACEMENT CLINICAL INFORMATION: M50.30 - Other cervical disc degeneration, unspecified cervical region COMPARISON: Previous fluoroscopic exams most recent October 2024 TECHNIQUE: Fluoroscopy guidance provided for pain management procedure. FINDINGS: Fluoroscopic images demonstrate needle placement and contrast injection of the cervical spine. See procedure note for detailed findings. FLUOROSCOPY TIME: 16 seconds DOSE AREA PRODUCT: 83 uGy-m2 (microgray-meter squared) 2 submitted images FL/FL guidance in treatment room IMPRESSION: Fluoroscopy guidance for pain management procedure. Electronically signed by: Jesusita Clifford MD 04/20/2025 09:40 AM EDT
--- OUTSIDE RECORDS SUMMARY | 2025-04-20 06:17 | XMS_ITS | Encounter Summary ---
Author Organization [employer] Address [address] [place] [address] 7t [place] [address] Care Team Providers Care Advertising Manager Name Role Phone Kylee Gómez Primary Care Provider [phone] Gladys Foster Unavailable Unavailable Reason for Visit * Reason Comments Med Change Request Encounter Details Date Type Department Care Team (Late st Contact Info) Description 12/19/[address] [facility] MEDICAL [address] [place] [address] Kylee Gómez FNP [address] [place] [address] Social History Tobacco Use Types Packs/Day Years [...] 12/20/2023 3:14 PM EDT Placed call to [facility], they do not stock this product and state it is OTC. Advised patient to purchase OTC, she is agreeable. documented in this encounter Plan of Treatment Upcoming Encounters Date Type Department Care Team (Late st Contact Info) Description 05/14/2025 9:40 AM EST Office Visit [facility] MEDICAL [address] [place] [address] Kylee Gómez FNP [address] [place] [address] 07/26/2025 10:10 AM EST Office Visit [facility] DENTAL [address] [place] [address] Jazmine Perez documented as of this encounter Visit Diagnoses Not on filedocumented in this encounter Care Teams Advertising Manager Relationship Specialty Start Date End Date Kylee Gómez FNP [address] [place] [address] PCP - General Family Medicine 07/05/22 Gladys Foster Health Navigator 04/27/24 documented as of this encounter
--- OUTSIDE RECORDS SUMMARY | 2025-04-20 06:17 | XMS_ITS | Encounter Summary ---
Author Organization [facility] Address [address] [place] [address] [place] [address] Phone Care Team Providers Care Medical Corps Officer Name Role Phone Ajay Hart MD Unavailable [phone] Candida Bangura CLOUD PHYSICIST Unavailable [phone] Candida Bangura CLOUD PHYSICIST Primary Care Provider + Tamar Remy Unavailable [phone] Garrett Schaefer MD Unavailable [email or web address] Timo Traylor MD Unavailable Timo Moyer DO Unavailable [phone] Willam Sullivan MD Unavailable Michelle Woodward PA-C Unavailable [phone] Humza Barker CLOUD PHYSICIST Unavailable [phone] Crystal Kirk MD Unavailable [phone] Kg Bazan BLAST FURNACE CHECKER Primary Care Provider [phone] Eda Gutierrez BLAST FURNACE CHECKER Primary Care Provider Esha Hazel PA Primary Care Provider [phone] Kylee Gómez CLOUD PHYSICIST Primary Care Prov ider Kylee Gómez CLOUD PHYSICIST Primary Care Prov ider Encounter Details Date Type Department Care Team (Late st Contact Info) Description 05/21/2017 Ancillary Orders [facility] External Provider Virtual Department [address] [place] [address] Candida Bangura, CLOUD PHYSICIST [address] [place] [address] [email or web address] Leg edema, left Social History Tobacco Use Types Packs/Day [...] Encounters Date Type Department Care Team (Late Contact Info) Description 04/22/2025 11:00 AM EDT Nurse Only [facility] Pulmonary, Allergy and Critical Care Medicine [address] [place] [address] Ajay Hart MD [address] [place] [address] 04/28/2025 11:00 AM EST Nurse Only [facility] Pulmonary, Allergy and Critical Care Medicine 10 [place] [address] Ajay Hart MD [address] [place] [address] [email or web address] 05/06/2025 11:00 AM EST Nurse Only [facility] Pulmonary, Allergy and Critical Care Medicine [address] [place] [address] Ajay Hart MD [address] [place] [address] [email or web address] 05/13/2025 11:00 AM EST Nurse Only [facility] Pulmonary, Allergy and Critical Care Medicine [address] [place] [address] Ajay Hart MD [address] [address] [email or web address] 06/14/2025 11:00 AM EST Office Visit [facility], Allergy and Critical Care Medicine 10 [place] [address] Ajay Hart MD [address] [place] [address] [email or web address] documented as of this encounter Results * US Lower Extremity Arteries Duplex (Left) (05/22/2017 11:30 AM EST) Anatomical Region Laterality Modality Vascular, Pelvis Ultrasound 05/22/2017 1:17 PM EST Impressions 05/22/2017 1:18 PM EST No evidence of DVT. POS [id number] POS [id number] Narrative 05/22/2017 1:18 PM EST Compare 01/30/2017 Combined real-time, color flow and Doppler evaluation of the deep venous system of the left leg shows readily compressible veins with a normal Doppler waveform and easily elicited augmentation from the groin through the trifurcation vessels into the mid calf. No popliteal cyst is apparent. Procedure Note Dheeraj Gill MD - 05/22/2017 Compare 01/30/2017 Combined real-time, color flow and Doppler evaluation of the deep venoussystem of the left leg shows readily compressible veins with a normalDoppler waveform and easily elicited augmentation from the groin throughthe trifurcation vessels into the mid calf. No popliteal cyst is apparent. IMPRESSION: No evidence of DVT. POS [id number] POS [email or web address] us Candida Bangura CLOUD PHYSICIST CV US VASCULAR Final Re sult documented in this encounter Visit Diagnoses Diagnosis Leg edema, left Leg edema, left documented in this encounter Additional Health Concerns Infection Onset Date Last Indicated Resolved Time CoV-Exposed Comment:Positive COVID-19 07/26/2024 07/26/2024 07/27/2024 12: 42 AM EST CoV-Risk 07/26/2024 07/26/2024 07/27/2024 12:4 2 AM EST COVID-19 07/26/2024 07/26/2024 08/16/2024 1:21 AM EST documented as of this encounter Care Teams Medical Corps Officer Relationship Specialty Start Date End Date Candida Bangura CNP [address] [place] [address] [email or web address] PCP - General 04/09/17 01/04/20 Kg Bazan NP [address] [place] [address] [email or web address] PCP - General Family Medicine 01/05/20 03/15/21 Eda Gutierrez NP [address] [place] [address] PCP - General Family Medicine 03/16/21 08/17/22 Esha Hazel PA [address] [place] [address] [email or web address] PCP - General Physician It Infrastructure Manager 08/18/22 12/05/22 Kylee Gómez CNP [address] [place] [address] PCP - General Nurse Practitioner 12/06/22 02/04/24 Kylee Gómez CNP [address] [place] [address] PCP - General Nurse Practitioner 02/05/24 Ajay Hart MD [address] [place] [phone] [email or web address] Historical LMR Provider 04/13/17 Candida Bangura CNP [address] [place] [address] [email or web address] Historical LMR Provider 04/13/17 Tamar Remy PA [facility] [place] [address] [place] [address] Historical LMR Provider 04/13/17 2 Garrett Schaefer MD [email or web address] Historical LMR Provider 04/13/17 07/01/21 Timo Traylor MD [address] [place] [address] Historical LMR Provider 04/13/17 Timo Moyer DO [address] [place] [address] Orthoped[facility] & [facility], [place] [address] [email or web address] Historical LMR Provider 04/13/17 07/01/21 Willam Sullivan MD [address] [place] [address] [email or web address] Historical LMR Provider 04/13/17 Michelle Woodward PAMargaritaC [address] [place] [address] Orthoped[facility], [place] [address] Historical LMR Provider 04/13/17 07/01/21 Humza Barker CNP 15 [facility], [address] [place] [address] Historical LMR Provider 04/13/17 07/01/21 Crystal Kirk MD [address] [place] [address] Orthopedics & Sports Medicine, [place] [address] Historical LMR Provider 04/13/17 documented as of this encounter Additional Source Comments The information contained in this document represents components of the legal health record. It is not the complete legal health record.[facility]
--- OUTSIDE RECORDS SUMMARY | 2025-04-20 06:17 | XMS_ITS | Encounter Summary ---
Author Organization [facility] Address [address] [place] [address] [place] [address] Phone Care Team Providers Care Charge Aide Name Role Phone Ajay Hart MD Unavailable [phone] Candida Bagnura PROFESSIONAL MODEL Unavailable [phone] Candida Bangura PROFESSIONAL MODEL Primary Care Provider + Tamar Remy Unavailable [phone] Garrett Schaefer MD Unavailable [email or web address] Timo Traylor MD Unavailable Timo Moyer DO Unavailable [phone] Willam Sullivan MD Unavailable [phone] Michelle Woodward PA-C Unavailable [phone] Humza Barker PROFESSIONAL MODEL Unavailable [phone] Crystal Kirk MD Unavailable [phone] Kg Bazan ORACLE DATABASE CONSULTANT Primary Care Provider [phone] Eda Gutierrez ORACLE DATABASE CONSULTANT Primary Care Provider Esha Hazel PA Primary Care Provider [phone] Kylee Gómez PROFESSIONAL MODEL Primary Care Prov ider Kylee Gómez PROFESSIONAL MODEL Primary Care Prov ider Encounter Details Date Type Department Care Team ([facility] Contact Info) Description 01/04/2020 Ancillary Orders Virtual Department [address] [place] [address] Ray Reeves MD [address] [place] [address] [email or web address] Low back pain, unspecified back pain laterality, unspecified chronicity, unspecified whether sciatica present Social History Tobacco Use Types Packs/Day Years Used Date Smoking Tobacco: Never Smokeless Tobacco: Never Alcohol Use Standard Drinks/Week Comments No 0 (1 standard drink = 0.6 oz pur e alcohol) Comments No Sex and Gender Information Value Date Recorded Sex Assigned at Female 07/01/2017 9:38 AM EST Legal Sex Female 9:11 PM EDT Gender Identity Female 07/01/2017 9:38 AM EST Sexual Orientation Straight 07/01/2017 9: 38 AM EST documented as of this encounter Plan of Treatment Upcoming Encounters Date Type Department Care Team ([facility] Contact Info) Description 04/22/2025 11:00 AM EDT Nurse Only [facility] Pulmonary, Allergy and Critical Care Medicine 10 [place] [address] Ajay Hart MD [address] [place] [address] [email or web address] 04/28/2025 11:00 AM EST Nurse Only [facility] Pulmonary, Allergy and Critical Care Medicine [address] [place] [address] Ajay Hart MD [address] [place] [address] 05/06/2025 11:00 AM EST Nurse Only [facility] Pulmonary, Allergy and Critical Care Medicine [address] [place] [address] Ajay Hart MD [address] [place] [address] 05/13/2025 11:00 AM EST Nurse Only [facility], Allergy and Critical Care Medicine [address] [place] [address] Ajay Hart MD [address] [place] [address] [email or web address] 06/14/2025 11:00 AM EST Office Visit [facility], Allergy and Critical Care Medicine [address] [place] [address] Ajay Hart MD [address] [place] [address] [email or web address] documented as of this encounter Results * XR LUMBOSACRAL SPINE 2-3 VIEWS (01/05/2020 2:38 PM EDT) Anatomical Region Laterality Modality L-spine Computed Radiogr aphy 01/05/2020 2:56 PM EDT Impressions 01/05/2020 3:01 PM EDT Progressive narrowing of the L5-S1 disc space since 2017. No evidence of instability. POS - [id number] Narrative 01/05/2020 3:01 PM EDT COMPARISON: 08/03/2016 radiographs and 04/20/2019 MR FINDINGS: Lateral neutral, flexion, and extension views and an AP view were obtained. There is a chronic severe left convex scoliotic curvature which seems to have progressed in the interim. Left sacroiliac fusion hardware is present. There is a minimal chronic retrolisthesis of the L5 in relation to S1 vertebral bodies which does not seem to change with flexion or extension. There has been slight interval narrowing of the L5-S1 disc space since 2017 but not grossly changed since 2019. No additional spondylolisthesis or evidence of instability. No vertebral body compression deformity apparent. Procedure Note Ajay Anderson MD - 01/05/2020 COMPARISON: 08/03/2016 radiographs and 04/20/2019 MR FINDINGS: Lateral neutral, flexion, and extension views and an AP view wereobtained. There is a chronic severe left convex scoliotic curvature whichseems to have progressed in the interim. Left sacroiliac fusion hardwareis present. There is a minimal chronic retrolisthesis of the L5 inrelation to S1 vertebral bodies which does not seem to change with flexionor extension. There has been slight interval narrowing of the L5-S1 discspace since 2017 but not grossly changed since 2019. No additionalspondylolisthesis or evidence of instability. No vertebral bodycompression deformity apparent. IMPRESSION: Progressive narrowing of the L5-S1 disc space since 2017. No evidence ofinstability. POS - [id number] Ray Reeves MD IMG XR SPINE Final Res ult documented in this encounter Visit Diagnoses Diagnosis Low back pain, unspecified back pain laterality, unspecified chronicity, unspecified whether sciatica present Low back pain, unspecified back pain laterality, unspecified chronicity, unspecified whether sciatica present documented in this encounter Additional Health Concerns Infection Onset Date Last Indicated Resolved Time CoV-Exposed Comment:Positive COVID-19 07/26/2024 07/26/2024 07/27/2024 12: 42 AM EST CoV-Risk 07/26/2024 07/26/2024 07/27/2024 12:4 2 AM EST COVID-19 07/26/2024 07/26/2024 08/16/2024 1:21 AM EST documented as of this encounter Care Teams Charge Aide Relationship Specialty Start Date End Date Candida Bangura CNP [address] [place] [address] [place] [address] [email or web address] PCP - General 04/09/17 01/04/20 Kg Bazan NP [address] [place] [address] [email or web address] PCP - General Family Medicine 01/05/20 03/15/21 Eda Gutierrez NP [address] [place] [address] PCP - General Family Medicine 03/16/21 08/17/22 Esha Hazel PA [address] [place] [address] [email or web address] PCP - General Physician Sales Engagement Manager 08/18/22 12/05/22 Kylee Gómez CNP [address] [place] [address] PCP - General Nurse Practitioner 12/06/22 02/04/24 Kylee Gómez CNP [address] [place] [address] PCP - General Nurse Practitioner 02/05/24 Ajay Hart MD [address] [place] [address] [email or web address] Historical LMR Provider 04/13/17 Candida Bangura CNP [address] [place] [address] [email or web address] Historical LMR Provider 04/13/17 Tamar Remy [place] [address] [address] Historical LMR Provider 04/13/17 2 Garrett Schaefer MD [email or web address] Historical LMR Provider 04/13/17 07/01/21 Timo Traylor MD [address] [place] [address] Historical LMR Provider 04/13/17 Timo Moyer DO 4 [facility] Orth[facility], [place] [address] Historical LMR Provider 04/13/17 07/01/21 Willam Sullivan MD [address] [address] Historical LMR Provider 04/13/17 Michelle Woodward PA-C 4 [facility], [place] [address] Historical LMR Provider 04/13/17 07/01/21 Humza Barker CNP [address] [address] Historical LMR Provider 04/13/17 07/01/21 Crystal Kirk MD 4 [facility], [place] [address] Historical LMR Provider 04/13/17 documented as of this encounter Additional Source Comments The information contained in this document represents components of the legal health record. It is not the complete legal health record.[facility]
--- OUTSIDE RECORDS SUMMARY | 2025-04-20 06:17 | XMS_ITS | Encounter Summary ---
Author Organization [employer] Address [address] [place] [address] Care Team Providers Care Manager Pacu Name Role Phone Kylee Gómez Primary Care Provider [phone] Gladys Foster Unavailable Unavailable Encounter Details Date [...] Description 05/14/2025 9:40 AM EST Office Visit [facility] MEDICAL [address] [place] [address] Kylee Gómez FNP [address] [place] [address] 07/26/2025 10:10 AM EST Office Visit [facility] DENTAL [address] [place] [address] Jazmine Perez documented as of this encounter Visit Diagnoses Not on filedocumented in this encounter Care Teams Manager Pacu Relationship Specialty Start Date End Date Kylee Gómez FNP [address] [place] [address] PCP - General Family Medicine 07/05/22 Gladys Foster Health Navigator 04/27/24 documented as of this encounter
--- OUTSIDE RECORDS SUMMARY | 2025-04-20 06:17 | XMS_ITS | Encounter Summary ---
Author Organization [email or web address] Address [address] [facility] [address] [place] [address] Care Team Providers Care Corsetier Name Role Phone Kylee Gómez Primary Care Provider [phone] Gladys Foster Unavailable Unavailable Encounter Details Date Type Department Care Team (Late st Contact Info) Description 05/15/2024 Orders Only [place] [facility] [address] [place] [address] Kylee Gómez FNP [address] [place] [address] Social History Tobacco Use Types Packs/Day Years [...] the past 12 months, has t he [email or web address], gas, oil or water [employer] threatened to shut off services in your [...] Description 05/14/2025 9:40 AM EST Office Visit [place] [facility] MEDICAL [address] [place] [address] Kylee Gómez FNP [address] [place] [address] 07/26/2025 10:10 AM EST Office Visit [place] [facility] DENTAL [address] [place] [address] Jazmine Perez documented as of this encounter [...] documented as of this encounter Care Teams Corsetier Relationship Specialty Start Date End Date Kylee Gómez FNP [address] [place] [address] PCP - General Family Medicine 07/05/22 Gladys Foster Health Navigator 04/27/24 documented as of this encounter
--- OUTSIDE RECORDS SUMMARY | 2025-04-20 06:17 | XMS_ITS | Encounter Summary ---
Author Organization [facility] Address [address] [place] [address] [place] [address] Phone Care Team Providers Care Spinning Frame Changer Name Role Phone Ajay Hart MD Unavailable [phone] Candida Bangura ADMINISTRATIVE OFFICER Unavailable [phone] Candida Bangura ADMINISTRATIVE OFFICER Primary Care Provider + Tamar Remy Unavailable [phone] Garrett Schaefer MD Unavailable [email or web address] Timo Traylor MD Unavailable Timo Moyer DO Unavailable [phone] Willam Sulliavn MD Unavailable +[phone] Michelle Woodward PA-C Unavailable [phone] Humza Barker ADMINISTRATIVE OFFICER Unavailable [phone] Crystal Kirk MD Unavailable [phone] Kg Bazan ARTIFICIAL SNOW MAKING MACHINE OPERATOR Primary Care Provider Eda Gutierrez ARTIFICIAL SNOW MAKING MACHINE OPERATOR Primary Care Provider Esha Hazel PA Primary Care Provider [phone] Kylee Gómez ADMINISTRATIVE OFFICER Primary Care Prov ider Kylee Gómez ADMINISTRATIVE OFFICER Primary Care Prov ider Encounter Details Date Type Department Care Team (Late Contact Info) Description 11/12/2018 Procedure Pass [facility] 75 [place] [address] Social History Tobacco Use Types Packs/Day Years [...] Upcoming Encounters Date Type Department Care Team ([facility] Contact Info) Description 04/22/2025 11:00 AM EDT Nurse Only [facility] [address] [place] [address] Ajay Hart MD [address] [place] [address] [email or web address] 04/28/2025 11:00 AM EST Nurse Only [facility] [address] [place] [address] Ajay Hart MD [address] [place] [address] 05/06/2025 11:00 AM EST Nurse Only [facility] [address] [place] [address] Ajay Hart MD [address] [place] [address] 05/13/2025 11:00 AM EST Nurse Only [facility] [address] [place] [address] Ajay Hart MD [address] [place] [address] [email or web address] 06/14/2025 11:00 AM EST Office Visit [facility] Allergy [facility] Critical [facility] Medicine 10 [facility] A [place] [address] Ajay Hart MD 10 [facility] 2nd floor [place] [address] [email or web address] documented as of this encounter Visit Diagnoses Not on filedocumented in this encounter Additional Health Concerns Infection Onset Date Last Indicated Resolved Time CoV-Exposed Comment:Positive COVID-19 07/26/2024 07/26/2024 07/27/2024 12: 42 AM EST CoV-Risk 07/26/2024 07/26/2024 07/27/2024 12:4 2 AM EST COVID-19 07/26/2024 07/26/2024 08/16/2024 1:21 AM EST documented as of this encounter Care Teams Spinning Frame Changer Relationship Specialty Start Date End Date Candida Bangura CNP [address] [place] [address] [email or web address] PCP - General 04/09/17 01/04/20 Kg Bazan NP [address] [place] [address] [email or web address] PCP - General Family Medicine 01/05/20 03/15/21 Eda Gutierrez NP [address] [place] [address] PCP - General Family Medicine 03/16/21 08/17/22 Esha Hazel PA [address] [place] [address] PCP - General Physician Area Plant Manager 08/18/22 12/05/22 Kylee Gómez CNP [address] [place] [address] PCP - General Nurse Practitioner 12/06/22 02/04/24 Kylee Gómez CNP [address] [place] [address] PCP - General Nurse Practitioner 02/05/24 Ajay Hart MD [address] [place] [address] [email or web address] Historical LMR Provider 04/13/17 Candida Bangura CNP [address] [place] [address] [email or web address] Historical LMR Provider 04/13/17 Tamar Remy PA [address] [place] [address] Historical LMR Provider 04/13/17 2 Garrett Schaefer MD [email or web address] Historical LMR Provider 04/13/17 07/01/21 Timo Traylor MD [address] [place] [address] Historical LMR Provider 04/13/17 Timo Moyer DO [address] [place] [address] Orthopedics & Sports Medicine, [place] [address] [email or web address] Historical LMR Provider 04/13/17 07/01/21 Willam Sullivan MD [address] [address] Historical LMR Provider 04/13/17 Michelle Woodward PA-C 4 [facility] Orthopedics & Sports [facility], [place] [address] Historical LMR Provider 04/13/17 07/01/21 Humza Barker CNP [address] [address] Historical LMR Provider 04/13/17 07/01/21 Crystal Kirk MD 4 [facility] Orth[facility]ics & Sports Medicine, [place] [address] Historical LMR Provider 04/13/17 documented as of this encounter Additional Source Comments The information contained in this document represents components of the legal health record. It is not the complete legal health record.[facility]
--- OUTSIDE RECORDS SUMMARY | 2025-04-20 06:17 | XMS_ITS | Encounter Summary ---
Author Organization [employer] Address [address] [place] [address] Care Team Providers Care Trading Specialist Name Role Phone Kylee Gómez Primary Care Provider [phone] Gladys Foster Unavailable Unavailable Encounter Details Date [...] 05/14/2025 9:40 AM EST Office [facility] MEDICAL [address] [place] [address] Kylee Gómez FNP [address] [place] [address] 07/26/2025 10:10 AM EST Office Visit [facility] DENTAL [address] [place] [address] Jazmine Perez documented as of this encounter Visit Diagnoses Not on filedocumented in this encounter Care Teams Trading Specialist Relationship Specialty Start Date End Date Kylee Gómez FNP [address] [place] [address] PCP - General Family Medicine 07/05/22 Gladys Foster Health Navigator 04/27/24 documented as of this encounter
--- OUTSIDE RECORDS SUMMARY | 2025-04-20 06:17 | XMS_ITS | Encounter Summary ---
Author Organization [facility] Address [address] [place] [address] [place] [address] Phone Care Team Providers Care Power Driven Brush Maker Name Role Phone Ajay Hart MD Unavailable [phone] Candida Bangura GRIT BLASTER Unavailable [phone] Candida Bangura GRIT BLASTER Primary Care Provider + Tamar Remy Unavailable [phone] Garrett Schaefer MD Unavailable [email or web address] Timo Traylor MD Unavailable Timo Moyer DO Unavailable [phone] Willam Sullivan MD Unavailable [phone] Michelle Woodward PA-C Unavailable [phone] Humza Barker GRIT BLASTER Unavailable [phone] Crystal Kirk MD Unavailable [phone] Kg Bazan RESIDENT MANAGER Primary Care Provider Eda Gutierrez RESIDENT MANAGER Primary Care Provider Esha Hazel PA Primary Care Provider [phone] Kylee Gómez GRIT BLASTER Primary Care Prov ider Kylee Gómez GRIT BLASTER Primary Care Prov ider Encounter Details Date Type Department Care Team ([facility] Contact Info) Description 01/07/2018 Procedure Pass [place] Admitting Dept - Virtual Department [address] [place] [address] Social History Tobacco Use Types Packs/Day Years [...] Upcoming Encounters Date Type Department Care Team ([facility] Contact Info) Description 04/22/2025 11:00 AM EDT Nurse Only [facility], Allergy [facility] Critical Care Medicine 10 [place] [address] Ajay Hart MD [address] [place] [address] [email or web address] 04/28/2025 11:00 AM EST Nurse Only [facility] Allergy [facility] Critical [facility] Medicine [address] [place] [address] Ajay Hart MD [address] [place] [address] 05/06/2025 11:00 AM EST Nurse Only [facility] [address] [place] [address] Ajay Hart MD [address] [place] [address] [email or web address] 05/13/2025 11:00 AM EST Nurse Only [facility] [address] [place] [address] Ajay Hart MD [address] [place] [address] [email or web address] 06/14/2025 11:00 AM EST Office Visit [facility] All[facility] Critical [facility] 10 [facility] [place] [address] Ajay Hart MD [address] [address] [email or web address] documented as of this encounter Visit Diagnoses Not on filedocumented in this encounter Additional Health Concerns Infection Onset Date Last Indicated Resolved Time CoV-Exposed Comment:Positive COVID-19 07/26/2024 07/26/2024 07/27/2024 12: 42 AM EST CoV-Risk 07/26/2024 07/26/2024 07/27/2024 12:4 2 AM EST COVID-19 07/26/2024 07/26/2024 08/16/2024 1:21 AM EST documented as of this encounter Care Teams Power Driven Brush Maker Relationship Specialty Start Date End Date Candida Bangura CNP [address] [place] [address] [email or web address] PCP - General 04/09/17 01/04/20 Kg Bazan NP [address] [address] [email or web address] PCP - General Family Medicine 01/05/20 03/15/21 Eda Gutierrez NP [address] [place] [address] PCP - General Family Medicine 03/16/21 08/17/22 Esha Hazel PA [address] [place] [address] PCP - General Physician Manager Enrollment 08/18/22 12/05/22 Kylee Gómze CNP 58 [place] [address] PCP - General Nurse Practitioner 12/06/22 02/04/24 Kylee Gómez CNP 58 [place] [address] PCP - General Nurse Practitioner 02/05/24 Ajay Hart MD [address] [place] [address] [email or web address] Historical LMR Provider 04/13/17 Candida Bangura CNP [address] [place] [address] [email or web address] Historical LMR Provider 04/13/17 Tamar Remy PA [address] [place] [address] Historical LMR Provider 04/13/17 2 Garrett Schaefer MD [email or web address] Historical LMR Provider 04/13/17 07/01/21 Timo Traylor MD [address] [place] [address] Historical LMR Provider 04/13/17 Timo Moyer DO [address] [place] [address] Orthopedics & Sports Medicine, [place] [address] [email or web address] Historical LMR Provider 04/13/17 07/01/21 Willam Sullivan MD [address] [address] Historical LMR Provider 04/13/17 Michelle Woodward PA-C 4 [facility] Orthopedics & Sports Medicine, [place] [address] Historical LMR Provider 04/13/17 07/01/21 Humza Barker CNP [address] [address] Historical LMR Provider 04/13/17 07/01/21 Crystal Kirk MD 4 [facility] Orthopedics & Sports Medicine, [facility] [place] [address] Historical LMR Provider 04/13/17 documented as of this encounter Additional Source Comments The information contained in this document represents components of the legal health record. It is not the complete legal health record.[facility]
--- OUTSIDE RECORDS SUMMARY | 2025-04-20 06:17 | XMS_ITS | Encounter Summary ---
Author Organization [employer] Address [address] [place] [address] Care Team Providers Care Terrazzo Supervisor Name Role Phone Kylee Gómez Primary Care Provider [phone] Gladys Foster Unavailable Unavailable Encounter Details Date Type Department Care Team (Late st Contact Info) Description 12/17/2023 Orders Only [facility] [address] [place] [address] Kylee Gómez FNP 58 [place] [address] Social History Tobacco Use Types Packs/Day Years [...] Description 05/14/2025 9:40 AM EST Office Visit [facility] MEDICAL [address] [place] [address] Kylee Gómez FNP 58 [place] [address] 07/26/2025 10:10 AM EST Office Visit [facility] DENTAL [address] [place] [address] Jazmine Perez documented as of this encounter [...] on filedocumented in this encounter Care Teams Terrazzo Supervisor Relationship Specialty Start Date End Date Kylee Gómez FNP 58 [facility] [place] [address] PCP - General Family Medicine 07/05/22 Gladys Foster Health Navigator 04/27/24 documented as of this encounter
--- OUTSIDE RECORDS SUMMARY | 2025-04-20 06:17 | XMS_ITS | Encounter Summary ---
Author Organization [facility] Address [address] [place] [address] [place] [address] Phone Care Team Providers Care Sealant Mixer Name Role Phone Ajay Hart MD Unavailable [phone] Candida Bangura HAND MOLD MAKER Unavailable Willam Sullivan MD Unavailable Eda Gutierrez TALENT BUYER Primary Care Provider Esha Hazel Primary Care Provider Kylee G[facility]z [facility] Primary Care Prov ider Kylee Gómez [facility] Primary Care Prov ider Encounter Details Date Type Department Care Team (Late st Contact Info) Description 11/03/2021 Procedure Pass [facility], [address] [address] Social History Tobacco Use Types Packs/Day Years [...] Care Team (Late st Contact Info) Description 04/22/2025 11:00 AM EDT Nurse Only [facility] Allergy [facility] Critical Care Medicine 10 [place] [address] Ajay Hart MD [address] [place] [address] [email or web address] 04/28/2025 11:00 AM EST Nurse Only [facility], Allergy and Critical [facility] Medicine [address] [place] [address] Ajay Hart MD [address] [place] [address] [email or web address] 05/06/2025 11:00 AM EST Nurse Only [facility] [address] [place] [address] Ajay Hart MD [address] [place] [address] [email or web address] 05/13/2025 11:00 AM EST Nurse Only [facility] Medicine [address] [place] [address] Ajay Hart MD [address] [place] [address] [email or web address] 06/14/2025 11:00 AM EST Office Visit [facility] Medicine [address] [place] [address] Ajay Hart MD [address] [place] [address] [email or web address] documented as of this encounter Visit Diagnoses Not on filedocumented in this encounter Additional Health Concerns Infection Onset Date Last Indicated Resolved Time CoV-Exposed Comment:Positive COVID-19 07/26/2024 07/26/2024 07/27/2024 12: 42 AM EST CoV-Risk 07/26/2024 07/26/2024 07/27/2024 12:4 2 AM EST COVID-19 07/26/2024 07/26/2024 08/16/2024 1:21 AM EST documented as of this encounter Care Teams Sealant Mixer Relationship Specialty Start Date End Date Eda Gutierrez NP [address] [address] PCP - General Family Medicine 03/16/21 08/17/22 Esha Hazel PA [address] [place] [address] [email or web address] PCP - General Physician Welder Production Line Combination 08/18/22 12/05/22 Kylee Gómez CNP [address] [place] [address] PCP - General Nurse Practitioner 12/06/22 02/04/24 Kylee Gómez CNP [address] [place] [address] PCP - General Nurse Practitioner 02/05/24 Ajay Hart MD [address] [place] [address] [email or web address] Historical LMR Provider 04/13/17 Candida Bangura CNP [address] [place] [address] [email or web address] Historical LMR Provider 04/13/17 Willam Sullivan MD [address] [address] Historical LMR Provider 04/13/17 documented as of this encounter Additional Source Comments The information contained in this document represents components of the legal health record. It is not the complete legal health record.[facility]
--- OUTSIDE RECORDS SUMMARY | 2025-04-20 06:17 | XMS_ITS | Encounter Summary ---
Author Organization [facility] Address [address] [place] [address] [place] [address] Phone Care Team Providers Care Crimp Setter Name Role Phone Ajay Hart MD Unavailable [phone] Candida Bangura GUZZLER BUILDER Unavailable [phone] Candida Bangura GUZZLER BUILDER Primary Care Provider + Tamar Remy Unavailable [phone] Garrett Schaefer MD Unavailable [email or web address] Timo Traylor MD Unavailable [phone] Timo Moyer DO Unavailable [phone] Willam Sullivan MD Unavailable [phone] Michelle Woodward PA-C Unavailable [phone] Humza Barker GUZZLER BUILDER Unavailable [phone] Crystal Kirk MD Unavailable [phone] Kg Bazan TECHNICAL MAINTENANCE TECHNICIAN Primary Care Provider Eda Gutierrez TECHNICAL MAINTENANCE TECHNICIAN Primary Care Provider Esha Hazel PA Primary Care Provider [phone] Kylee Gómez GUZZLER BUILDER Primary Care Prov ider Kylee Gómez GUZZLER BUILDER Primary Care Prov ider Encounter Details Date Type Department Care Team (Late Contact Info) Description 11/12/2018 Procedure Pass [facility] 75 [place] [address] Social History Tobacco Use Types Packs/Day Years [...] Upcoming Encounters Date Type Department Care Team ([facility] Contact Info) Description 04/22/2025 11:00 AM EDT Nurse Only [facility] Allergy [facility] Critical [facility] Medicine [address] [place] [address] Ajay Hart MD [address] [place] [address] [email or web address] 04/28/2025 11:00 AM EST Nurse Only [facility] All[facility] Critical [facility] Medicine [address] [place] [address] Ajay Hart MD [address] [place] [address] 05/06/2025 11:00 AM EST Nurse Only [facility] [address] [place] [address] Ajay Hart MD [address] [place] [address] 05/13/2025 11:00 AM EST Nurse Only [facility] Medicine [address] [place] [address] Ajay Hart MD [address] [place] [address] [email or web address] 06/14/2025 11:00 AM EST Office Visit [facility] All[facility] Critical [facility] Medicine 10 [facility] [place] [address] Ajay Hart MD 10 [facility] 2nd floor [place] [address] [email or web address] documented as of this encounter Visit Diagnoses Not on filedocumented in this encounter Additional Health Concerns Infection Onset Date Last Indicated Resolved Time CoV-Exposed Comment:Positive COVID-19 07/26/2024 07/26/2024 07/27/2024 12: 42 AM EST CoV-Risk 07/26/2024 07/26/2024 07/27/2024 12:4 2 AM EST COVID-19 07/26/2024 07/26/2024 08/16/2024 1:21 AM EST documented as of this encounter Care Teams Crimp Setter Relationship Specialty Start Date End Date Candida Bangura CNP [address] [place] [address] [email or web address] PCP - General 04/09/17 01/04/20 Kg Bazan NP [address] [place] [address] [email or web address] PCP - General Family Medicine 01/05/20 03/15/21 Eda Gutierrez NP [address] [place] [address] PCP - General Family Medicine 03/16/21 08/17/22 Esha Hazel PA [address] [place] [address] PCP - General Physician Obstetrics Gynecology Md 08/18/22 12/05/22 Kylee Gómez CNP 58 [place] [address] PCP - General Nurse Practitioner 12/06/22 02/04/24 Kylee Gómez CNP 58 [place] [address] PCP - General Nurse Practitioner 02/05/24 Ajay Hart MD [address] [place] [address] [email or web address] Historical LMR Provider 04/13/17 Candida Bangura CNP [address] [place] [address] [email or web address] Historical LMR Provider 04/13/17 Tamar Remy PA [address] [place] [address] Historical LMR Provider 04/13/17 2 Garrett Schaefer MD [email or web address] Historical LMR Provider 04/13/17 07/01/21 Timo Traylor MD [address] [place] [address] Historical LMR Provider 04/13/17 Timo Moyer DO [address] [place] [address] Orthopedics & Sports Medicine, [place] [address] [email or web address] Historical LMR Provider 04/13/17 07/01/21 Willam Sullivan MD [address] [address] Historical LMR Provider 04/13/17 Michelle Woodward PA-C 4 [facility] Orthopedics & Sports [facility], [place] [address] Historical LMR Provider 04/13/17 07/01/21 Humza Barker CNP [address] [address] Historical LMR Provider 04/13/17 07/01/21 Crystal Kirk MD 4 [facility] Orthopedics [facility] Sports Medicine, [place] [address] Historical LMR Provider 04/13/17 documented as of this encounter Additional Source Comments The information contained in this document represents components of the legal health record. It is not the complete legal health record.[facility]
--- OUTSIDE RECORDS SUMMARY | 2025-04-20 06:17 | XMS_ITS | Clinical Summary ---
Author Organization [employer] Address [address] [place] [address] [address] [place] [address] Care Team Providers Care Diesel Lube Tech Name Role Phone Kylee Gómez ACCOUNT MANAGER SALES REPRESENTATIVE Primary Care Provider [phone] Gladys Foster Unavailable Unavailable Allergies Active Allergy Reactions Criticality Noted Date Comments Codeine 02/27/2017 Other reaction(s): mouth swelling/sores Swelling of mouth Fluticasone 04/01/2018 Due to smell Cephalexin Nausea 07/06/2024 Stomach pain Morphine Nausea And Vomiting 12/18/2021 Oxycodone 02/27/2017 Other reaction(s): legs turned red Other reaction(s): GI Upset Pollen Extract Unknown 07/04/2022 Powder Scent Fragrance 07/24/2019 All perfumes Silver 12/15/2024 From tagaderm Sumatriptan 07/04/2022 Other reaction(s): dizziness Medications diphenhydrAMINE (BENADryl) 25 MG tablet 1 tablet in the morning and 1 tablet at noon and 1 tablet in the evening and 1 tablet before bedtime. 013 Active albuterol 108 (90 Base) MCG/ACT inhaler [...] bedtime for sleep. 90 tablet 2 024 Active Altavera 0.15-30 MG-MCG tabletIndication s:Encounter for [...] after use. 0.3 mL 3 025 Active montelukast (Singulair) 10 MG tablet Take 10 mg by mouth at bedtime. 025 Active budesonide (Rhinocort AQ) 32 MCG/ACT nasal spray SPRAY 1 SPRAY BY NASAL ROUTE EVERY DAY Active fexofenadine (Pat) 180 MG tablet Take 180 mg by mouth 2 times daily. 025 Active pregabalin (Lyrica) 25 MG capsuleIndicatio ns:Degenerative disc disease at L5-S1 level Take 1 capsule (25 mg) by mouth 2 times daily. 60 capsule 025 Active Additional Information Patient not taking.Reported on 04/09/2025 cyclobenzaprine (Flexeril) 10 MG tabletIndication s:Chronic pain of left knee TAKE 1 TABLET BY MOUTH AT BEDTIME NEEDED FOR MUSCLE SPASM 30 tablet 025 Active albuterol (2.5 MG/3ML) 0.083% nebulizer solutionIndicati ons:Sinusitis, maxillary, chronic Take 3 mL (2.5 mg) by nebulization Once daily as needed for wheezing. 75 mL 2 025 Active albuterol (2.5 MG/3ML) 0.083% nebulizer solution PLEASE SEE ATTACHED FOR DETAILED DIRECTIONS 022 2024 Discontinued(R eorder (will not trigger [...] (03/02/2024): Chronic back pain. Was seen at [facility] 05/25/22 and recommended non- operative tx. They suggested PT, injections. Referred to [facility] neurosurgery for second opinion and she [...] Encounters Date Type Department Care Team Description 04/09/2025 10:00 AM EDT Office Visit [facility] [address] [place] [address] Kylee Gómez FNP Sinusitis, maxillary, chronic (Primary Dx); Thoracogenic scoliosis of thoracic region; Degenerative disc disease at L5-S1 level; Neuropathy; Chronic pain of left knee; Spinal stenosis of cervical region; Spondylosis of cervical spine with radiculopathy; Hair loss; Dry scalp; Chronic migraine without aura without status migrainosus, not intractable 03/03/2025 10:00 AM EDT Clinical Support [address] [address] Glenda Bruner LPN Degenerative disc disease, cervical 03/02/2025 Telephone [facility] MED[facility] [address] [place] [address] Kylee Gómez FNP Toradol shot 02/22/[address] [address] Kylee Gómez FNP Chronic pain of left knee 01/24/[address] [address] Kylee Gómez FNP Chronic pain of left knee 01/19/2025 8:30 AM EDT Office Visit [facility] [address] [place] [address] Jazmine Perez Stage 2 grade B generalized periodontitis per AAP/EFP 2017 classification (Primary Dx); Dental calculus; Encounter for dental examination from Last 3 Months Immunizations Immunization Administration [...] have a drink containing alcohol ? 0 04/09/2025 How many drinks containing a lcohol do you have on a typical day when you are drinking? 0 04/09/2025 How often do you have six or more drinks on one occasion? 0 04/09/2025 Depression Answer Date Recorded Patient Health Questionnaire-9 Score 25 05/12/2024 Patient Health Questionnaire-9 Score 25 05/12/2024 Last PHQ-9: Questionnaire Data Not on file 1 07/12/2023 Housing Stability Answer Date Recorded What is your housing situation today? I have viridiana gacria 04/25/[address] you li [...] Answer Date Recorded Patient Health Questionnaire-2 Score 0 04/09/2025 Internet Access Answer Date Recorded Internet Access Q1 Yes 04/25/2024 Internet Access Q2 Not on file 04/25/2024 Comments No Intention Date Recorded No desire to become (finding) 1 Sex and Gender Information Value Date Recorded Sex Assigned at Female 06/29/2022 3:16 PM EST Legal Sex Female 8:34 PM EDT Gender Identity Female 06/29/2022 3:16 PM EST Sexual Orientation Don't know 06/29/2022 3: 16 PM EST Last Filed Vital Signs Vital Sign Reading Time Taken Comments Blood Pressure 116/69 04/09/2025 9:40 AM EDT Pulse 104 04/09/2025 9:40 AM EDT Temperature 36.6 C (97.8 F) 04/09/2025 9:40 AM EDT Respiratory Rate 16 12/28/2024 11:31 AM EDT Oxygen Saturation 97% 04/09/2025 9:40 AM EDT Inhaled Oxygen Concentration - - Weight 81.6 kg (180 lb) 04/09/2025 9:40 AM EDT Height 157.5 cm (5' 2 ) 04/09/2025 9:40 AM EDT Body Mass Index 32.92 04/09/2025 9:40 AM EDT Plan of Treatment Upcoming Encounters Date Type Department Care Team (Late st Contact Info) Description 05/14/2025 9:40 AM EST Office Visit [facility] MED[facility] [address] [place] [address] Kylee Gómez FNP [address] [place] [address] 07/26/2025 10:10 AM EST Office Visit [facility] [address] [place] [address] Jazmine Perez Health Maintenance Due Date Last Done Comments HIV Screening 1986 Hepatitis C Screening 2004 Pneumococcal Vaccine: Pediatrics (0 to 5 Years) and At-Risk Patients (6 to 49) Years (1 of 2 - PCV) 2005 HPV Vaccines (3 - 3-dose series) 07/25/2007 05/02/2007, 02/28/2007, 09/03/2006 Cervical Cancer Screening 08/02/2016 HPV/Cotest 08/02/2016 Pap Smear 08/02/2016 08/02/2011, 06/15/2010 DTaP/Tdap/Td Vaccines (2 - Td or Tdap) 07/25/2021 07/25/2011, 12/14/2008 COVID-19 Vaccine ( season) 2025 Influenza Vaccine (#1) 2025 Dental X-Ray: Bitewings 07/16/2025 07/15/19 25, 07/17/2021, 12/08/2020, Additional history exists Dental Oral Exam 07/23/2025 01/19/2025, , 08/02/2022, Additional history exists Dental Prophylaxis 07/23/2025 01/19/2025, 0 07/15/2024, 08/02/2022, Additional history exists Depression Monitoring 10/08/2025 04/09/2025, 024 Alcohol/Substance Use Screening 04/09/2026 04/09/2025 Disability Screening 04/09/2026 04/09/2025 Family Planning (PISQ) 04/09/2026 04/09/2025 SDOH Screening 04/09/2026 04/09/2025 Tobacco Screening 04/09/2026 04/09/2025 Dental X-Ray: Full Mouth 07/16/2027 025, 10/26/2022, [...] Procedure Name Priority Date/Time Associated Diagnosis Comments CASE PRESENTATION, DETAILED AND EXTENSIVE TREATMENT PLANNING Routine 01/19/2025 8:30 AM EDT ORAL HYGIENE INSTRUCTIONS Routine 2024 8:30 AM EDT Full PROPHYLAXIS - ADULT Routine 025 8:30 AM EDT PERIODIC ORAL EVALUATION - ESTABLISHED PATIENT Routine 01/19/2025 8:30 AM EDT INTRAORAL - COMPLETE SERIES OF RADIOGRAPHIC IMAGES Routine 07/15/2024 11:00 AM EST PAP SMEAR Routine 08/02/2011 12:00 AM EST from Last 3 Months or Most Recently Relevant to Health Maintenance Results * Pap Smear (08/02/2011 12:00 AM EST) Swab Historical Provider LAB CYTOLOGY ORDERABLES F inal Result from Last 3 Months or Most Recently Relevant to Health Maintenance Insurance [facility] C3 DENTAL-[facility] MEDICAID STAND ADULT DENTAL - HSN FULL (MEDICAID) Care Teams Diesel Lube Tech Relationship Specialty Start Date End Date Kylee Gómez FNP [address] [place] [address] PCP - General Family Medicine 07/05/22 Gladys Foster Health Navigator 04/27/24
--- OUTSIDE RECORDS SUMMARY | 2025-04-20 06:17 | XMS_ITS | Encounter Summary ---
Author Organization [facility] Address [address] [place] [address] [place] [address] Phone Care Team Providers Care Calibrator Barometers Name Role Phone Ajay Hart MD Unavailable [phone] Candida Bangura CAR DRIVER Unavailable [phone] Candida Bangura CAR DRIVER Primary Care Provider + Tamar Remy Unavailable [phone] Garrett Schaefer MD Unavailable [email or web address] Timo Traylor MD Unavailable Timo Moyer DO Unavailable [phone] Willam Sullivan MD Unavailable [phone] Michelle Woodward PA-C Unavailable [phone] Humza Barker CAR DRIVER Unavailable [phone] Crystal Kirk MD Unavailable [phone] Kg Bazan BAG LINER Primary Care Provider Eda Gutierrez BAG LINER Primary Care Provider Esha Hazel PA Primary Care Provider [phone] Kylee Gómez CAR DRIVER Primary Care Prov ider Kylee Gómez CAR DRIVER Primary Care Prov ider Encounter Details Date Type Department Care Team (Late Contact Info) Description 10/17/2018 Procedure Pass [facility], [facility] [address] [place] [address] Social History Tobacco Use Types Packs/Day Years [...] [facility] [address] [place] [address] Ajay Hart MD [address] [place] [address] [email or web address] 04/28/2025 11:00 AM EST Nurse Only [facility] [address] [place] [address] Ajay Hart MD [address] [place] [address] 05/06/2025 11:00 AM EST Nurse Only [facility] [address] [place] [address] Ajay Hart MD [address] [place] [address] [email or web address] 05/13/2025 11:00 AM EST Nurse Only [facility] [address] [place] [address] Ajay Hart MD [address] [place] [address] [email or web address] 06/14/2025 11:00 AM EST Office Visit [facility] [address] [place] [address] Ajay Hart MD [address] [address] [email or web address] documented as of this encounter Visit Diagnoses Not on filedocumented in this encounter Additional Health Concerns Infection Onset Date Last Indicated Resolved Time CoV-Exposed Comment:Positive COVID-19 07/26/2024 07/26/2024 07/27/2024 12: 42 AM EST CoV-Risk 07/26/2024 07/26/2024 07/27/2024 12:4 2 AM EST COVID-19 07/26/2024 07/26/2024 08/16/2024 1:21 AM EST documented as of this encounter Care Teams Calibrator Barometers Relationship Specialty Start Date End Date Candida Bangura CNP [address] [place] [address] [email or web address] PCP - General 04/09/17 01/04/20 Kg Bazan NP [address] [place] [address] [email or web address] PCP - General Family Medicine 01/05/20 03/15/21 Eda Gutierrez NP [address] [place] [address] PCP - General Family Medicine 03/16/21 08/17/22 Esha Hazel PA [address] [place] [address] PCP - General Physician Shale Miner 08/18/22 12/05/22 Kylee Gómez CNP [address] [place] [address] PCP - General Nurse Practitioner 12/06/22 02/04/24 Kylee Gómez CNP [address] [place] [address] PCP - General Nurse Practitioner 02/05/24 Ajay Hart MD [address] [place] [address] [email or web address] Historical LMR Provider 04/13/17 Candida Bangura CNP [address] [place] [address] [email or web address] Historical LMR Provider 04/13/17 Tamar Remy PA [address] [place] [address] Historical LMR Provider 04/13/17 2 Garrett Schaefer MD [email or web address] Historical LMR Provider 04/13/17 07/01/21 Timo Traylor MD [address] [place] [address] Historical LMR Provider 04/13/17 Timo Moyer DO [address] [place] [address] Orthopedics & Sports Medicine, [place] [address] [email or web address] Historical LMR Provider 04/13/17 07/01/21 Willam Sullivan MD [address] [address] Historical LMR Provider 04/13/17 Michelle Woodward PA-C 4 [facility] Medicine, [place] [address] Historical LMR Provider 04/13/17 07/01/21 Humza Barker CNP [address] [address] Historical LMR Provider 04/13/17 07/01/21 Crystal Kirk MD 4 [facility], [place] [address] Historical LMR Provider 04/13/17 documented as of this encounter Additional Source Comments The information contained in this document represents components of the legal health record. It is not the complete legal health record.[facility]
--- OUTSIDE RECORDS SUMMARY | 2025-04-20 06:17 | XMS_ITS | Encounter Summary ---
Author Organization [facility] Address [address] [place] [address] [place] [address] Phone Care Team Providers Care Cerner Analyst Name Role Phone Ajay Hart MD Unavailable [phone] Candida Bangura DERMATOLOGY SPECIALIST Unavailable [phone] Candida Bangura DERMATOLOGY SPECIALIST Primary Care Provider + Tamar Remy Unavailable [phone] Garrett Schaefer MD Unavailable [email or web address] Timo Traylor MD Unavailable Timo Moyer DO Unavailable [phone] Willam Sullivan MD Unavailable [phone] Michelle Woodward PA-C Unavailable [phone] Humza Barker DERMATOLOGY SPECIALIST Unavailable [phone] Crystal Kirk MD Unavailable [phone] Kg Bazan PANEL SAW OPERATOR Primary Care Provider [phone] Eda Gutierrez PANEL SAW OPERATOR Primary Care Provider Esha Hazel PA Primary Care Provider [phone] Kylee Gómez DERMATOLOGY SPECIALIST Primary Care Prov ider Kylee Gómez DERMATOLOGY SPECIALIST Primary Care Prov ider Reason for Referral * Physical Therapy (Routine) - Closed Specialty Diagnoses / Procedures Referred By Contac t Referred To Contact Physical Therapy Diagnoses Encounter for rehabilitation Tonja Carlin PA Phone: tel: fax: mailto:[email or web address] Aaliyah Leyva PT [email or web address] Referral ID Status Reason Start Date Expiration Date Visits Re quested Visits Authorized [id number] Closed 02/19/2018 02/19/2019 20 20 Encounter Details Date Type Department Care Team (Latest Contact Info) Description 01/31/2018 [facility] [address] [place] [address] Tonja Carlin PA [address] [place] [address] [email or web address] Encounter for rehabilitation (Primary Dx) Social History Tobacco Use Types [...] Pulmonary, Allergy and Critical Care Medicine [address] [place] [address] Ajay Hart MD [address] [place] [address] 04/28/2025 11:00 AM EST Nurse Only [facility] 10 [facility] [place] [address] Ajay Hart MD [address] [place] [phone] [email or web address] 05/06/2025 11:00 AM EST Nurse Only [facility] [address] [place] [address] Ajay Hart MD [address] [place] [address] [email or web address] 05/13/2025 11:00 AM EST Nurse Only [facility] [address] [place] [address] Ajay Hart MD [address] [place] [address] [email or web address] 06/14/2025 11:00 AM EST Office Visit [facility] [address] [place] [address] Ajay Hart MD [address] [place] [address] [email or web address] Scheduled Referrals Name Type Priority Associated Diagnoses Orde r Schedule Ambulatory referral to [facility] Physical Therapy Outpatient Referral Routine Encounter for rehabilitation Ordered: 01/31/2018 documented as of this encounter Visit Diagnoses Diagnosis Encounter for rehabilitation- Primary documented in this encounter Additional Health Concerns Infection Onset Date Last Indicated Resolved Time CoV-Exposed Comment:Positive COVID-19 07/26/2024 07/26/2024 07/27/2024 12: 42 AM EST CoV-Risk 07/26/2024 07/26/2024 07/27/2024 12:4 2 AM EST COVID-19 07/26/2024 07/26/2024 08/16/2024 1:21 AM EST documented as of this encounter Care Teams Cerner Analyst Relationship Specialty Start Date End Date Candida Bangura CNP [address] [place] [address] [email or web address] PCP - General 04/09/17 01/04/20 Kg Bazan, PANEL SAW OPERATOR [address] [place] [address] [email or web address] PCP - General Family Medicine 01/05/20 03/15/21 Eda Gutierrez, PANEL SAW OPERATOR 73 [place] [address] PCP - General Family Medicine 03/16/21 08/17/22 Esha Hazel PA [address] [place] [address] [email or web address] PCP - General Physician Mortgage Loan Officer Originator 08/18/22 12/05/22 Kylee Gómez CNP [address] [place] [address] PCP - General Nurse Practitioner 12/06/22 02/04/24 Kylee Gómez CNP [address] [place] [address] PCP - General Nurse Practitioner 02/05/24 Ajay Hart MD [address] [place] [address] [email or web address] Historical LMR Provider 04/13/17 Candida Bangura CNP [address] [place] [address] [email or web address] Historical LMR Provider 04/13/17 Tamar Remy PA [facility] [place] [address] Historical LMR Provider 04/13/17 2 Garrett Schaefer MD [email or web address] Historical LMR Provider 04/13/17 07/01/21 Timo Traylor MD [address] [place] [address] Historical LMR Provider 04/13/17 Timo Moyer DO [address] [place] [address] Orthopedics [facility], [place] [address] Historical LMR Provider 04/13/17 07/01/21 Willam Sullivan MD [address] [address] Historical LMR Provider 04/13/17 Michelle Woodward PA-C [address] [place], [place] [address]s Sports [facility], [place] [address] Historical LMR Provider 04/13/17 07/01/21 Humza Barker CNP [address] [address] Historical LMR Provider 04/13/17 07/01/21 Crystal Kirk MD [address] [place] [address] Orthopedics & Sports [facility], [place] [address] [email or web address] Historical LMR Provider 04/13/17 documented as of this encounter Additional Source Comments The information contained in this document represents components of the legal health record. It is not the complete legal health record.[facility]
--- OUTSIDE RECORDS SUMMARY | 2025-04-20 06:17 | XMS_ITS | Encounter Summary ---
Author Organization [facility] Address [address] [place] [address] [place] [address] Phone Care Team Providers Care Product Management Consultant Name Role Phone Ajay Hart MD Unavailable [phone] Candida Bangura DATA WAREHOUSING MANAGER Unavailable Willam Sullivan MD Unavailable Eda Gutierrez NP Primary Care Provider Esha Hazel Primary Care Provider Kylee Gómez [facility] Primary Care Prov ider Kylee Gómez [facility] Primary Care Prov ider Encounter Details Date Type Department Care Team (Late st Contact Info) Description 09/26/2021 Ancillary Orders [facility], X-Ray - [address] [address] Esha Hazel PA [address] [place] [address]. [place] [address] [email or web address] Acute pain of right shoulder Social History Tobacco Use Types Packs/Day Years [...] Upcoming Encounters Date Type Department Care Team ([facility] st Contact Info) Description 04/22/2025 11:00 AM EDT Nurse Only [facility] [address] [place] [address] Ajay Hart MD [address] [place] [address] [email or web address] 04/28/2025 11:00 AM EST Nurse Only [facility] [address] [place] [address] Ajay Hart MD [address] [place] [address] [email or web address] 05/06/2025 11:00 AM EST Nurse Only [facility] [address] [place] [address] Ajay Hart MD [address] [place] [address] [email or web address] 05/13/2025 11:00 AM EST Nurse Only [facility] [address] [place] [address] Ajay Hart MD [address] [place] [address] [email or web address] 06/14/2025 11:00 AM EST Office Visit [facility] [address] [place] [address] Ajay Hart MD [address] [place] [address] documented as of this encounter Results * XR SHOULDER 2 VIEWS (RIGHT) (09/26/2021 4:42 PM EDT) Anatomical Region Laterality Modality Shoulder Right Computed Radiogr aphy 09/26/2021 5:50 PM EDT Impressions 09/26/2021 5:50 PM EDT No fracture or dislocation. Narrative 09/26/2021 5:50 PM EDT XR SHOULDER 2 OR MORE VIEWS (RIGHT) COMPARISON: FINDINGS: No fracture. Normal glenohumeral alignment and joint space. Normal acromioclavicular joint. Procedure Note Kishor Hanley MD, BARBARA - 09/26/2021 XR SHOULDER 2 OR MORE VIEWS (RIGHT) COMPARISON: FINDINGS: No fracture. Normal glenohumeral alignment and joint space. Normalacromioclavicular joint. IMPRESSION: No fracture or dislocation. Esha LYLE IMG XR UPPER EXTREMITY Final Result documented in this encounter Visit Diagnoses Diagnosis Acute pain of right shoulder Acute pain of right shoulder documented in this encounter Additional Health Concerns Infection Onset Date Last Indicated Resolved Time CoV-Exposed Comment:Positive COVID-19 07/26/2024 07/26/2024 07/27/2024 12: 42 AM EST CoV-Risk 07/26/2024 07/26/2024 07/27/2024 12:4 2 AM EST COVID-19 07/26/2024 07/26/2024 08/16/2024 1:21 AM EST documented as of this encounter Care Teams Product Management Consultant Relationship Specialty Start Date End Date Eda Gutierrez NP [address] [place] [address], [address] [place] [address] PCP - General Family Medicine 03/16/21 08/17/22 Esha Hazel PA [address] [place] [address] [email or web address] PCP - General Physician Buckle Sewer 08/18/22 12/05/22 Kylee Gómez, DATA WAREHOUSING MANAGER [address] [place] [address] PCP - General Nurse Practitioner 12/06/22 02/04/24 Kylee Gómez, DATA WAREHOUSING MANAGER [address] [place] [address] PCP - General Nurse Practitioner 02/05/24 Ajay Hart MD [address] [place] [address] [email or web address] Historical LMR Provider 04/13/17 Candida Bangura CNP [address] [place] [address] [email or web address] Historical LMR Provider 04/13/17 Willam Sullivan MD [address] [place] [address] Historical LMR Provider 04/13/17 documented as of this encounter Additional Source Comments The information contained in this document represents components of the legal health record. It is not the complete legal health record.[facility]
--- OUTSIDE RECORDS SUMMARY | 2025-04-20 06:17 | XMS_ITS | Encounter Summary ---
Author Organization [facility]ly [facility] Address [address] [place] [address] [place] [address] Phone Care Team Providers Care Parent Partner Name Role Phone Ajay Hart MD Unavailable [phone] Candida Bangura PURCHASING AND FISCAL CLERK Unavailable [phone] Candida Bangura PURCHASING AND FISCAL CLERK Primary Care Provider + Tamar Remy Unavailable [phone] Garrett Schaefer MD Unavailable [email or web address] Timo Traylor MD Unavailable Timo Moyer DO Unavailable [phone] Willam Sullivan MD Unavailable Michelle Woodward PA-C Unavailable [phone] Humza Barker PURCHASING AND FISCAL CLERK Unavailable [phone] Crystal Kirk MD Unavailable [phone] Kg Bazan EXERCISE PHYSIOLOGY PROFESSOR Primary Care Provider Eda Gutierrez EXERCISE PHYSIOLOGY PROFESSOR Primary Care Provider Esha Hazel PA Primary Care Provider [phone] Kylee Gómez PURCHASING AND FISCAL CLERK Primary Care Prov ider Kylee Gómez PURCHASING AND FISCAL CLERK Primary Care Prov ider Encounter Details Date Type Department Care Team (Late Contact Info) Description 11/29/2017 [facility] [address] [place] [address] Tonja Carlin, VALDO [address] [place] [address] [email or web address] Sacroiliitis Social History Tobacco Use Types Packs/Day Years [...] [facility], [facility] [address] [place] [address] Ajay Hart MD [address] [place] [address] 04/28/2025 11:00 AM EST Nurse Only [facility] [address] [place] [address] Ajay Hart MD [address] [place] [address] 05/06/2025 11:00 AM EST Nurse Only [facility] [address] [place] [address] Ajay Hart MD [address] [place] [address] 05/13/2025 11:00 AM EST Nurse Only [facility] Pulmonary, Allergy and Critical Care Medicine [address] [place] [address] Ajay Hart MD [address] [place] [address] [email or web address] 06/14/2025 11:00 AM EST Office Visit [facility] Pulmonary, Allergy and Critical Care Medicine [address] [place] [address] Ajay Hart MD [address] [place] [address] [email or web address] documented as of this encounter Results * XR SACROILIAC JOINTS 3 OR MORE VIEWS (11/29/2017 12:56 PM EDT) Anatomical Region Laterality Modality Pelvis Radiographic Edita ging 11/29/2017 1:16 PM EDT Impressions 11/29/2017 1:18 PM EDT Previous left sacroiliac fusion. Otherwise unremarkable plain film appearance of the pelvis and SI joints. POS [id number] Narrative 11/29/2017 1:18 PM EDT 6 views. No comparison The patient is previously undergone left SI joint fusion. The right SI joint is unremarkable. Hips and symphysis pubis also normal in appearance. No sign of trauma, tumor or infection. No significant soft tissue calcifications. Procedure Note Dheeraj Gill MD - 11/29/2017 6 views. No comparison The patient is previously undergone left SI joint fusion. The right SIjoint is unremarkable. Hips and symphysis pubis also normal in appearance. No sign of trauma, tumor or infection. No significant soft tissue calcifications. IMPRESSION: Previous left sacroiliac fusion. Otherwise unremarkable plain filmappearance of the pelvis and SI joints. POS [id number] us Doniel L Carlin PA IMG XR PELVIS Final Resul t documented in this encounter Visit Diagnoses Diagnosis Sacroiliitis Sacroiliitis, not elsewhere classified Sacroiliitis Sacroiliitis, not elsewhere classified documented in this encounter Additional Health Concerns Infection Onset Date Last Indicated Resolved Time CoV-Exposed Comment:Positive COVID-19 07/26/2024 07/26/2024 07/27/2024 12: 42 AM EST CoV-Risk 07/26/2024 07/26/2024 07/27/2024 12:4 2 AM EST COVID-19 07/26/2024 07/26/2024 08/16/2024 1:21 AM EST documented as of this encounter Care Teams Parent Partner Relationship Specialty Start Date End Date Candida Bangura CNP [address] [place] [address] [email or web address] PCP - General 04/09/17 01/04/20 Kg Bazan NP [address] [place] [address] [email or web address] PCP - General Family Medicine 01/05/20 03/15/21 Eda Gutierrez NP [address] [place] [address] PCP - General Family Medicine 03/16/21 08/17/22 Esha Hazel PA [address] [facility] [place] [address] [email or web address] PCP - General Physician Water Mechanic 08/18/22 12/05/22 Kylee Gómez CNP [address] [place] [address] PCP - General Nurse Practitioner 12/06/22 02/04/24 Kylee Gómez CNP [address] [place] [address] PCP - General Nurse Practitioner 02/05/24 Ajay Hart MD [address] [place] [address] [email or web address] Historical LMR Provider 04/13/17 Candida Bangura CNP [address] [place] [address] [email or web address] Historical LMR Provider 04/13/17 Tamar Remy PA [address] [place] [address] Historical LMR Provider 04/13/17 2 Garrett Schaefer MD [email or web address] Historical LMR Provider 04/13/17 07/01/21 Timo Traylor MD [address] [place] [address] Historical LMR Provider 04/13/17 Timo Moyer DO [address] [place] [address] Orthopedics & Sports Medicine, [place] [address] [email or web address] Historical LMR Provider 04/13/17 07/01/21 Willam Sullivan MD [address] [place] [address] [email or web address] Historical LMR Provider 04/13/17 Michelle Woodward, PAMargaritaC 4 [facility] Orthopedics & Sports Medicine, [facility] [place] [address] Historical LMR Provider 04/13/17 07/01/21 Humza Barker CNP 15 [facility], 2nd [place] [address] Historical LMR Provider 04/13/17 07/01/21 Crystal Kirk MD 4 [facility] Orthopedics & Sports Medicine, [place] [address] [email or web address] Historical LMR Provider 04/13/17 documented as of this encounter Additional Source Comments The information contained in this document represents components of the legal health record. It is not the complete legal health record.[facility]
--- OUTSIDE RECORDS SUMMARY | 2025-04-20 06:17 | XMS_ITS | Encounter Summary ---
Author Organization [facility]ly [facility] [place] [facility] Address [address] [place] [address] [place] [address] Phone Care Team Providers Care Drag Seiner Name Role Phone Ajay Hart MD Unavailable [phone] Candida Bangura MANAGER MACHINE Unavailable [phone] Candida Bangura MANAGER MACHINE Primary Care Provider + Tamar Remy Unavailable [phone] Garrett Schaefer MD Unavailable [email or web address] Timo Traylor MD Unavailable Timo Moyer DO Unavailable [phone] Willam Sullivan MD Unavailable Michelle Woodward PA-C Unavailable [phone] Humza Barker MANAGER MACHINE Unavailable [phone] Crystal Kirk MD Unavailable [phone] Kg Bazan WOOD MILLER Primary Care Provider Eda Gutierrez WOOD MILLER Primary Care Provider Esha Hazel PA Primary Care Provider [phone] Kylee Gómez MANAGER MACHINE Primary Care Prov ider Kylee Gómez MANAGER MACHINE Primary Care Prov ider Encounter Details Date Type Department Care Team (Late Contact Info) Description 11/29/2017 [facility] [address] [place] [address] Tonja Carlin, VALDO [address] [place] [address] [email or web address] Sacroiliitis Social History Tobacco Use Types [...] [facility], [facility] [address] [place] [address] Ajay Hart MD [address] [place] [address] 04/28/2025 11:00 AM EST Nurse Only [facility] Critical [facility] [address] [place] [address] Ajay Hart MD [address] [place] [address] 05/06/2025 11:00 AM EST Nurse Only [facility] Allergy [facility] Critical [facility] [address] [place] [address] Ajay Hart MD [address] [place] [address] 05/13/2025 11:00 AM EST Nurse Only [facility] Pulmonary, Allergy and Critical Care Medicine [address] [place] [address] Ajay Hart MD [address] [place] [address] [email or web address] 06/14/2025 11:00 AM EST Office Visit [facility] Pulmonary, Allergy and Critical Care Medicine [address] [place] [address] Ajay Hart MD [address] [place] [address] [email or web address] documented as of this encounter Results * XR PELVIS AP INLET AND OUTLET 3 VIEWS (11/29/2017 12:55 PM EDT) Anatomical Region Laterality Modality Pelvis Radiographic Edita ging 11/29/2017 1:18 PM EDT Impressions 11/29/2017 1:19 PM EDT Previous left SI fusion POS [id number] Narrative 11/29/2017 1:19 PM EDT Inlet and outlet pelvis: 2 views Left SI joint operative fusion. The right SI joint is unremarkable as is the pelvis and hips. Procedure Note Dheeraj Gill MD - 11/29/2017 Inlet and outlet pelvis: 2 views Left SI joint operative fusion. The right SI joint is unremarkable as is the pelvis and hips. IMPRESSION: Previous left SI fusion POS [id number] Tonja LYLE IMG XR PELVIS Final Resul t documented [...] documented as of this encounter Care Teams Drag Seiner Relationship Specialty Start Date End Date Candida Bangura CNP [address] [place] [address] [email or web address] PCP - General 04/09/17 01/04/20 Kg Bazan NP [address] [place] [address] [email or web address] PCP - General Family Medicine 01/05/20 03/15/21 Eda Gutierrez NP [address] [place] [address] PCP - General Family Medicine 03/16/21 08/17/22 Esha Hazel PA [address] [place] [address] [email or web address] PCP - General Physician Learning Disabilities Specialist 08/18/22 12/05/22 Kylee Gómez CNP [address] [place] [address] PCP - General Nurse Practitioner 12/06/22 02/04/24 Kylee Gómez CNP [address] [place] [address] PCP - General Nurse Practitioner 02/05/24 Ajay Hart MD [address] [place] [address] [email or web address] Historical LMR Provider 04/13/17 Candida Bangura CNP [address] [place] [address] [email or web address] Historical LMR Provider 04/13/17 Tamar Remy PA [facility] [place] [address] Historical LMR Provider 04/13/17 2 Garrett Schaefer MD [email or web address] Historical LMR Provider 04/13/17 07/01/21 Timo Traylor MD [address] [place] [address] Historical LMR Provider 04/13/17 Timo Moyer DO [address] [place] [address] Orthopedics & Sports [facility], [place] [address] [email or web address] Historical LMR Provider 04/13/17 07/01/21 Willam Sullivan MD [address] [place] [address] [email or web address] Historical LMR Provider 04/13/17 Michelle Woodward PA-C [address] [place] [address] Orthopedics & Sports Medicine, [place] [address] Historical LMR Provider 04/13/17 07/01/21 Humza Barker CNP 15 [facility], 2nd [place] [address] Historical LMR Provider 04/13/17 07/01/21 Crystal Kirk MD [address] [place] [address] Orthopedics & Sports Medicine, [facility] [place] [address] [email or web address] Historical LMR Provider 04/13/17 documented as of this encounter Additional Source Comments The information contained in this document represents components of the legal health record. It is not the complete legal health record.[facility]
--- OUTSIDE RECORDS SUMMARY | 2025-04-20 06:17 | XMS_ITS | Encounter Summary ---
Author Organization [facility] Address [address] [place] [address] [place] [address] Phone Care Team Providers Care Chuck Boner Name Role Phone Ajay Hart MD Unavailable [phone] Candida Bangura SCRAPPER Unavailable [phone] Candida Bangura SCRAPPER Primary Care Provider + Tamar Remy Unavailable [phone] Garrett Schaefer MD Unavailable [email or web address] Timo Traylor MD Unavailable Timo Moyer DO Unavailable [phone] Willam Sullivan MD Unavailable Michelle Woodward PA-C Unavailable [phone] Humza Barker SCRAPPER Unavailable [phone] Crystal Kirk MD Unavailable [phone] Kg Bazan FILLING SEPARATOR Primary Care Provider [phone] Eda Gutierrez FILLING SEPARATOR Primary Care Provider Esha Hazel PA Primary Care Provider [phone] Kylee Gómez SCRAPPER Primary Care Prov ider Kylee Gómez SCRAPPER Primary Care Prov ider Encounter Details Date Type Department Care Team (Latest Contact Info) Description 12/04/2017 Ancillary Orders Virtual Department [address] [place] [address] Tonja Carlin PA [address] [place] [address] [email or web address] Displacement of lumbar intervertebral disc Social History Tobacco Use Types Packs/Day Years [...] [facility], All[facility] [address] [place] [address] Ajay Hart MD [address] [place] [address] [email or web address] 04/28/2025 11:00 AM EST Nurse Only [facility], Allergy and Critical Care Medicine [address] [place] [address] Ajay Hart MD [address] [place] [address] [email or web address] 05/06/2025 11:00 AM EST Nurse Only [facility], Allergy and Critical Care Medicine [address] [place] [address] Ajay Hart MD [address] [place] [address] [email or web address] 05/13/2025 11:00 AM EST Nurse Only [facility], Allergy and Critical Care Medicine [address] [place] [address] Ajay Hart MD [address] [place] [address] [email or web address] 06/14/2025 11:00 AM EST Office Visit [facility] Pul[facility], Allergy and Critical Care Medicine [address] [place] [address] Ajay Hart MD [address] [place] [address] [email or web address] documented as of this encounter Results * MRI LUMBAR SPINE (BONE) WITHOUT CONTRAST (12/16/2017 12:13 PM EDT) Anatomical Region Laterality Modality L-spine Magnetic Resonan ce 12/16/2017 12:2 1 PM EDT Impressions 12/16/2017 1:16 PM EDT Recurrent L5-S1 left-sided disc protrusion of medium size. There does appear to be significant mass effect at the left lateral recess and this may well compress the S1 nerve root. [id number] Edited by: Cyndi Sauer on 12/16/2017 1:06 PM Narrative 12/16/2017 1:16 PM EDT HISTORY: Low back pain and left radiculopathy. Fusion surgery July 2017. COMPARISON: November 23, 2016 TECHNIQUE: Sagittal axial bright and dark fluid imaging obtained. No contrast administered. FINDINGS: There is scoliosis convex left, apex L3. From T11-12 through L-2 no finding of concern is identified. L2-3: No disc abnormality of concern is identified. There is some trace accentuation at the right side of the disc margin but no significant canal or foraminal stenosis or focal disc abnormality is suggested. L3-4: No finding of concern is appreciated. L4-5: Some early facet degenerative change but no significant hypertrophy or disc abnormality of concern. No canal or foraminal stenosis. L5-S1: There is a medium to large recurrent left lateral recess disc protrusion with what appears to be compression of the S1 nerve root. There is some mass effect on the left side thecal sac but no pronounced central canal stenosis. No worrisome marrow signal change. No compression deformity. Study is not tailored for evaluation of regional soft tissues but no soft tissue findings of clear concern are detected in the [id number]. Procedure Note Pat Sweeney MD - 12/16/2017 HISTORY: Low back pain and left radiculopathy. Fusion surgery July2017. COMPARISON: November 23, 2016 TECHNIQUE: Sagittal axial bright and dark fluid imaging obtained. Nocontrast administered. FINDINGS: There is scoliosis convex left, apex L3. From T11-12 through L-2 no finding of concern is identified. L2-3: No disc abnormality of concern is identified. There is some traceaccentuation at the right side of the disc margin but no significant canalor foraminal stenosis or focal disc abnormality is suggested. L3-4: No finding of concern is appreciated. L4-5: Some early facet degenerative change but no significant hypertrophyor disc abnormality of concern. No canal or foraminal stenosis. L5-S1: There is a medium to large recurrent left lateral recess discprotrusion with what appears to be compression of the S1 nerve root. Thereis some mass effect on the left side thecal sac but no pronounced centralcanal stenosis. No worrisome marrow signal change. No compression deformity. Study is not tailored for evaluation of regional soft tissues but no softtissue findings of clear concern are detected in the kvgdx-tx-alqh. IMPRESSION: Recurrent L5-S1 left-sided disc protrusion of medium size. There doesappear to be significant mass effect at the left lateral recess and thismay well compress the S1 nerve root. [email or web address] Edited by: Cyndi Sauer on 12/16/2017 1:06 PM Tonja LYLE IMG MR XSPECIALTY Final Res ult documented in this encounter Visit Diagnoses Diagnosis Displacement of lumbar intervertebral disc Displacement of lumbar intervertebral disc without myelopathy Displacement of lumbar intervertebral disc Displacement of lumbar intervertebral disc without myelopathy documented in this encounter Additional Health Concerns Infection Onset Date Last Indicated Resolved Time CoV-Exposed Comment:Positive COVID-19 07/26/2024 07/26/2024 07/27/2024 12: 42 AM EST CoV-Risk 07/26/2024 07/26/2024 07/27/2024 12:4 2 AM EST COVID-19 07/26/2024 07/26/2024 08/16/2024 1:21 AM EST documented as of this encounter Care Teams Chuck Boner Relationship Specialty Start Date End Date Candida Bangura CNP [address] [place] [address] [email or web address] PCP - General 04/09/17 01/04/20 Kg Bazan, SHAWN [address] [place] [address] [email or web address] PCP - General Family Medicine 01/05/20 03/15/21 Eda Gutierrez NP [address] [place] [address] PCP - General Family Medicine 03/16/21 08/17/22 Esha Hazel PA 73 [facility] [place] [address] [email or web address] PCP - General Physician Cotton Picking Machine Operator 08/18/22 12/05/22 Kylee Gómez CNP [address] [place] [address] PCP - General Nurse Practitioner 12/06/22 02/04/24 Kylee Gómez CNP [address] [place] [address] PCP - General Nurse Practitioner 02/05/24 Ajay Hart MD [address] [place] [address] [email or web address] Historical LMR Provider 04/13/17 Candida Bangura CNP [address] [place] [address] [email or web address] Historical LMR Provider 04/13/17 Tamar Remy PA [facility] [place] [address] Historical LMR Provider 04/13/17 2 Garrett Schaefer MD [email or web address] Historical LMR Provider 04/13/17 07/01/21 Timo Traylor MD [address] [place] [address] Historical LMR Provider 04/13/17 Timo Moyer DO [address] [place] [address] Orthopedics & Sports Medicine, [place] [address] [email or web address] Historical LMR Provider 04/13/17 07/01/21 Willam Sullivan MD [address] [place] [address] [email or web address] Historical LMR Provider 04/13/17 Michelle Woodward PA-C [address] [place] [address] Orthopedics & Sports [facility], [place] [address] Historical LMR Provider 04/13/17 07/01/21 Humza Barker CNP 15 [facility], 2nd [place] [address] [email or web address] Historical LMR Provider 04/13/17 07/01/21 Crystal Kirk MD [address] [place] [address] Orthopedics & Sports Medicine, [place] [address] [email or web address] Historical LMR Provider 04/13/17 documented as of this encounter Additional Source Comments The information contained in this document represents components of the legal health record. It is not the complete legal health record.[facility]
--- OUTSIDE RECORDS SUMMARY | 2025-04-20 06:17 | XMS_ITS | Encounter Summary ---
Author Organization [facility] Address [address] [place] [address] [place] [address] Phone Care Team Providers Care Filler Mixer Name Role Phone Ajay Hart MD Unavailable [phone] Candida Bangura [facility] Unavailable Willam Sullivan MD Unavailable [phone] Kylee Gómez [facility] Primary Care Prov ider Kylee Gómez [facility] Primary Care Prov ider Encounter Details Date Type Department Care Team (Late st Contact Info) Description 05/29/2023 Procedure Pass [facility], [address] [address] Social History Tobacco Use Types Packs/Day Years [...] Upcoming Encounters Date Type Department Care Team ([facility] st Contact Info) Description 04/22/2025 11:00 AM EDT Nurse Only [facility] [address] [place] [address] Ajay Hart MD [address] [place] [address] [email or web address] 04/28/2025 11:00 AM EST Nurse Only [facility] [address] [place] [address] Ajay Hart MD [address] [place] [address] 05/06/2025 11:00 AM EST Nurse Only [facility] [address] [place] [address] Ajay Hart MD [address] [place] [address] 05/13/2025 11:00 AM EST Nurse Only [facility] [address] [place] [address] Ajay Hart MD [address] [place] [address] 06/14/2025 11:00 AM EST Office Visit [facility] [address] [place] [address] Ajay Hart MD [address] [place] [address] [email or web address] documented as of this encounter Visit Diagnoses Not on filedocumented in this encounter Additional Health Concerns Infection Onset Date Last Indicated Resolved Time CoV-Exposed Comment:Positive COVID-19 07/26/2024 07/26/2024 07/27/2024 12: 42 AM EST CoV-Risk 07/26/2024 07/26/2024 07/27/2024 12:4 2 AM EST COVID-19 07/26/2024 07/26/2024 08/16/2024 1:21 AM EST documented as of this encounter Care Teams Filler Mixer Relationship Specialty Start Date End Date Kylee Gómez CNP [address] [place] [address] PCP - General Nurse Practitioner 12/06/22 02/04/24 Kylee Gómez CNP [address] [place] [address] PCP - General Nurse Practitioner 02/05/24 Ajay Hart MD [address] [place] [address] [email or web address] Historical LMR Provider 04/13/17 Candida Bangura CNP [address] [place] [address] [email or web address] Historical LMR Provider 04/13/17 Willam Sullivan MD [address] [place] [address], [address] [place] [address] [email or web address] Historical LMR Provider 04/13/17 documented as of this encounter Additional Source Comments The information contained in this document represents components of the legal health record. It is not the complete legal health record.[facility]
--- OUTSIDE RECORDS SUMMARY | 2025-04-20 06:17 | XMS_ITS | Encounter Summary ---
Author Organization [facility] Address [address] [place] [address] [address] [place] [address] Phone Care Team Providers Care Submarine Worker Name Role Phone Aajy Hart MD Unavailable [phone] Candida Bangura FAMILY RESOURCE COORDINATOR Unavailable [phone] Willam Sullivan MD Unavailable [phone] Kylee Gómez [facility] Primary Care Prov ider Encounter Details Date Type Department Care Team (Late st Contact Info) Description 10/06/2024 Procedure Pass [facility], [address] [address] Social History Tobacco Use Types Packs/Day Years [...] [facility] [address] [place] [address] Ajay Hart MD [address] [place] [address] [email or web address] 04/28/2025 11:00 AM EST Nurse Only [facility] [address] [place] [address] Ajay Hart MD [address] [place] [address] 05/06/2025 11:00 AM EST Nurse Only [facility] [address] [place] [address] Ajay Hart MD [address] [place] [address] 05/13/2025 11:00 AM EST Nurse Only [facility] [address] [place] [address] Ajay Hart MD [address] [place] [address] 06/14/2025 11:00 AM EST Office Visit [facility] [address] [place] [address] Ajay Hart MD [address] [place] [phone] [email or web address] documented as of this encounter Visit Diagnoses Not on filedocumented in this encounter Care Teams Submarine Worker Relationship Specialty Start Date End Date Kylee Gómez CNP [address] [place] [address] PCP - General Nurse Practitioner 02/05/24 Ajay Hart MD [address] [place] [address] [email or web address] Historical LMR Provider 04/13/17 Candida Bangura CNP [address] [place] [address] [email or web address] Historical LMR Provider 04/13/17 Willam Sullivan MD [address] [place] [address] Historical LMR Provider 04/13/17 documented as of this encounter Additional Source Comments The information contained in this document represents components of the legal health record. It is not the complete legal health record.[facility]
--- OUTSIDE RECORDS SUMMARY | 2025-04-20 06:17 | XMS_ITS | Encounter Summary ---
Author Organization [employer] Address [address] [place] [address] [facility] [place] [address] Care Team Providers Care Deputy Building Guard Name Role Phone Kylee Gómez Primary Care Provider [phone] Gladys Foster Unavailable Unavailable Encounter Details Date Type Department Care Team (Late st Contact Info) Description 12/12/2022 Orders Only [facility] [address] [place] [address] Kylee Gómez FNP [address] [place] [address] Social History Tobacco Use Types Packs/Day Years [...] Description 05/14/2025 9:40 AM EST Office Visit [facility] [address] [place] [address] Kylee Gómez FNP [address] [place] [address] 07/26/2025 10:10 AM EST Office Visit [facility] [address] [place] [address] Jazmine Perez documented as of this encounter Visit Diagnoses Not on filedocumented in this encounter Care Teams Deputy Building Guard Relationship Specialty Start Date End Date Kylee Gómze FNP [address] [place] [address] PCP - General Family Medicine 07/05/22 Gladys Foster Health Navigator 04/27/24 documented as of this encounter
--- OUTSIDE RECORDS SUMMARY | 2025-04-20 06:17 | XMS_ITS | Encounter Summary ---
Author Organization [facility] Address [address] [place] [address] [place] [address] Phone Care Team Providers Care Apartment Leasing Consultant Name Role Phone Ajay Hart MD Unavailable [phone] Candida Bangura BALL HOLDER Unavailable Willam Sullivan MD Unavailable Eda Gutierrez NP Primary Care Provider Esha Hazel Primary Care Provider Kylee Gómez [facility] Primary Care Prov ider Kylee Gómez [facility] Primary Care Prov ider Encounter Details Date Type Department Care Team (Latest Contact Info) Description 07/25/2022 Transcribe Orders Virtual Department [address] [place] [address] Esha Hazel PA [address] [place] [address]. [place] [address] [email or web address] Scoliosis, unspecified scoliosis type, unspecified spinal region (Primary Dx) Social History Tobacco Use Types [...] Upcoming Encounters Date Type Department Care Team ([facility] st Contact Info) Description 04/22/2025 11:00 AM EDT Nurse Only [facility] [address] [place] [address] Ajay Hart MD [address] [place] [address] [email or web address] 04/28/2025 11:00 AM EST Nurse Only [facility] [address] [place] [address] Ajay Hart MD [address] [place] [address] [email or web address] 05/06/2025 11:00 AM EST Nurse Only [facility] [address] [place] [address] Ajay Hart MD [address] [place] [address] [email or web address] 05/13/2025 11:00 AM EST Nurse Only [facility] [address] [place] [address] Ajay Hart MD [address] [place] [address] [email or web address] 06/14/2025 11:00 AM EST Office Visit [facility] [address] [place] [address] Ajay Hart MD [address] [place] [address] [email or web address] documented as of this encounter Visit Diagnoses Diagnosis Scoliosis, unspecified scoliosis type, unspecified spinal region- Primary documented in this encounter Additional Health Concerns Infection Onset Date Last Indicated Resolved Time CoV-Exposed Comment:Positive COVID-19 07/26/2024 07/26/2024 07/27/2024 12: 42 AM EST CoV-Risk 07/26/2024 07/26/2024 07/27/2024 12:4 2 AM EST COVID-19 07/26/2024 07/26/2024 08/16/2024 1:21 AM EST documented as of this encounter Care Teams Apartment Leasing Consultant Relationship Specialty Start Date End Date Eda Gutierrez NP [address] [address] PCP - General Family Medicine 03/16/21 08/17/22 Esha Hazel PA [address] [place] [address]. [place] [address] [email or web address] PCP - General Physician Community Placement Worker 08/18/22 12/05/22 Kylee Gómez CNP [address] [place] [address] PCP - General Nurse Practitioner 12/06/22 02/04/24 Kylee Gómez CNP [address] [place] [address] PCP - General Nurse Practitioner 02/05/24 Ajay Hart MD [address] [place] [address] Historical LMR Provider 04/13/17 Candida Bangura CNP [address] [place] [address] [email or web address] Historical LMR Provider 04/13/17 Willam Sullivan MD [address] [place] [address] [email or web address] Historical LMR Provider 04/13/17 documented as of this encounter Additional Source Comments The information contained in this document represents components of the legal health record. It is not the complete legal health record.[facility]
--- OUTSIDE RECORDS SUMMARY | 2025-04-20 06:17 | XMS_ITS | Encounter Summary ---
Author Organization [facility] Address [address] [place] [address] [place] [address] Phone Care Team Providers Care Sand Shoveler Name Role Phone Ajay Hart MD Unavailable [phone] Candida Bangura KEY CUTTER Unavailable [phone] Candida Bangura KEY CUTTER Primary Care Provider + Tamar Remy Unavailable [phone] Garrett Schaefer MD Unavailable [email or web address] Timo Traylor MD Unavailable [phone] Timo Moyer DO Unavailable [phone] Willam Sullivan MD Unavailable Michelle Woodward PA-C Unavailable [phone] Humza Barker KEY CUTTER Unavailable [phone] Crystal Kirk MD Unavailable [phone] Kg Bazan INTENSIVE CARE UNIT NURSE Primary Care Provider [phone] Eda Gutierrez INTENSIVE CARE UNIT NURSE Primary Care Provider Esha Hazel PA Primary Care Provider [phone] Kylee Gómez KEY CUTTER Primary Care Prov ider Kylee Gómez KEY CUTTER Primary Care Prov ider Encounter Details Date Type Department Care Team (Late Contact Info) Description 12/04/2017 Procedure Pass [facility], [facility] - [address] [address] Social History Tobacco Use Types Packs/Day Years [...] [facility] [address] [place] [address] Ajay Hart MD [address] [place] [phone] [email or web address] 04/28/2025 11:00 AM EST Nurse Only [facility] [address] [place] [address] Ajay Hart MD [address] [place] [address] 05/06/2025 11:00 AM EST Nurse Only [facility] [address] [place] [address] Ajay Hart MD [address] [place] [address] [email or web address] 05/13/2025 11:00 AM EST Nurse Only [facility] [address] [place] [address] Ajay Hart MD [address] [place] [address] [email or web address] 06/14/2025 11:00 AM EST Office Visit [facility] 10 [place] [address] Ajay Hart MD [address] [address] [email or web address] documented as of this encounter Visit Diagnoses Not on filedocumented in this encounter Additional Health Concerns Infection Onset Date Last Indicated Resolved Time CoV-Exposed Comment:Positive COVID-19 07/26/2024 07/26/2024 07/27/2024 12: 42 AM EST CoV-Risk 07/26/2024 07/26/2024 07/27/2024 12:4 2 AM EST COVID-19 07/26/2024 07/26/2024 08/16/2024 1:21 AM EST documented as of this encounter Care Teams Sand Shoveler Relationship Specialty Start Date End Date Candida Bangura CNP [address] [place] [address] [email or web address] PCP - General 04/09/17 01/04/20 Kg Bazan NP [address] [place] [address] [email or web address] PCP - General Family Medicine 01/05/20 03/15/21 Eda Gutierrez NP [address] [place] [address] PCP - General Family Medicine 03/16/21 08/17/22 Esha Hazel PA [address] [place] [address] PCP - General Physician Local Government Legislator 08/18/22 12/05/22 Kylee Gómez CNP [address] [place] [address] PCP - General Nurse Practitioner 12/06/22 02/04/24 Kylee Gómez CNP [address] [place] [address] PCP - General Nurse Practitioner 02/05/24 Ajay Hart MD [address] [place] [address] [email or web address] Historical LMR Provider 04/13/17 Candida Bangura CNP [address] [place] [address] [email or web address] Historical LMR Provider 04/13/17 Tamar Remy PA [address] [place] [address] Historical LMR Provider 04/13/17 2 Garrett Schaefer MD [email or web address] Historical LMR Provider 04/13/17 07/01/21 Timo Traylor MD [address] [place] [address] Historical LMR Provider 04/13/17 Timo Moyer DO [address] [place] [address] Orthoped[facility] Sports Medicine, [place] [address] [email or web address] Historical LMR Provider 04/13/17 07/01/21 Willam Sullivan MD [address] [address] Historical LMR Provider 04/13/17 Michelle Woodward PA-C 4 [facility] Sports Medicine, [place] [address] Historical LMR Provider 04/13/17 07/01/21 Humza Barker CNP [address] [address] Historical LMR Provider 04/13/17 07/01/21 Crystal Kirk MD 4 [facility], [place] [address] Historical LMR Provider 04/13/17 documented as of this encounter Additional Source Comments The information contained in this document represents components of the legal health record. It is not the complete legal health record.[facility]
--- OUTSIDE RECORDS SUMMARY | 2025-04-20 06:17 | XMS_ITS | Encounter Summary ---
Author Organization [employer] Address [address] [place] [address] Care Team Providers Care Machine Plaster Mixer Name Role Phone Kylee Gómez Primary Care Provider [phone] Gladys Foster Unavailable Unavailable Encounter Details Date Type Department Care Team (Late st Contact Info) Description 10/09/2023 Orders Only [facility] [address] [place] [address] Kylee Gómez FNP [address] [place] [address] Social History Tobacco Use Types Packs/Day Years [...] Description 05/14/2025 9:40 AM EST Office Visit [facility] MEDICAL [address] [place] [address] Kylee Gómez FNP [address] [place] [address] 07/26/2025 10:10 AM EST Office Visit [facility] DENTAL [address] [place] [address] Jazmine Perez documented as of this encounter Procedures Procedure Name Priority Date/Time Associated Diagnosis Comments PULMONARY FUNCTION TESTING Routine 10/03/2023 10:21 AM EDT documented in this encounter Results * Pulmonary function testing (10/03/2023 10:21 AM EDT) Kylee JEFF PFT ORDERABLES Final Res ult documented in this encounter Visit Diagnoses Not on filedocumented in this encounter Care Teams Machine Plaster Mixer Relationship Specialty Start Date End Date Kylee Gómez FNP 58 [facility] [place] [address] PCP - General Family Medicine 07/05/22 Gladys Foster Health Navigator 04/27/24 documented as of this encounter
--- OUTSIDE RECORDS SUMMARY | 2025-04-20 06:17 | XMS_ITS | Encounter Summary ---
Author Organization [facility] Address [address] [place] [address] [place] [address] Phone Care Team Providers Care Practice Advisor Name Role Phone Ajay Hart MD Unavailable [phone] Candida Bangura FLEET TECHNICIAN Unavailable [phone] Candida Bangura FLEET TECHNICIAN Primary Care Provider + Tamar Remy Unavailable [phone] Garrett Schaefer MD Unavailable [email or web address] Timo Traylor MD Unavailable Timo Moyer DO Unavailable [phone] Willam Sullivan MD Unavailable Michelle Woodward PA-C Unavailable [phone] Humza Barker FLEET TECHNICIAN Unavailable [phone] Crystal Kirk MD Unavailable [phone] Kg Bazan MEDICAL SCRIBE Primary Care Provider Eda Gutierrez MEDICAL SCRIBE Primary Care Provider Esha Hazel PA Primary Care Provider [phone] Kylee Gómez FLEET TECHNICIAN Primary Care Prov ider Kylee Gómez FLEET TECHNICIAN Primary Care Prov ider Encounter Details Date Type Department Care Team (Late st Contact Info) Description 08/19/2018 Procedure Pass [facility] - [address] [address] Social History Tobacco Use Types Packs/Day Years [...] AM EST documented as of this encounter Last Filed Vital Signs Vital Sign Reading Time Taken Comments Blood Pressure - - Pulse - - Temperature - - Respiratory Rate - - Oxygen Saturation - - Inhaled Oxygen Concentration - - Weight 72.6 kg (160 lb) 08/20/2018 11:38 AM EST Height 157.5 cm (5' 2 ) 08/20/2018 11:38 AM EST Body Mass Index 29.26 08/20/2018 11:38 AM EST documented in this encounter Plan of Treatment Upcoming Encounters Date Type Department Care Team (Late st Contact Info) Description 04/22/2025 11:00 AM EDT Nurse Only [facility] [address] [place] [address] Ajay Hart MD [address] [place] [address] 04/28/2025 11:00 AM EST Nurse Only [facility] [address] [place] [address] Ajay Hart MD [address] [place] [address] 05/06/2025 11:00 AM EST Nurse Only [facility] [address] [place] [address] Ajay Hart MD [address] [place] [phone] [email or web address] 05/13/2025 11:00 AM EST Nurse Only [facility] [address] [place] [address] Ajay Hart MD [address] [place] [address] [email or web address] 06/14/2025 11:00 AM EST Office Visit [facility] Medicine [address] [place] [address] Ajay Hart MD [address] [place] [phone] [email or web address] documented as of this encounter Visit Diagnoses Not on filedocumented in this encounter Additional Health Concerns Infection Onset Date Last Indicated Resolved Time CoV-Exposed Comment:Positive COVID-19 07/26/2024 07/26/2024 07/27/2024 12: 42 AM EST CoV-Risk 07/26/2024 07/26/2024 07/27/2024 12:4 2 AM EST COVID-19 07/26/2024 07/26/2024 08/16/2024 1:21 AM EST documented as of this encounter Care Teams Practice Advisor Relationship Specialty Start Date End Date Candida Bangura CNP [address] [place] [address] [email or web address] PCP - General 04/09/17 01/04/20 Kg Bazan NP [address] [place] [address] [email or web address] PCP - General Family Medicine 01/05/20 03/15/21 Eda Gutierrez NP [address] [place] [address] PCP - General Family Medicine 03/16/21 08/17/22 Esha Hazel PA [address] [place] [address] [email or web address] PCP - General Physician Rigging Worker 08/18/22 12/05/22 Kylee Gómez FLEET TECHNICIAN [address] [place] [address] PCP - General Nurse Practitioner 12/06/22 02/04/24 Kylee Gómez FLEET TECHNICIAN [address] [place] [address] PCP - General Nurse Practitioner 02/05/24 Ajay Hart MD [address] [place] [address] [email or web address] Historical LMR Provider 04/13/17 Candida Bangura CNP [address] [place] [address] [email or web address] Historical LMR Provider 04/13/17 Tamar Remy [place] [address] Historical LMR Provider 04/13/17 Garrett Rainey MD [email or web address] Historical LMR Provider 04/13/17 07/01/21 Timo Traylor MD [address] [place] [address] Historical LMR Provider 04/13/17 Timo Moyer DO 4 [facility] Orthoped[facility] Sports [facility] [place] [address] Historical LMR Provider 04/13/17 07/01/21 Willam Sullivan MD [address] [address] Historical LMR Provider 04/13/17 Michelle Woodward PA-C 4 [facility] [place] [address] Historical LMR Provider 04/13/17 07/01/21 Humza Barker CNP [address] [address] Historical LMR Provider 04/13/17 07/01/21 Crystal Kirk MD 4 [facility] Orthopedics [facility] Sports [facility], [place] [address] Historical LMR Provider 04/13/17 documented as of this encounter Additional Source Comments The information contained in this document represents components of the legal health record. It is not the complete legal health record.[facility]
--- OUTSIDE RECORDS SUMMARY | 2025-04-20 06:17 | XMS_ITS | Encounter Summary ---
Author Organization [employer] Address [address] [place] [address] Care Team Providers Care Sleever Name Role Phone Kylee Gómez Primary Care Provider [phone] Gladys Foster Unavailable Unavailable Encounter Details Date Type Department Care Team (Late st Contact Info) Description 04/20/2024 Orders Only [facility] [address] [place] [address] Kylee Gómez FNP [address] [place] [address] Social History Tobacco Use Types Packs/Day Years [...] Description 05/14/2025 9:40 AM EST Office Visit [facility] MEDICAL [address] [place] [address] Kylee Gómez FNP [address] [place] [address] 07/26/2025 10:10 AM EST Office Visit [facility] DENTAL [address] [place] [address] Jazmine Perez documented as of this encounter Procedures Procedure Name Priority Date/Time Associated Diagnosis Comments PATHOLOGY REPORT (HISTOPATHOLOGY) Routine 04/16/2024 1:38 PM EDT documented in this encounter Results * Pathology Report (Histopathology) (04/16/2024 1:38 PM EDT) Tissue Kylee JEFF LAB PATHOLOGY ORDERABLES Final Result documented in this encounter Visit Diagnoses Not on filedocumented in this encounter Care Teams Sleever Relationship Specialty Start Date End Date Kylee Gómez FNP [address] [facility] [place] [address] PCP - General Family Medicine 07/05/22 Gladys Foster Health Navigator 04/27/24 documented as of this encounter
--- OUTSIDE RECORDS SUMMARY | 2025-04-20 06:17 | XMS_ITS | Encounter Summary ---
Author Organization [facility] Address [address] [place] [address] [place] [address] Phone Care Team Providers Care Spring Assembler Name Role Phone Ajay Hart MD Unavailable [phone] Candida Bangura THERAPY COORDINATOR Unavailable [phone] Willam Sullivan MD Unavailable [phone] Kylee Gómez [facility] Primary Care Prov ider Reason for Referral * MRI/CAT Scan - Closed Specialty Diagnoses / Procedures Referred By Mauricio t Referred To Contact Radiology Diagnoses Degenerative disc disease, cervical Procedures MRI Cervical Spine Francia Ko NP [address] [place] [address] Phone: tel: fax: [email or web address]:[email or web address] Referral ID Status Reason Start Date Expiration Date Visits Re quested Visits Authorized [id number] Closed 10/09/2024 10/09/2025 1 1 Encounter Details Date Type Department Care Team (Latest Contact Info) Description 10/06/2024 Transcribe Orders Virtual Department [address] [place] [address] Francia Ko NP [address] [place] [address] [email or web address] Degenerative disc disease, cervical (Primary Dx) Social History Tobacco Use Types [...] Upcoming Encounters Date Type Department Care Team ([facility] st Contact Info) Description 04/22/2025 11:00 AM EDT Nurse Only [facility], Allergy and Critical Care Medicine [address] [place] [address] Ajay Hart MD [address] [place] [phone] 04/28/2025 11:00 AM EST Nurse Only [facility]ergy [facility] Critical [facility] Medicine [address] [place] [address] Ajay Hart MD [address] [place] [phone] [email or web address] 05/06/2025 11:00 AM EST Nurse Only [facility] Medicine [address] [place] [address] Ajay Hart MD [address] [place] [phone] [email or web address] 05/13/2025 11:00 AM EST Nurse Only [facility] [address] [place] [address] Ajay Hart MD [address] [place] [phone] [email or web address] 06/14/2025 11:00 AM EST Office Visit [facility] Critical [facility] Medicine [address] [place] [address] Ajay Hart MD [address] [place] [phone] documented as of this encounter Results * MRI CERVICAL SPINE (NEURO) FOCUS WITHOUT CONTRAST (10/21/2024 7:57 AM EDT) Anatomical Region Laterality Modality C-spine Magnetic Resonan ce 10/26/2024 8:57 AM EDT Impressions 10/26/2024 9:05 AM EDT 1. 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 Findings are most notable for progression of moderate canal narrowing at C4-C5. Narrative 10/26/2024 9:05 AM EDT MRI CERVICAL SPINE (NEURO) FOCUS WITHOUT CONTRAST Referring clinician's provided indication for this examination in Epic: Outside Radiology Order; degenerative disc disease TECHNIQUE: MRI CERVICAL SPINE (NEURO) FOCUS WITHOUT CONTRAST Multi-sequence, multi-planar MRI of the cervical spine was performed without intravenous contrast. COMPARISON: MRI CERVICAL SPINE (NEURO) FOCUS WITHOUT CONTRAST FINDINGS: CERVICAL SPINE: Alignment and Vertebrae: Normal alignment. No compression fracture. 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 Marrow: T1 hyperintense hemangioma at C7 Discs and Endplates: Normal intervertebral disc heights and signal. Spinal Cord: No spinal cord signal abnormality. Soft Tissue: Normal. No prevertebral edema. Findings by level, in the setting of congenital spinal canal narrowing: C2-C3: There is uncovertebral and facet arthropathy, resulting in mild left neural foraminal narrowing. Findings are similar to prior. C3-C4: Small central protrusion with mild to moderate canal narrowing, similar to prior MRI. There is uncovertebral and facet arthropathy, resulting in mild left neural foraminal narrowing. Foraminal narrowing secondary to uncovertebral arthropathy. C4-C5: Disc osteophyte complex with a small central protrusion resulting in moderate canal narrowing, progressed since prior MRI. There is mild bilateral foraminal narrowing secondary to uncovertebral arthropathy. C5-C6: There is a posterior disc osteophyte complex, resulting in mild spinal canal narrowing, with partial effacement of the ventral CSF space but no cord remodeling or cord signal abnormality. Findings are similar to prior. C6-C7: There is bilateral uncovertebral and facet arthropathy, resulting in mild bilateral neural foraminal narrowing. Findings are similar to prior. C7-T1: No significant spinal canal or foraminal narrowing. Procedure Note Lenny Mike MD - 10/26/2024 MRI CERVICAL SPINE (NEURO) FOCUS WITHOUT CONTRAST Referring clinician's provided indication for this examination in Epic:Outside Radiology Order; degenerative disc disease TECHNIQUE: MRI CERVICAL SPINE (NEURO) FOCUS WITHOUT CONTRAST Multi-sequence, multi-planar MRI of the cervical spine was performedwithout intravenous contrast. COMPARISON: MRI CERVICAL SPINE (NEURO) FOCUS WITHOUT [id number] FINDINGS: CERVICAL SPINE: Alignment and Vertebrae: Normal alignment. No compression fracture. Thereis mild diffuse narrowing of the upper cervical spine secondary tocongenital short pedicles. Marrow: T1 hyperintense hemangioma at C7 Discs and Endplates: Normal intervertebral disc heights and signal. Spinal Cord: No spinal cord signal abnormality. Soft Tissue: Normal. No prevertebral edema. Findings by level, in the setting of congenital spinal canal narrowing: C2-C3: There is uncovertebral and facet arthropathy, resulting in mildleft neural foraminal narrowing. Findings are similar to prior. C3-C4: Small central protrusion with mild to moderate canal narrowing,similar to prior MRI. There is uncovertebral and facet arthropathy,resulting in mild left neural foraminal narrowing. Foraminal narrowing secondary to uncovertebral arthropathy. C4-C5: Disc osteophyte complex with a small central protrusion resultingin moderate canal narrowing, progressed since prior MRI. There is mildbilateral foraminal narrowing secondary to uncovertebral arthropathy. C5-C6: There is a posterior disc osteophyte complex, resulting in mildspinal canal narrowing, with partial effacement of the ventral CSF spacebut no cord remodeling or cord signal abnormality. Findings are similar to prior. C6-C7: There is bilateral uncovertebral and facet arthropathy, resultingin mild bilateral neural foraminal narrowing. Findings are similar to prior. C7-T1: No significant spinal canal or foraminal narrowing. IMPRESSION: 1. Mild to moderate multilevel cervical spondylosis in the setting ofcongenital spinal canal narrowing. Findings are most notable forprogression of moderate canal narrowing at C4-C5. Francia Ko PADDING MACHINE OPERATOR IMG MR XSPECIALTY Final Re sult documented in this encounter Visit Diagnoses Diagnosis Degenerative disc disease, cervical- Primary Degenerative disc disease, cervical documented in this encounter Care Teams Spring Assembler Relationship Specialty Start Date End Date Kylee Gómez CNP [address] [place] [address] PCP - General Nurse Practitioner 02/05/24 Ajay Hart MD [address] [place] [address] [email or web address] Historical LMR Provider 04/13/17 Candida Bangura CNP [address] [place] [address] [email or web address] Historical LMR Provider 04/13/17 Willam Sullivan MD [address] [place] [address], [address] [place] [address] [email or web address] Historical LMR Provider 04/13/17 documented as of this encounter Additional Source Comments The information contained in this document represents components of the legal health record. It is not the complete legal health record.[facility]
--- OUTSIDE RECORDS SUMMARY | 2025-04-20 06:17 | XMS_ITS | Encounter Summary ---
Author Organization [facility] Address [address] [place] [address] [place] [address] Phone Care Team Providers Care Party Plan Sales Consultant Name Role Phone Ajay Hart MD Unavailable [phone] Candida Bangura SPRING CLIPPER Unavailable [phone] Candida Bangura SPRING CLIPPER Primary Care Provider + Tamar Remy Unavailable [phone] Garrett Schaefer MD Unavailable [email or web address] Timo Traylor MD Unavailable [phone] Timo Moyer DO Unavailable [phone] Willam Sullivan MD Unavailable [phone] Michelle Woodward PA-C Unavailable [phone] Humza Barker SPRING CLIPPER Unavailable [phone] Crystal Kirk MD Unavailable [phone] Kg Bazan HORSESHOER Primary Care Provider Eda Gutierrez HORSESHOER Primary Care Provider Esha Hazel PA Primary Care Provider [phone] Kylee Gómez SPRING CLIPPER Primary Care Prov ider Kylee Gómez SPRING CLIPPER Primary Care Prov ider Encounter Details Date Type Department Care Team ([facility] Contact Info) Description 08/13/2017 Procedure Pass OR Admitting Dept - Virtual Department [address] [place] [address] Social History Tobacco Use Types Packs/Day Years [...] Upcoming Encounters Date Type Department Care Team ([facility] Contact Info) Description 04/22/2025 11:00 AM EDT Nurse Only [facility], Allergy and Critical Care Medicine 10 [place] [address] Ajay Hart MD [address] [place] [phone] [email or web address] 04/28/2025 11:00 AM EST Nurse Only [facility] Medicine [address] [place] [address] Ajay Hart MD [address] [place] [address] 05/06/2025 11:00 AM EST Nurse Only [facility] [address] [place] [address] Ajay Hart MD [address] [place] [phone] [email or web address] 05/13/2025 11:00 AM EST Nurse Only [facility] [address] [place] [address] Ajay Hart MD [address] [place] [phone] [email or web address] 06/14/2025 11:00 AM EST Office Visit [facility] All[facility] Critical [facility] Medicine 10 [place] [address] Ajay Hart MD [address] [address] [email or web address] documented as of this encounter Visit Diagnoses Not on filedocumented in this encounter Additional Health Concerns Infection Onset Date Last Indicated Resolved Time CoV-Exposed Comment:Positive COVID-19 07/26/2024 07/26/2024 07/27/2024 12: 42 AM EST CoV-Risk 07/26/2024 07/26/2024 07/27/2024 12:4 2 AM EST COVID-19 07/26/2024 07/26/2024 08/16/2024 1:21 AM EST documented as of this encounter Care Teams Party Plan Sales Consultant Relationship Specialty Start Date End Date Candida Bangura CNP [address] [place] [address] [email or web address] PCP - General 04/09/17 01/04/20 Kg Bazan NP [address] [place] [address] [email or web address] PCP - General Family Medicine 01/05/20 03/15/21 Eda Gutierrez NP [address] [place] [address] PCP - General Family Medicine 03/16/21 08/17/22 Esha Hazel PA [address] [place] [address] PCP - General Physician Aircraft Engine Dismantler 08/18/22 12/05/22 Kylee Gómez CNP [address] [place] [address] PCP - General Nurse Practitioner 12/06/22 02/04/24 Kylee Gómez CNP [address] [place] [address] PCP - General Nurse Practitioner 02/05/24 Ajay Hart MD [address] [place] [phone] [email or web address] Historical LMR Provider 04/13/17 Candida Bangura CNP [address] [place] [address] [email or web address] Historical LMR Provider 04/13/17 Tamar Remy PA [address] [place] [address] Historical LMR Provider 04/13/17 2 Garrett Schaefer MD [email or web address] Historical LMR Provider 04/13/17 07/01/21 Timo Traylor MD [address] [place] [address] Historical LMR Provider 04/13/17 Timo Moyer DO [address] [place] [address] Orthopedics & Sports Medicine, [place] [address] [email or web address] Historical LMR Provider 04/13/17 07/01/21 Willam Sullivan MD [address] [address] Historical LMR Provider 04/13/17 Michelle Woodward PA-C [address] [facility]opedics [facility] Sports Medicine, [place] [address] Historical LMR Provider 04/13/17 07/01/21 Humza Barker CNP [address] [address] Historical LMR Provider 04/13/17 07/01/21 Crystal Kirk MD 4 [facility]ics [facility], [facility] [place] [address] Historical LMR Provider 04/13/17 documented as of this encounter Additional Source Comments The information contained in this document represents components of the legal health record. It is not the complete legal health record.[facility]
--- OUTSIDE RECORDS SUMMARY | 2025-04-20 06:17 | XMS_ITS | Encounter Summary ---
Author Organization [facility] Address [address] [place] [address] [place] [address] Phone Care Team Providers Care Compressed Yeast Supervisor Name Role Phone Ajay Hart MD Unavailable [phone] Candida Bangura [facility] Unavailable [phone] Willam Sullivan MD Unavailable Kylee Gómez [facility] Primary Care Prov ider Kylee Gómez [facility] Primary Care Prov ider Reason for Referral * MRI/CAT Scan - Closed Specialty Diagnoses / Procedures Referred By Mauricio cary Referred To Contact Radiology Diagnoses Numbness Weakness Procedures MRI Cervical Spine CHG MRI, CERV SPINE CHG MRI, CERV SPINE CONTRAST CHG MRI, CERV SPINE COMBO Edilson Box MD [address] [place] [address], [address] [place] [address] Phone: tel: fax: [email or web address] Referral ID Status Reason Start Date Expiration Date Visits Re quested Visits Authorized [id number] Closed 05/29/2023 08/27/2023 1 1 Encounter Details Date Type Department Care Team (Latest Contact Info) Description 05/29/2023 Transcribe Orders Virtual Department [address] [place] [phone] Edilson Box MD [address] [place] [address], [address] [place] [address] [email or web address] Numbness (Primary Dx); Weakness Social History Tobacco Use Types Packs/Day Years [...] Pulmonary, Allergy and Critical Care Medicine 10 [facility] [place] [address] Ajay Hart MD [address] [place] [address] [address] [place] [address] [email or web address] 04/28/2025 11:00 AM EST Nurse Only [facility] Critical [facility] Medicine 10 [place] [address] Ajay Hart MD [address] [place] [phone] [email or web address] 05/06/2025 11:00 AM EST Nurse Only [facility] Medicine 10 [place] [address] Ajay Hart MD [address] [place] [phone] [email or web address] 05/13/2025 11:00 AM EST Nurse Only [facility]ergy [facility] Critical [facility] Medicine 10 [place] [address] Ajay Hart MD [address] [place] [address] [email or web address] 06/14/2025 11:00 AM EST Office Visit [facility] All[facility] Critical [facility] Medicine [address] [place] [address] Ajay Hart MD [address] [place] [address] [email or web address] documented as of this encounter Results * MRI CERVICAL SPINE (NEURO) FOCUS WITHOUT CONTRAST (07/18/2023 2:15 PM EST) Anatomical Region Laterality Modality C-spine Magnetic Resonan ce 07/21/2023 6:19 AM EST Impressions 07/21/2023 8:31 AM EST Cervical spine degenerative changes as described, most notable at C3-C4 where there is worsened moderate spinal canal stenosis. No evidence of high-grade foraminal stenosis. Narrative 07/21/2023 8:31 AM EST MRI CERVICAL SPINE (NEURO) FOCUS WITHOUT CONTRAST Referring clinician's provided indication for this examination in [facility]: Outside Radiology Order; NUMBNESS TECHNIQUE: MRI CERVICAL SPINE (NEURO) FOCUS WITHOUT CONTRAST Multi-sequence, multi-planar MRI of the cervical spine was performed without intravenous contrast. COMPARISON: Cervical spine MRI 08/24/2018 FINDINGS: CERVICAL SPINE: Alignment and Vertebrae: Normal alignment. No compression fracture. Marrow: Benign C7 vertebral hemangioma. No suspicious focal osseous lesion. Discs and Endplates: Normal intervertebral disc heights and signal. Spinal Cord: No spinal cord compression or signal abnormality. Soft Tissue: Normal. No prevertebral edema. Findings by level (unless otherwise stated, findings are similar to prior): C2-C3: Left uncovertebral hypertrophy. Mild left foraminal stenosis. No significant spinal canal stenosis. C3-C4: Posterior disc osteophyte complex, slightly worsened since prior. Mild left foraminal stenosis. Moderate spinal canal stenosis, worsened since prior. C4-C5: Posterior disc osteophyte complex. Mild left foraminal stenosis. Mild to moderate spinal canal stenosis. C5-C6: Posterior disc osteophyte complex. Mild indentation of the ventral cord, increased since prior. Mild spinal canal stenosis, new since prior. No significant foraminal stenosis. C6-C7: Normal. No spinal or foraminal stenosis. C7-T1: Normal. No spinal or foraminal stenosis. Procedure Note Adrian Gutierrez MD - 07/21/2023 MRI CERVICAL SPINE (NEURO) FOCUS WITHOUT CONTRAST Referring clinician's provided indication for this examination in [facility]:Outside Radiology Order; NUMBNESS TECHNIQUE: MRI CERVICAL SPINE (NEURO) FOCUS WITHOUT CONTRAST Multi-sequence, multi-planar MRI of the cervical spine was performedwithout intravenous contrast. COMPARISON: Cervical spine MRI 08/24/2018 FINDINGS: CERVICAL SPINE: Alignment and Vertebrae: Normal alignment. No compression fracture. Marrow: Benign C7 vertebral hemangioma. No suspicious focal osseouslesion. Discs and Endplates: Normal intervertebral disc heights and signal. Spinal Cord: No spinal cord compression or signal abnormality. Soft Tissue: Normal. No prevertebral edema. Findings by level (unless otherwise stated, findings are similar toprior): C2-C3: Left uncovertebral hypertrophy. Mild left foraminal stenosis. Nosignificant spinal canal stenosis. C3-C4: Posterior disc osteophyte complex, slightly worsened since prior.Mild left foraminal stenosis. Moderate spinal canal stenosis, worsenedsince prior. C4-C5: Posterior disc osteophyte complex. Mild left foraminal stenosis.Mild to moderate spinal canal stenosis. C5-C6: Posterior disc osteophyte complex. Mild indentation of the ventralcord, increased since prior. Mild spinal canal stenosis, new since prior.No significant foraminal stenosis. C6-C7: Normal. No spinal or foraminal stenosis. C7-T1: Normal. No spinal or foraminal stenosis. IMPRESSION: Cervical spine degenerative changes as described, most notable at C3-U2qyger there is worsened moderate spinal canal stenosis. No evidence ofhigh-grade foraminal stenosis. Edilson Box MD IMG MR XSPECIALTY Final Resu lt documented in this encounter Visit Diagnoses Diagnosis Numbness- Primary Disturbance of skin sensation Weakness Other malaise and fatigue Numbness Disturbance of skin sensation Weakness Other malaise and fatigue documented in this encounter Additional Health Concerns Infection Onset Date Last Indicated Resolved Time CoV-Exposed Comment:Positive COVID-19 07/26/2024 07/26/2024 07/27/2024 12: 42 AM EST CoV-Risk 07/26/2024 07/26/2024 07/27/2024 12:4 2 AM EST COVID-19 07/26/2024 07/26/2024 08/16/2024 1:21 AM EST documented as of this encounter Care Teams Compressed Yeast Supervisor Relationship Specialty Start Date End Date Kylee Gómez CNP [address] [place] [address] PCP - General Nurse Practitioner 12/06/22 02/04/24 Kylee Gómez CNP [address] [place] [address] PCP - General Nurse Practitioner 02/05/24 Ajay Hart MD [address] [place] [phone] [email or web address] Historical LMR Provider 04/13/17 Candida Bangura CNP [address] [place] [address] [email or web address] Historical LMR Provider 04/13/17 Willam Sullivan MD [address] [place] [address] [email or web address] Historical LMR Provider 04/13/17 documented as of this encounter Additional Source Comments The information contained in this document represents components of the legal health record. It is not the complete legal health record.[facility]
--- OUTSIDE RECORDS SUMMARY | 2025-04-20 06:17 | XMS_ITS | Clinical Summary ---
Author Organization [facility] Address [address] [place] [address] [place] [address] Phone Care Team Providers Care Painter Shipyard Name Role Phone Ajay Hart MD Unavailable [phone] Candida Bangura ADMINISTRATIVE LIBRARY ASSISTANT Unavailable [phone] Willam Sullivan MD Unavailable [phone] Kylee Gómez [facility] Primary Care Prov ider Allergies Active Allergy Reactions Criticality Noted Date Comments Bee Pollen Unknown 07/04/2022 Cephalexin Unknown 07/06/2024 Stomach pain Codeine 02/27/2017 Swelling of mouth Fluticasone 04/01/2018 Due to smell Morphine Nausea and/or Vomiting 12/18/2021 Oxycodone Hcl GI Upset 02/27/2017 Perfume 07/24/2019 All perfumes Silver 12/15/2024 From tagaderm Sumatriptan 07/04/2022 Other reaction(s): dizziness Medications diphenhydrAMINE (BENADRYL) 25 mg capsule Take 25 mg by mouth every 6 (six) hours as needed. Active topiramate (TOPAMAX) 25 MG capsule Take 50 mg by mouth nightly at bedtime. Active assist device for inhaler Mariama 1 each by See Administration Instructions route as needed. 1 Device 1 04/08/20 19 Active acetaminophen (TYLENOL) 500 mg/15 mL oral solution Take by mouth. Activ e cyclobenzaprine (FLEXERIL) 10 MG tablet Take 1 tablet (10 mg total) by mouth 3 (three) times a day as needed. 21 tablet 12/19/19 22 Active EPINEPHrine (EPIPEN) 0.3 mg/0.3 mL auto-injector Inject 0.3 mL (0.3 mg total) under the skin once as needed. 2 each 3 10/06/19 23 Active nebulizer and compressor DeviIndications: Moderate persistent asthma without complication 1 filter/month 2 disposable neb kits/month 1 permanent neb kit/6 months Every six hours PRN for wheezing/shortness of breath 1 each 02/28/20 23 Active hydrOXYzine (ATARAX) 25 MG tablet Take 25 mg by mouth nightly at bedtime as needed. 12/18/19 24 Active ALTAVERA, 28, 0.15-0.03 mg per tablet 12/31/19 24 Active amitriptyline (ELAVIL) 10 MG tablet Take 10 mg by mouth nightly at bedtime as needed. 02/14/20 24 Active pregabalin (LYRICA) 25 MG capsule TAKE 1 CAPSULE (25 MG) BY MOUTH 2 TIMES DAILY. Active albuterol 2.5 mg /3 mL (0.083 %) nebulizer solutionIndicati ons:Moderate persistent asthma without complication Take 3 mL (2.5 mg total) by nebulization every 6 (six) hours as needed for wheezing or shortness of breath/dyspnea. 180 mL 2 10/02/19 25 Active naproxen (EC NAPROSYN) 500 MG EC tablet Take 500 mg by mouth. 09/02/19 25 026 Active albuterol (VENTOLIN HFA) 90 mcg/actuation inhaler Inhale 2 puffs into the lungs every 4 (four) hours as needed for wheezing. 18 g 5 12/16/19 25 Active ketotifen (ZADITOR) 0.025 % (0.035 %) ophthalmic solution Place 1 drop into each eye 2 (two) times a day. 5 mL 12/16/19 25 Active montelukast (SINGULAIR) 10 mg tablet Take 1 tablet (10 mg total) by mouth nightly at bedtime. 30 tablet 11 12/16/19 25 Active fluticasone furoate-vilanter oL (BREO ELLIPTA) 200-25 mcg/dose inhaler Inhale 1 puff into the lungs daily. 60 each 11 12/16/19 25 Active fexofenadine (JAKE) 180 MG tablet Take 1 tablet (180 mg total) by mouth 2 (two) times a day. 60 tablet 12/16/19 25 Active budesonide (RHINOCORT AQUA) 32 mcg/actuation nasal spray 1 spray by Nasal route daily. 25.29 mL 3 12/18/19 25 Active olopatadine (PATANOL) 0.1 % ophthalmic solution Place 1 drop into each eye 2 (two) times a day. 5 mL 12 01/15/20 25 Active Active Problems Problem Noted Date Diagnosed Date Patellofemoral pain syndrome of left knee 2021 Chronic headache 03/20/2018 Assessment & Plan (07/15/2018 1:33 PM EST): Awaiting neurology follow-up. No evidence of chronic sinusitis on recent brain MRI. Suspect some form of tension type headache given description. Assessment & Plan (03/20/2018 2:47 PM EDT): Encouraged her to recheck back to her primary care and ENT for further suggestions regarding evaluation and treatment. S/P lumbar discectomy 02/25/2018 Displacement of lumbar intervertebral disc 01/08 Lumbar disc herniation 01/07/2018 Overview (01/07/2018): L5-S1 HNP (herniated nucleus pulposus), lumbar 018 Mild persistent asthma without complication 11/23 Assessment & Plan (12/15/2024 9:03 AM EDT): Mild persistent asthma, mainly allergic with occasional triggers generally managed with ICS/LAMA and albuterol. Check asthma phenotype including IgE and eosinophil counts. Refill inhalers. Assessment & Plan (04/04/2023 9:05 AM EDT): Persistent asthma generally well controlled with little albuterol use. Given seasonal changes, will resume montelukast and should continue through spring. If worsening symptoms would add back ICS/LABA. Repeat PFTs with FeNO testing in the spring. Assessment & Plan (07/03/2021 9:00 AM EST): Mild intermittent versus persistent asthma. Currently off all maintenance therapy though with recent exacerbation. Multiple allergic triggers including mold in the home concerning for poorly controlled asthma. For start with resuming Glucotrol and inhibitor. Poor compliance with twice daily Accolate, thus will retry montelukast 10 mg nightly. Patient tolerated well in the past. If inadequate control, would resume low-dose ICS/LAMA. Assessment & Plan (02/11/2020 12:37 PM EDT): Despite no recent use of inhaled corticosteroid, asthma control remains adequate clinically and on exam. Nonetheless, given history, concerned regarding worsening asthma control with increasing fall pollen exposure. Recommend resume combination ICS/LABA therapy. Refill sent for high-dose Wixela. If stable after 3 months, can stepdown therapy. Continue albuterol if needed. Assessment & Plan (05/12/2019 10:25 AM EST): Exacerbation has resolved, symptoms are in good control on current regimen. Her spirometry is reassuring. Unfortunately, it is difficult to know which inhalers will be covered by her insurance. Will trial generic Advair. She lists an allergy to fluticasone, but to the smell, so I do not believe the inhaled powder version should be a problem. Given an additional sample of Dulera in case the Advair is not covered. Continue Singulair and immunotherapy through her ENT. Assessment & Plan (04/08/2019 9:40 AM EDT): Asthma exacerbation patient off inhaled corticosteroids. With markedly elevated exhaled nitric oxide level. Prednisone 60 mg for 5 days, continue for total 10 days if fails to achieve initial asthma control. Samples x28 days of high-dose Brio Ellipta provided to use 1 puff once daily. Once completed, can start Dulera samples, 2 puffs twice daily with spacer, 30- day supply provided. Will provide spacer when sample available or would obtain during PFTs which have been ordered for approximately 1 month from now. If not completed, will perform office pre-and post and FeNO at follow-up. Assessment & Plan (07/15/2018 1:32 PM EST): Moderate asthma currently well controlled. Recommend resume inhaled corticosteroids. Samples of Symbicort provided for 2 months. Use 1 puff twice daily with a spacer. Additionally, prescription provided for high-dose Flovent MDI. When Symbicort samples complete, can call for new prescription for Breo or if asthma remains well controlled, can use Flovent 1 puff twice daily inhalation as well as intranasally Assessment & Plan (03/20/2018 2:40 PM EDT): Moderate persistent asthma, currently well controlled despite increase allergies and no inhaled steroids for the last 2 weeks. Encouraged to remain compliant with inhaled corticosteroids. Given samples of Dulera 50 mcg to use 2 puffs twice daily with a spacer. 6 weeks worth of medication provided. If unable still to purchase prescribed inhaler, encouraged her to call the office to obtain additional samples. Continue montelukast. Pro Air as needed. Will prescribe nebulizer with albuterol solution to use in case of emergencies. Patient warned however not to use in place of inhaled steroids. Assessment & Plan (12/16/2017 12:43 PM EDT): Recent clinical worsening with worsening pollens but stable on spirometry. Unable to obtain exhaled nitric oxide testing today. Resume combination steroid bronchodilator with high-dose Brio Ellipta. At follow-up, if stable, step down dose. Continue Singulair and albuterol as needed. Remains on weekly allergy immunotherapy. With resumption of Singulair, hopefully will improve immunotherapy tolerance to permit progression towards maintenance. Seasonal allergies 12/16/2017 Assessment & Plan (12/15/2024 9:05 AM EDT): Severe seasonal and perennial allergic rhinitis. Patient also mentions may have polyps. Intolerant of spacing injections more than every 2 weeks due to worsening sinus complaints. Wonder if she may be a candidate for Dupixent or potentially Xolair with her asthma. For now, continue SCIT every 1 to 2 weeks in addition to resuming Nasonex and montelukast. Recommend trial of high-dose nonsedating antihistamine Jake twice daily. Order eyedrops as well hopefully covered by insurance given patient's limited finances. Checking labs as above. Past notes from ENT. Assessment & Plan (04/04/2023 9:05 AM EDT): Chronic perennial and seasonal allergic rhinitis, slight worsening due to recent exposures and medication noncompliance. We will switch from Nasacort to Nasonex as covered by insurance. She can refill Azelastine. Sample of nasal gel provided as well. Continue allergy immunotherapy with goal to reach maintenance of 0.5 mL every 4 weeks. Unfortunately, depending on tolerance she may be a long-term requires every 2 or 3 weeks at most. Will monitor for local reactions. Assessment & Plan (07/03/2021 9:01 AM EST): Worsening symptoms of rhinosinusitis with postnasal drip. Continued to nasal sprays with nasal steroids and Azelastine. Nasal saline mist provided for trial Recommend resume montelukast as above. Patient to call if no improvement. Continue immunotherapy. Will need to back up dose 1 level today given missing over 2 weeks of therapies. Assessment & Plan (02/11/2020 12:39 PM EDT): History of recurrent rhinosinusitis with more recent severe persistent nasal congestion. Patient off intranasal steroids. Has received immunotherapy for over 5 years, not reaching maintenance per her report. Patient is requesting transfer of care to our office for allergy management. RECOMMENDATION: 5-day course prednisone 40 mg daily. Resume intranasal steroids. Prescription sent for flunisolide. Patient intolerant of fluticasone nasal spray secondary to smell. If unable to obtain, encourage patient to purchase [id number] version if affordable. Follow-up with ENT. Will request allergy records from ENT office, schedule repeat skin testing in our office in approximately 6 weeks as long as rhinitis and asthma remains well controlled. Based on findings and review of records, anticipate continuing allergy immunotherapy. Assessment & Plan (04/08/2019 9:34 AM EDT): Severe nasal congestion on exam. Prednisone as above. Continue Rhinocort. Continue Benadryl as needed. Resume allergy immunotherapy once obtains asthma control. Assessment & Plan (07/15/2018 1:33 PM EST): Use baby nipple attached for intranasal use 1 spray each side once daily given lack of coverage for intranasal steroid sprays. Continue use of NetiPot. Encourage patient to transfer allergy injections from [place] to [facility] offices. If unable, I would be happy to assume care of the patient's allergy immunotherapy. Assessment & Plan (03/20/2018 2:37 PM EDT): Severe allergic rhinitis with recent worsening with fall pollens. Some improvement noted with recent prednisone course. Patient not on any intranasal steroids. Given sample of Asmanex MDI 100 mcg. Recommend use a silicone baby nipple with the tip removed as a nasal adapter for the MDI, 1 spray each nostril once or twice daily. Continue montelukast. Inflammation of left sacroiliac joint 06/18/2017 Muscle pain 06/18/2017 Hypertrophy of breast Encounters Date Type Department Care Team Description 04/15/2025 11:00 AM EDT Nurse Only [facility] [address] [place] [address] Ajay Hart MD Seasonal allergies (Primary Dx) 04/08/2025 11:00 AM EDT Nurse Only [facility] [address] [place] [address] Ajay Hart MD Seasonal allergies (Primary Dx) 03/22/2025 11:00 AM EDT Nurse Only [facility] [address] [place] [address] Ajay Hart MD Seasonal allergies (Primary Dx) 03/18/2025 11:30 AM EDT Nurse Only [facility] [address] [place] [address] Ajay Hart MD Seasonal allergies (Primary Dx) 03/08/2025 10:30 AM EDT Nurse Only [facility] [address] [place] [address] Ajay Hart MD Seasonal allergies (Primary Dx) 03/03/2025 Telephone [facility] [address] [place] [address] Rico Kylee Luc, ADMINISTRATIVE LIBRARY ASSISTANT Immunotherapy 02/25/2025 11:00 AM EDT Nurse Only [facility] [address] [place] [address] Ajay Hart MD Seasonal allergies (Primary Dx) 02/18/2025 1:00 PM EDT Nurse Only [facility] [address] [place] [address] Ajay Hart MD Seasonal allergies (Primary Dx) 02/09/2025 Refill [facility] 10 [facility] [place] [address] Ajay Hart MD Medication Refill 02/04/2025 11:00 AM EDT Nurse Only [facility] [address] [place] [address] Ajay Hart MD Seasonal allergies (Primary Dx) 01/28/2025 10:30 AM EDT Nurse Only [facility] [address] [place] [address] Ajay Hart MD Seasonal allergies (Primary Dx) from Last 3 Months Family History Medical History Relation Comments Breast cancer Paternal Aunt Skin cancer Paternal Grandmother Relation Status Comments Father Alive Mother Paternal Aunt Alive Paternal Grandmother Social History Tobacco Use Types Packs/Day Years Used Date Smoking Tobacco: Never Smokeless Tobacco: Never Tobacco Cessation:Counseling Given: Not Answered Alcohol Use Standard Drinks/Week Comments No 0 [...] Orientation Straight 07/01/2017 9: 38 AM EST Last Filed Vital Signs Vital Sign Reading Time Taken Comments Blood Pressure 138/80 12/22/2024 1:01 PM EDT Pulse 68 12/22/2024 1:01 PM EDT Temperature 35.9 C (96.6 F) 12/22/2024 1:01 PM EDT Respiratory Rate 18 12/22/2024 1:01 PM EDT Oxygen Saturation 100% 12/22/2024 1:01 PM EDT Inhaled Oxygen Concentration - - Weight 86 kg (189 lb 9.6 oz) 12/15/2024 8:29 AM EDT Height 157.5 cm (5' 2 ) 12/15/2024 8:29 AM EDT Body Mass Index 34.68 12/15/2024 8:29 AM EDT Plan of Treatment Upcoming Encounters Date Type Department Care Team ([facility] st Contact Info) Description 04/22/2025 11:00 AM EDT Nurse Only [facility] [address] [place] [address] Ajay Hart MD [address] [place] [address] 04/28/2025 11:00 AM EST Nurse Only [facility] [address] [place] [address] Ajay Hart MD [address] [place] [phone] [email or web address] 05/06/2025 11:00 AM EST Nurse Only [facility] [address] [place] [address] Ajay Hart MD [address] [place] [phone] [email or web address] 05/13/2025 11:00 AM EST Nurse Only [facility] [address] [place] [address] Ajay Hart MD [address] [place] [phone] [email or web address] 06/14/2025 11:00 AM EST Office Visit [facility] [address] [place] [address] Ajay Hart MD [address] [place] [phone] [email or web address] Health Maintenance Due Date Last Done Comments DEPRESSION SCREENING 1998 HEPATITIS C SCREENING 2004 HIV ONE-TIME SCREENING (18-6 5 YEARS) 2004 PNEUMOCOCCAL VACCINES (0-49 years) (1 of 2 - PCV) 2005 PAP SMEAR 08/02/2014 08/02/2011 Adult Td,Tdap Booster 07/25/2021 07/25/2011 INFLUENZA VACCINE (#1) 2025 COVID-19 VACCINE ( - 2024-2 6 season) 2025 SCREENING FOR DIABETES 07/26/2027 07/26/2024 SMOKING STATUS SCREENING (On ce After 26 Yrs) Completed 12/22/2024 HEPATITIS A VACCINES Aged Out No long er eligible based on patient's age to complete this topic HIB VACCINES Aged Out No longer eligi ble based on patient's age to complete this topic MENINGOCOCCAL VACCINES (ACWY) Aged Out No longer eligible based on patient's age to complete this topic MENINGOCOCCAL VACCINES (B) Aged Out N o longer eligible based on patient's age to complete this topic Medical Devices Implanted Type Area Aircraft Mechanic Structures Device Identifier Shelf Expiration Date Model / Serial / Lot Linear St Neurostimulator Lead Implanted: 025 (Quantity not on file) Lead Back [employer] [id number]-[id number] / [id number] / Linear St Neurostimulator Lead Implanted: 025 (Quantity not on file) Lead Back [employer] / [id number] / Filler Bone Sm Graft Demineralized Orthoblend Container 10ml Volume - [id number] Implanted:Qty: 1 on 08/13/2017 by Ray Reeves MD at [facility] STANDARD Left: Sacrum [employer] 03/20/2019 [id number] / [id number] / Description:ORTHOBLEND 10CC Wavewriter Alpha Neuro Stimulator Implanted: 025 (Quantity not on file) Stimulator Back [employer] [id number] / / [id number] Description:MRI Conditional- please see baby stroller rental clerk guidelines for conditions Device Threaded 12x50 [place] Si Fusion System Strl Spine Code 56 - [id number] Implanted:Qty: 1 on 08/13/2017 by Ray Reeves MD at [facility] Left: Sacrum [employer] 06/05/2025 [id number] / / [id number] Device Threaded 12x40 [place] Si Fusion System Strl Spine Code 56 - [id number] Implanted:Qty: 1 on 08/13/2017 by Ray Reeves MD at [facility] Sacrum [employer] 02/17/2024 [id number] / / [id number] Insurance [employer] [address] [place] [address] [place] [address] [employer] [facility] [address] [place] [address] [place] [address] [place] [address] [place] [address] C[employer] [facility] [facility] C3 ACO Advance Directives For more information, please contact: [phone] (9AM - 5PM [facility], Saturday-Saturday) Documents on File Type Date Recorded 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 Expl anation Healthcare Proxy 08/14/2017 11:35 AM * Full Code (Presumed) (Latest Code Status on File) Date Activated Date Inactivated Comments 01/07/2018 5:15 PM 01/08/2018 2:24 PM Care Teams Painter Shipyard Relationship Specialty Start Date End Date Kylee Gómez CNP [address] [place] [address] PCP - General Nurse Practitioner 02/05/24 Ajay Hart MD [address] [place] [address] Historical LMR Provider 04/13/17 Candida Bangura CNP [address] [place] [address] [email or web address] Historical LMR Provider 04/13/17 Willam Sullivan MD [address] [place] [address] [email or web address] Historical LMR Provider 04/13/17 Additional Source Comments The information contained in this document represents components of the legal health record. It is not the complete legal health record.[facility]
--- OUTSIDE RECORDS SUMMARY | 2025-04-20 06:18 | XMS_ITS | Encounter Summary ---
Author Organization [facility] Address [address] [place] [address] [place] [address] Phone Care Team Providers Care Laser Beam Cutter Name Role Phone Ajay Hart MD Unavailable [phone] Candida Bangura CONCRETE VAULT MAKER Unavailable Willam Sullivan MD Unavailable Eda Gutierrez GARBAGE TRUCK DRIVER Primary Care Provider Esha Hazel Primary Care Provider [phone] Kylee Gómez [facility] Primary Care Prov ider Kylee Gómez [facility] Primary Care Prov ider Encounter Details Date Type Department Care Team (Late st Contact Info) Description 09/27/2021 Procedure [facility], [address] [address] Social History Tobacco Use Types Packs/Day Years [...] Pulmonary, Allergy and Critical Care Medicine [address] [place] [address] Ajay Hart MD [address] [place] [phone] [email or web address] 04/28/2025 11:00 AM EST Nurse Only [facility] [address] [place] [address] Ajay Hart MD [address] [place] [phone] [email or web address] 05/06/2025 11:00 AM EST Nurse Only [facility] [address] [place] [address] Ajay Hart MD [address] [place] [phone] [email or web address] 05/13/2025 11:00 AM EST Nurse Only [facility] [address] [place] [address] Ajay Hart MD [address] [place] [phone] [email or web address] 06/14/2025 11:00 AM EST Office Visit [facility] [address] [place] [address] Ajay Hart MD [address] [place] [phone] [email or web address] documented as of this encounter Visit Diagnoses Not on filedocumented in this encounter Additional Health Concerns Infection Onset Date Last Indicated Resolved Time CoV-Exposed Comment:Positive COVID-19 07/26/2024 07/26/2024 07/27/2024 12: 42 AM EST CoV-Risk 07/26/2024 07/26/2024 07/27/2024 12:4 2 AM EST COVID-19 07/26/2024 07/26/2024 08/16/2024 1:21 AM EST documented as of this encounter Care Teams Laser Beam Cutter Relationship Specialty Start Date End Date Eda Gutierrez NP [address] [address] PCP - General Family Medicine 03/16/21 08/17/22 Esha Hazel PA [address] [place] [address] [email or web address] PCP - General Physician Geological Manager 08/18/22 12/05/22 Kylee Gómez CNP [address] [place] [address] PCP - General Nurse Practitioner 12/06/22 02/04/24 Kylee Gómez CNP [address] [place] [address] PCP - General Nurse Practitioner 02/05/24 Ajay Hart MD [address] [place] [phone] [email or web address] Historical LMR Provider 04/13/17 Candida Bangura CNP [address] [place] [address] [email or web address] Historical LMR Provider 04/13/17 Willam Sullivan MD [address] [address] Historical LMR Provider 04/13/17 documented as of this encounter Additional Source Comments The information contained in this document represents components of the legal health record. It is not the complete legal health record.[facility]
--- OUTSIDE RECORDS SUMMARY | 2025-04-20 06:18 | XMS_ITS | Encounter Summary ---
Author Organization [facility] Address [address] [place] [address] Phone Care Team Providers Care Car Deliverer Name Role Phone Ajay Hart MD Unavailable [phone] Candida Bangura ORCHID TRANSPLANTER Unavailable [phone] Willam Sullivan MD Unavailable Kylee Gómez [facility] Primary Care Prov ider Reason for Visit * Reason Comments Medication Refill Encounter Details Date Type Department Care Team (Late st Contact Info) Description 02/09/2025 Refill CD Pulmonary, Allergy and Critical Care Medicine 10 [place] [address] Ajay Hart MD [address] [place] [address] Medication Refill Social History Tobacco Use Types Packs/Day Years [...] as of this encounter Progress Notes * dOalys Hernández - 02/10/2025 9:23 AM EDT Received Rx refill request from Pharmacy, but on med list patient listed the medication as not being taken anymore. Called patient to check; pt stated that she does not need the refill for the ketotifen (ZADITOR) 0.025 % (0.035 %) ophthalmic solution. Refused the Rx request. documented in this encounter Plan of Treatment Upcoming Encounters Date Type Department Care Team (Late st Contact Info) Description 04/22/2025 11:00 AM EDT Nurse Only [facility] Pulmonary, Allergy and Critical Care Medicine 10 [place] [address] Ajay Hart MD [address] [place] [address] 04/28/2025 11:00 AM EST Nurse Only [facility] Pulmonary, Allergy and Critical Care Medicine 10 [place] [address] Ajay Hart MD [address] [place] [address] 05/06/2025 11:00 AM EST Nurse Only [facility] Pulmonary, Allergy and Critical Care Medicine 10 [place] [address] Ajay Hart MD [address] [place] [address] 05/13/2025 11:00 AM EST Nurse Only [facility] Pulmonary, Allergy and Critical Care Medicine [address] [place] [address] Ajay Hart MD [address] [place] [address] 06/14/2025 11:00 AM EST Office Visit [facility] Pulmonary, Allergy and Critical Care Medicine [address] [place] [address] Ajay Hart MD [address] [place] [address] [email or web address] documented as of this encounter Visit Diagnoses Not on filedocumented in this encounter Care Teams Car Deliverer Relationship Specialty Start Date End Date Kylee Gómez CNP [address] [place] [address] PCP - General Nurse Practitioner 02/05/24 Ajay Hart MD [address] [place] [address] [email or web address] Historical LMR Provider 04/13/17 Candida Bangura CNP [address] [place] [address] [email or web address] Historical LMR Provider 04/13/17 Willam Sullivan MD [address] [place] [address], [address] [place] [address] [email or web address] Historical LMR Provider 04/13/17 documented as of this encounter Additional Source Comments The information contained in this document represents components of the legal health record. It is not the complete legal health record.[facility]
--- OUTSIDE RECORDS SUMMARY | 2025-04-20 06:18 | XMS_ITS | Encounter Summary ---
Author Organization [facility] Address [address] [place] [address] [place] [address] Phone Care Team Providers Care Candy Cutter Hand Name Role Phone Ajay Hart MD Unavailable [phone] Candida Bangura REPOSSESSOR Unavailable [phone] Candida Bangura REPOSSESSOR Primary Care Provider + Tamar Remy Unavailable [phone] Garrett Schaefer MD Unavailable [email or web address] Timo Traylor MD Unavailable Timo Moyer DO Unavailable [phone] Willam Sullivan MD Unavailable [phone] Michelle Woodward PA-C Unavailable [phone] Humza Barker REPOSSESSOR Unavailable [phone] Crystal Kirk MD Unavailable [phone] Kg Bazan ENVIRONMENTAL SCIENTIST Primary Care Provider Eda Gutierrez ENVIRONMENTAL SCIENTIST Primary Care Provider Esha Hazel PA Primary Care Provider [phone] Kylee Gómez REPOSSESSOR Primary Care Prov ider Kylee Gómez REPOSSESSOR Primary Care Prov ider Encounter Details Date Type Department Care Team (Late Contact Info) Description 03/20/2018 [facility]illary Orders [facility] [address] [place] [address] Tonja Carlin, VALDO [address] [place] [address] [email or web address] Arthrodesis status Social History Tobacco Use Types Packs/Day Years [...] [facility] Pulmonary, Allergy and Critical Care Medicine [address] [place] [address] Ajay Hart MD [address] [place] [address] 04/28/2025 11:00 AM EST Nurse Only [facility] Pulmonary, Allergy and Critical Care Medicine [address] [place] [address] Ajay Hart MD [address] [place] [address] [email or web address] 05/06/2025 11:00 AM EST Nurse Only [facility] Pulmonary, Allergy and Critical Care Medicine [address] [place] [address] Ajay Hart MD [address] [place] [address] 05/13/2025 11:00 AM EST Nurse Only [facility] Pulmonary, Allergy and Critical Care Medicine 10 [place] [address] Ajay Hart MD [address] [place] [address] [email or web address] 06/14/2025 11:00 AM EST Office Visit [facility] Pulmonary, Allergy and Critical Care Medicine 10 [facility] [place] [facility] [place] [address] Ajay Hart MD [address] [place] [phone] [email or web address] documented as of this encounter Results * XR PELVIS 1 VIEW (03/20/2018 2:49 PM EDT) Anatomical Region Laterality Modality Pelvis Radiographic Edita ging 03/20/2018 2:54 PM EDT Impressions 03/20/2018 2:58 PM EDT Postsurgical changes as detailed above. The left-sided L5 laminectomy is new. The upper left SI joint fusion is unchanged. No new or progressive SI joint findings are seen. S/S: Ongoing SI joint pain POS - [id number] Narrative 03/20/2018 2:58 PM EDT COMPARISON: Pelvis x-ray's November 29, 2017 FINDINGS: 2 views of the pelvis are obtained. The patient is undergone surgical fusion of the upper left SI joint with 2 fixation devices evident. The mid to lower left SI joint is unremarkable and unchanged. The right SI joint is unremarkable. The hips are unremarkable. The patient has undergone a left-sided L5 laminectomy. Procedure Note Leon Gongora MD - 03/20/2018 COMPARISON: Pelvis x-ray's November 29, 2017 FINDINGS: 2 views of the pelvis are obtained. The patient is undergone surgical fusion of the upper left SI joint with 2fixation devices evident. The mid to lower left SI joint is unremarkableand unchanged. The right SI joint is unremarkable. The hips are unremarkable. The patient has undergone a left-sided L5 laminectomy. IMPRESSION: Postsurgical changes as detailed above. The left-sided L5 laminectomy isnew. The upper left SI joint fusion is unchanged. No new or progressive SIjoint findings are seen. S/S: Ongoing SI joint pain POS - [id number] us Tonja LYLE IMG XR PELVIS Final Resul t documented in this encounter Visit Diagnoses Diagnosis Arthrodesis status Arthrodesis status documented in this encounter Additional Health Concerns Infection Onset Date Last Indicated Resolved Time CoV-Exposed Comment:Positive COVID-19 07/26/2024 07/26/2024 07/27/2024 12: 42 AM EST CoV-Risk 07/26/2024 07/26/2024 07/27/2024 12:4 2 AM EST COVID-19 07/26/2024 07/26/2024 08/16/2024 1:21 AM EST documented as of this encounter Care Teams Candy Cutter Hand Relationship Specialty Start Date End Date Candida Bangura CNP [address] [place] [address] [email or web address] PCP - General 04/09/17 01/04/20 Kg Bazan NP [address] [facility] [place] [address] [email or web address] PCP - General Family Medicine 01/05/20 03/15/21 Eda Gutierrez NP [address] [facility] [place] [address] PCP - General Family Medicine 03/16/21 08/17/22 Esha Hazel PA [address] [place] [address] [email or web address] PCP - General Physician Metal Bonding Assembler 08/18/22 12/05/22 Rico Kylee [address] [place] [address] PCP - General Nurse Practitioner 12/06/22 02/04/24 Jillian Gómezgh Luc REPOSSESSOR [address] [place] [address] PCP - General Nurse Practitioner 02/05/24 Ajay Hart MD [address] [place] [address] [email or web address] Historical LMR Provider 04/13/17 Canddia Bangura CNP [address] [place] [address] [email or web address] Historical LMR Provider 04/13/[address] [facility] [place] [address] Historical LMR Provider 04/13/17 2 Garrett Schaefer MD [email or web address] Historical LMR Provider 04/13/17 07/01/21 Timo Traylor MD [address] [place] [address] Historical LMR Provider 04/13/17 Timo Moyer DO [address] [place] [address] Orthopedics & Sports Medicine, [facility] [place] [address] [email or web address] Historical LMR Provider 04/13/17 07/01/21 Willam Sullivan MD [address] [address] Historical LMR Provider 04/13/17 Michelle Woodward PA-C [address] [facility], [place] [address] Historical LMR Provider 04/13/17 07/01/21 Humza Barker CNP [address] [address] Historical LMR Provider 04/13/17 07/01/21 Crystal Kirk MD [address] [facility], [place] [address] Historical LMR Provider 04/13/17 documented as of this encounter Additional Source Comments The information contained in this document represents components of the legal health record. It is not the complete legal health record.[facility]
--- OUTSIDE RECORDS SUMMARY | 2025-04-20 06:18 | XMS_ITS | Encounter Summary ---
Author Organization [facility] Address [address] [place] [address] [address] [place] [address] Phone Care Team Providers Care Semiconductor Wafers Saw Operator Name Role Phone Ajay Hart MD Unavailable [phone] Candida Bangura CHIEF CLINICAL OFFICER Unavailable [phone] Willam Sullivan MD Unavailable [phone] Kylee Gómez [facility] Primary Care Prov ider Reason for Visit * Reason Onset Date Comments Immunotherapy 03/03/2025 Encounter Details Date Type Department Care Team (Late st Contact Info) Description 03/03/2025 Telephone [facility] Pulmonary, Allergy and Critical Care Medicine [address] [place] [address] [place] [address] Kylee Gómez CHIEF CLINICAL OFFICER [address] [place] [address] Immunotherapy Social History Tobacco Use Types Packs/Day Years [...] as of this encounter Progress Notes * Eder Chandra - 03/03/2025 10:39 AM EDT Pt called in re: her immunotherapy appt. Declined to give detail. Please contact and advise Central Support Discotheque Dancer (Please do not reply to this user; this inbox is not monitored.) Thank you. documented in this encounter Plan of Treatment Upcoming Encounters Date Type Department Care Team ([facility] st Contact Info) Description 04/22/2025 11:00 AM EDT Nurse Only [facility] Pulmonary, Allergy and Critical Care Medicine 10 [place] [address] Ajay Hart MD [address] [place] [address] [email or web address] 04/28/2025 11:00 AM EST Nurse Only [facility] Pulmonary, Allergy and Critical Care Medicine [address] [place] [address] Ajay Hart MD [address] [place] [address] 05/06/2025 11:00 AM EST Nurse Only [facility] Pulmonary, Allergy and Critical Care Medicine [address] [place] [address] Ajay Hart MD [address] [place] [address] 05/13/2025 11:00 AM EST Nurse Only [facility] Pulmonary, Allergy and Critical Care Medicine [address] [place] [address] Ajay Hart MD [address] [place] [address] 06/14/2025 11:00 AM EST Office Visit [facility] Pulmonary, Allergy and Critical Care Medicine [address] [place] [address] Ajay Hart MD [address] [place] [address] documented as of this encounter Visit Diagnoses Not on filedocumented in this encounter Care Teams Semiconductor Wafers Saw Operator Relationship Specialty Start Date End Date Kylee Gómez CNP [address] [place] [address] PCP - General Nurse Practitioner 02/05/24 Ajay Hart MD [address] [place] [address] [email or web address] Historical LMR Provider 04/13/17 Candida Bangura CNP [address] [place] [address] [email or web address] Historical LMR Provider 04/13/17 Willam Sullivan MD [address] [place] [address] [email or web address] Historical LMR Provider 04/13/17 documented as of this encounter Additional Source Comments The information contained in this document represents components of the legal health record. It is not the complete legal health record.[facility]
--- OUTSIDE RECORDS SUMMARY | 2025-04-20 06:18 | XMS_ITS | Encounter Summary ---
Author Organization [facility] Address [address] [place] [address] [place] [address] Phone Care Team Providers Care Refinery Operator Visbreaking Name Role Phone Giovanna Hart MD Unavailable [phone] Candida Bangura DAY CARE ATTENDANT Unavailable [phone] Candida Bangura DAY CARE ATTENDANT Primary Care Provider + Tamar Remy Unavailable [phone] Garrett Schaefer MD Unavailable [email or web address] Timo Traylor MD Unavailable Timo Moyer DO Unavailable [phone] Willam Sullivan MD Unavailable [phone] Michelle Woodward PA-C Unavailable [phone] Humza Barker DAY CARE ATTENDANT Unavailable [phone] Crystal Kirk MD Unavailable [phone] Kg Bazan EXECUTIVE WELLNESS PROGRAMS DIRECTOR Primary Care Provider [phone] Eda Gutierrez EXECUTIVE WELLNESS PROGRAMS DIRECTOR Primary Care Provider Esha Hazel PA Primary Care Provider [phone] Kylee Gómez DAY CARE ATTENDANT Primary Care Prov ider Kylee Gómez DAY CARE ATTENDANT Primary Care Prov ider Reason for Referral * MRI/CAT Scan - Closed Specialty Diagnoses / Procedures Referred By Mauricio t Referred To Contact Radiology Diagnoses Arm numbness White matter disease Occipital headache Procedures MRI Cervical Spine MRI Cervical Spine Edilson Box MD Phone: tel: fax: [email or web address] Referral ID Status Reason Start Date Expiration Date Visits Re quested Visits Authorized [id number] Closed 08/21/2018 08/21/2019 1 1 Encounter Details Date Type Department Care Team ([facility] Contact Info) Description 08/21/2018 Ancillary Orders Virtual Department [address] [place] [address] Edilson Box MD [address] [place] [address], [address] [place] [address] [email or web address] Arm numbness; White matter disease; Occipital headache Social History Tobacco Use Types Packs/Day Years [...] Upcoming Encounters Date Type Department Care Team ([facility] Contact Info) Description 04/22/2025 11:00 AM EDT Nurse Only [facility] Pulmonary, Allergy and Critical Care Medicine [address] [place] [address] Goivanna Hart MD [address] [place] [address] 04/28/2025 11:00 AM EST Nurse Only [facility] Pulmonary, Allergy and Critical Care Medicine [address] [place] [address] Giovanna Hart MD [address] [place] [address] [email or web address] 05/06/2025 11:00 AM EST Nurse Only CD Pulmonary, Allergy and Critical Care Medicine [address] [place] [address] Giovanna Hart MD [address] [place] [phone] [email or web address] 05/13/2025 11:00 AM EST Nurse Only [facility] Pulmonary, Allergy and Critical Care Medicine [address] [place] [address] Giovanna Hart MD [address] [place] [address] [email or web address] 06/14/2025 11:00 AM EST Office Visit [facility] Pulmonary, Allergy and Critical Care Medicine [address] [place] [address] Giovanna Hart MD [address] [place] [address] [email or web address] documented as of this encounter Results * MRI CERVICAL SPINE (BONE) WITHOUT CONTRAST (08/24/2018 8:06 AM EST) Anatomical Region Laterality Modality C-spine Magnetic Resonan ce 08/24/2018 9:32 AM EST Impressions 08/24/2018 9:39 AM EST Central canal stenosis at C3-4 and C4-5. Left neural foraminal narrowing at C2-3 and C3-4. No discrete cord lesion or focal disc protrusion identified. POS - [id number] Narrative 08/24/2018 9:39 AM EST TECHNIQUE: Exam performed on a 1.5 Tiara high-field MRI scanner. Sagittal T1, T2 and STIR, axial T2* gradient echo and 3-D bright fluid sequences were obtained. FINDINGS: No comparison radiographs are available. The study is minimally limited due to patient motion. C2-3: No focal disc protrusion, central canal stenosis, or right neural foraminal compromise. Uncovertebral spurring causes mild left neural foraminal narrowing. C3-4: There is central canal stenosis due to combination of congenitally shortened pedicles and minimal disc bulge with the AP dimensions of the canal measuring approximately 9 mm. Uncovertebral spurring causes mild left neural foraminal narrowing. Right neural foramen is patent. C4-5: The AP dimensions of the canal are measured at approximately 9 mm due to congenitally short pedicles and minimal disc bulge. No focal disc protrusion. No advanced neural foraminal narrowing. C5-6: No focal disc protrusion, central canal stenosis, or neural foraminal compromise. C6-7: No focal disc protrusion, central canal stenosis, or neural foraminal compromise. C7-T1: No focal disc protrusion, central canal stenosis, or neural foraminal compromise. On the sagittal sequences no focal disc protrusion or central canal stenosis are demonstrated at the T1-2 or T2-3 levels. There appears to be left paramedian T2-3 spondylosis or uncovertebral spurring. No discrete cord lesion is identified. No vertebral body compression deformity or significant abnormality of marrow signal are noted. No paraspinal soft tissue mass or prevertebral soft tissue swelling. Visualized posterior fossa contents are grossly unremarkable. Procedure Note Giovanna San MD - 08/24/2018 TECHNIQUE: Exam performed on a 1.5 Tiara high-field MRI scanner. SagittalT1, T2 and STIR, axial T2* gradient echo and 3-D bright fluid sequenceswere obtained. FINDINGS: No comparison radiographs are available. The study is minimally limiteddue to patient motion. C2-3: No focal disc protrusion, central canal stenosis, or right neuralforaminal compromise. Uncovertebral spurring causes mild left neuralforaminal narrowing. C3-4: There is central canal stenosis due to combination of congenitallyshortened pedicles and minimal disc bulge with the AP dimensions of thecanal measuring approximately 9 mm. Uncovertebral spurring causes mildleft neural foraminal narrowing. Right neural foramen is patent. C4-5: The AP dimensions of the canal are measured at approximately 9 mmdue to congenitally short pedicles and minimal disc bulge. No focal discprotrusion. No advanced neural foraminal narrowing. C5-6: No focal disc protrusion, central canal stenosis, or neuralforaminal compromise. C6-7: No focal disc protrusion, central canal stenosis, or neuralforaminal compromise. C7-T1: No focal disc protrusion, central canal stenosis, or neuralforaminal compromise. On the sagittal sequences no focal disc protrusion or central canalstenosis are demonstrated at the T1-2 or T2-3 levels. There appears to beleft paramedian T2-3 spondylosis or uncovertebral spurring. No discrete cord lesion is identified. No vertebral body compressiondeformity or significant abnormality of marrow signal are noted. Noparaspinal soft tissue mass or prevertebral soft tissue swelling.Visualized posterior fossa contents are grossly unremarkable. IMPRESSION: Central canal stenosis at C3-4 and C4-5. Left neural foraminal narrowingat C2-3 and C3-4. No discrete cord lesion or focal disc protrusionidentified. POS - [id number] Edilson Box MD IMG MR XSPECIALTY Final Resu lt documented in this encounter Visit Diagnoses Diagnosis Arm numbness Disturbance of skin sensation White matter disease Occipital headache Headache Arm numbness Disturbance of skin sensation White matter disease Occipital headache Headache documented in this encounter Additional Health Concerns Infection Onset Date Last Indicated Resolved Time CoV-Exposed Comment:Positive COVID-19 07/26/2024 07/26/2024 07/27/2024 12: 42 AM EST CoV-Risk 07/26/2024 07/26/2024 07/27/2024 12:4 2 AM EST COVID-19 07/26/2024 07/26/2024 08/16/2024 1:21 AM EST documented as of this encounter Care Teams Refinery Operator Visbreaking Relationship Specialty Start Date End Date Candida Bangura CNP [address] [place] [address] [email or web address] PCP - General 04/09/17 01/04/20 Kg Bazan NP [address] [facility] [place] [address] [email or web address] PCP - General Family Medicine 01/05/20 03/15/21 Eda Gutierrez NP [address] [facility] [place] [address] PCP - General Family Medicine 03/16/21 08/17/22 Esha Hazel PA [address] [facility] [place] [address] [email or web address] PCP - General Physician Goodwill Representative 08/18/22 12/05/22 Kylee Gómez, EDER [address] [place] [address] PCP - General Nurse Practitioner 12/06/22 02/04/24 Kylee Gómez, EDER [address] [place] [address] PCP - General Nurse Practitioner 02/05/24 Giovanna Hart MD [address] [place] [address] [email or web address] Historical LMR Provider 04/13/17 Candida Bangura CNP [address] [place] [address] [email or web address] Historical LMR Provider 04/13/17 Tamar Remy [place] [address] Historical LMR Provider 04/13/17 2 Garrett Schaefer MD [email or web address] Historical LMR Provider 04/13/17 07/01/21 Timo Traylor MD [address] [place] [address] Historical LMR Provider 04/13/17 Timo Moyer DO [address] [place] [address] [address] [facility] [place] [address] Historical LMR Provider 04/13/17 07/01/21 Willam Sullivan MD [address] [address] Historical LMR Provider 04/13/17 Michelle Woodward PA-C [address] [place] [address] [facility] [place] [address] Historical LMR Provider 04/13/17 07/01/21 Humza Barker CNP [address] [address] Historical LMR Provider 04/13/17 07/01/21 Crystal Kirk MD [address] [place] [address] [address] Sports [facility], [place] [address] Historical LMR Provider 04/13/17 documented as of this encounter Additional Source Comments The information contained in this document represents components of the legal health record. It is not the complete legal health record.[facility]
--- OUTSIDE RECORDS SUMMARY | 2025-04-20 06:18 | XMS_ITS | Encounter Summary ---
Author Organization [facility] Address [address] [place] [address] [place] [address] Phone Care Team Providers Care Director Of Security Name Role Phone Ajay Hart MD Unavailable [phone] Candida Bangura [employer] Unavailable [phone] Willam Sullivan MD Unavailable Kylee Gómez [facility] Primary Care Prov ider Kylee Gómez [facility] Primary Care Prov ider Encounter Details Date Type Department Care Team (Latest Contact Info) Description 12/06/2022 Transcribe Orders Virtual Department 30 [place] [address] Kylee Gómez [employer] MIXER [address] [place] [address] Chronic pain of left knee (Primary Dx) Social History Tobacco Use Types [...] with a working camera? Not on file Comments No Sex and Gender Information Value Date Recorded Sex Assigned at Female 07/01/2017 9:38 AM EST Legal Sex Female 9:11 PM EDT Gender Identity Female 07/01/2017 9:38 AM EST Sexual Orientation Straight 07/01/2017 9: 38 AM EST documented as of this encounter Plan of Treatment Upcoming Encounters Date Type Department Care Team ([facility] st Contact Info) Description 04/22/2025 11:00 AM EDT Nurse Only [facility] Pul[facility], Allergy and Critical Care Medicine 10 [place] [address] Ajay Hart MD [address] [place] [address] [email or web address] 04/28/2025 11:00 AM EST Nurse Only [facility] Pulmonary, Allergy and Critical Care Medicine [address] [place] [address] Ajay Hart MD [address] [place] [address] [email or web address] 05/06/2025 11:00 AM EST Nurse Only [facility], Allergy and Critical [facility] Medicine [address] [place] [address] Ajay Hart MD [address] [place] [address] 05/13/2025 11:00 AM EST Nurse Only [facility] Pul[facility], Allergy and Critical [facility] [address] [place] [address] Ajay Hart MD [address] [place] [address] [email or web address] 06/14/2025 11:00 AM EST Office Visit [facility] Pul[facility], Allergy and Critical Care Medicine [address] [place] [address] Ajay Hart MD [address] [place] [address] [email or web address] documented as of this encounter Results * XR KNEE 4 OR MORE VIEWS (LEFT) (12/06/2022 1:04 PM EDT) Anatomical Region Laterality Modality Knee Left Computed Radiogr aphy 12/07/2022 10:5 1 PM EDT Impressions 12/07/2022 10:52 PM EDT Left knee tricompartmental osteoarthritis, mild in all 3 compartments. Narrative 12/07/2022 10:52 PM EDT XR KNEE 4 OR MORE VIEWS (LEFT) COMPARISON: MR KNEE LT WO FINDINGS: LEFT KNEE: Knee joint space narrowing with subchondral sclerosis and marginal osteophytes is mild in all 3 compartments. No joint effusion. No acute fracture or dislocation. RIGHT KNEE: Frontal radiograph only of the right knee show no acute displaced fracture or malalignment. Procedure Note Damon Burton MD - 12/07/2022 XR KNEE 4 OR MORE VIEWS (LEFT) COMPARISON: MR KNEE LT WO FINDINGS: LEFT KNEE: Knee joint space narrowing with subchondral sclerosis and marginalosteophytes is mild in all 3 compartments. No joint effusion. No acutefracture or dislocation. RIGHT KNEE: Frontal radiograph only of the right knee show no acute displaced fractureor malalignment. IMPRESSION: Left knee tricompartmental osteoarthritis, mild in all 3 compartments. Kylee Gómez [employer] IMG XR LOWER EXTRE MITY Final Result documented in this encounter Visit Diagnoses Diagnosis Chronic pain of left knee- Primary Chronic pain of left knee documented in this encounter Additional Health Concerns Infection Onset Date Last Indicated Resolved Time CoV-Exposed Comment:Positive COVID-19 07/26/2024 07/26/2024 07/27/2024 12: 42 AM EST CoV-Risk 07/26/2024 07/26/2024 07/27/2024 12:4 2 AM EST COVID-19 07/26/2024 07/26/2024 08/16/2024 1:21 AM EST documented as of this encounter Care Teams Director Of Security Relationship Specialty Start Date End Date Kylee Gómez CNP [address] [place] [address] PCP - General Nurse Practitioner 12/06/22 02/04/24 Kylee Gómez CNP [address] [place] [address] PCP - General Nurse Practitioner 02/05/24 Ajay Hart MD [address] [place] [address] Historical LMR Provider 04/13/17 Candida Bangura CNP [address] [place] [address] [email or web address] Historical LMR Provider 04/13/17 Willam Sullivan MD [address] [place] [address] Historical LMR Provider 04/13/17 documented as of this encounter Additional Source Comments The information contained in this document represents components of the legal health record. It is not the complete legal health record.[facility]
--- OUTSIDE RECORDS SUMMARY | 2025-04-20 06:18 | XMS_ITS | Encounter Summary ---
Author Organization [facility] Address [address] [place] [address] [place] [address] Phone Care Team Providers Care Computer Equipment Installer Name Role Phone Ajay Hart MD Unavailable [phone] Candida Bangura HEALTH TEACHER Unavailable [phone] Candida Bangura HEALTH TEACHER Primary Care Provider + Tamar Remy Unavailable [phone] Garrett Schaefer MD Unavailable [email or web address] Timo Traylor MD Unavailable [phone] Timo Moyer DO Unavailable [phone] Willam Sullivan MD Unavailable Michelle Woodward PA-C Unavailable [phone] Humza Barker HEALTH TEACHER Unavailable [phone] Crystal Kirk MD Unavailable [phone] Kg Bazan ENGINEERING AND SCIENTIFIC PROGRAMMER Primary Care Provider Eda Gutierrez ENGINEERING AND SCIENTIFIC PROGRAMMER Primary Care Provider Esha Hazel PA Primary Care Provider [phone] Kylee Gómez HEALTH TEACHER Primary Care Prov ider Kylee Gómez HEALTH TEACHER Primary Care Prov ider Encounter Details Date Type Department Care Team (Late Contact Info) Description 11/27/2018 Transcribe Orders Virtual Department 30 [place] [address] Candida Bangura, HEALTH TEACHER [address] [place] [address] [email or web address] Thyroid fullness (Primary Dx); Acute pain of left shoulder Social History Tobacco Use Types Packs/Day [...] Pulmonary, Allergy and Critical Care Medicine 10 [place] [address] Ajay Hart MD [address] [place] [address] 04/28/2025 11:00 AM EST Nurse Only [facility], Allergy [facility] Critical [facility] 10 [place] [address] Ajay Hart MD [address] [place] [address] 05/06/2025 11:00 AM EST Nurse Only [facility], Allergy and Critical [facility] [address] [place] [address] Ajay Hart MD [address] [place] [address] 05/13/2025 11:00 AM EST Nurse Only [facility], [facility]ergy and Critical Care Medicine 10 [place] [address] Ajay Hart MD [address] [place] [address] 06/14/2025 11:00 AM EST Office Visit [facility] Pul[facility], Allergy and Critical Care Medicine 10 [place] [address] Ajay Hart MD [address] [place] [address] documented as of this encounter Results * XR SHOULDER 2 VIEWS (LEFT) (12/09/2018 1:33 PM EDT) Anatomical Region Laterality Modality Shoulder Left Radiographic Edita ging 12/09/2018 1:52 PM EDT Impressions 12/09/2018 1:54 PM EDT Unremarkable evaluation of the left shoulder. No explanation for left shoulder pain is seen. S/S: Chronic left shoulder pain, no injury POS - [id number] Narrative 12/09/2018 1:54 PM EDT COMPARISON: None FINDINGS: The AC joint is unremarkable. No glenohumeral pathology is noted. No periarticular calcifications or significant degenerative changes are seen. The upper left lung field is clear. Procedure Note Leon Gongora MD - 12/09/2018 COMPARISON: None FINDINGS: The AC joint is unremarkable. No glenohumeral pathology is noted. No periarticular calcifications or significant degenerative changes areseen. The upper left lung field is clear. IMPRESSION: Unremarkable evaluation of the left shoulder. No explanation for leftshoulder pain is seen. S/S: Chronic left shoulder pain, no injury POS - [id number] us Candida Bangura HEALTH TEACHER IM XR UPPER EXTREMITY F inal Result * US Thyroid Gland (12/09/2018 1:18 PM EDT) Anatomical Region Laterality Modality Neck, Head, Chest Ultrasound 12/09/2018 2:18 PM EDT Impressions 12/09/2018 2:19 PM EDT Thyroid ultrasound appears within normal limits. POS - [id number] Narrative 12/09/2018 2:19 PM EDT Ultrasonic examination of the thyroid is performed and multiple static images obtained. The gland appears within normal limits. Right lobe measures 5.0 x 1.5 x 1.4 centers and left lobe 4.3 x 1.2 x 1.2 cm. No masses seen. Isthmus measured at 4 mm. Procedure Note Pat Sweeney MD - 12/09/2018 Ultrasonic examination of the thyroid is performed and multiple staticimages obtained. The gland appears within normal limits. Right lobemeasures 5.0 x 1.5 x 1.4 centers and left lobe 4.3 x 1.2 x 1.2 cm. Nomasses seen. Isthmus measured at 4 mm. IMPRESSION: Thyroid ultrasound appears within normal limits. POS - [id number] us Candida Bangura HEALTH TEACHER IMG US THYROID Final Re sult documented in this encounter Visit Diagnoses Diagnosis Thyroid fullness- Primary Acute pain of left shoulder Acute pain of left shoulder Thyroid fullness documented in this encounter Additional Health Concerns Infection Onset Date Last Indicated Resolved Time CoV-Exposed Comment:Positive COVID-19 07/26/2024 07/26/2024 07/27/2024 12: 42 AM EST CoV-Risk 07/26/2024 07/26/2024 07/27/2024 12:4 2 AM EST COVID-19 07/26/2024 07/26/2024 08/16/2024 1:21 AM EST documented as of this encounter Care Teams Computer Equipment Installer Relationship Specialty Start Date End Date Candida Bangura CNP [address] [place] [address] [email or web address] PCP - General 04/09/17 01/04/20 Kg Bazan, ENGINEERING AND SCIENTIFIC PROGRAMMER [address] [facility] [place] [address] [email or web address] PCP - General Family Medicine 01/05/20 03/15/21 Eda Gutierrez, ENGINEERING AND SCIENTIFIC PROGRAMMER [address] [place] [address] PCP - General Family Medicine 03/16/21 08/17/22 Esha Hazel PA [address] [place] [address] [email or web address] PCP - General Physician Property And Supply Officer 08/18/22 12/05/22 Kylee Gómez CNP [address] [place] [address] PCP - General Nurse Practitioner 12/06/22 02/04/24 Kylee Gómez CNP [address] [place] [address] PCP - General Nurse Practitioner 02/05/24 Ajay Hart MD [address] [place] [address] Historical LMR Provider 04/13/17 Candida Bangura HEALTH TEACHER [address] [place] [address] [email or web address] Historical LMR Provider 04/13/17 Tamar Remy PA [facility] [place] [address] [place] [address] Historical LMR Provider 04/13/17 2 Garrett Schaefer MD [email or web address] Historical LMR Provider 04/13/17 07/01/21 Timo Traylor MD [address] [place] [address] Historical LMR Provider 04/13/17 Timo Moyer DO [address] [place] [address] Orthopedics Sports [facility], [place] [address] Historical LMR Provider 04/13/17 07/01/21 Willam Sullivan MD [address] [address] Historical LMR Provider 04/13/17 Michelle Woodward PA-C [address] [place] [address] Orthopedics [facility], [place] [address] Historical LMR Provider 04/13/17 07/01/21 Humza Barker HEALTH TEACHER [address] [address] Historical LMR Provider 04/13/17 07/01/21 Crystal Kirk MD [address] [place] [address] Orthopedics & Sports Medicine, [facility] [place] [address] [email or web address] Historical LMR Provider 04/13/17 documented as of this encounter Additional Source Comments The information contained in this document represents components of the legal health record. It is not the complete legal health record.[facility]
--- OUTSIDE RECORDS SUMMARY | 2025-04-20 06:18 | XMS_ITS | Encounter Summary ---
Author Organization [facility] Address [address] [place] [address] [place] [address] Phone Care Team Providers Care Ward Service Supervisor Name Role Phone Ajay Hart MD Unavailable [phone] Candida Bangura DIRECTOR MEDICAID Unavailable [phone] Candida Bangura DIRECTOR MEDICAID Primary Care Provider + Tamar Remy Unavailable [phone] Garrett Schaefer MD Unavailable [email or web address] Timo Traylor MD Unavailable Timo Moyer DO Unavailable [phone] Willam Sullivan MD Unavailable [phone] Michelle Woodward PA-C Unavailable [phone] Humza Barker DIRECTOR MEDICAID Unavailable [phone] Crystal Kirk MD Unavailable [phone] Kg Bazan LABORER STEEL HANDLING Primary Care Provider Eda Gutierrez LABORER STEEL HANDLING Primary Care Provider Esha Hazel PA Primary Care Provider [phone] Kylee Gómez DIRECTOR MEDICAID Primary Care Prov ider Kylee Gómez DIRECTOR MEDICAID Primary Care Prov ider Encounter Details Date Type Department Care Team ([facility] Contact Info) Description 07/29/2019 Procedure Pass OR Admitting Dept - Virtual Department [address] [place] [address] Social History Tobacco Use Types Packs/Day Years [...] Upcoming Encounters Date Type Department Care Team ([facility] Contact Info) Description 04/22/2025 11:00 AM EDT Nurse Only [facility] Pulmonary, Allergy and Critical Care Medicine 10 [place] [address] Ajay Hart MD [address] [place] [address] [email or web address] 04/28/2025 11:00 AM EST Nurse Only [facility] Pul[facility], Allergy and Critical Care Medicine [address] [place] [address] Ajay Hart MD [address] [place] [address] 05/06/2025 11:00 AM EST Nurse Only [facility], Allergy and Critical Care Medicine [address] [place] [address] Ajay Hart MD [address] [place] [address] 05/13/2025 11:00 AM EST Nurse Only [facility], Allergy and Critical [facility] Medicine [address] [place] [address] Ajay Hart MD [address] [place] [phone] [email or web address] 06/14/2025 11:00 AM EST Office Visit [facility], Allergy and Critical Care [facility] 10 [place] [address] Ajay Hart MD [address] [address] [email or web address] documented as of this encounter Visit Diagnoses Not on filedocumented in this encounter Additional Health Concerns Infection Onset Date Last Indicated Resolved Time CoV-Exposed Comment:Positive COVID-19 07/26/2024 07/26/2024 07/27/2024 12: 42 AM EST CoV-Risk 07/26/2024 07/26/2024 07/27/2024 12:4 2 AM EST COVID-19 07/26/2024 07/26/2024 08/16/2024 1:21 AM EST documented as of this encounter Care Teams Ward Service Supervisor Relationship Specialty Start Date End Date Candida Bangura CNP [address] [place] [address] [email or web address] PCP - General 04/09/17 01/04/20 Kg Bazan NP [address] [address] [email or web address] PCP - General Family Medicine 01/05/20 03/15/21 Eda Gutierrez NP [address] [place] [address] PCP - General Family Medicine 03/16/21 08/17/22 Esha Hazel PA [address] [place] [address] PCP - General Physician Screen Door Maker 08/18/22 12/05/22 Kylee Gómez CNP [address] [place] [address] PCP - General Nurse Practitioner 12/06/22 02/04/24 Kylee Gómez CNP [address] [place] [address] PCP - General Nurse Practitioner 02/05/24 Ajay Hart MD [address] [place] [address] [email or web address] Historical LMR Provider 04/13/17 Candida Bangura CNP [address] [place] [address] [email or web address] Historical LMR Provider 04/13/17 Tamar Remy PA [address] [place] [address] Historical LMR Provider 04/13/17 2 Garrett Schaefer MD [email or web address] Historical LMR Provider 04/13/17 07/01/21 Timo Traylor MD [address] [place] [address] Historical LMR Provider 04/13/17 Timo Moyer DO [address] [place] [address] Orthopedics & Sports Medicine, [place] [address] [email or web address] Historical LMR Provider 04/13/17 07/01/21 Willam Sullivan MD [address] [address] Historical LMR Provider 04/13/17 Michelle Woodward PA-C 4 [facility] Orthopedics & Sports Medicine, [place] [address] Historical LMR Provider 04/13/17 07/01/21 Humza Barker CNP [address] [address] Historical LMR Provider 04/13/17 07/01/21 Crystal Kirk MD 4 [facility] Orthopedics & Sports Medicine, [facility] [place] [address] Historical LMR Provider 04/13/17 documented as of this encounter Additional Source Comments The information contained in this document represents components of the legal health record. It is not the complete legal health record.[facility]
--- OUTSIDE RECORDS SUMMARY | 2025-04-20 06:18 | XMS_ITS | Encounter Summary ---
Author Organization [facility] Address [address] [place] [address] [place] [address] Phone Care Team Providers Care Business Loan Processor Name Role Phone Ajay Hart MD Unavailable [phone] Candida Bangura FUSING MACHINE TENDER Unavailable Tamar Remy Unavailable [phone] Garrett Schaefer MD Unavailable [email or web address] Timo Traylor MD Unavailable Timo Moyer DO Unavailable Willam Sullivan MD Unavailable Michelle Woodward PA-C Unavailable [phone] Humza Barker FUSING MACHINE TENDER Unavailable Crystal Kirk MD Unavailable [phone] Kg Bazan SOLAR APPLICATIONS DEVELOPMENT ENGINEER Primary Care Provider Eda Gutierrez SOLAR APPLICATIONS DEVELOPMENT ENGINEER Primary Care Provider Esha Hazel PA Primary Care Provider [phone] Kylee Gómez FUSING MACHINE TENDER Primary Care Prov ider Kylee Gómez FUSING MACHINE TENDER Primary Care Prov ider Encounter Details Date Type Department Care Team (Late st Contact Info) Description 07/15/2020 Ancillary Orders [facility], X-Ray - [facility] [address] [place] [address] Esha Hazel PA [address] [place] [address]. [place] [address] [email or web address] Pain of right upper extremity Social History Tobacco Use Types Packs/Day Years [...] [facility], Allergy [facility] Critical [facility] Medicine [address] [place] [address] Ajay Hart MD [address] [place] [address] [email or web address] 04/28/2025 11:00 AM EST Nurse Only [facility], Allergy and Critical Care Medicine [address] [place] [address] Ajay Hart MD [address] [place] [address] 05/06/2025 11:00 AM EST Nurse Only [facility], Allergy and Critical [facility] Medicine [address] [place] [address] Ajay Hart MD [address] [place] [address] 05/13/2025 11:00 AM EST Nurse Only [facility], Allergy and Critical Care Medicine 10 [place] [address] Ajay Hart MD [address] [place] [address] [email or web address] 06/14/2025 11:00 AM EST Office Visit [facility] Pulmonary, Allergy and Critical Care Medicine [address] [place] [address] Ajay Hart MD [address] [place] [address] [email or web address] documented as of this encounter Results * XR Humerus (Right) (07/15/2020 5:00 PM EST) Anatomical Region Laterality Modality Arm Right Computed Radiogr aphy 07/15/2020 5:04 PM EST Impressions 07/15/2020 5:04 PM EST Unremarkable plain film appearance of the humerus. POS [id number] Narrative 07/15/2020 5:04 PM EST 2 views. No comparison No evidence of trauma, tumor or infection. No significant soft tissue calcifications nor any opaque foreign bodies. No significant arthritic changes in the visualized elbow or shoulder. Procedure Note Dheeraj Gill MD - 07/15/2020 2 views. No comparison No evidence of trauma, tumor or infection. No significant soft tissue calcifications nor any opaque foreign bodies. No significant arthritic changes in the visualized elbow or shoulder. IMPRESSION: Unremarkable plain film appearance of the humerus. POS [id number] Esha LYLE IMG XR UPPER EXTREMITY Final Result documented in this encounter Visit Diagnoses Diagnosis Pain of right upper extremity Pain of right upper extremity documented in this encounter Additional Health Concerns Infection Onset Date Last Indicated Resolved Time CoV-Exposed Comment:Positive COVID-19 07/26/2024 07/26/2024 07/27/2024 12: 42 AM EST CoV-Risk 07/26/2024 07/26/2024 07/27/2024 12:4 2 AM EST COVID-19 07/26/2024 07/26/2024 08/16/2024 1:21 AM EST documented as of this encounter Care Teams Business Loan Processor Relationship Specialty Start Date End Date Kg Bazan NP [address] [place] [address] [email or web address] PCP - General Family Medicine 01/05/20 03/15/21 Eda Gutierrez NP [address] [place] [address] PCP - General Family Medicine 03/16/21 08/17/22 Esha Hazel PA [address] [place] [address] [email or web address] PCP - General Physician Manager Financial Reporting 08/18/22 12/05/22 Kylee Gómez CNP [address] [place] [address] PCP - General Nurse Practitioner 12/06/22 02/04/24 Kylee Gómez CNP [address] [place] [address] PCP - General Nurse Practitioner 02/05/24 Ajay Hart MD [address] [place] [address] Historical LMR Provider 04/13/17 Candida Bangura CNP [address] [place] [address] [email or web address] Historical LMR Provider 04/13/17 Tamar Remy PA [facility] [place] [address] Historical LMR Provider 04/13/17 2 Garrett Schaefer MD [email or web address] Historical LMR Provider 04/13/17 07/01/21 Timo Traylor MD [address] [place] [address] Historical LMR Provider 04/13/17 Timo Moyer DO [address] [place] [address] Orthopedics & Sports [facility], [place] [address] Historical LMR Provider 04/13/17 07/01/21 Willam Sullivan MD [address] [address] Historical LMR Provider 04/13/17 Michelle Woodward PA-C [address] [place] [address] Orthopedics & Sports [facility], [place] [address] Historical LMR Provider 04/13/17 07/01/21 Humza Barker FUSING MACHINE TENDER [address] [address] Historical LMR Provider 04/13/17 07/01/21 Crystal Kirk MD [address] [place] [address] Orthopedics & Sports Medicine, [place] [address] [email or web address] Historical LMR Provider 04/13/17 documented as of this encounter Additional Source Comments The information contained in this document represents components of the legal health record. It is not the complete legal health record.[facility]
--- OUTSIDE RECORDS SUMMARY | 2025-04-20 06:18 | XMS_ITS | Encounter Summary ---
Author Organization [facility] Address [address] [place] [address] [place] [address] Phone Care Team Providers Care Industrial Waste Treatment Technician Name Role Phone Ajay Hart MD Unavailable [phone] Candida Bangura GASOLINE POWER SHOVEL OPERATOR Unavailable [phone] Willam Sullivan MD Unavailable [phone] Eda Gutierrez FEATHER CUTTING MACHINE FEEDER Primary Care Provider Esha Hazel Primary Care Provider [phone] Kylee Gómez [facility] Primary Care Prov ider Kylee Gómez [facility] Primary Care Prov ider Reason for Referral * MRI/CAT Scan - Closed Specialty Diagnoses / Procedures Referred By Contmalvin t Referred To Contact Radiology Diagnoses Acute pain of right shoulder Procedures MRI Shoulder (Right) Esha Hazel PA Phone: tel: fax: mailto:[email or web address] Referral ID Status Reason Start Date Expiration Date Visits Re quested Visits Authorized [id number] Closed 09/27/2021 09/26/2022 1 1 Encounter Details Date Type Department Care Team (Latest Contact Info) Description 09/27/2021 Transcribe Orders Virtual Department [address] [place] [address] Esha Hazel PA [address] [place] [address]. [place] [address] [email or web address] Acute pain of right shoulder (Primary Dx) Social History Tobacco Use Types [...] Upcoming Encounters Date Type Department Care Team ([facility] st Contact Info) Description 04/22/2025 11:00 AM EDT Nurse Only [facility] Pulmonary, Allergy and Critical Care Medicine [address] [place] [address] Ajay Hart MD [address] [place] [address] [email or web address] 04/28/2025 11:00 AM EST Nurse Only [facility] Pul[facility], Allergy and Critical Care Medicine [address] [place] [address] Ajay Hart MD [address] [place] [address] 05/06/2025 11:00 AM EST Nurse Only [facility], Allergy [facility] Critical [facility] Medicine [address] [place] [address] Ajay Hart MD [address] [place] [address] 05/13/2025 11:00 AM EST Nurse Only [facility] Pul[facility], Allergy and Critical Care Medicine [address] [place] [address] Ajay Hart MD [address] [place] [address] [email or web address] 06/14/2025 11:00 AM EST Office Visit [facility] Pulmonary, Allergy and Critical Care Medicine [address] [place] [address] Ajay Hart MD [address] [place] [address] [email or web address] documented as of this encounter Results * MRI SHOULDER WITHOUT CONTRAST (RIGHT) (10/15/2021 7:34 AM EDT) Anatomical Region Laterality Modality Shoulder Right Magnetic Resonan ce 10/15/2021 1:22 PM EDT Impressions 10/15/2021 1:35 PM EDT 1.Moderate supraspinatus tendinosis with partial-thickness bursal surface tendon tear Westerly. No muscle volume loss. 2.Extensive superior, anterior and inferior labral tearing. 3.Mild AC joint degenerative changes with lateral downsloping of the acromion. 4.Small glenohumeral and trace subacromial/subdeltoid bursitis. Narrative 10/15/2021 1:35 PM EDT MRI SHOULDER WITHOUT CONTRAST (RIGHT) TECHNIQUE: Multi-sequence, multi-planar MRI of the shoulder without intravenous contrast. COMPARISON: Right shoulder radiographs dated 09/26/2021 FINDINGS: Coracoacromial Arch: Mild acromioclavicular joint degenerative changes with joint space narrowing capsular thickening and minimal reactive bone marrow signal change. There is mild to moderate lateral downsloping of the acromion. Trace subacromial-subdeltoid bursal fluid. Rotator Cuff: Supraspinatus: There is moderate tendinosis. There is low-moderate grade bursal surface partial thickness tendon tear involving the posterior fibers. No evidence of full-thickness tear. Infraspinatus: Unremarkable. Subscapularis: Teres minor: Unremarkable. No significant muscle volume loss. Glenoid Labrum and Biceps Tendon: Large labral tearing involving the superior, anterior and inferior labrum. There is thickening of the middle glenohumeral ligament and inferior capsule. Biceps tendon is intact at the superior glenoid tubercle and normally located within the bicipital groove. Bones: No fracture, osteonecrosis, or focal lesion. Glenohumeral Joint: Small joint effusion Procedure Note Briana Fields MD - 10/15/2021 MRI SHOULDER WITHOUT CONTRAST (RIGHT) TECHNIQUE: Multi-sequence, multi-planar MRI of the shoulder withoutintravenous contrast. COMPARISON: Right shoulder radiographs dated 09/26/2021 FINDINGS: Coracoacromial Arch: Mild acromioclavicular joint degenerative changeswith joint space narrowing capsular thickening and minimal reactive bonemarrow signal change. There is mild to moderate lateral downsloping of theacromion. Trace subacromial-subdeltoid bursal fluid. Rotator Cuff: Supraspinatus: There is moderate tendinosis. There is low-moderate gradebursal surface partial thickness tendon tear involving the posteriorfibers. No evidence of full-thickness tear. Infraspinatus: Unremarkable. Subscapularis: Teres minor: Unremarkable. No significant muscle volume loss. Glenoid Labrum and Biceps Tendon: Large labral tearing involving the superior, anterior and inferiorlabrum. There is thickening of the middle glenohumeral ligament and inferiorcapsule. Biceps tendon is intact at the superior glenoid tubercle and normallylocated within the bicipital groove. Bones: No fracture, osteonecrosis, or focal lesion. Glenohumeral Joint: Small joint effusion IMPRESSION: 1.Moderate supraspinatus tendinosis with partial-thickness bursal surfacetendon tear Westerly. No muscle volume loss. 2.Extensive superior, anterior and inferior labral tearing. 3.Mild AC joint degenerative changes with lateral downsloping of theacromion. 4.Small glenohumeral and trace subacromial/subdeltoid bursitis. Esha LYLE [facility] MR EXTREMITY Final Result documented in this encounter Visit Diagnoses Diagnosis Acute pain of right shoulder- Primary Acute pain of right shoulder documented in this encounter Additional Health Concerns Infection Onset Date Last Indicated Resolved Time CoV-Exposed Comment:Positive COVID-19 07/26/2024 07/26/2024 07/27/2024 12: 42 AM EST CoV-Risk 07/26/2024 07/26/2024 07/27/2024 12:4 2 AM EST COVID-19 07/26/2024 07/26/2024 08/16/2024 1:21 AM EST documented as of this encounter Care Teams Industrial Waste Treatment Technician Relationship Specialty Start Date End Date Eda Gutierrez NP [address] [address] PCP - General Family Medicine 03/16/21 08/17/22 Esha Hazel PA [address] [place] [address]. [place] [address] [email or web address] PCP - General Physician Professional Housing Consultant 08/18/22 12/05/22 Kylee Gómez CNP [address] [place] [address] PCP - General Nurse Practitioner 12/06/22 02/04/24 Kylee Gómez CNP [address] [place] [address] PCP - General Nurse Practitioner 02/05/24 Ajay Hart MD [address] [place] [address] Historical LMR Provider 04/13/17 Candida Bangura CNP [address] [place] [address] [email or web address] Historical LMR Provider 04/13/17 Willam [place] MD [address] [place] [address], [address] [place] [address] [email or web address] Historical LMR Provider 04/13/17 documented as of this encounter Additional Source Comments The information contained in this document represents components of the legal health record. It is not the complete legal health record.[facility]
--- OUTSIDE RECORDS SUMMARY | 2025-04-20 06:18 | XMS_ITS | Encounter Summary ---
Author Organization [facility] Address [address] [place] [address] [place] [address] Phone Care Team Providers Care Ship Harbor Pilot Name Role Phone Ajay Hart MD Unavailable [phone] Candida Bangura MAILROOM CLERK Unavailable Willam Sullivan MD Unavailable [phone] Eda Gutierrez OUTBOARD MOTORS EXPERIMENTAL MECHANIC Primary Care Provider Esha Hazel Primary Care Provider [phone] Kylee G[facility]mez [facility] Primary Care Prov ider Kylee G[facility]z [facility] Primary Care Prov ider Reason for Referral * MRI/CAT Scan - Closed Specialty Diagnoses / Procedures Referred By Mauricio cary Referred To Contact Radiology Diagnoses Nonintractable headache, unspecified chronicity pattern, unspecified headache type Numbness Dizziness White matter disease Procedures MRI Brain Edilson Box MD Phone: tel: fax: mailto:[email or web address] Referral ID Status Reason Start Date Expiration Date Visits Re quested Visits Authorized [id number] Closed 11/03/2021 09/26/2022 1 1 Encounter Details Date Type Department Care Team (Latest Contact Info) Description 11/03/2021 Transcribe Orders Virtual Department [address] [place] [address] Edilson Box MD [address] [place] [address], [address] [place] [address] [email or web address] Nonintractable headache, unspecified chronicity pattern, unspecified headache type (Primary Dx); Numbness; Dizziness; White matter disease Social History Tobacco Use Types Packs/Day Years [...] [facility], All[facility] Critical [facility] [address] [place] [address] Ajay Hart MD [address] [place] [address] 04/28/2025 11:00 AM EST Nurse Only [facility] Pul[facility], Allergy and Critical Care Medicine [address] [place] [address] Ajay Hart MD [address] [place] [address] 05/06/2025 11:00 AM EST Nurse Only [facility] Pul[facility], Allergy and Critical Care Medicine [address] [place] [address] Ajay Hart MD [address] [place] [address] 05/13/2025 11:00 AM EST Nurse Only [facility] Pulmonary, Allergy and Critical Care Medicine [address] [place] [address] Ajay Hart MD [address] [place] [address] [email or web address] 06/14/2025 11:00 AM EST Office Visit [facility] Pulmonary, Allergy and Critical Care Medicine [address] [place] [address] Ajay Hart MD [address] [place] [address] documented as of this encounter Results * MRI BRAIN WITH AND WITHOUT CONTRAST (12/28/2021 4:07 PM EDT) Anatomical Region Laterality Modality Head Magnetic Resonan ce 12/29/2021 11:1 1 AM EDT Impressions 12/29/2021 11:23 AM EDT 1.No acute abnormality. 2.Few bilateral white matter T2 hyperintense nonenhancing foci , not significantly changed from 04/27/2018, nonspecific. 3.Trace amount of fluid in the right mastoid air cells. Narrative 12/29/2021 11:23 AM EDT MRI BRAIN WITH AND WITHOUT CONTRAST TECHNIQUE: Multi-sequence, multi-planar MRI of the brain was performed before and after intravenous contrast. COMPARISON: 04/27/2018 FINDINGS: Brain Parenchyma: Normal. No evidence of acute infarct, mass lesion, or hemorrhage. Few scattered tiny bilateral subcortical and periventricular white matter T2/FLAIR hyperintense nonenhancing foci are again noted, not significantly changed from 04/27/2018, nonspecific but are most commonly seen with chronic migraines and chronic microvascular ischemic disease (the latter considered less likely given the patient's age). Less common differential considerations include demyelinating processes (such as MS), Lyme disease, vasculitis, among other etiologies. There is no abnormal enhancement. Ventricular System and Extra-Axial Spaces: Normal. No evidence of midline shift or hydrocephalus. Extracranial Structures: Arterial flow voids in the skull base are present. Trace amount of fluid in the right mastoid air cells. Otherwise, the visualized paranasal sinuses are clear. The orbits are unremarkable Procedure Note Birana Fields MD - 12/29/2021 MRI BRAIN WITH AND WITHOUT CONTRAST TECHNIQUE: Multi-sequence, multi-planar MRI of the brain was performed before andafter intravenous contrast. COMPARISON: 04/27/2018 FINDINGS: Brain Parenchyma: Normal. No evidence of acute infarct, mass lesion, orhemorrhage. Few scattered tiny bilateral subcortical and periventricular white matterT2/FLAIR hyperintense nonenhancing foci are again noted, not significantlychanged from 04/27/2018, nonspecific but are most commonly seen withchronic migraines and chronic microvascular ischemic disease (the latterconsidered less likely given the patient's age). Less common differentialconsiderations include demyelinating processes (such as MS), Lyme disease,vasculitis, among other etiologies. There is no abnormal enhancement. Ventricular System and Extra-Axial Spaces: Normal. No evidence of midlineshift or hydrocephalus. Extracranial Structures: Arterial flow voids in the skull base arepresent. Trace amount of fluid in the right mastoid air cells. Otherwise, thevisualized paranasal sinuses are clear. The orbits are unremarkable IMPRESSION: 1.No acute abnormality. 2.Few bilateral white matter T2 hyperintense nonenhancing foci , notsignificantly changed from 04/27/2018, nonspecific. 3.Trace amount of fluid in the right mastoid air cells. Edilson Box MD IMG MR HEAD/NECK Final Resul t documented in this encounter Visit Diagnoses Diagnosis Nonintractable headache, unspecified chronicity pattern, unspecified headache type- Primary Numbness Disturbance of skin sensation Dizziness Dizziness and giddiness White matter disease Nonintractable headache, unspecified chronicity pattern, unspecified headache type Numbness Disturbance of skin sensation Dizziness Dizziness and giddiness White matter disease documented in this encounter Additional Health Concerns Infection Onset Date Last Indicated Resolved Time CoV-Exposed Comment:Positive COVID-19 07/26/2024 07/26/2024 07/27/2024 12: 42 AM EST CoV-Risk 07/26/2024 07/26/2024 07/27/2024 12:4 2 AM EST COVID-19 07/26/2024 07/26/2024 08/16/2024 1:21 AM EST documented as of this encounter Care Teams Ship Harbor Pilot Relationship Specialty Start Date End Date Eda Gutierrez NP [address] [address] PCP - General Family Medicine 03/16/21 08/17/22 Esha Hazel PA [address] [place] [address] [email or web address] PCP - General Physician Reconciler 08/18/22 12/05/22 Kylee Gómez CNP [address] [place] [address] PCP - General Nurse Practitioner 12/06/22 02/04/24 Kylee Gómez CNP [address] [place] [address] PCP - General Nurse Practitioner 02/05/24 Ajay Hart MD [address] [place] [address] Historical LMR Provider 04/13/17 Candida Bangura CNP [address] [place] [address] [email or web address] Historical LMR Provider 04/13/17 Willam Sullivan MD [address] [address] Historical LMR Provider 04/13/17 documented as of this encounter Additional Source Comments The information contained in this document represents components of the legal health record. It is not the complete legal health record.[facility]
--- OUTSIDE RECORDS SUMMARY | 2025-04-20 06:18 | XMS_ITS | Encounter Summary ---
Author Organization [facility] Address [address] [place] [address] [place] [address] Phone Care Team Providers Care Manager Night Name Role Phone Ajay Hart MD Unavailable Candida Bangura STAGE SET DESIGNER Unavailable [phone] Candida Bangura STAGE SET DESIGNER Primary Care Provider + Tamar Remy Unavailable [phone] Garrett Schaefer MD Unavailable [email or web address] Timo Traylor MD Unavailable Timo Moyer DO Unavailable [phone] Willam Sullivan MD Unavailable [phone] Michelle Woodward PA-C Unavailable [phone] Humza Barker STAGE SET DESIGNER Unavailable [phone] Crystal Kirk MD Unavailable [phone] Kg Bazan SUPERVISOR LABORATORY Primary Care Provider [phone] Eda Gutierrez SUPERVISOR LABORATORY Primary Care Provider Esha Hazel PA Primary Care Provider [phone] Kylee Gómez STAGE SET DESIGNER Primary Care Prov ider Kylee Gómez STAGE SET DESIGNER Primary Care Prov ider Encounter Details Date Type Department Care Team (Late Contact Info) Description 04/17/2018 Procedure Pass [facility] - [address] [address] Social History Tobacco Use Types Packs/Day Years [...] Pulmonary, Allergy and Critical Care Medicine [address] [place] [address] Ajay Hart MD [address] [place] [id number] [email or web address] 04/28/2025 11:00 AM EST Nurse Only [facility] Pulmonary, Allergy and Critical Care Medicine [address] [place] [address] Ajay Hart MD [address] [place] [address] 05/06/2025 11:00 AM EST Nurse Only [facility] Pulmonary, Allergy and Critical Care Medicine [address] [place] [address] Ajay Hart MD [address] [place] [address] [email or web address] 05/13/2025 11:00 AM EST Nurse Only [facility] Pulmonary, Allergy and Critical Care Medicine [address] [place] [address] Ajay Hart MD [address] [place] [address] [email or web address] 06/14/2025 11:00 AM EST Office Visit [facility] Pulmonary, Allergy and Critical Care Medicine [address] [place] [address] Ajay Hart MD [address] [address] [email or web address] documented as of this encounter Visit Diagnoses Not on filedocumented in this encounter Additional Health Concerns Infection Onset Date Last Indicated Resolved Time CoV-Exposed Comment:Positive COVID-19 07/26/2024 07/26/2024 07/27/2024 12: 42 AM EST CoV-Risk 07/26/2024 07/26/2024 07/27/2024 12:4 2 AM EST COVID-19 07/26/2024 07/26/2024 08/16/2024 1:21 AM EST documented as of this encounter Care Teams Manager Night Relationship Specialty Start Date End Date Candida Bangura CNP [address] [place] [address] [email or web address] PCP - General 04/09/17 01/04/20 Kg Bazan NP [address] [place] [address] [email or web address] PCP - General Family Medicine 01/05/20 03/15/21 Eda Gutierrez NP [address] [place] [address] PCP - General Family Medicine 03/16/21 08/17/22 Esha Hazel PA [address] [place] [address] PCP - General Physician Director Of Gift Planning 08/18/22 12/05/22 Kylee Gómez CNP [address] [place] [address] PCP - General Nurse Practitioner 12/06/22 02/04/24 Kylee Gómez CNP [address] [place] [address] PCP - General Nurse Practitioner 02/05/24 Ajay Hart MD [address] [place] [address] [email or web address] Historical LMR Provider 04/13/17 Candida Bangura CNP [address] [place] [address] [email or web address] Historical LMR Provider 04/13/17 Tamar Remy PA [address] [place] [address] Historical LMR Provider 04/13/17 2 Garrett Schaefer MD [email or web address] Historical LMR Provider 04/13/17 07/01/21 Timo Traylor MD [address] [place] [address] Historical LMR Provider 04/13/17 Timo Moyer DO [address] [place] [address] Orthopedics & Sports Medicine, [place] [address] [email or web address] Historical LMR Provider 04/13/17 07/01/21 Willam Sullivan MD [address] [address] Historical LMR Provider 04/13/17 Michelle Woodward PA-C 4 [facility] Orthopedics & Sports Medicine, [place] [address] Historical LMR Provider 04/13/17 07/01/21 Humza Barker CNP [address] [address] Historical LMR Provider 04/13/17 07/01/21 Crystal Kirk MD 4 [facility] Orthopedics & Sports Medicine, [place] [address] Historical LMR Provider 04/13/17 documented as of this encounter Additional Source Comments The information contained in this document represents components of the legal health record. It is not the complete legal health record.[facility]
--- OUTSIDE RECORDS SUMMARY | 2025-04-20 06:18 | XMS_ITS | Encounter Summary ---
Author Organization [facility] Address [address] [place] [address] [place] [address] Phone Care Team Providers Care Information And Referral Director Name Role Phone Ajay Hart MD Unavailable [phone] Candida Bangura FARM EQUIPMENT ENGINEER Unavailable [phone] Candida Bangura FARM EQUIPMENT ENGINEER Primary Care Provider + Tamar Remy Unavailable [phone] Garrett Schaefer MD Unavailable [email or web address] Timo Traylor MD Unavailable Timo Moyer DO Unavailable [phone] Willam Sullivan MD Unavailable Michelle Woodward PA-C Unavailable [phone] Humza Barker FARM EQUIPMENT ENGINEER Unavailable [phone] Crystal Kirk MD Unavailable [phone] Kg Bazan SHUTTLE VENEERING SUPERVISOR Primary Care Provider [phone] Eda Gutierrez SHUTTLE VENEERING SUPERVISOR Primary Care Provider Esha Hazel PA Primary Care Provider [phone] Kylee Gómez FARM EQUIPMENT ENGINEER Primary Care Prov ider Kylee Gómez FARM EQUIPMENT ENGINEER Primary Care Prov ider Encounter Details Date Type Department Care Team (Late Contact Info) Description 04/02/2019 Procedure Pass [facility], [facility] [address] [address] Social History Tobacco Use Types Packs/Day Years [...] [facility] Pul[facility], Allergy [facility] Critical Care Medicine [address] [place] [address] Ajay Hart MD [address] [place] [address] [email or web address] 04/28/2025 11:00 AM EST Nurse Only [facility] Pul[facility], Allergy and Critical Care Medicine [address] [place] [address] Ajay Hart MD [address] [place] [address] 05/06/2025 11:00 AM EST Nurse Only [facility] Pul[facility], Allergy [facility] Critical [facility] Medicine [address] [place] [address] Ajay Hart MD [address] [place] [address] [email or web address] 05/13/2025 11:00 AM EST Nurse Only [facility] Pul[facility], Allergy [facility] Critical [facility] Medicine [address] [place] [address] Ajay Hart MD [address] [place] [address] [email or web address] 06/14/2025 11:00 AM EST Office Visit [facility] Pulmonary, Allergy and Critical Care Medicine 10 [place] [address] Ajay Hart MD [address] [address] [email or web address] documented as of this encounter Visit Diagnoses Not on filedocumented in this encounter Additional Health Concerns Infection Onset Date Last Indicated Resolved Time CoV-Exposed Comment:Positive COVID-19 07/26/2024 07/26/2024 07/27/2024 12: 42 AM EST CoV-Risk 07/26/2024 07/26/2024 07/27/2024 12:4 2 AM EST COVID-19 07/26/2024 07/26/2024 08/16/2024 1:21 AM EST documented as of this encounter Care Teams Information And Referral Director Relationship Specialty Start Date End Date Candida Bangura CNP [address] [place] [address] [email or web address] PCP - General 04/09/17 01/04/20 Kg Bazan NP [address] [place] [address] [email or web address] PCP - General Family Medicine 01/05/20 03/15/21 Eda Gutierrez NP [address] [place] [address] PCP - General Family Medicine 03/16/21 08/17/22 Esha Hazel PA [address] [place] [address] PCP - General Physician Membership Sales Representative 08/18/22 12/05/22 Kylee Gómez CNP [address] [place] [address] PCP - General Nurse Practitioner 12/06/22 02/04/24 Kylee Gómez CNP [address] [place] [address] PCP - General Nurse Practitioner 02/05/24 Ajay Hart MD [address] [place] [address] [email or web address] Historical LMR Provider 04/13/17 Candida Bangura CNP [address] [place] [address] [email or web address] Historical LMR Provider 04/13/17 Tamar Remy PA [address] [place] [address] Historical LMR Provider 04/13/17 2 Garrett Schaefer MD [email or web address] Historical LMR Provider 04/13/17 07/01/21 Timo Traylor MD [address] [place] [address] Historical LMR Provider 04/13/17 Timo Moyer DO [address] [place] [address] Orthopedics & Sports Medicine, [place] [address] [email or web address] Historical LMR Provider 04/13/17 07/01/21 Willam Sullivan MD [address] [address] Historical LMR Provider 04/13/17 Michelle Woodward PA-C 4 [facility] Orthopedics & Sports Medicine, [place] [address] Historical LMR Provider 04/13/17 07/01/21 Humza Barker CNP [address] [address] Historical LMR Provider 04/13/17 07/01/21 Crystal Kirk MD 4 [facility] Orthopedics & Sports Medicine, [place] [address] Historical LMR Provider 04/13/17 documented as of this encounter Additional Source Comments The information contained in this document represents components of the legal health record. It is not the complete legal health record.[facility]
--- OUTSIDE RECORDS SUMMARY | 2025-04-20 06:18 | XMS_ITS | Encounter Summary ---
Author Organization [facility] Address [address] [place] [address] [place] [address] Phone Care Team Providers Care Hot Billet Shear Operator Name Role Phone Ajay Hart MD Unavailable [phone] Candida Bangura ICT SUPPORT ENGINEER Unavailable [phone] Candida Bangura ICT SUPPORT ENGINEER Primary Care Provider + Tamar Remy Unavailable [phone] Garrett Schaefer MD Unavailable [email or web address] Timo Traylor MD Unavailable Timo Moyer DO Unavailable [phone] Willam Sullivan MD Unavailable Michelle Woodward PA-C Unavailable [phone] Humza Barker ICT SUPPORT ENGINEER Unavailable [phone] Crystal Kirk MD Unavailable [phone] Kg Bazan SYRUP BLENDER Primary Care Provider Eda Gutierrez SYRUP BLENDER Primary Care Provider Esha Hazel PA Primary Care Provider [phone] Kylee Gómez ICT SUPPORT ENGINEER Primary Care Prov ider Kylee Gómez ICT SUPPORT ENGINEER Primary Care Prov ider Encounter Details Date Type Department Care Team (Late Contact Info) Description 04/17/2018 Ancillary Orders Virtual Department [address] [place] [address] Candida Bangura, ICT SUPPORT ENGINEER [address] [place] [address] [email or web address] Occipital headache Social History Tobacco Use Types [...] Upcoming Encounters Date Type Department Care Team ([facility] Contact Info) Description 04/22/2025 11:00 AM EDT Nurse Only [facility] Pulmonary, Allergy and Critical Care Medicine 10 [place] [address] Ajay Hart MD [address] [place] [address] 04/28/2025 11:00 AM EST Nurse Only [facility] Pul[facility], Allergy and Critical Care Medicine 10 [place] [address] Ajay Hart MD [address] [place] [address] 05/06/2025 11:00 AM EST Nurse Only [facility] Pul[facility], Allergy and Critical Care Medicine [address] [place] [address] Ajay Hart MD [address] [place] [address] 05/13/2025 11:00 AM EST Nurse Only [facility] Pul[facility], Allergy and Critical Care Medicine 10 [place] [address] Ajay Hart MD [address] [place] [address] [email or web address] 06/14/2025 11:00 AM EST Office Visit [facility] Pulmonary, Allergy and Critical Care Medicine 10 [place] [address] Ajay Hart MD [address] [place] [address] [email or web address] documented as of this encounter Results * MRI BRAIN WITHOUT CONTRAST (04/27/2018 10:26 AM EST) Anatomical Region Laterality Modality Head Magnetic Resonan ce 04/27/2018 10:3 4 AM EST Impressions 04/27/2018 10:48 AM EST Few scattered non-specific white matter lesions identified, present bilaterally. These are not typical for MS-type demyelination. They are not normal in a patient of this age but not in a pattern of great concern currently. No mass, hemorrhage, or infarction detected. Mild sinus inflammatory changes and probable mild thickening in some mastoid air cell mucosa. POS - [id number] Edited by: Xiomara Reese on 04/27/2018 10:45 AM Narrative 04/27/2018 10:48 AM EST HISTORY: Headaches. COMPARISON: None. TECHNIQUE: Exam performed on a 1.5 Tiara high-field MRI scanner. Axial T1, T2, T2*, T2 FLAIR and diffusion-weighted imaging with ADC map, sagittal T1 and T2 FLAIR sequences were obtained. FINDINGS: No abnormal intra or extra-axial blood or fluid collection, mass, or mass effect is identified. No areas of restricted diffusion or worrisome susceptibility effect. There are a few scattered foci of abnormal white matter signal including at the posterior left frontal lobe and right frontal lobe, in subcortical locations. No lesions typical of MS-type demyelination are currently apparent. No white matter volume loss. Sulci and ventricles within normal limits. There appear to be preserved flow voids in the major intracranial arteries and veins. Some CSF is noted around the posterior margin of the cerebellar hemispheres, more on the left which may reflect small arachnoid cysts. No worrisome mass effect. Inflammatory changes in the right maxillary sinus but no fluid in the paranasal sinuses. There may be some mild thickening in some of the right mastoid air cells but this is equivocal. Pituitary not enlarged. Cerebellar tonsils not frankly ectopic. Procedure Note Pat Sweeney MD - 04/27/2018 HISTORY: Headaches. COMPARISON: None. TECHNIQUE: Exam performed on a 1.5 Tiara high-field MRI scanner. Axial T1,T2, T2*, T2 FLAIR and diffusion-weighted imaging with ADC map, sagittal T1and T2 FLAIR sequences were obtained. FINDINGS: No abnormal intra or extra-axial blood or fluid collection, mass, or masseffect is identified. No areas of restricted diffusion or worrisomesusceptibility effect. There are a few scattered foci of abnormal whitematter signal including at the posterior left frontal lobe and rightfrontal lobe, in subcortical locations. No lesions typical of MS-typedemyelination are currently apparent. No white matter volume loss. Sulciand ventricles within normal limits. There appear to be preserved flowvoids in the major intracranial arteries and veins. Some CSF is notedaround the posterior margin of the cerebellar hemispheres, more on theleft which may reflect small arachnoid cysts. No worrisome mass effect.Inflammatory changes in the right maxillary sinus but no fluid in theparanasal sinuses. There may be some mild thickening in some of the rightmastoid air cells but this is equivocal. Pituitary not enlarged.Cerebellar tonsils not frankly ectopic. IMPRESSION: Few scattered non-specific white matter lesions identified, presentbilaterally. These are not typical for MS-type demyelination. They are notnormal in a patient of this age but not in a pattern of great concerncurrently. No mass, hemorrhage, or infarction detected. Mild sinusinflammatory changes and probable mild thickening in some mastoid air cellmucosa. POS - [id number] Edited by: Xiomara Reese on 04/27/2018 10:45 AM Candida Bangura CNP IMG MR HEAD/NECK Final R esult documented in this encounter Visit Diagnoses Diagnosis Occipital headache Headache Occipital headache Headache documented in this encounter Additional Health Concerns Infection Onset Date Last Indicated Resolved Time CoV-Exposed Comment:Positive COVID-19 07/26/2024 07/26/2024 07/27/2024 12: 42 AM EST CoV-Risk 07/26/2024 07/26/2024 07/27/2024 12:4 2 AM EST COVID-19 07/26/2024 07/26/2024 08/16/2024 1:21 AM EST documented as of this encounter Care Teams Hot Billet Shear Operator Relationship Specialty Start Date End Date Candida Bangura CNP [address] [place] [address] [email or web address] PCP - General 04/09/17 01/04/20 Kg Bazan, SHAWN [address] [place] [address] [email or web address] PCP - General Family Medicine 01/05/20 03/15/21 Eda Gutierrez NP [address] [place] [address] PCP - General Family Medicine 03/16/21 08/17/22 Esha Hazel PA [address] [place] [address] [email or web address] PCP - General Physician Production Support Manager 08/18/22 12/05/22 Kylee Gómez CNP [address] [place] [address] PCP - General Nurse Practitioner 12/06/22 02/04/24 Kylee Gómez CNP [address] [place] [address] PCP - General Nurse Practitioner 02/05/24 Ajay Hart MD [address] [place] [address] [email or web address] Historical LMR Provider 04/13/17 Candida Bangura CNP [address] [place] [address] [email or web address] Historical LMR Provider 04/13/17 Tamar Remy PA [facility] [place] [address] Historical LMR Provider 04/13/17 2 Garrett Schaefer MD [email or web address] Historical LMR Provider 04/13/17 07/01/21 Timo Traylor MD [address] [place] [address] Historical LMR Provider 04/13/17 Timo Moyer DO [address] [place] [address] Orthopedics & Sports Medicine, [facility] [place] [address] [email or web address] Historical LMR Provider 04/13/17 07/01/21 Willam Sullivan MD [address] [place] [address] [email or web address] Historical LMR Provider 04/13/17 Michelle Woodward PA-C [address] [place] [address] [facility] [place] [address] Historical LMR Provider 04/13/17 07/01/21 Humza Barker CNP 15 [facility], 2nd [place] [address] Historical LMR Provider 04/13/17 07/01/21 Crystal Kirk MD 4 [facility] Orthopedics & Sports Medicine, [facility] [place] [address] [email or web address] Historical LMR Provider 04/13/17 documented as of this encounter Additional Source Comments The information contained in this document represents components of the legal health record. It is not the complete legal health record.[facility]
--- OUTSIDE RECORDS SUMMARY | 2025-04-20 06:18 | XMS_ITS | Encounter Summary ---
Author Organization [facility] Address [address] [place] [address] [place] [address] Phone Care Team Providers Care Small Engine Specialist Name Role Phone Ajay Hart MD Unavailable [phone] Candida Bangura CASTING TRUCKER Unavailable Willam Sullivan MD Unavailable [phone] Eda Gutierrez CLIN NURSE Primary Care Provider Esha Hazel Primary Care Provider Kylee Gómez [facility] Primary Care Prov ider Kylee Gómez [facility] Primary Care Prov ider Encounter Details Date Type Department Care Team (Late st Contact Info) Description 05/25/2022 Procedure Pass [facility], [address] [address] Social History Tobacco Use Types Packs/Day Years [...] Pulmonary, Allergy and Critical Care Medicine 10 [place] [address] Ajay Hart MD [address] [place] [address] [email or web address] 04/28/2025 11:00 AM EST Nurse Only [facility] Pulmonary, Allergy and Critical Care Medicine [address] [place] [address] Ajay Hart MD [address] [place] [address] [email or web address] 05/06/2025 11:00 AM EST Nurse Only [facility] Pul[facility], Allergy and Critical Care Medicine [address] [place] [address] Ajay Hart MD [address] [place] [address] [email or web address] 05/13/2025 11:00 AM EST Nurse Only [facility] Pulmonary, Allergy and Critical Care Medicine [address] [place] [address] Ajay Hart MD [address] [place] [address] [email or web address] 06/14/2025 11:00 AM EST Office Visit [facility] Pulmonary, Allergy and Critical Care Medicine [address] [place] [address] Ajay Hart MD [address] [place] [address] [email or web address] documented as of this encounter Visit Diagnoses Not on filedocumented in this encounter Additional Health Concerns Infection Onset Date Last Indicated Resolved Time CoV-Exposed Comment:Positive COVID-19 07/26/2024 07/26/2024 07/27/2024 12: 42 AM EST CoV-Risk 07/26/2024 07/26/2024 07/27/2024 12:4 2 AM EST COVID-19 07/26/2024 07/26/2024 08/16/2024 1:21 AM EST documented as of this encounter Care Teams Small Engine Specialist Relationship Specialty Start Date End Date Eda Gutierrez NP [address] [address] PCP - General Family Medicine 03/16/21 08/17/22 Esha Hazel PA [address] [place] [address] [email or web address] PCP - General Physician Restaurant General Manager 08/18/22 12/05/22 Kylee Gómez CNP [address] [place] [address] PCP - General Nurse Practitioner 12/06/22 02/04/24 Kylee Gómez CNP [address] [place] [address] PCP - General Nurse Practitioner 02/05/24 Ajay Hart MD [address] [place] [address] [email or web address] Historical LMR Provider 04/13/17 Candida Bangura CNP [address] [place] [address] [email or web address] Historical LMR Provider 04/13/17 Wlilam Sullivan MD [address] [address] Historical LMR Provider 04/13/17 documented as of this encounter Additional Source Comments The information contained in this document represents components of the legal health record. It is not the complete legal health record.[facility]
--- OUTSIDE RECORDS SUMMARY | 2025-04-20 06:18 | XMS_ITS | Encounter Summary ---
Author Organization [facility] Address [address] [place] [address] [place] [address] Phone Care Team Providers Care Channel Manager Name Role Phone Ajay Hart MD Unavailable [phone] Candida Bangura SURGICAL MANAGER Unavailable [phone] Candida Bangura SURGICAL MANAGER Primary Care Provider + Tamar Remy Unavailable [phone] Garrett Schaefer MD Unavailable [email or web address] Timo Traylor MD Unavailable [phone] Timo Moyer DO Unavailable [phone] Willam Sullivan MD Unavailable Michelle Woodward PA-C Unavailable [phone] Humza Barker SURGICAL MANAGER Unavailable [phone] Crystal Kirk MD Unavailable [phone] Kg Bazan HEAD CHARGER Primary Care Provider Eda Gutierrez HEAD CHARGER Primary Care Provider Esha Hazel PA Primary Care Provider [phone] Kylee Gómez SURGICAL MANAGER Primary Care Prov ider Kylee Gómez SURGICAL MANAGER Primary Care Prov ider Encounter Details Date Type Department Care Team (Late Contact Info) Description 05/14/2019 Transcribe Orders Virtual Department 30 [place] [address] Candida Bangura, SURGICAL MANAGER [address] [place] [address] [email or web address] Palpitations (Primary Dx) Social History Tobacco Use Types [...] Pulmonary, Allergy and Critical Care Medicine 10 [place] [address] Ajay Hart MD [address] [place] [address] [email or web address] 04/28/2025 11:00 AM EST Nurse Only [facility] Pulmonary, Allergy and Critical Care Medicine 10 [place] [address] Ajay Hart MD [address] [place] [address] [email or web address] 05/06/2025 11:00 AM EST Nurse Only [facility] Pulmonary, Allergy and Critical Care Medicine [address] [place] [address] Ajay Hart MD [address] [place] [address] 05/13/2025 11:00 AM EST Nurse Only [facility] Pulmonary, Allergy and Critical Care Medicine 10 [place] [address] Ajay Hart MD [address] [place] [address] [email or web address] 06/14/2025 11:00 AM EST Office Visit [facility] Pulmonary, Allergy and Critical Care Medicine 10 [place] [address] Ajay Hart MD [address] [place] [address] [email or web address] documented as of this encounter Results * Event Monitor Looping up to 30 Days (06/11/2019 2:45 PM EST) Anatomical Region Laterality Modality Heart Other Narrative 06/11/2019 4:59 PM EST Abnormal event monitor Analyzed time: 40 hours Baseline rhythm is sinus rhythm (min 54 bpm, mean 83 bpm, max 145 bpm). 3 patient activations: An episode of palpitations during sinus tachycardia at 135 bpm, an episode during sinus tachycardia at 118 bpm, and an episode during sinus rhythm at 96 bpm. No evidence of atrial fibrillation/flutter. No pauses. Event Monitor Main Form The type of event monitor used is: continuous telemetry. Start date: 06/02/2019 End date: 06/10/2019 Total enrollment days: 8 Analyzed time: 40 hours Baseline rhythm is sinus rhythm (min 54 bpm, mean 83 bpm, max 145 bpm). 3 patient activations: An episode of palpitations during sinus tachycardia at 135 bpm, an episode during sinus tachycardia at 118 bpm, and an episode during sinus rhythm at 96 bpm. No evidence of atrial fibrillation/flutter. No pauses. Candida Bangura [facility] CV CARDIAC SERVICES ORDE VARUN Final Result documented in this encounter Visit Diagnoses Diagnosis Palpitations- Primary Palpitations documented in this encounter Additional Health Concerns Infection Onset Date Last Indicated Resolved Time CoV-Exposed Comment:Positive COVID-19 07/26/2024 07/26/2024 07/27/2024 12: 42 AM EST CoV-Risk 07/26/2024 07/26/2024 07/27/2024 12:4 2 AM EST COVID-19 07/26/2024 07/26/2024 08/16/2024 1:21 AM EST documented as of this encounter Care Teams Channel Manager Relationship Specialty Start Date End Date Candida Bangura CNP [address] [place] [address] [email or web address] PCP - General 04/09/17 01/04/20 Kg Bazan NP [address] [place] [address] [email or web address] PCP - General Family Medicine 01/05/20 03/15/21 Eda Gutierrez NP [address] [place] [address] PCP - General Family Medicine 03/16/21 08/17/22 Esha Hazel PA [address] [place] [address] [email or web address] PCP - General Physician Continuous Mining Operator 08/18/22 12/05/22 Kylee Gómez CNP [address] [place] [address] PCP - General Nurse Practitioner 12/06/22 02/04/24 Kylee Gómez CNP [address] [place] [address] PCP - General Nurse Practitioner 02/05/24 Ajay Hart MD [address] [place] [address] [email or web address] Historical LMR Provider 04/13/17 Candida Bangura CNP [address] [place] [address] [email or web address] Historical LMR Provider 04/13/17 Tamar Remy PA [facility] [place] [address] Historical LMR Provider 04/13/17 2 Garrett Schaefer MD [email or web address] Historical LMR Provider 04/13/17 07/01/21 Timo Traylor MD [address] [place] [address] Historical LMR Provider 04/13/17 Timo Moyer DO [address] [place] [address] Orthopedics [facility] [place] [address] [email or web address] Historical LMR Provider 04/13/17 07/01/21 Willam Sullivan MD [address] [place] [address] [email or web address] Historical LMR Provider 04/13/17 Michelle Woodward PA-C [address] [place] [address] Orth[facility], [place] [address] Historical LMR Provider 04/13/17 07/01/21 Humza Barker CNP 15 [facility], 2nd [place] [address] [email or web address] Historical LMR Provider 04/13/17 07/01/21 Crystal Kirk MD [address] [place] [address] Orthopedics [facility] Sports Medicine, [place] [address] [email or web address] Historical LMR Provider 04/13/17 documented as of this encounter Additional Source Comments The information contained in this document represents components of the legal health record. It is not the complete legal health record.[facility]
--- OUTSIDE RECORDS SUMMARY | 2025-04-20 06:18 | XMS_ITS | Encounter Summary ---
Author Organization [facility] Address [address] [place] [address] [place] [address] Phone Care Team Providers Care Health Services Manager Name Role Phone Ajay Hart MD Unavailable [phone] Candida Bangura VACCINE CUSTOMER REPRESENTATIVE Unavailable [phone] Candida Bangura VACCINE CUSTOMER REPRESENTATIVE Primary Care Provider + Tamar Remy Unavailable [phone] Garrett Schaefer MD Unavailable [email or web address] Timo Traylor MD Unavailable [phone] Timo Moyer DO Unavailable [phone] Willam Sullivan MD Unavailable Michelle Woodward PA-C Unavailable [phone] Humza Barker VACCINE CUSTOMER REPRESENTATIVE Unavailable [phone] Crystal Kirk MD Unavailable [phone] Kg Bazan CHEMICAL DEPENDENCY PROFESSIONAL Primary Care Provider Eda Gutierrez CHEMICAL DEPENDENCY PROFESSIONAL Primary Care Provider Esha Hazel PA Primary Care Provider [phone] Kylee Gómez VACCINE CUSTOMER REPRESENTATIVE Primary Care Prov ider Kylee Gómez VACCINE CUSTOMER REPRESENTATIVE Primary Care Prov ider Encounter Details Date Type Department Care Team ([facility] Contact Info) Description 08/19/2018 Ancillary Orders Virtual Department [address] [place] [address] Edilson Box MD [address] [facility], [address] [place] [address] [email or web address] Arm numbness; White matter disease Social History Tobacco Use [...] Upcoming Encounters Date Type Department Care Team ([facility] Contact Info) Description 04/22/2025 11:00 AM EDT Nurse Only [facility] Critical [facility] Medicine [address] [place] [address] Ajay Hart MD [address] [place] [address] 04/28/2025 11:00 AM EST Nurse Only [facility] [address] [place] [address] Ajay Hart MD [address] [place] [address] 05/06/2025 11:00 AM EST Nurse Only [facility] [address] [place] [address] Ajay Hart MD [address] [place] [address] 05/13/2025 11:00 AM EST Nurse Only [facility] [address] [place] [address] Ajay Hart MD [address] [place] [address] [email or web address] 06/14/2025 11:00 AM EST Office Visit [facility] [address] [place] [address] Ajay Hart MD [address] [place] [address] [email or web address] documented as of this encounter Visit Diagnoses Diagnosis Arm numbness Disturbance of skin sensation White matter disease documented in this encounter Additional Health Concerns Infection Onset Date Last Indicated Resolved Time CoV-Exposed Comment:Positive COVID-19 07/26/2024 07/26/2024 07/27/2024 12: 42 AM EST CoV-Risk 07/26/2024 07/26/2024 07/27/2024 12:4 2 AM EST COVID-19 07/26/2024 07/26/2024 08/16/2024 1:21 AM EST documented as of this encounter Care Teams Health Services Manager Relationship Specialty Start Date End Date Candida Bangura CNP [address] [place] [address] [email or web address] PCP - General 04/09/17 01/04/20 Kg Bazan NP [address] [place] [address] [email or web address] PCP - General Family Medicine 01/05/20 03/15/21 Eda Gutierrez NP [address] [place] [address] PCP - General Family Medicine 03/16/21 08/17/22 Esha Hazel PA [address] [place] [address] [email or web address] PCP - General Physician [facility] 08/18/22 12/05/22 Kylee Gómez CNP [address] [place] [address] PCP - General Nurse Practitioner 12/06/22 02/04/24 Kylee Gómez VACCINE CUSTOMER REPRESENTATIVE [address] [place] [address] PCP - General Nurse Practitioner 02/05/24 Ajay Hart MD [address] [place] [address] [email or web address] Historical LMR Provider 04/13/17 Candida Bangura CNP [address] [place] [address] [email or web address] Historical LMR Provider 04/13/17 Tamar Remy [place] [facility] [address] Historical LMR Provider 04/13/17 2 Garrett Schaefer MD [email or web address] Historical LMR Provider 04/13/17 07/01/21 Timo Traylor MD [address] [place] [address] Historical LMR Provider 04/13/17 Timo Moyer DO 4 [facility], [facility] [place] [address] Historical LMR Provider 04/13/17 07/01/21 Willam Sullivan MD [address] [address] Historical LMR Provider 04/13/17 Michelle Woodward PA-C 4 [facility], [place] [address] Historical LMR Provider 04/13/17 07/01/21 Humza Barker CNP [address] [address] Historical LMR Provider 04/13/17 07/01/21 Crystal Kirk MD 4 [facility], [place] [address] Historical LMR Provider 04/13/17 documented as of this encounter Additional Source Comments The information contained in this document represents components of the legal health record. It is not the complete legal health record.[facility]
--- OUTSIDE RECORDS SUMMARY | 2025-04-20 06:18 | XMS_ITS | Encounter Summary ---
Author Organization [employer] Address [address] [place] [address] Care Team Providers Care Piano Case Maker Name Role Phone Kylee Gómez AGRICULTURAL LABOR CAMP MANAGER Primary Care Provider [phone] Gladys Foster Unavailable Unavailable Encounter Details Date Type Department Care Team (Late st Contact Info) Description 12/23/2024 Patient Outreach [facility] Case Management [address] [place], [place] [id number] [place] Social History Tobacco Use Types Packs/Day Years [...] Description 05/14/2025 9:40 AM EST Office Visit [facility] MEDICAL [address] [place] [address] Kylee Gómez FNP [address] [place] [address] 07/26/2025 10:10 AM EST Office Visit [facility] DENTAL [address] [place] [address] Jazmine Perez documented as of this encounter Visit Diagnoses Not on filedocumented in this encounter Additional Health Concerns Assessment Noted Time PHQ-9 Depression Total Score: 25 024 4:14 PM EST documented as of this encounter Care Teams Piano Case Maker Relationship Specialty Start Date End Date Kylee Gómez FNP [address] [place] [address] PCP - General Family Medicine 07/05/22 Gladys Foster Health Navigator 04/27/24 documented as of this encounter
== END 2025-04-20 06:16 | disposition home or self-care (01) ==
LOC: CF 06:15
PROVIDERS: Visit Provider Anesthesiology
DX: M50.30 Other cervical disc degeneration, unspecified cervical region (principal); M54.12 Radiculopathy, cervical region
CPT/HCPCS: 62321; J1100; J2003; Q9967

== ENCOUNTER 2025-04-20 08:16 | Outpatient (AMB) | payer MEDICAID, SELFPAY ==
--- NOTE | 2025-04-20 08:17 | A.OFFVIS_ITS ---
Vital Signs 04/20/25 08:28 04/20/25 09:09 Height 5 ft 2 in Weight 180 lb BMI 32.9 BP 136/89 143/88 H Blood Pressure Location Lt brachial Lt brachial Position Sitting Sitting Respiration 16 16 Pulse 90 97 Pulse Source Pulse Oximeter Pulse Oximeter Pulse Oximetry (%) 98 98 Oxygen Delivery Method Room Air Room Air Intake Visit Reasons: C5-C6 Parasagittal LAUREN Allergies codeine Allergy (Severe, Verified 01/13/25 13:07) Anaphylaxis fluticasone (From Flonase) Allergy (Severe, Verified 01/13/25 13:07) Anaphylaxis oxycodone Allergy (Intermediate, Verified 01/13/25 13:07) skin redness morphine Adverse Reaction (Intermediate, Verified 01/13/25 13:07) Nausea and Vomiting silver (From Tegaderm AG Mesh) Adverse Reaction (Mild, Verified 01/13/25 13:07) Redness of Skin Opioids - Morphine Analogues Adverse Reaction (Unknown, Verified 01/13/25 13:07) Unknown flu vaccine Allergy (Severe, Uncoded 11/03/24 12:28) Nausea and Vomiting, dehydration, weakness PFSH Medical History Fragrance hypersensitivity Hypoglycemia TMJ tenderness, right Osteoarthritis CTS (carpal tunnel syndrome) PONV (postoperative nausea and vomiting) DJD (degenerative joint disease) Asthma Seasonal allergies Environmental allergies Scoliosis Back pain Surgical History Hx of surgical fusion joint Hx of lumbar discectomy (~2018) History of arthroplasty of left knee Hx of sinus surgery Hx of bilateral breast reduction surgery History of ear surgery Social History Household Members Other:: S.O. parents Are you a primary palliative care specialist to a significant other at home: No Do you presently have visiting nurse or other home services: No Comment: aware of trip hazard Patient Tobacco Use Status: Former Tobacco user Second Hand Smoke Exposure: Yes (parents smoked in the home) Physical Exam Vital Signs: Last Vital Signs Pulse 97 04/20/25 09:09 Resp 16 04/20/25 09:09 BP 143/88 H 04/20/25 09:09 Pulse Ox 98 04/20/25 09:09 Oxygen Delivery Method Room Air 04/20/25 09:09 BMI result Body Mass Index 32.9 Assessment & Plan Assessment & Plan (1) Radiculopathy, cervical: Code(s): M54.12 - Radiculopathy, cervical region Category: Medical Plan Interlaminar C5-C6 epidural steroid injection. Informed consent was thoroughly explained to the patient risks and benefits were explained. The patient came to the operating room and positioned prone on operating table with the neck and upper back exposed. Time-out was performed delineating name and date of of the patient, side and site of the procedure. The upper back and posterior neck were prepped with ChloraPrep and draped with sterile utility towels. C-arm was brought over the operating field and sq picture of C6 vertebra was demonstrated on the screen. Right C6 upper lamina as close to the spinous process of C6 as possible projection to the skin was chosen as the target of the injection. The skin was infiltrated with lidocaine 1% preservative-free. After that 10 cm Touhy needle 20 gauge was inserted through the skin wheal and started to advance to were the epidural sp tereso on intermittent anterior posterior and contralateral oblique views. When the tip of the needle on contralateral oblique view slightly passed the interlaminar line injection of the contrast was performed demonstrating no intravascular and no intrathecal spread of the contrast. Upon completion of the injection of the contrast injection of the treatment solution of Decadron 20 mg mixed with normal saline 5 cc and with trace amount of preservative-free lidocaine no more than 0.1 cc was injected into the needle. Upon completion of the injection the needle was withdrawn sterile Band-Aid was applied. Patient tolerated the procedure well. Orders: Orders FL guidance in treatment room Today M50.30 - Other cervical disc degeneration, unspecified cervical region Coding Level of Care Code Procedure Only Diagnoses Radiculopathy, cervical M54.12
[2025-04-20 08:28] VITALS: BP 136/89; PULSE 90; RESP 16; O2SAT 98; BMI 32.9
[2025-04-20 09:09] VITALS: BP 143/88; PULSE 97; RESP 16; O2SAT 98
== END 2025-04-20 09:10 | disposition home or self-care (01) ==
LOC: HO.PMCPRC 08:16
PROVIDERS: PCP Nurse Practitioner Family; Visit Provider Anesthesiology
DX: M54.12 Radiculopathy, cervical region (principal)
CPT/HCPCS: 62321

== ENCOUNTER 2025-04-29 14:01 | Outpatient (REF) | payer MEDICAID, SELFPAY ==
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
--- OUTSIDE RECORDS SUMMARY | 2025-04-28 11:00 | XMS_ITS | Encounter Summary ---
Author Organization [facility] Address [address] [place] [address] Phone Care Team Providers Care Loft Worker Apprentice Name Role Phone Ajay Hart MD Unavailable [phone] Candida Bangura NURSING DIRECTOR Unavailable Willam Sullivan MD Unavailable Kylee Gómez [facility] Primary Care Prov ider Encounter Details Date Type Department Care Team (Late st Contact Info) Description 04/28/2025 11:00 AM EST Nurse Only [facility] Pulmonary, Allergy and Critical Care Medicine 10 [place] [address] Ajay Hart MD [address] [facility] [address] [place] [address] [email or web address] Seasonal allergies (Primary Dx) Social History Tobacco [...] as of this encounter Progress Notes * Caitlin Andre LPN - 04/28/2025 11:00 AM EST Dosage: Maintenance Build Up Week 34 Dx: J30.2 An antihistamine was taken prior [...] 0.5 mL, 1:1 concentrate into RLA Cat/Mite, 0.45 mL, 1:1 concentrate into DIANA Molds, 0.5 mL, 1: 1 concentrate into the LLA All Vials 02/09/2026 Bendryl Cream applied to injections. No immediate reaction. Pt declined to wait in office for 30 minutes. documented in this encounter Plan of Treatment Upcoming Encounters Date Type Department Care Team ([facility] st Contact Info) Description 05/06/2025 11:00 AM EST Nurse Only [facility], Allergy [facility] Critical [facility] Medicine [address] [place] [address] Ajay Hart MD [address] [place] [address] [email or web address] 05/13/2025 11:00 AM EST Nurse Only [facility] Critical [facility] [address] [place] [address] Ajay Hart MD [address] [place] [address] 05/18/2025 11:00 AM EST Nurse Only [facility] [address] [place] [address] Ajay Hart MD [address] [place] [address] 06/14/2025 11:00 AM EST Office Visit [facility] [address] [place] [address] Ajay Hart MD [address] [place] [address] [email or web address] documented as of this encounter Visit Diagnoses Diagnosis Seasonal allergies- Primary Allergic rhinitis, cause unspecified documented in this encounter Care Teams Loft Worker Apprentice Relationship Specialty Start Date End Date Kylee Gómez CNP [address] [place] [address] PCP - General Nurse Practitioner 02/05/24 Ajay Hart MD [address] [place] [address] [email or web address] Historical LMR Provider 04/13/17 Candida Bangura CNP [address] [place] [address] [email or web address] Historical LMR Provider 04/13/17 Willam Sullivan MD [address] [place] [address], [address] [place] [address] Historical LMR Provider 04/13/17 documented as of this encounter Additional Source Comments The information contained in this document represents components of the legal health record. It is not the complete legal health record.[facility]
--- NOTE | 2025-04-29 14:05 | EMG_ITS ---
Chief complaint: Chronic lower back pain, left leg pain, numbness in left foot. History of L5-S1 microdiskectomy 11/13/2023. Reason for referral: Evaluate for radiculopathy or neuropathy Referred by: Radha Thomson NP Procedure done: Bilateral lower extremity NCS/EMG Precautions and/or limitations: Previous lumbar surgery The limb temperature was monitored continuously and remained between 32-36 degrees C during the performance of the NCS. Nerve Conduction Studies Anti Sensory Summary Table ?Stim Site NR Onset (ms) Norm Onset (ms) Peak (ms) Norm Peak (ms) O-P Amp (?V) Norm O-P Amp Site1 Site2 Delta-0 (ms) Dist (cm) Xavi (m/s) Norm Xavi (m/s) Left Sural Anti Sensory (Lat Mall) Calf ? 2.8 3.5 <4.0 18.4 >5.0 Calf Lat Mall 2.8 14.0 50 Right Sural Anti Sensory (Lat Mall) Calf ? 3.0 4.0 <4.0 17.0 >5.0 Calf Lat Mall 3.0 14.0 47 Motor Summary Table ?Stim Site NR Onset (ms) Norm Onset (ms) O-P Amp (mV) Norm O-P Amp iAmp (mV) Amp (1st) (%) Site1 Site2 Delta-0 (ms) Dist (cm) Xavi (m/s) Norm Xavi (m/s) Left Peroneal Motor (Ext Dig Brev) Ankle ? 3.7 <4.0 8.4 >2.5 10.2 100.0 Ankle Ext Dig Brev 3.7 0.0 B Fib ? 10.2 8.2 9.9 97.6 B Fib Ankle 6.5 30.5 47 >40 Poplt ? 11.3 9.4 11.9 111.9 Poplt B Fib 1.1 6.0 55 >40 Left Tibial Motor (Abd Noriega Brev) Ankle ? 3.9 <5 13.2 >2.5 17.3 100.0 Ankle Abd Noriega Brev 3.9 0.0 Knee ? 11.7 10.1 13.3 76.5 Knee Ankle 7.8 37.0 47 >40 Right Tibial Motor (Abd Noriega Brev) Ankle ? 3.9 <5 6.8 >2.5 8.8 100.0 Ankle Abd Noriega Brev 3.9 0.0 Knee ? 11.2 8.6 11.2 126.5 Knee Ankle 7.3 36.0 49 >40 EMG ?Side Muscle Nerve Root Ins Act Fibs Psw Amp Dur Poly Recrt Int Pat Comment Right AbdHallucis MedPlantar S1-2 Nml Nml Nml Nml Nml 0 Nml Complete Right AntTibialis Dp Br Peron L4-5 Nml Nml Nml Nml Nml 0 Nml Complete Right PostTibialis Tibial L5, S1 Nml Nml Nml Nml Nml 0 Nml Complete Right MedGastroc Tibial S1-2 Nml Nml Nml Nml Nml 0 Nml Complete Right VastusMed Femoral L2-4 Nml Nml Nml Nml Nml 0 Nml Complete Left AbdHallucis MedPlantar S1-2 Nml Nml Nml Nml Nml 0 Nml Complete Left AntTibialis Dp Br Peron L4-5 Nml Nml Nml Nml Nml 0 Nml Complete Left PostTibialis Tibial L5, S1 Nml Nml Nml Nml Nml 0 Nml Complete Left MedGastroc Tibial S1-2 Nml Nml Nml Nml Nml 0 Nml Complete Left VastusMed Femoral L2-4 Nml Nml Nml Nml Nml 0 Nml Complete Left BicepsFemS Sciatic L5-S1 Nml Nml Nml Nml Nml 0 Nml Complete FINDINGS: All motor and sensory nerves tested showed normal latencies, amplitudes and conduction velocities. Concentric needle EMG was performed in selected muscles of the bilateral lower extremity. Study did not reveal signs of electric abnormalities as shown in the table above. IMPRESSION: 1. This is a normal study. 2. There is no electrodiagnostic evidence for ongoing or active lumbar radiculopathy. 3. There is no electrodiagnostic evidence for peroneal neuropathy, tibial neuropathy, lumbosacral plexopathy, or peripheral neuropathy. Thank you for your kind referral. Hazel Tam MD, BARBARA Board Certified, [place] Board of Physical Medicine and Rehabilitation (ABPMR) Board Certified, [place] Board of Electrodiagnostic Medicine (ABEM) CODIN 29229 x 2 extremities MTDD
--- OUTSIDE RECORDS SUMMARY | 2025-04-29 17:11 | XMS_ITS | Encounter Summary ---
Author Organization [facility] Address [address] [place] [address] [place] [address] Phone Care Team Providers Care Production Quality Manager Name Role Phone Ajay Hart MD Unavailable [phone] Candida Bangura DIESEL ROLLER OPERATOR Unavailable Willam Sullivan MD Unavailable Eda Gutierrez NP Primary Care Provider Esha Hazel Primary Care Provider [phone] Kylee Gómez [facility] Primary Care Prov ider Kylee Gómez [facility] Primary Care Prov ider Encounter Details Date Type Department Care Team (Late st Contact Info) Description 09/26/2021 Ancillary Orders [facility], X-Ray - [address] [address] Esha Hazel PA [address] [place] [address]. [place] [address] [email or web address] Acute pain of right shoulder Social [...] Upcoming Encounters Date Type Department Care Team ([facility] st Contact Info) Description 05/06/2025 11:00 AM EST Nurse Only [facility] Pul[facility], Allergy and Critical Care Medicine 10 [place] [address] Ajay Hart MD [address] [place] [address] .[employer] 05/13/2025 11:00 AM EST Nurse Only [facility], Allergy [facility] Critical [facility] Medicine [address] [place] [address] Ajay Hart MD [address] [place] [address] 05/18/2025 11:00 AM EST Nurse Only [facility] [address] [place] [address] Ajay Hart MD [address] [place] [address] .[employer] 06/14/2025 11:00 AM EST Office Visit [facility] [address] [place] [address] Ajay Hart MD [address] [place] [address] documented as of this encounter Results * [...] documented as of this encounter Care Teams Production Quality Manager Relationship Specialty Start Date End Date Eda Gutierrez NP [address] [place] [address], 2nd [place] [address] PCP - General Family Medicine 03/16/21 08/17/22 Esha Hazel PA [address] [place] [address] [email or web address] PCP - General Physician Playback Operator 08/18/22 12/05/22 Kylee Gómez CNP [address] [place] [address] PCP - General Nurse Practitioner 12/06/22 02/04/24 Kylee Gómez CNP [address] [place] [address] PCP - General Nurse Practitioner 02/05/24 Ajay Hart MD [address] [place] [address] [email or web address] Historical LMR Provider 04/13/17 Candida Bangura CNP [address] [place] [address] [email or web address] Historical LMR Provider 04/13/17 Willam Sullivan MD [address] [place] [address] Historical LMR Provider 04/13/17 documented as of this encounter Additional Source Comments The information contained in this document represents components of the legal health record. It is not the complete legal health record.[facility]
--- OUTSIDE RECORDS SUMMARY | 2025-04-29 17:11 | XMS_ITS | Encounter Summary ---
Author Organization [facility] Address [address] [place] [address] [place] [address] Phone Care Team Providers Care Uncrater Name Role Phone Ajay Hart MD Unavailable [phone] Candida Bangura [facility] Unavailable Willam Sullivan MD Unavailable [phone] Kylee Gómez [facility] Primary Care Prov ider Kylee Gómez [facility] Primary Care Prov ider Encounter Details Date Type Department Care Team (Late st Contact Info) Description 05/29/2023 Procedure Pass [facility], [address] [address] Social History Tobacco Use Types Packs/Day Years [...] Upcoming Encounters Date Type Department Care Team ([facility] st Contact Info) Description 05/06/2025 11:00 AM EST Nurse Only [facility], Allergy [facility] Critical Care Medicine [address] [place] [address] Ajay Hart MD [address] [place] [address] .[email or web address] 05/13/2025 11:00 AM EST Nurse Only [facility] Critical [facility] Medicine [address] [place] [address] Ajay Hart MD [address] [place] [address] 05/18/2025 11:00 AM EST Nurse Only [facility] Medicine [address] [place] [address] Ajay Hart MD [address] [place] [address] 06/14/2025 11:00 AM EST Office Visit [facility] All[facility] Critical [facility] Medicine [address] [place] [address] Ajay Hart MD [address] [place] [address] [email or web address] documented as of this encounter Visit Diagnoses Not on filedocumented in this encounter Additional Health Concerns Infection Onset Date Last Indicated Resolved Time CoV-Exposed Comment:Positive COVID-19 07/26/2024 07/26/2024 07/27/2024 12: 42 AM EST CoV-Risk 07/26/2024 07/26/2024 07/27/2024 12:4 2 AM EST COVID-19 07/26/2024 07/26/2024 08/16/2024 1:21 AM EST documented as of this encounter Care Teams Uncrater Relationship Specialty Start Date End Date Kylee Gómez CNP [address] [place] [address] PCP - General Nurse Practitioner 12/06/22 02/04/24 Kylee Gómez CNP [address] [place] [address] PCP - General Nurse Practitioner 02/05/24 Ajay Hart MD [address] [place] [address] [email or web address] Historical LMR Provider 04/13/17 Candida Bangura CNP [address] [place] [address] [email or web address] Historical LMR Provider 04/13/17 Willam Sullivan MD [address] [place] [address] [email or web address] Historical LMR Provider 04/13/17 documented as of this encounter Additional Source Comments The information contained in this document represents components of the legal health record. It is not the complete legal health record.[facility]
--- OUTSIDE RECORDS SUMMARY | 2025-04-29 17:11 | XMS_ITS | Encounter Summary ---
Author Organization [facility] Address [address] [place] [address] [place] [address] Phone Care Team Providers Care Security Analyst Name Role Phone Ajay Hart MD Unavailable [phone] Candida Bangura AIRCRAFT DESIGN ENGINEER Unavailable [phone] Candida Bangura AIRCRAFT DESIGN ENGINEER Primary Care Provider + Tamar Remy Unavailable [phone] Garrett Schaefer MD Unavailable [email or web address] Timo Traylor MD Unavailable Timo Moyer DO Unavailable [phone] Willam Sullivan MD Unavailable Michelle Woodward PA-C Unavailable [phone] Humza Barker AIRCRAFT DESIGN ENGINEER Unavailable [phone] Crystal Kirk MD Unavailable [phone] Kg Bazan JIG MILL OPERATOR Primary Care Provider Eda Gutierrez JIG MILL OPERATOR Primary Care Provider Esha Hazel PA Primary Care Provider [phone] Kylee Gómez AIRCRAFT DESIGN ENGINEER Primary Care Prov ider Kylee Gómez AIRCRAFT DESIGN ENGINEER Primary Care Prov ider Encounter Details Date Type Department Care Team (Late Contact Info) Description 12/04/2017 Procedure Pass [facility], [facility] [address] [place] [address] Social History Tobacco Use Types Packs/Day Years [...] Department Care Team (Late Contact Info) Description 05/06/2025 11:00 AM EST Nurse Only [facility] [address] [place] [address] Ajay Hart MD [address] [place] [phone] [email or web address] 05/13/2025 11:00 AM EST Nurse Only [facility] [address] [place] [address] Ajay Hart MD [address] [place] [address] 05/18/2025 11:00 AM EST Nurse Only [facility] [address] [place] [address] Ajay Hart MD [address] [place] [phone] [email or web address] 06/14/2025 11:00 AM EST Office Visit [facility] [address] [place] [address] Ajay Hart MD [address] [place] [phone] [email or web address] documented as of this encounter Visit Diagnoses Not on filedocumented in this encounter Additional Health Concerns Infection Onset Date Last Indicated Resolved Time CoV-Exposed Comment:Positive COVID-19 07/26/2024 07/26/2024 07/27/2024 12: 42 AM EST CoV-Risk 07/26/2024 07/26/2024 07/27/2024 12:4 2 AM EST COVID-19 07/26/2024 07/26/2024 08/16/2024 1:21 AM EST documented as of this encounter Care Teams Security Analyst Relationship Specialty Start Date End Date Candida Bangura CNP [address] [place] [address] [email or web address] PCP - General 04/09/17 01/04/20 Kg Bazan NP [address] [place] [address] [email or web address] PCP - General Family Medicine 01/05/20 03/15/21 Eda Gutierrez NP [address] [place] [address] PCP - General Family Medicine 03/16/21 08/17/22 Esha Hazel PA [address] [place] [address] [email or web address] PCP - General Physician Logistics Analyst 08/18/22 12/05/22 Kylee Gómez CNP [address] [place] [address] PCP - General Nurse Practitioner 12/06/22 02/04/24 GolKylee herr CNP [address] [place] [address] PCP - General Nurse Practitioner 02/05/24 Ajay Hart MD [address] [place] [phone] [email or web address] Historical LMR Provider 04/13/17 Candida Bangura CNP [address] [place] [address] [email or web address] Historical LMR Provider 04/13/17 Tamar Remy PA [address] [place] [address] Historical LMR Provider 04/13/17 2 Garrett Schaefer MD [email or web address] Historical LMR Provider 04/13/17 07/01/21 Timo Traylor MD [address] [place] [address] Historical LMR Provider 04/13/17 Timo Moyer DO [address] [place] [address] [facility], [place] [address] [email or web address] Historical LMR Provider 04/13/17 07/01/21 Willam Sullivan MD [address] [place] [address] [email or web address] Historical LMR Provider 04/13/17 Michelle Woodward PA-C 4 [facility] [place] [address] Historical LMR Provider 04/13/17 07/01/21 Humza Barker CNP 15 [facility], [address] [place] [address] Historical LMR Provider 04/13/17 07/01/21 Crystal Kirk MD 4 [facility], [place] [address] [email or web address] Historical LMR Provider 04/13/17 documented as of this encounter Additional Source Comments The information contained in this document represents components of the legal health record. It is not the complete legal health record.[facility]
--- OUTSIDE RECORDS SUMMARY | 2025-04-29 17:11 | XMS_ITS | Encounter Summary ---
Author Organization [facility] Address [address] [place] [address] [place] [address] Phone Care Team Providers Care Grant Coordinator Name Role Phone Ajay Hart MD Unavailable [phone] Candida Bangura METALLURGICAL ANALYST Unavailable [phone] Candida Bangura METALLURGICAL ANALYST Primary Care Provider + Tamar Remy Unavailable [phone] Garrett Schaefer MD Unavailable [email or web address] Timo Traylor MD Unavailable Timo Moyer DO Unavailable [phone] Willam Sullivan MD Unavailable Michelle Woodward PA-C Unavailable [phone] Humza Barker METALLURGICAL ANALYST Unavailable [phone] Crystal Kirk MD Unavailable [phone] Kg Bazan TEA BAG PACKER Primary Care Provider [phone] Eda Gutierrez TEA BAG PACKER Primary Care Provider Esha Hazel PA Primary Care Provider [phone] Kylee Gómez METALLURGICAL ANALYST Primary Care Prov ider Kylee Gómez METALLURGICAL ANALYST Primary Care Prov ider Encounter Details Date Type Department Care Team (Late Contact Info) Description 11/12/2018 Procedure Pass [facility] [address] [place] [address] Social History Tobacco Use Types Packs/Day Years [...] Upcoming Encounters Date Type Department Care Team ([facility] Contact Info) Description 05/06/2025 11:00 AM EST Nurse Only [facility] [address] [place] [address] Ajay Hart MD [address] [place] [phone] [email or web address] 05/13/2025 11:00 AM EST Nurse Only [facility] [address] [place] [address] Ajay Hart MD [address] [place] [address] 05/18/2025 11:00 AM EST Nurse Only [facility] [address] [place] [address] Ajay Hart MD [address] [place] [phone] [email or web address] 06/14/2025 11:00 AM EST Office Visit [facility] [address] [place] [address] Ajay Hart MD [address] [place] [phone] [email or web address] documented as of this encounter Visit Diagnoses Not on filedocumented in this encounter Additional Health Concerns Infection Onset Date Last Indicated Resolved Time CoV-Exposed Comment:Positive COVID-19 07/26/2024 07/26/2024 07/27/2024 12: 42 AM EST CoV-Risk 07/26/2024 07/26/2024 07/27/2024 12:4 2 AM EST COVID-19 07/26/2024 07/26/2024 08/16/2024 1:21 AM EST documented as of this encounter Care Teams Grant Coordinator Relationship Specialty Start Date End Date Candida Bangura CNP [address] [place] [address] [email or web address] PCP - General 04/09/17 01/04/20 Kg Bazan, SHAWN [address] [place] [address] [email or web address] PCP - General Family Medicine 01/05/20 03/15/21 Eda Gutierrez, SHAWN [address] [place] [address] PCP - General Family Medicine 03/16/21 08/17/22 Esha Hazel PA [address] [place] [address] [email or web address] PCP - General Physician Base Loader 08/18/22 12/05/22 Kylee Gómez, EDER [address] [place] [address] PCP - General Nurse Practitioner 12/06/22 02/04/24 Kylee Gómez, EDER [address] [place] [address] PCP - General Nurse Practitioner 02/05/24 Ajay Hart MD [address] [place] [address] [email or web address] Historical LMR Provider 04/13/17 Candida Bangura CNP [address] [place] [address] [email or web address] Historical LMR Provider 04/13/17 Tamar Remy PA [address] [place] [address] Historical LMR Provider 04/13/17 2 Garrett Schaefer MD [email or web address] Historical LMR Provider 04/13/17 07/01/21 Timo Traylor MD [address] [place] [address] Historical LMR Provider 04/13/17 Timo Moyer DO [address] [place] [address] Orthopedics & Sports Medicine, [place] [address] [email or web address] Historical LMR Provider 04/13/17 07/01/21 Willam Sullivan MD [address] [place] [address] [email or web address] Historical LMR Provider 04/13/17 Michelle Woodward PA-C 4 [facility] [address] Historical LMR Provider 04/13/17 07/01/21 Humza Barker CNP 15 [facility], [address] [place] [address] Historical LMR Provider 04/13/17 07/01/21 Crystal Kirk MD 4 [facility] [place] [address] [email or web address] Historical LMR Provider 04/13/17 documented as of this encounter Additional Source Comments The information contained in this document represents components of the legal health record. It is not the complete legal health record.[facility]
--- OUTSIDE RECORDS SUMMARY | 2025-04-29 17:11 | XMS_ITS | Clinical Summary ---
Author Organization [facility] Address [address] [place] [address] [place] [address] Phone Care Team Providers Care Laser Machine Operator Name Role Phone Ajay Hart MD Unavailable [phone] Candida Bangura AUTO BODY SERVICE MECHANIC Unavailable [phone] Willam Sullivan MD Unavailable [phone] Kylee Gómez [facility] Primary Care Prov ider Allergies Active [...] Instructions route as needed. 1 Device 1 019 Active acetaminophen (TYLENOL) 500 mg/15 mL oral solution Take by mouth. Activ e cyclobenzaprine (FLEXERIL) 10 MG tablet Take 1 tablet (10 mg total) by mouth 3 (three) times a day as needed. 21 tablet 022 Active EPINEPHrine (EPIPEN) 0.3 mg/0.3 mL auto-injector Inject 0.3 mL (0.3 mg total) under the skin once as needed. 2 each 3 023 Active nebulizer and compressor DeviIndications :Moderate persistent asthma without complication 1 filter/month 2 disposable neb kits/month 1 permanent neb kit/6 months Every six hours PRN for wheezing/shortnes s of breath 1 each 023 Active hydrOXYzine (ATARAX) 25 MG tablet Take 25 mg by mouth nightly at bedtime as needed. Active ALTAVERA, 28, 0.15-0.03 mg per tablet Active amitriptyline (ELAVIL) 10 MG tablet Take 10 mg by mouth nightly at bedtime as needed. Active pregabalin (LYRICA) 25 MG capsule TAKE 1 CAPSULE (25 MG) BY MOUTH 2 TIMES DAILY. Active albuterol 2.5 mg /3 mL (0.083 %) nebulizer solutionIndicat ions:Moderate persistent asthma without complication Take 3 mL (2.5 mg total) by nebulization every 6 (six) hours as needed for wheezing or shortness of breath/dyspnea. 180 mL 2 025 Active naproxen (EC NAPROSYN) 500 MG EC tablet Take 500 mg by mouth. 025 2025 Active ketotifen (ZADITOR) 0.025 % (0.035 %) ophthalmic solution Place 1 drop into each eye 2 (two) times a day. 5 mL Active montelukast (SINGULAIR) 10 mg tablet Take 1 tablet (10 mg total) by mouth nightly at bedtime. 30 tablet Active fluticasone furoate-vilante roL (BREO ELLIPTA) 200-25 mcg/dose inhaler Inhale 1 puff into the lungs daily. 60 each Active fexofenadine (PAT) 180 MG tablet Take 1 tablet (180 mg total) by mouth 2 (two) times a day. 60 tablet 025 Active budesonide (RHINOCORT AQUA) 32 mcg/actuation nasal spray 1 spray by Nasal route daily. 25.29 mL 3 025 Active olopatadine (PATANOL) 0.1 % ophthalmic solution Place 1 drop into each eye 2 (two) times a day. 5 mL 12 025 Active albuterol (VENTOLIN HFA) 90 mcg/actuation inhaler Inhale 2 puffs into the lungs every 4 (four) hours as needed for wheezing. 18 g 5 025 Active albuterol (VENTOLIN HFA) 90 mcg/actuation inhaler Inhale 2 puffs into the lungs every 4 (four) hours as needed for wheezing. 18 g 5 025 2024 Discontinued Active Problems Problem Noted Date Diagnosed Date [...] montelukast. Recommend trial of high-dose nonsedating antihistamine Pat twice daily. Order eyedrops as well hopefully [...] unable to obtain, encourage patient to purchase [id number] version if affordable. Follow-up with ENT. Will [...] Encourage patient to transfer allergy injections from [place] to [place] [facility] offices. If unable, I would be [...] Encounters Date Type Department Care Team Description 04/28/2025 11:00 AM EST Nurse Only [facility] [address] [place] [address] Ajay Hart MD Seasonal allergies (Primary Dx) 04/28/2025 Refill [facility] [address] [place] [address] Caitlin Andre LPN Medication Refill 04/22/2025 11:00 AM EDT Nurse Only [facility] [address] [place] [address] Ajay Hart MD Seasonal allergies (Primary Dx) 04/15/2025 11:00 AM EDT Nurse Only [facility] [address] [place] [address] Ajay Hart MD Seasonal allergies (Primary Dx) 04/08/2025 11:00 AM EDT Nurse Only [facility] [address] [place] [address] Ajay Hart MD Seasonal allergies (Primary Dx) 03/22/2025 11:00 AM EDT Nurse Only [facility] [address] [place] [address] Ajay Hart MD Seasonal allergies (Primary Dx) 03/18/2025 11:30 AM EDT Nurse Only [facility] [address] [place] [address] Ajay Hart MD Seasonal allergies (Primary Dx) 03/08/2025 10:30 AM EDT Nurse Only [facility] [address] [place] [address] Ajay Hart MD Seasonal allergies (Primary Dx) 03/03/2025 Telephone [facility] [address] [place] [address] Kylee Gómez, AUTO BODY SERVICE MECHANIC Immunotherapy 02/25/2025 11:00 AM EDT Nurse Only [facility] [address] [place] [address] Ajay Hart MD Seasonal allergies (Primary Dx) 02/18/2025 1:00 PM EDT Nurse Only [facility] [address] [place] [address] Ajay Hart MD Seasonal allergies (Primary Dx) 02/09/2025 Refill [facility] [address] [place] [address] Ajay Hart MD Medication Refill 02/04/2025 11:00 AM EDT Nurse Only [facility] [address] [place] [address] Ajay Hart MD Seasonal allergies (Primary Dx) 01/28/2025 10:30 AM EDT Nurse Only [facility] [address] [place] [address] Ajay Hart MD Seasonal allergies (Primary Dx) from Last 3 Months Immunizations Immunization Administration Dates Next Due HPV9 05/02/2007,02/28/2007,09/03/2006 Hepatitis B Adult 11/16/2009,10/17/2009 Meningococcal MCV4, unspecified Formulation 12/2006 Td (adult),2 Lf Tetanus Toxo id, PF, Adsorbed 12/14/2008 Tdap 07/25/2011 Family History Medical History Relation Comments Breast [...] Care Team (Late st Contact Info) Description 05/06/2025 11:00 AM EST Nurse Only [facility] [address] [place] [address] Ajay Hart MD [address] [place] [id number] [email or web address] 05/13/2025 11:00 AM EST Nurse Only [facility] [address] [place] [address] Ajay Hart MD [address] [place] [phone] [email or web address] 05/18/2025 11:00 AM EST Nurse Only [facility] [address] [place] [address] Ajay Hart MD [address] [place] [address] [email or web address] 06/14/2025 11:00 AM EST Office Visit [facility] [address] [place] [address] Ajay Hart MD [address] [place] [address] [email or web address] Health Maintenance Due Date Last Done Comments DEPRESSION SCREENING 1998 HEPATITIS C SCREENING 2004 HIV ONE-TIME SCREENING (18-6 5 YEARS) 2004 PNEUMOCOCCAL VACCINES (0-49 years) (1 of 2 - PCV) 2005 PAP SMEAR 08/02/2014 08/02/2011 Adult Td,Tdap Booster 07/25/2021 07/25/2011 , 12/14/2008 INFLUENZA VACCINE (#1) 2025 COVID-19 VACCINE (1 - 2024-2 6 season) 2025 SCREENING FOR DIABETES 07/26/2027 07/26/2024 MENINGOCOCCAL VACCINES (ACWY) Aged Out 02/28/2007 No longer eligible based on patient's age to complete this topic SMOKING STATUS SCREENING (On ce After 26 [...] this topic Medical Devices Implanted Type Area Environmental Systems Coordinator Device Identifier Shelf Expiration Date Model / Serial / Lot Linear St Neurostimulator Lead Implanted: 025 (Quantity not on file) Lead Back [employer]ox SC-2218-50 / [id number] / Linear St Neurostimulator Lead Implanted: 025 (Quantity not on file) Lead Back [employer] / [id number] / Filler Bone Sm Graft Demineralized Orthoblend Container 10ml Volume - [id number] Implanted:Qty: 1 on 08/13/2017 by Ray Reeves MD at [facility] STANDARD Left: Sacrum [employer] SPINE 03/20/2019 [id number] / [id number] / Description:ORTHOBLEND 10CC Wavewriter Alpha Neuro Stimulator Implanted: 025 (Quantity not on file) Stimulator Back [employer] SC-[id number] / / [id number] Description:MRI Conditional- please see airport representative guidelines for conditions Device Threaded 12x50 [employer] Si Fusion System Strl Spine Code 56 - [id number] Implanted:Qty: 1 on 08/13/2017 by Ray Reeves MD at [facility] Left: Sacrum [employer] 06/05/2025 [id number] / / [id number] Device Threaded 12x40 [employer] Si Fusion System Strl Spine Code 56 - [id number] Implanted:Qty: 1 on 08/13/2017 by Ray Reeves MD at [facility] Sacrum [employer] 02/17/2024 [id number] / / [id number] Insurance C3 [employer] [address] [place] [address] [place] [address] [place] [address] [place] [address] [place] [id number] [place] [id number] Advance Directives For more information, please contact: [phone] (9AM - 5PM [place], Saturday-Saturday) Documents on File Type Date Recorded Patient Analytical Chemist Expl anation Healthcare Proxy 08/14/2017 11:35 AM * Full Code (Presumed) (Latest Code Status on File) Date Activated Date Inactivated Comments 01/07/2018 5:15 PM 01/08/2018 2:24 PM Care Teams Laser Machine Operator Relationship Specialty Start Date End Date Kylee Gómez CNP [address] [place] [address] PCP - General Nurse Practitioner 02/05/24 Ajay Hart MD [address] [place] [address] Historical LMR Provider 04/13/17 Candida Bangura CNP [address] [place] [address] [email or web address] Historical LMR Provider 04/13/17 Willam Sullivan MD [address] [place] [address] Historical LMR Provider 04/13/17 Additional Source Comments The information contained in this document represents components of the legal health record. It is not the complete legal health record.[facility]
--- OUTSIDE RECORDS SUMMARY | 2025-04-29 17:11 | XMS_ITS | Encounter Summary ---
Author Organization [employer] Address [address] [place] [address] Care Team Providers Care Testing Specialist Name Role Phone Kylee Gómez Primary Care Provider [phone] Gladys Foster Unavailable Unavailable Encounter Details Date [...] AM EST Office Visit [facility] MEDICAL [address] [place] [address] Kylee Gómez FNP [address] [place] [address] 07/26/2025 10:10 AM EST Office Visit [facility] DENTAL [address] [place] [address] Jazmine Perez documented as of this encounter Visit Diagnoses Not on filedocumented in this encounter Care Teams Testing Specialist Relationship Specialty Start Date End Date Kylee Gómez FNP [address] [place] [address] PCP - General Family Medicine 07/05/22 Gladys Foster Health Navigator 04/27/24 documented as of this encounter
--- OUTSIDE RECORDS SUMMARY | 2025-04-29 17:11 | XMS_ITS | Encounter Summary ---
Author Organization [facility] Address [address] [place] [address] [place] [address] Phone Care Team Providers Care Line Cleaner Name Role Phone Ajay Hart MD Unavailable [phone] Candida Bangura BEDSPREAD CUTTER Unavailable Willam Sullivan MD Unavailable [phone] Eda Gutierrez PARTICLE BOARD SUPERVISOR Primary Care Provider Esha Hazel Primary Care Provider Kylee Gómez [facility] Primary Care Prov ider Kylee Gómez [facility] Primary Care Prov ider Encounter Details Date Type Department Care Team (Latest Contact Info) Description 07/25/2022 Transcribe Orders Virtual Department [address] [place] [address] Esha Hazel PA [address] [place] [address]. [place] [address] [email or web address] Scoliosis, unspecified scoliosis type, unspecified spinal [...] Upcoming Encounters Date Type Department Care Team ([facility] st Contact Info) Description 05/06/2025 11:00 AM EST Nurse Only [facility] [address] [place] [address] Ajay Hart MD [address] [place] [address] [email or web address] 05/13/2025 11:00 AM EST Nurse Only [facility] [address] [place] [address] Ajay Hart MD [address] [place] [address] [email or web address] 05/18/2025 11:00 AM EST Nurse Only [facility] [address] [place] [address] Ajay Hart MD [address] [place] [address] [email or web address] 06/14/2025 11:00 AM EST Office Visit [facility] [address] [place] [address] Ajay Hart MD [address] [place] [address] [email or web address] documented as of this encounter Visit Diagnoses Diagnosis Scoliosis, unspecified scoliosis type, unspecified spinal region- Primary documented in this encounter Additional Health Concerns Infection Onset Date Last Indicated Resolved Time CoV-Exposed Comment:Positive COVID-19 07/26/2024 07/26/2024 07/27/2024 12: 42 AM EST CoV-Risk 07/26/2024 07/26/2024 07/27/2024 12:4 2 AM EST COVID-19 07/26/2024 07/26/2024 08/16/2024 1:21 AM EST documented as of this encounter Care Teams Line Cleaner Relationship Specialty Start Date End Date Eda Gutierrez NP [address] [address] PCP - General Family Medicine 03/16/21 08/17/22 Esha Hazel PA [address] [place] [address] [email or web address] PCP - General Physician Team Coordinator 08/18/22 12/05/22 Kylee Gómez CNP [address] [place] [address] PCP - General Nurse Practitioner 12/06/22 02/04/24 Kylee Gómez CNP [address] [place] [address] PCP - General Nurse Practitioner 02/05/24 Ajay Hart MD [address] [place] [address] [email or web address] Historical LMR Provider 04/13/17 Candida Bangura CNP [address] [place] [address] [email or web address] Historical LMR Provider 04/13/17 Willam Sullivan MD [address] [place] [address] Historical LMR Provider 04/13/17 documented as of this encounter Additional Source Comments The information contained in this document represents components of the legal health record. It is not the complete legal health record.[facility]
--- OUTSIDE RECORDS SUMMARY | 2025-04-29 17:11 | XMS_ITS | Encounter Summary ---
Author Organization [facility] Address [address] [place] [address] [place] [address] Phone Care Team Providers Care Hide Inspector Name Role Phone Ajay Hart MD Unavailable [phone] Candida Bangura AIRWORTHINESS INSPECTOR Unavailable [phone] Candida Bangura AIRWORTHINESS INSPECTOR Primary Care Provider + Tamar Remy Unavailable [phone] Garrett Schaefer MD Unavailable [email or web address] Timo Traylor MD Unavailable Timo Moyer DO Unavailable [phone] Willam Sullivan MD Unavailable [phone] Michelle Woodward PA-C Unavailable [phone] Humza Barker AIRWORTHINESS INSPECTOR Unavailable [phone] Crystal Kirk MD Unavailable [phone] Kg Bazan VALVE MACHINE OPERATOR Primary Care Provider Eda Gutierrez VALVE MACHINE OPERATOR Primary Care Provider Esha Hazel PA Primary Care Provider [phone] Kylee Gómez AIRWORTHINESS INSPECTOR Primary Care Prov ider Kylee Gómez AIRWORTHINESS INSPECTOR Primary Care Prov ider Encounter Details Date Type Department Care Team (Latest Contact Info) Description 12/04/2017 Ancillary Orders Virtual Department 30 [place] [address] Tonja Carlin PA [address] [place] [address] [email or web address] Displacement of lumbar intervertebral disc Social History [...] [facility], [facility] [address] [place] [address] Ajay Hart MD [address] [place] [address] [email or web address] 05/13/2025 11:00 AM EST Nurse Only [facility] [address] [place] [address] Ajay Hart MD [address] [place] [address] [email or web address] 05/18/2025 11:00 AM EST Nurse Only [facility] [address] [place] [address] Ajay Hart MD [address] [place] [address] 06/14/2025 11:00 AM EST Office Visit [facility] Allergy [facility] Critical [facility] Medicine [address] [facility] [place] [address] [place] [address] Ajay Hart MD [address] [address] [email or web address] documented as of this encounter [...] of clear concern are detected in the xjtax-bp-qwze. Procedure Note Pat Sweeney MD - 12/16/2017 [...] of clear concern are detected in the udris-pv-abuh. IMPRESSION: Recurrent L5-S1 left-sided disc protrusion of medium size. There doesappear to be significant mass effect at the left lateral recess and thismay well compress the S1 nerve root. [id number] Edited by: Cyndi Sauer on 12/16/2017 1:06 PM Tonja LYLE [facility] XSPECIALTY Final Res ult documented in this [...] documented as of this encounter Care Teams Hide Inspector Relationship Specialty Start Date End Date Candida Bangura CNP [address] [place] [address] [email or web address] PCP - General 04/09/17 01/04/20 Kg Bazan, SHAWN [address] [place] [address] [email or web address] PCP - General Family Medicine 01/05/20 03/15/21 Eda Gutierrez NP [address] [place] [address] PCP - General Family Medicine 03/16/21 08/17/22 Esha Hazel PA [address] [place] [address] [email or web address] PCP - General Physician Simulation Engineer 08/18/22 12/05/22 Kylee Gómez CNP [address] [place] [address] PCP - General Nurse Practitioner 12/06/22 02/04/24 Kylee Gómez CNP [address] [place] [address] PCP - General Nurse Practitioner 02/05/24 Ajay Hart MD [address] [place] [address] Historical LMR Provider 04/13/17 Candida Bangura CNP [address] [place] [address] [email or web address] Historical LMR Provider 04/13/17 Tamar Remy PA [facility] [place] [place] [address] Historical LMR Provider 04/13/17 2 Garrett Schaefer MD [email or web address] Historical LMR Provider 04/13/17 07/01/21 Timo Traylor MD [address] [place] [address] Historical LMR Provider 04/13/17 Timo Moyer DO [address] [place] [address] [facility], [place] [address] [email or web address] Historical LMR Provider 04/13/17 07/01/21 Willam Sullivan MD [address] [address] Historical LMR Provider 04/13/17 Michelle Woodward PA-C [address] [place] [address] [facility], [place] [address] Historical LMR Provider 04/13/17 07/01/21 Humza Barker CNP [address] [address] Historical LMR Provider 04/13/17 07/01/21 Crystal Kirk MD [address] [place] [address] [facility], [facility] [place] [address] [email or web address] Historical LMR Provider 04/13/17 documented as of this encounter Additional Source Comments The information contained in this document represents components of the legal health record. It is not the complete legal health record.[facility]
--- OUTSIDE RECORDS SUMMARY | 2025-04-29 17:11 | XMS_ITS | Encounter Summary ---
Author Organization [facility] Address [address] [place] [address] [place] [address] Phone Care Team Providers Care Knitting Machine Operator Helper Name Role Phone Ajay Hart MD Unavailable [phone] Candida Bangura COLLISION ESTIMATOR Unavailable [phone] Candida Bangura COLLISION ESTIMATOR Primary Care Provider + Tamar Remy Unavailable [phone] Garrett Schaefer MD Unavailable [email or web address] Tmio Traylor MD Unavailable Timo Moyer DO Unavailable [phone] Willam Sullivan MD Unavailable [phone] Michelle Woodward PA-C Unavailable [phone] Humza Barker COLLISION ESTIMATOR Unavailable [phone] Crystal Kirk MD Unavailable [phone] Kg Bazan THEATRE MANAGER Primary Care Provider Eda Gutierrez THEATRE MANAGER Primary Care Provider Esha Hazel PA Primary Care Provider [phone] Kylee Gómez COLLISION ESTIMATOR Primary Care Prov ider Kylee Gómez COLLISION ESTIMATOR Primary Care Prov ider Encounter Details Date Type Department Care Team (Late Contact Info) Description 01/07/2018 Procedure Pass OR Admitting Dept - Virtual Department [address] [place] [address] Social History Tobacco Use Types Packs/Day Years [...] Upcoming Encounters Date Type Department Care Team ([facility] Contact Info) Description 05/06/2025 11:00 AM EST Nurse Only [facility] Critical [facility] Medicine [address] [place] [address] Ajay Hart MD [address] [place] [address] [email or web address] 05/13/2025 11:00 AM EST Nurse Only [facility] [address] [place] [address] Ajay Hart MD [address] [place] [address] 05/18/2025 11:00 AM EST Nurse Only [facility] [address] [place] [address] Ajay Hart MD [address] [place] [address] [email or web address] 06/14/2025 11:00 AM EST Office Visit [facility] [address] [place] [address] Ajay Hart MD [address] [place] [address] [email or web address] documented as of this encounter Visit Diagnoses Not on filedocumented in this encounter Additional Health Concerns Infection Onset Date Last Indicated Resolved Time CoV-Exposed Comment:Positive COVID-19 07/26/2024 07/26/2024 07/27/2024 12: 42 AM EST CoV-Risk 07/26/2024 07/26/2024 07/27/2024 12:4 2 AM EST COVID-19 07/26/2024 07/26/2024 08/16/2024 1:21 AM EST documented as of this encounter Care Teams Knitting Machine Operator Helper Relationship Specialty Start Date End Date Candida Bangura CNP [address] [place] [address] [email or web address] PCP - General 04/09/17 01/04/20 Kg Bazan, SHAWN [address] [place] [address] [email or web address] PCP - General Family Medicine 01/05/20 03/15/21 Eda Gutierrez NP [address] [place] [address] PCP - General Family Medicine 03/16/21 08/17/22 Esha Hazel PA [address] [place] [address] [email or web address] PCP - General Physician Monitoring And Evaluation Advisor 08/18/22 12/05/22 Kylee Gómez, EDER [address] [place] [address] PCP - General Nurse Practitioner 12/06/22 02/04/24 Kylee Gómez, EDER [address] [place] [address] PCP - General Nurse Practitioner 02/05/24 Ajay Hart MD [address] [place] [address] [email or web address] Historical LMR Provider 04/13/17 Candida Bangura CNP [address] [place] [address] [email or web address] Historical LMR Provider 04/13/17 Tamar Remy PA [address] [place] [address] Historical LMR Provider 04/13/17 2 Garrett Schaefer MD [email or web address] Historical LMR Provider 04/13/17 07/01/21 Timo Traylor MD [address] [place] [address] Historical LMR Provider 04/13/17 Timo Moyer DO [address] [place] [address] [facility] Medicine, [place] [address] [email or web address] Historical LMR Provider 04/13/17 07/01/21 Willam Sullivan MD [address] [place] [address] [email or web address] Historical LMR Provider 04/13/17 Michelle Woodward PA-C 4 [facility] [place] [address] Historical LMR Provider 04/13/17 07/01/21 Humza Barker CNP 15 [facility], [address] [place] [address] Historical LMR Provider 04/13/17 07/01/21 Crystal Kirk MD 4 [facility], [place] [address] [email or web address] Historical LMR Provider 04/13/17 documented as of this encounter Additional Source Comments The information contained in this document represents components of the legal health record. It is not the complete legal health record.[facility]
--- OUTSIDE RECORDS SUMMARY | 2025-04-29 17:11 | XMS_ITS | Encounter Summary ---
Author Organization [facility] Address [address] [place] [address] [place] [address] Phone Care Team Providers Care Computer Instructor Name Role Phone Ajay Hart MD Unavailable [phone] VENDOR Unavailable [phone] Willam Sullivan MD Unavailable [phone] Kylee Gómez [facility] Primary Care Prov ider Reason for Referral * MRI/CAT Scan - Closed Specialty Diagnoses / Procedures Referred By Mauricio t Referred To Contact Radiology Diagnoses Degenerative disc disease, cervical Procedures MRI Cervical Spine Francia Ko NP [address] [place] [address] Phone: tel: fax: [email or web address] Referral ID Status Reason Start Date Expiration Date Visits Re quested Visits Authorized [id number] Closed 10/09/2024 10/09/2025 1 1 Encounter Details Date Type Department Care Team (Latest Contact Info) Description 10/06/2024 Transcribe Orders Virtual Department [address] [place] [address] Francia Ko NP [address] [place] [address] [email or web address] Degenerative disc disease, cervical (Primary [...] Upcoming Encounters Date Type Department Care Team ([facility] st Contact Info) Description 05/06/2025 11:00 AM EST Nurse Only [facility] Critical [facility] Medicine [address] [place] [address] Ajay Hart MD [address] [place] [address] 05/13/2025 11:00 AM EST Nurse Only [facility]ergy [facility] Critical [facility] Medicine [address] [place] [address] Ajay Hart MD [address] [place] [address] [email or web address] 05/18/2025 11:00 AM EST Nurse Only CD Pulmonary, Allergy and Critical Care Medicine [address] [place] [address] Ajay Hart MD [address] [place] [address] [email or web address] 06/14/2025 11:00 AM EST Office Visit [facility] Pulmonary, Allergy and Critical Care Medicine [address] [place] [address] Ajay Hart MD [address] [place] [address] [email or web address] documented as of this encounter Results * [...] COMPARISON: MRI CERVICAL SPINE (NEURO) FOCUS WITHOUT [id number] FINDINGS: CERVICAL SPINE: Alignment and Vertebrae: Normal [...] moderate canal narrowing at C4-C5. Francia Ko KNOTTING MACHINE OPERATOR PORTABLE IMG MR XSPECIALTY Final Re sult documented in this encounter Visit Diagnoses Diagnosis Degenerative disc disease, cervical- Primary Degenerative disc disease, cervical documented in this encounter Care Teams Computer Instructor Relationship Specialty Start Date End Date Kylee Gómez CNP [address] [place] [address] PCP - General Nurse Practitioner 02/05/24 Ajay Hart MD [address] [place] [address] [email or web address] Historical LMR Provider 04/13/17 Candida Bangura CNP [address] [place] [address] [email or web address] Historical LMR Provider 04/13/17 Willam Sullivan MD [address] [place] [address] [email or web address] Historical LMR Provider 04/13/17 documented as of this encounter Additional Source Comments The information contained in this document represents components of the legal health record. It is not the complete legal health record.[facility]
--- OUTSIDE RECORDS SUMMARY | 2025-04-29 17:11 | XMS_ITS | Encounter Summary ---
Author Organization [facility] Address [address] [place] [address] [place] [address] Phone Care Team Providers Care Auger Mill Operator Name Role Phone Ajay Hart MD Unavailable [phone] Candida Bangura AVIONIC TECHNICIAN Unavailable [phone] Candida Bangura AVIONIC TECHNICIAN Primary Care Provider + Tamar Remy Unavailable [phone] Garrett Schaefer MD Unavailable [email or web address] Timo Traylor MD Unavailable Timo Moyer DO Unavailable [phone] Willam Sullivan MD Unavailable Michelle Woodward PA-C Unavailable [phone] Humza Barker AVIONIC TECHNICIAN Unavailable [phone] Crystal Kirk MD Unavailable [phone] Kg Bazan LEAK GANG SUPERVISOR Primary Care Provider Eda Gutierrez LEAK GANG SUPERVISOR Primary Care Provider Esha Hazel PA Primary Care Provider [phone] Kylee Gómez AVIONIC TECHNICIAN Primary Care Prov ider Kylee Gómez AVIONIC TECHNICIAN Primary Care Prov ider Encounter Details Date Type Department Care Team (Late Contact Info) Description 11/12/2018 Procedure Pass [facility] [address] [place] [address] Social History Tobacco Use Types Packs/Day Years [...] Upcoming Encounters Date Type Department Care Team ([facility] Contact Info) Description 05/06/2025 11:00 AM EST Nurse Only [facility] [address] [place] [address] Ajay Hart MD [address] [place] [address] [email or web address] 05/13/2025 11:00 AM EST Nurse Only [facility] [address] [place] [address] Ajay Hart MD [address] [place] [address] 05/18/2025 11:00 AM EST Nurse Only [facility] [address] [place] [address] Ajay Hart MD [address] [place] [address] 06/14/2025 11:00 AM EST Office Visit [facility] [address] [place] [address] Ajay Hart MD [address] [place] [address] [email or web address] documented as of this encounter Visit Diagnoses Not on filedocumented in this encounter Additional Health Concerns Infection Onset Date Last Indicated Resolved Time CoV-Exposed Comment:Positive COVID-19 07/26/2024 07/26/2024 07/27/2024 12: 42 AM EST CoV-Risk 07/26/2024 07/26/2024 07/27/2024 12:4 2 AM EST COVID-19 07/26/2024 07/26/2024 08/16/2024 1:21 AM EST documented as of this encounter Care Teams Auger Mill Operator Relationship Specialty Start Date End Date Candida Bangura CNP [address] [place] [address] [email or web address] PCP - General 04/09/17 01/04/20 Kg Bazan, SHAWN [address] [place] [address] [email or web address] PCP - General Family Medicine 01/05/20 03/15/21 Eda Gutierrez, SHAWN [address] [place] [address] PCP - General Family Medicine 03/16/21 08/17/22 Esha Hazel PA [address] [place] [address] [email or web address] PCP - General Physician Soil Sort Worker 08/18/22 12/05/22 Kylee Gómez, EDER [address] [place] [address] PCP - General Nurse Practitioner 12/06/22 02/04/24 Kylee Gómez, EDER [address] [place] [address] PCP - General Nurse Practitioner 02/05/24 Ajay Hart MD [address] [place] [address] [email or web address] Historical LMR Provider 04/13/17 Candida Bangura CNP [address] [place] [address] [email or web address] Historical LMR Provider 04/13/17 Tamar Remy PA [address] [place] [address] Historical LMR Provider 04/13/17 2 Garrett Schaefer MD [email or web address] Historical LMR Provider 04/13/17 07/01/21 Timo Traylor MD [address] [place] [address] Historical LMR Provider 04/13/17 Timo Moyer DO [address] [place] [address] [facility] Sports Medicine, [place] [address] [email or web address] Historical LMR Provider 04/13/17 07/01/21 Willam Sullivan MD [address] [place] [address] [email or web address] Historical LMR Provider 04/13/17 Michelle Woodward PA-C 4 [facility] [place] [address] Historical LMR Provider 04/13/17 07/01/21 Humza Barker CNP 15 [facility], [address] [place] [address] Historical LMR Provider 04/13/17 07/01/21 Crystal Kirk MD 4 [facility] [place] [address] [email or web address] Historical LMR Provider 04/13/17 documented as of this encounter Additional Source Comments The information contained in this document represents components of the legal health record. It is not the complete legal health record.[facility]
--- OUTSIDE RECORDS SUMMARY | 2025-04-29 17:11 | XMS_ITS | Encounter Summary ---
Author Organization [facility] Address [address] [place] [address] [place] [address] Phone Care Team Providers Care Horses Or Mules Teamster Name Role Phone Ajay Hart MD Unavailable [phone] Candida Bangura [facility] Unavailable [phone] Willam Sullivan MD Unavailable [phone] Kylee Gómez [facility] Primary Care Prov ider Kylee Gómez [facility] Primary Care Prov ider Reason for Referral * MRI/CAT Scan - Closed Specialty Diagnoses / Procedures Referred By Mauricio cary Referred To Contact Radiology Diagnoses Numbness Weakness Procedures MRI Cervical Spine CHG MRI, CERV SPINE CHG MRI, CERV SPINE CONTRAST CHG MRI, CERV SPINE COMBO Edilson Box MD [address] [place] [address], [address] [place] [address] Phone: tel: fax: [email or web address] Referral ID Status Reason Start Date Expiration Date Visits Re quested Visits Authorized [id number] Closed 05/29/2023 08/27/2023 1 1 Encounter Details Date Type Department Care Team (Latest Contact Info) Description 05/29/2023 Transcribe Orders Virtual Department [address] [place] [address] [id number] Edilson Box MD [address] [place] [address], [address] [place] [address] [email or web address] Numbness (Primary Dx); Weakness Social History [...] Pulmonary, Allergy and Critical Care Medicine 10 [facility] [place] [address] Ajay Hart MD 10 [facility] 2nd [place] [address] 05/13/2025 11:00 AM EST Nurse Only CD Pulmonary, Allergy and Critical Care Medicine 10 [place] [address] Ajay Hart MD [address] [place] [address] [email or web address] 05/18/2025 11:00 AM EST Nurse Only [facility] Pulmonary, Allergy and Critical Care Medicine 10 [place] [address] Ajay Hart MD [address] [place] [address] [email or web address] 06/14/2025 11:00 AM EST Office Visit [facility] Pulmonary, Allergy and Critical Care Medicine [address] [place] [address] Ajay Hart MD [address] [place] [phone] [email or web address] documented as of this encounter Results * [...] this examination in Epic: Outside Radiology Order; NUMBNESS TECHNIQUE: MRI CERVICAL [...] for this examination in Epic:Outside Radiology Order; NUMBNESS TECHNIQUE: MRI CERVICAL SPINE [...] degenerative changes as described, most notable at [id number] there is worsened moderate spinal canal stenosis. [...] documented as of this encounter Care Teams Horses Or Mules Teamster Relationship Specialty Start Date End Date Kylee Gómez CNP [address] [place] [address] PCP - General Nurse Practitioner 12/06/22 02/04/24 Kylee Gómez CNP [address] [place] [address] PCP - General Nurse Practitioner 02/05/24 Ajay Hart MD [address] [place] [address] [email or web address] Historical LMR Provider 04/13/17 Candida Bangura CNP [address] [place] [address] [email or web address] Historical LMR Provider 04/13/17 Willam Sullivan MD [address] [place] [address] [email or web address] Historical LMR Provider 04/13/17 documented as of this encounter Additional Source Comments The information contained in this document represents components of the legal health record. It is not the complete legal health record.[facility]
--- OUTSIDE RECORDS SUMMARY | 2025-04-29 17:11 | XMS_ITS | Encounter Summary ---
Author Organization [employer] Address [address] [place] [address] Care Team Providers Care Automotive Glazier Name Role Phone Kylee Gómez Primary Care Provider [phone] Gladys Foster Unavailable Unavailable Encounter Details Date [...] 9:40 AM EST Office Visit [facility] MEDICAL [address] [place] [address] Kylee Gómez FNP [address] [place] [address] 07/26/2025 10:10 AM EST Office Visit [facility] DENTAL [address] [place] [address] Jazmine Perez documented as of this encounter Visit Diagnoses Not on filedocumented in this encounter Care Teams Automotive Glazier Relationship Specialty Start Date End Date Kylee Gómez FNP [address] [place] [address] PCP - General Family Medicine 07/05/22 Gladys Foster Health Navigator 04/27/24 documented as of this encounter
--- OUTSIDE RECORDS SUMMARY | 2025-04-29 17:11 | XMS_ITS | Encounter Summary ---
Author Organization [facility] Address [address] [place] [address] [address] [place] [address] Phone Care Team Providers Care Manager Staffing Name Role Phone Ajay Hart MD Unavailable [phone] Candida Bangura [employer] Unavailable [phone] Willam Sullivan MD Unavailable [phone] Kylee Gómez [facility] Primary Care Prov ider Encounter Details Date Type Department Care Team (Late st Contact Info) Description 10/06/2024 Procedure Pass [facility], [address] [address] Social History Tobacco Use Types Packs/Day Years [...] [facility] Pulmonary, Allergy and Critical Care Medicine [address] [place] [address] Ajay Hart MD [address] [place] [address] [email or web address] 05/13/2025 11:00 AM EST Nurse Only [facility] Pulmonary, Allergy and Critical Care Medicine [address] [place] [address] Ajay Hart MD [address] [place] [address] [email or web address] 05/18/2025 11:00 AM EST Nurse Only [facility] Pulmonary, Allergy and Critical Care Medicine [address] [place] [address] Ajay Hart MD [address] [place] [address] [email or web address] 06/14/2025 11:00 AM EST Office Visit [facility] Pulmonary, Allergy and Critical Care Medicine [address] [place] [address] Ajay Hart MD [address] [place] [address] documented as of this encounter Visit Diagnoses Not on filedocumented in this encounter Care Teams Manager Staffing Relationship Specialty Start Date End Date Kylee Gómez CNP [address] [place] [address] PCP - General Nurse Practitioner 02/05/24 Ajay Hart MD [address] [place] [address] [email or web address] Historical LMR Provider 04/13/17 Candida Bangura CNP [address] [place] [address] [email or web address] Historical LMR Provider 04/13/17 Willam Sullivan MD [address] [place] [address] Historical LMR Provider 04/13/17 documented as of this encounter Additional Source Comments The information contained in this document represents components of the legal health record. It is not the complete legal health record.[facility]
--- OUTSIDE RECORDS SUMMARY | 2025-04-29 17:12 | XMS_ITS | Encounter Summary ---
Author Organization [facility] Address [address] [place] [address] [place] [address] Phone Care Team Providers Care Liner Reroll Tender Name Role Phone Ajay Hart MD Unavailable Candida Bangura BUSINESS TECHNOLOGY PROFESSOR Unavailable [phone] Candida Bangura BUSINESS TECHNOLOGY PROFESSOR Primary Care Provider + Tamar Remy Unavailable [phone] Garrett Schaefer MD Unavailable [email or web address] Timo Traylor MD Unavailable [phone] Timo Moyer DO Unavailable [phone] Willam Sullivan MD Unavailable Michelle Woodward PA-C Unavailable [phone] Humza Barker BUSINESS TECHNOLOGY PROFESSOR Unavailable [phone] Crystal Kirk MD Unavailable [phone] Kg Bazan SECURITY MESSENGER Primary Care Provider [phone] Eda Gutierrez SECURITY MESSENGER Primary Care Provider Esha Hazel PA Primary Care Provider [phone] Kylee Gómez BUSINESS TECHNOLOGY PROFESSOR Primary Care Prov ider Kylee Gómez BUSINESS TECHNOLOGY PROFESSOR Primary Care Prov ider Encounter Details Date Type Department Care Team (Late Contact Info) Description 08/13/2017 Procedure Pass [place] Admitting Dept - Virtual Department [address] [place] [address] Social History Tobacco Use Types Packs/Day Years [...] Upcoming Encounters Date Type Department Care Team ([facility] Contact Info) Description 05/06/2025 11:00 AM EST Nurse Only [facility] Pulmonary, Allergy and Critical Care Medicine [address] [place] [address] Ajay Hart MD [address] [place] [address] [email or web address] 05/13/2025 11:00 AM EST Nurse Only [facility] Pulmonary, Allergy and Critical Care Medicine [address] [place] [address] Ajay Hart MD [address] [place] [address] 05/18/2025 11:00 AM EST Nurse Only [facility] Pulmonary, Allergy and Critical Care Medicine [address] [place] [address] Ajay Hart MD [address] [place] [address] [email or web address] 06/14/2025 11:00 AM EST Office Visit [facility] Pulmonary, Allergy and Critical Care Medicine [address] [place] [address] Ajay Hart MD [address] [place] [address] [email or web address] documented as of this encounter Visit Diagnoses Not on filedocumented in this encounter Additional Health Concerns Infection Onset Date Last Indicated Resolved Time CoV-Exposed Comment:Positive COVID-19 07/26/2024 07/26/2024 07/27/2024 12: 42 AM EST CoV-Risk 07/26/2024 07/26/2024 07/27/2024 12:4 2 AM EST COVID-19 07/26/2024 07/26/2024 08/16/2024 1:21 AM EST documented as of this encounter Care Teams Liner Reroll Tender Relationship Specialty Start Date End Date Candida Bangura CNP [address] [place] [address] [email or web address] PCP - General 04/09/17 01/04/20 Kg Bazan, SHAWN [address] [place] [address] [email or web address] PCP - General Family Medicine 01/05/20 03/15/21 Eda Gutierrez NP [address] [place] [address] PCP - General Family Medicine 03/16/21 08/17/22 Esha Hazel PA [address] [place] [address] [email or web address] PCP - General Physician Warehouse Traffic Supervisor 08/18/22 12/05/22 Kylee Gómez, EDER [address] [place] [address] PCP - General Nurse Practitioner 12/06/22 02/04/24 Kylee Gómez, EDER [address] [place] [address] PCP - General Nurse Practitioner 02/05/24 Ajay Hart MD [address] [place] [address] [email or web address] Historical LMR Provider 04/13/17 Candida Bangura CNP [address] [place] [address] [email or web address] Historical LMR Provider 04/13/17 Tamar Remy PA [address] [place] [address] Historical LMR Provider 04/13/17 2 Garrett Schaefer MD [email or web address] Historical LMR Provider 04/13/17 07/01/21 Timo Traylor MD [address] [place] [address] Historical LMR Provider 04/13/17 Timo Moyer DO [address] [place] [address] Orthopedics [facility] Sports Medicine, [place] [address] [email or web address] Historical LMR Provider 04/13/17 07/01/21 Willam Sullivan MD [address] [place] [address] [email or web address] Historical LMR Provider 04/13/17 Michelle Woodward PA-C 4 [facility] [place] [address] Historical LMR Provider 04/13/17 07/01/21 Humza Barker CNP 15 [facility], [address] [place] [address] Historical LMR Provider 04/13/17 07/01/21 Crystal Kirk MD 4 [facility] Orthopedics & Sports Medicine, [facility] [place] [address] [email or web address] Historical LMR Provider 04/13/17 documented as of this encounter Additional Source Comments The information contained in this document represents components of the legal health record. It is not the complete legal health record.[facility]
--- OUTSIDE RECORDS SUMMARY | 2025-04-29 17:12 | XMS_ITS | Encounter Summary ---
Author Organization [facility] Address [address] [place] [address] [place] [address] Phone Care Team Providers Care Nail Galvanizer Name Role Phone Ajay Hart MD Unavailable [phone] Candida Bangura DEFENCE FORCE SENIOR OFFICER Unavailable Willam Sullivan MD Unavailable Eda Gutierrez STUDENT SUPPORT COUNSELOR Primary Care Provider Esha Hazel Primary Care Provider [phone] Kylee Gómez [facility] Primary Care Prov ider Kylee Gómez [facility] Primary Care Prov ider Encounter Details Date Type Department Care Team (Late st Contact Info) Description 11/03/2021 Procedure Pass [facility], [address] [address] Social History Tobacco Use Types Packs/Day Years [...] Pulmonary, Allergy and Critical Care Medicine 10 [place] [address] Ajay Hart MD [address] [place] [address] [email or web address] 05/13/2025 11:00 AM EST Nurse Only [facility] Pulmonary, Allergy and Critical Care Medicine [address] [place] [address] Ajay Hart MD [address] [place] [address] [email or web address] 05/18/2025 11:00 AM EST Nurse Only [facility] Pulmonary, Allergy and Critical Care Medicine [address] [place] [address] Ajay Hart MD [address] [place] [address] [email or web address] 06/14/2025 11:00 AM EST Office Visit [facility] Pulmonary, Allergy and Critical Care Medicine [address] [place] [address] Ajay Hart MD [address] [place] [address] documented as of this encounter Visit Diagnoses Not on filedocumented in this encounter Additional Health Concerns Infection Onset Date Last Indicated Resolved Time CoV-Exposed Comment:Positive COVID-19 07/26/2024 07/26/2024 07/27/2024 12: 42 AM EST CoV-Risk 07/26/2024 07/26/2024 07/27/2024 12:4 2 AM EST COVID-19 07/26/2024 07/26/2024 08/16/2024 1:21 AM EST documented as of this encounter Care Teams Nail Galvanizer Relationship Specialty Start Date End Date Eda Gutierrez NP [address] [address] PCP - General Family Medicine 03/16/21 08/17/22 Esha Hazel PA [address] [place] [address] [email or web address] PCP - General Physician Senior Solutions Consultant 08/18/22 12/05/22 Kylee Gómez DEFENCE FORCE SENIOR OFFICER [address] [place] [address] PCP - General Nurse Practitioner 12/06/22 02/04/24 Kylee Gómez DEFENCE FORCE SENIOR OFFICER [address] [place] [address] PCP - General Nurse Practitioner 02/05/24 Ajay Hart MD [address] [place] [address] [email or web address] Historical LMR Provider 04/13/17 Candida Bangura CNP [address] [place] [address] [email or web address] Historical LMR Provider 04/13/17 Willam Sullivan MD [address] [address] Historical LMR Provider 04/13/17 documented as of this encounter Additional Source Comments The information contained in this document represents components of the legal health record. It is not the complete legal health record.[facility]
--- OUTSIDE RECORDS SUMMARY | 2025-04-29 17:12 | XMS_ITS | Encounter Summary ---
Author Organization [facility] Address [address] [place] [address] [place] [address] Phone Care Team Providers Care Aquaculture Farm Manager Name Role Phone Ajay Hart MD Unavailable Candida Bangura DEPUTY PROGRAM MANAGER Unavailable [phone] Candida Bangura DEPUTY PROGRAM MANAGER Primary Care Provider + Tamar Remy Unavailable Garrett Schaefer MD Unavailable [email or web address] Timo Traylor MD Unavailable Timo Moyer DO Unavailable [phone] Willam Sullivan MD Unavailable Michelle Woodward PA-C Unavailable [phone] Humza Barker DEPUTY PROGRAM MANAGER Unavailable [phone] Crystal Kirk MD Unavailable [phone] Kg Bazan SECTION SUPERVISOR Primary Care Provider Eda Gutierrez SECTION SUPERVISOR Primary Care Provider Esha Hazel PA Primary Care Provider [phone] Kylee Gómez DEPUTY PROGRAM MANAGER Primary Care Prov ider Kylee Gómez DEPUTY PROGRAM MANAGER Primary Care Prov ider Encounter Details Date Type Department Care Team (Late Contact Info) Description 05/14/2019 Transcribe Orders Virtual Department 30 [place] [address] Candida Bangura, DEPUTY PROGRAM MANAGER [address] [place] [address] [email or web address] Palpitations (Primary Dx) Social History Tobacco Use [...] Pulmonary, Allergy and Critical Care Medicine 10 [place] [address] Ajay Hart MD [address] [place] [address] 05/13/2025 11:00 AM EST Nurse Only [facility] Pulmonary, Allergy and Critical Care Medicine 10 [place] [address] Ajay Hart MD [address] [place] [address] 05/18/2025 11:00 AM EST Nurse Only [facility] Pulmonary, Allergy and Critical Care Medicine 10 [place] [address] Ajay Hart MD [address] [place] [address] 06/14/2025 11:00 AM EST Office Visit [facility] Pulmonary, Allergy and Critical Care Medicine 10 [facility] [place] [address] Ajay Hart MD [address] [place] [address] documented as of this encounter Results * [...] of atrial fibrillation/flutter. No pauses. Candida Bangura CNP [facility] BOND Final Result documented in this encounter Visit Diagnoses Diagnosis Palpitations- Primary Palpitations documented in this encounter Additional Health Concerns Infection Onset Date Last Indicated Resolved Time CoV-Exposed Comment:Positive COVID-19 07/26/2024 07/26/2024 07/27/2024 12: 42 AM EST CoV-Risk 07/26/2024 07/26/2024 07/27/2024 12:4 2 AM EST COVID-19 07/26/2024 07/26/2024 08/16/2024 1:21 AM EST documented as of this encounter Care Teams Aquaculture Farm Manager Relationship Specialty Start Date End Date Candida Bangura CNP [address] [place] [address] [email or web address] PCP - General 04/09/17 01/04/20 Kg Bazan, SECTION SUPERVISOR 73 [facility] [place] [address] [email or web address] PCP - General Family Medicine 01/05/20 03/15/21 Eda Gutierrez, SECTION SUPERVISOR 73 [place] [address] PCP - General Family Medicine 03/16/21 08/17/22 Esha Hazel PA 73 [facility] [place] [address] [email or web address] PCP - General Physician Pocket Creaser 08/18/22 12/05/22 Kylee Gómez CNP [address] [place] [address] PCP - General Nurse Practitioner 12/06/22 02/04/24 Kylee Gómez CNP [address] [place] [address] PCP - General Nurse Practitioner 02/05/24 Ajay Hart MD [address] [place] [address] Historical LMR Provider 04/13/17 Candida Bangura DEPUTY PROGRAM MANAGER [address] [place] [address] [email or web address] Historical LMR Provider 04/13/17 Tamar Remy PA [facility] [place] [place] [address] Historical LMR Provider 04/13/17 2 Garrett Schaefer MD [email or web address] Historical LMR Provider 04/13/17 07/01/21 Timo Traylor MD [address] [place] [address] Historical LMR Provider 04/13/17 Timo Moyer DO [address] [place] [address] [facility]oped[facility] [place] [address] Historical LMR Provider 04/13/17 07/01/21 Willam Sullivan MD [address] [address] Historical LMR Provider 04/13/17 Michelle Woodward PA-C [address] [place] [address] [facility], [place] [address] Historical LMR Provider 04/13/17 07/01/21 Humza Braker DEPUTY PROGRAM MANAGER [address] [address] Historical LMR Provider 04/13/17 07/01/21 Crystal Kirk MD [address] [place] [address] Orthopedics & Sports Medicine, [facility] [place] [address] [email or web address] Historical LMR Provider 04/13/17 documented as of this encounter Additional Source Comments The information contained in this document represents components of the legal health record. It is not the complete legal health record.[facility]
--- OUTSIDE RECORDS SUMMARY | 2025-04-29 17:12 | XMS_ITS | Encounter Summary ---
Author Organization [facility] Address [address] [place] [address] [place] [address] Phone Care Team Providers Care Top Knitter Name Role Phone Ajay Hart MD Unavailable [phone] Candida Bangura PATIENT OBSERVER Unavailable [phone] Candida Bangura PATIENT OBSERVER Primary Care Provider + Tamar Remy Unavailable [phone] Garrett Schaefer MD Unavailable [email or web address] Timo Traylor MD Unavailable Timo Moyer DO Unavailable [phone] Willam Sullivan MD Unavailable Michelle Woodward PA-C Unavailable [phone] Humza Barker PATIENT OBSERVER Unavailable [phone] Crystal Kirk MD Unavailable [phone] Kg Bazan CUSTODIAN SUPERVISOR Primary Care Provider [phone] Eda Gutierrez CUSTODIAN SUPERVISOR Primary Care Provider Esha Hazel PA Primary Care Provider [phone] Kylee Gómez PATIENT OBSERVER Primary Care Prov ider Kylee Gómez PATIENT OBSERVER Primary Care Prov ider Encounter Details Date Type Department Care Team (Late Contact Info) Description 11/29/2017 [facility] [address] [place] [address] Tonja Carlin, VALDO [address] [place] [address] [email or web address] Sacroiliitis Social History Tobacco Use Types [...] Pulmonary, Allergy and Critical Care Medicine 10 [place] [address] Ajay Hart MD [address] [place] [address] 05/13/2025 11:00 AM EST Nurse Only [facility] Pulmonary, Allergy and Critical Care Medicine 10 [place] [address] Ajay Hart MD [address] [place] [address] 05/18/2025 11:00 AM EST Nurse Only [facility] Pulmonary, Allergy and Critical Care Medicine [address] [place] [address] Ajay Hart MD [address] [place] [address] 06/14/2025 11:00 AM EST Office Visit CD Pulmonary, Allergy and Critical Care Medicine [address] [facility] [place] [address] [place] [address] Ajay Hart MD [address] [place] [address] [email or web address] documented as of this encounter Results * [...] documented as of this encounter Care Teams Top Knitter Relationship Specialty Start Date End Date Candida Bangura CNP [address] [place] [address] [email or web address] PCP - General 04/09/17 01/04/20 Kg Bazan, CUSTODIAN SUPERVISOR 73 [place] [address] [email or web address] PCP - General Family Medicine 01/05/20 03/15/21 Eda Gutierrez CUSTODIAN SUPERVISOR 73 [place] [address] PCP - General Family Medicine 03/16/21 08/17/22 Esha Hazel PA 73 [place] [address] [email or web address] PCP - General Physician Messenger Copy 08/18/22 12/05/22 Kylee Gómez CNP [address] [place] [address] PCP - General Nurse Practitioner 12/06/22 02/04/24 Kylee Gómez CNP [address] [place] [address] PCP - General Nurse Practitioner 02/05/24 Ajay Hart MD [address] [place] [address] Historical LMR Provider 04/13/17 Candida Bangura CNP [address] [place] [address] [email or web address] Historical LMR Provider 04/13/17 Tamar Remy PA [facility] [place] [address] Historical LMR Provider 04/13/17 2 Garrett Schaefer MD [email or web address] Historical LMR Provider 04/13/17 07/01/21 Timo Traylor MD [address] [place] [address] Historical LMR Provider 04/13/17 Timo Moyer DO [address] [place], [place] [address]s Sports [facility], [place] [address] [email or web address] Historical LMR Provider 04/13/17 07/01/21 Willam Sullivan MD [address] [address] Historical LMR Provider 04/13/17 Michelle Woodward PA-C [address] [place], [place] [address]s Sports [facility], [place] [address] Historical LMR Provider 04/13/17 07/01/21 Humza Barker, PATIENT OBSERVER [address] [address] Historical LMR Provider 04/13/17 07/01/21 Crystal Kirk MD [address] [place] [address] [facility] [place] [address] [email or web address] Historical LMR Provider 04/13/17 documented as of this encounter Additional Source Comments The information contained in this document represents components of the legal health record. It is not the complete legal health record.[facility]
--- OUTSIDE RECORDS SUMMARY | 2025-04-29 17:12 | XMS_ITS | Encounter Summary ---
Author Organization [facility] Address [address] [place] [address] [place] [address] Phone Care Team Providers Care Home Service Technician Name Role Phone Ajay Hart MD Unavailable [phone] Candida Bangura DEFECT CUTTER Unavailable Tamar Remy Unavailable [phone] Garrett Schaefer MD Unavailable [email or web address] Timo Traylor MD Unavailable Timo Moyer DO Unavailable Willam Sullivan MD Unavailable Michelle Woodward PA-C Unavailable [phone] Humza Barker DEFECT CUTTER Unavailable Crystal Kirk MD Unavailable [phone] Kg Bazan SUPERVISOR HOT DIP TINNING Primary Care Provider Eda Gutierrez SUPERVISOR HOT DIP TINNING Primary Care Provider Esha Hazel PA Primary Care Provider Kylee Gómez DEFECT CUTTER Primary Care Prov ider Kylee Gómez DEFECT CUTTER Primary Care Prov ider Encounter Details Date Type Department Care Team (Late st Contact Info) Description 07/15/2020 Ancillary Orders [facility], X[facility]Ray - [facility] 30 [place] [address] Esha Hazel PA [address] [place] [address]. [place] [address] [email or web address] Pain of right upper extremity Social [...] Pulmonary, Allergy and Critical Care Medicine [address] [place] [address] Ajay Hart MD [address] [place] [address] [email or web address] 05/13/2025 11:00 AM EST Nurse Only [facility] Pulmonary, Allergy and Critical Care Medicine [address] [place] [address] Ajay Hart MD [address] [place] [address] 05/18/2025 11:00 AM EST Nurse Only [facility] Pulmonary, Allergy and Critical Care Medicine [address] [place] [address] Ajay Hart MD [address] [place] [address] 06/14/2025 11:00 AM EST Office Visit [facility] Pulmonary, Allergy and Critical Care Medicine [address] [place] [address] [place] [address] Ajay Hart MD 10 [facility] 2nd [place] [address] [email or web address] documented as of this encounter Results * XR Humerus (Right) (07/15/2020 5:00 PM EST) Anatomical Region Laterality Modality Arm Right Computed Radiogr aphy 07/15/2020 5:04 PM EST Impressions 07/15/2020 5:04 PM EST Unremarkable plain film appearance of the humerus. POS [id number] Narrative 07/15/2020 5:04 PM EST 2 views. [...] plain film appearance of the humerus. POS [id number] Esha LYLE IMG XR UPPER EXTREMITY Final [...] as of this encounter Care Teams Home Service Technician Relationship Specialty Start Date End Date Kg Bazan NP [address] [facility] [place] [address] [email or web address] PCP - General Family Medicine 01/05/20 03/15/21 Eda Gutierrez NP [address] [facility] [place] [address] PCP - General Family Medicine 03/16/21 08/17/22 Esha Hazel PA 73 [facility]. [place] [address] [email or web address] PCP - General Physician Fibrous Plasterer 08/18/22 12/05/22 Kylee Gómez, EDER [address] [place] [address] PCP - General Nurse Practitioner 12/06/22 02/04/24 Kylee Gómez, EDER [address] [place] [address] PCP - General Nurse Practitioner 02/05/24 Ajay Hart MD [address] [place] [address] Historical LMR Provider 04/13/17 Candida Bangura DEFECT CUTTER [address] [place] [address] [email or web address] Historical LMR Provider 04/13/17 Tamar Remy [place] [place] [address] Historical LMR Provider 04/13/17 2 Garrett Schaefer MD [email or web address] Historical LMR Provider 04/13/17 07/01/21 Timo Traylor MD [address] [place] [address] Historical LMR Provider 04/13/17 Timo Moyer DO [address] [place] [address] [facility], [place] [address] Historical LMR Provider 04/13/17 07/01/21 Willam Sullivan MD [address] [address] Historical LMR Provider 04/13/17 Michelle Woodward PA-C [address] [place] [address] [place] [address] Historical LMR Provider 04/13/17 07/01/21 Humza Barker CNP [address] [address] Historical LMR Provider 04/13/17 07/01/21 Crystal Kirk MD [address] [place] [address] [facility], [place] [address] Historical LMR Provider 04/13/17 documented as of this encounter Additional Source Comments The information contained in this document represents components of the legal health record. It is not the complete legal health record.[facility]
--- OUTSIDE RECORDS SUMMARY | 2025-04-29 17:12 | XMS_ITS | Encounter Summary ---
Author Organization [facility] Address [address] [place] [address] [place] [address] Phone Care Team Providers Care Job Development Specialist Name Role Phone Ajay Hart MD Unavailable [phone] Candida Bangura CATALOGUE ILLUSTRATOR Unavailable [phone] Candida Bangura CATALOGUE ILLUSTRATOR Primary Care Provider + Tamar Remy Unavailable [phone] Garrett Schaefer MD Unavailable [email or web address] Timo Traylor MD Unavailable Timo Moyer DO Unavailable [phone] Willam Sullivan MD Unavailable [phone] Michelle Woodward PA-C Unavailable [phone] Humza Barker CATALOGUE ILLUSTRATOR Unavailable [phone] Crystal Kirk MD Unavailable [phone] Kg Bazan CONTINUOUS CRUSHER OPERATOR Primary Care Provider Eda Gutierrez CONTINUOUS CRUSHER OPERATOR Primary Care Provider Esha Hazel PA Primary Care Provider [phone] Kylee Gómez CATALOGUE ILLUSTRATOR Primary Care Prov ider Kylee Gómez CATALOGUE ILLUSTRATOR Primary Care Prov ider Encounter Details Date Type Department Care Team (Late Contact Info) Description 10/17/2018 Procedure Pass [facility], [facility] 30 [place] [address] Social History Tobacco Use Types Packs/Day Years [...] Pulmonary, Allergy and Critical Care Medicine [address] [place] [address] Ajay Hart MD [address] [place] [email or web address] 05/13/2025 11:00 AM EST Nurse Only [facility] Pulmonary, Allergy and Critical Care Medicine [address] [place] [address] Ajay Hart MD [address] [place] [address] 05/18/2025 11:00 AM EST Nurse Only [facility] Pulmonary, Allergy and Critical Care Medicine [address] [place] [address] Ajay Hart MD [address] [place] [address] [email or web address] 06/14/2025 11:00 AM EST Office Visit [facility] Pulmonary, Allergy and Critical Care Medicine [address] [place] [address] Ajay Hart MD [address] [place] [address] [email or web address] documented as of this encounter Visit Diagnoses Not on filedocumented in this encounter Additional Health Concerns Infection Onset Date Last Indicated Resolved Time CoV-Exposed Comment:Positive COVID-19 07/26/2024 07/26/2024 07/27/2024 12: 42 AM EST CoV-Risk 07/26/2024 07/26/2024 07/27/2024 12:4 2 AM EST COVID-19 07/26/2024 07/26/2024 08/16/2024 1:21 AM EST documented as of this encounter Care Teams Job Development Specialist Relationship Specialty Start Date End Date Candida Bangura CNP [address] [place] [address] [email or web address] PCP - General 04/09/17 01/04/20 Kg Bazan NP [address] [place] [address] [email or web address] PCP - General Family Medicine 01/05/20 03/15/21 Eda Gutierrez NP 73 [place] [address] PCP - General Family Medicine 03/16/21 08/17/22 Esha Hazel PA 73 [place] [address] [email or web address] PCP - General Physician Intelligence Applications 08/18/22 12/05/22 Kylee Gómez CNP [address] [place] [address] PCP - General Nurse Practitioner 12/06/22 02/04/24 GolKylee herr CNP 58 [place] [address] PCP - General Nurse Practitioner 02/05/24 Ajay Hart MD [address] [place] [address] [email or web address] Historical LMR Provider 04/13/17 Candida Bangura CNP [address] [place] [address] [email or web address] Historical LMR Provider 04/13/17 Tamar Remy PA [address] [place] [address] Historical LMR Provider 04/13/17 2 Garrett Schaefer MD [email or web address] Historical LMR Provider 04/13/17 07/01/21 Timo Traylor MD [address] [place] [address] Historical LMR Provider 04/13/17 Timo Moyer DO [address] [place] [address] [facility], [place] [address] [email or web address] Historical LMR Provider 04/13/17 07/01/21 Willam Sullivan MD [address] [place] [address] [email or web address] Historical LMR Provider 04/13/17 Michelle Woodward PA-C 4 [facility] [place] [address] Historical LMR Provider 04/13/17 07/01/21 Humza Barker CNP 15 [facility], [address] [place] [address] Historical LMR Provider 04/13/17 07/01/21 Crystal Kirk MD 4 [facility], [facility] [place] [address] [email or web address] Historical LMR Provider 04/13/17 documented as of this encounter Additional Source Comments The information contained in this document represents components of the legal health record. It is not the complete legal health record.[facility]
--- OUTSIDE RECORDS SUMMARY | 2025-04-29 17:12 | XMS_ITS | Encounter Summary ---
Author Organization [facility] Address [address] [place] [address] [place] [address] Phone Care Team Providers Care Special Forces Engineer Sergeant Name Role Phone Ajay Hart MD Unavailable [phone] Candida Bangura GAS APPLIANCE INSTALLER Unavailable [phone] Willam Sullivan MD Unavailable [phone] Eda Gutierrez ENTRY LEVEL ACCOUNTING CLERK Primary Care Provider Esha Hazel Primary Care Provider Kylee Gómez [facility] Primary Care Prov ider Kylee Gómez [facility] Primary Care Prov ider Encounter Details Date Type Department Care Team (Late st Contact Info) Description 09/27/2021 Procedure Pass [facility] [place], [address] [address] Social History Tobacco Use Types Packs/Day Years [...] Pulmonary, Allergy and Critical Care Medicine 10 [place] [address] Ajay Hart MD [address] [place] [address] [email or web address] 05/13/2025 11:00 AM EST Nurse Only [facility] Pulmonary, Allergy and Critical Care Medicine [address] [place] [address] Ajay Hart MD [address] [place] [address] [email or web address] 05/18/2025 11:00 AM EST Nurse Only [facility] Pulmonary, Allergy and Critical Care Medicine [address] [place] [address] Ajay Hart MD [address] [place] [address] [email or web address] 06/14/2025 11:00 AM EST Office Visit [facility] Pulmonary, Allergy and Critical Care Medicine [address] [place] [address] Ajay Hart MD [address] [place] [address] documented as of this encounter Visit Diagnoses Not on filedocumented in this encounter Additional Health Concerns Infection Onset Date Last Indicated Resolved Time CoV-Exposed Comment:Positive COVID-19 07/26/2024 07/26/2024 07/27/2024 12: 42 AM EST CoV-Risk 07/26/2024 07/26/2024 07/27/2024 12:4 2 AM EST COVID-19 07/26/2024 07/26/2024 08/16/2024 1:21 AM EST documented as of this encounter Care Teams Special Forces Engineer Sergeant Relationship Specialty Start Date End Date Eda Gutierrez NP [address] [address] PCP - General Family Medicine 03/16/21 08/17/22 Esha Hazel PA [address] [place] [address] [email or web address] PCP - General Physician Nuclear Medical Technologist 08/18/22 12/05/22 Kylee Gómez GAS APPLIANCE INSTALLER [address] [place] [address] PCP - General Nurse Practitioner 12/06/22 02/04/24 Kylee Gómez GAS APPLIANCE INSTALLER [address] [place] [address] PCP - General Nurse Practitioner 02/05/24 Ajay Hart MD [address] [place] [address] [email or web address] Historical LMR Provider 04/13/17 Candida Bangura CNP [address] [place] [address] [email or web address] Historical LMR Provider 04/13/17 Willam Sullivan MD [address] [address] Historical LMR Provider 04/13/17 documented as of this encounter Additional Source Comments The information contained in this document represents components of the legal health record. It is not the complete legal health record.[facility]
--- OUTSIDE RECORDS SUMMARY | 2025-04-29 17:12 | XMS_ITS | Encounter Summary ---
Author Organization [employer] Address [address] [place] [address] [facility] [place] [place] [address] Care Team Providers Care Artificial Teeth Inspector Name Role Phone Kylee Gómez Primary Care Provider [phone] Gladys Foster Unavailable Unavailable Reason for Visit * Reason Comments Med Refill Encounter Details Date Type Department Care Team (Late st Contact Info) Description 04/29/[address] [facility] MEDICAL [address] [place] [address] Kylee Gómez FNP [address] [place] [address] Encounter for contraceptive management, unspecified Social History Tobacco Use Types Packs/Day Years Used Date Smoking Tobacco: Never Passive Smoke Exposure: Never Smokeless Tobacco: Never Alcohol Use Standard Drinks/Week Comments Not Currently 0 (1 standard drink = 0.6 oz pur e alcohol) Alcohol Answer Date Recorded How often do you have a drink containing alcohol ? 0 04/09/2025 Average Number of Drinks Not on file 025 How often do you have six or [...] the past 12 months, has t he [employer], gas, oil or water [employer] threatened to shut off services in your [...] Description 05/14/2025 9:40 AM EST Office Visit [facility] MEDICAL [address] [place] [address] Kylee Gómez FNP 58 [place] [address] 07/26/2025 10:10 AM EST Office Visit [facility] DENTAL [address] [place] [address] Jazmine Perez documented as of this encounter Visit Diagnoses Diagnosis Encounter for contraceptive management, unspecified documented in this encounter Additional Health Concerns Assessment Noted Time PHQ-9 Depression Total Score: 25 024 4:14 PM EST documented as of this encounter Care Teams Artificial Teeth Inspector Relationship Specialty Start Date End Date Kylee Gómez FNP [address] [place] [address] PCP - General Family Medicine 07/05/22 Gladys Foster Health Navigator 04/27/24 documented as of this encounter
--- OUTSIDE RECORDS SUMMARY | 2025-04-29 17:12 | XMS_ITS | Encounter Summary ---
Author Organization [employer] Address [address] [place] [address] Care Team Providers Care Electronic Commerce Specialist Name Role Phone Kylee Gómez Primary Care Provider [phone] Gladys Foster Unavailable Unavailable Encounter Details Date Type Department Care Team (Late st Contact Info) Description 10/09/2023 Orders Only [facility] [address] [place] [address] Kylee Gómez FNP 58 [place] [address] Social History Tobacco Use Types Packs/Day Years [...] Description 05/14/2025 9:40 AM EST Office Visit [facility] MEDICAL [address] [place] [address] Kylee Gómez FNP 58 [place] [address] 07/26/2025 10:10 AM EST Office Visit [facility] DENTAL [address] [place] [address] Jazmine Perez documented as of this encounter Procedures Procedure Name Priority Date/Time Associated Diagnosis Comments PULMONARY FUNCTION TESTING Routine 10/03/2023 10:21 AM EDT documented in this encounter Results * Pulmonary function testing (10/03/2023 10:21 AM EDT) Kylee JEFF PFT ORDERABLES Final Res ult documented in this encounter Visit Diagnoses Not on filedocumented in this encounter Care Teams Electronic Commerce Specialist Relationship Specialty Start Date End Date Kylee Gómez FNP [address] [facility] [place] [address] PCP - General Family Medicine 07/05/22 Gladys Foster Health Navigator 04/27/24 documented as of this encounter
--- OUTSIDE RECORDS SUMMARY | 2025-04-29 17:12 | XMS_ITS | Encounter Summary ---
Author Organization [facility] Address [address] [place] [address] [place] [address] Phone Care Team Providers Care Township Clerk Name Role Phone Ajay Hart MD Unavailable [phone] Candida Bangura HAT MARKER Unavailable [phone] Candida Bangura HAT MARKER Primary Care Provider + Tamar Remy Unavailable [phone] Garrett Schaefer MD Unavailable [email or web address] Timo Traylor MD Unavailable Timo Moyer DO Unavailable [phone] Willam Sullivan MD Unavailable Michelle Woodward PA-C Unavailable [phone] Humza Barker HAT MARKER Unavailable [phone] Crystal Kirk MD Unavailable [phone] Kg Bazan FELT HAT INSPECTOR AND PACKER Primary Care Provider Eda Gutierrez FELT HAT INSPECTOR AND PACKER Primary Care Provider Esha Hazel PA Primary Care Provider [phone] Kylee Gómez HAT MARKER Primary Care Prov ider Kylee Gómez HAT MARKER Primary Care Prov ider Encounter Details Date Type Department Care Team (Late st Contact Info) Description 08/19/2018 Procedure Pass [facility], [facility] - [address] [address] Social History Tobacco Use Types Packs/Day Years [...] Pulmonary, Allergy and Critical Care Medicine 10 [place] [address] Ajay Hart MD [address] [place] [address] 05/13/2025 11:00 AM EST Nurse Only [facility] Pulmonary, Allergy and Critical Care Medicine 10 [place] [address] Ajay Hart MD [address] [place] [address] 05/18/2025 11:00 AM EST Nurse Only [facility] Pulmonary, Allergy and Critical Care Medicine 10 [place] [address] Ajay Hart MD [address] [place] [address] [email or web address] 06/14/2025 11:00 AM EST Office Visit [facility] Pulmonary, Allergy and Critical Care Medicine 10 [place] [address] Ajay Hart MD [address] [place] [address] [email or web address] documented as of this encounter Visit Diagnoses Not on filedocumented in this encounter Additional Health Concerns Infection Onset Date Last Indicated Resolved Time CoV-Exposed Comment:Positive COVID-19 07/26/2024 07/26/2024 07/27/2024 12: 42 AM EST CoV-Risk 07/26/2024 07/26/2024 07/27/2024 12:4 2 AM EST COVID-19 07/26/2024 07/26/2024 08/16/2024 1:21 AM EST documented as of this encounter Care Teams Township Clerk Relationship Specialty Start Date End Date Candida Bangura CNP [address] [place] [address] [email or web address] PCP - General 04/09/17 01/04/20 Kg Bazan NP [address] [place] [address] [email or web address] PCP - General Family Medicine 01/05/20 03/15/21 Eda Gutierrez NP [address] [place] [address] PCP - General Family Medicine 03/16/21 08/17/22 Esha Hazel PA [address] [place] [address] [email or web address] PCP - General Physician Drop Wire Hanger 08/18/22 12/05/22 Kylee Gómze CNP [address] [place] [address] PCP - General Nurse Practitioner 12/06/22 02/04/24 Kylee Gómez CNP 58 [place] [address] PCP - General Nurse Practitioner 02/05/24 Ajay Hart MD [address] [place] [address] [email or web address] Historical LMR Provider 04/13/17 Candida Bangura CNP [address] [place] [address] [email or web address] Historical LMR Provider 04/13/17 Tamar Remy PA [facility] [place] [address] Historical LMR Provider 04/13/17 2 Garrett Schaefer MD [email or web address] Historical LMR Provider 04/13/17 07/01/21 Timo Traylor MD [address] [place] [address] Historical LMR Provider 04/13/17 Timo Moyer DO [address] [place] [address] Orthopedics & Sports Medicine, [place] [address] Historical LMR Provider 04/13/17 07/01/21 Willam Sullivan MD [address] [address] Historical LMR Provider 04/13/17 Michelle Woodward PA-C [facility] Medicine, [place] [address] Historical LMR Provider 04/13/17 07/01/21 Humza Barker CNP [address] [address] Historical LMR Provider 04/13/17 07/01/21 Crystal Kirk MD 4 [facility] Orthopedics & Sports [facility], [place] [address] Historical LMR Provider 04/13/17 documented as of this encounter Additional Source Comments The information contained in this document represents components of the legal health record. It is not the complete legal health record.[facility]
--- OUTSIDE RECORDS SUMMARY | 2025-04-29 17:12 | XMS_ITS | Encounter Summary ---
Author Organization [employer] Address [address] [place] [address] Care Team Providers Care Can Sorter Name Role Phone Kylee Gómez Primary Care Provider [phone] Gladys Foster Unavailable Unavailable Encounter Details Date Type Department Care Team (Late st Contact Info) Description 12/17/2023 Orders Only [place] [address] [place] [address] Kylee Gómez FNP 58 [place] [address] Social History Tobacco Use Types Packs/Day Years [...] Description 05/14/2025 9:40 AM EST Office Visit [facility] MEDICAL [address] [place] [address] Kylee Gómez FNP 58 [place] [address] 07/26/2025 10:10 AM EST Office Visit [facility] DENTAL 58 [place] [address] Jazmine Perez documented as of this encounter [...] on filedocumented in this encounter Care Teams Can Sorter Relationship Specialty Start Date End Date Kylee Gómez FNP 58 [facility] [place] [address] PCP - General Family Medicine 07/05/22 Gladys Foster Health Navigator 04/27/24 documented as of this encounter
--- OUTSIDE RECORDS SUMMARY | 2025-04-29 17:12 | XMS_ITS | Encounter Summary ---
Author Organization [employer] Address [address] [place] [address] Care Team Providers Care Ocean Lifeguard Name Role Phone Kylee Gómez Primary Care Provider [phone] Gladys Foster Unavailable Unavailable Encounter Details Date Type Department Care Team (Late st Contact Info) Description 04/20/2024 Orders Only [place] [facility] [address] [place] [address] Kylee Gómez FNP 58 [place] [address] Social History Tobacco Use Types Packs/Day Years [...] 9:40 AM EST Office Visit [facility] MEDICAL [address] [place] [address] Kylee Gómez FNP 58 [place] [address] 07/26/2025 10:10 AM EST Office [facility] DENTAL [address] [place] [address] Jazmine Perez documented as of this encounter Procedures Procedure Name Priority Date/Time Associated Diagnosis Comments PATHOLOGY REPORT (HISTOPATHOLOGY) Routine 04/16/2024 1:38 PM EDT documented in this encounter Results * Pathology Report (Histopathology) (04/16/2024 1:38 PM EDT) Tissue Kylee [facility] PATHOLOGY ORDERABLES Final Result documented in this encounter Visit Diagnoses Not on filedocumented in this encounter Care Teams Ocean Lifeguard Relationship Specialty Start Date End Date Kylee Gómez FNP 58 [facility] [place] [address] PCP - General Family Medicine 07/05/22 Gladys Foster Health Navigator 04/27/24 documented as of this encounter
--- OUTSIDE RECORDS SUMMARY | 2025-04-29 17:12 | XMS_ITS | Encounter Summary ---
Author Organization [facility] Address [address] [place] [address] [place] [address] Phone Care Team Providers Care Keyboard Specialist Name Role Phone Ajay Hart MD Unavailable [phone] Candida Bangura METAL CNC OPERATOR Unavailable [phone] Candida Bangura METAL CNC OPERATOR Primary Care Provider + Tamar Remy Unavailable [phone] Garrett Schaefer MD Unavailable [email or web address] Timo Traylor MD Unavailable Timo Moyer DO Unavailable [phone] Willam Sullivan MD Unavailable Michelle Woodward PA-C Unavailable [phone] Humza Barker METAL CNC OPERATOR Unavailable [phone] Crystal Kirk MD Unavailable [phone] Kg Bazan URGENT CARE Primary Care Provider Eda Gutierrez URGENT CARE Primary Care Provider Esha Hazel PA Primary Care Provider [phone] Kylee Gómez METAL CNC OPERATOR Primary Care Prov ider Kylee Gómez METAL CNC OPERATOR Primary Care Prov ider Encounter Details Date Type Department Care Team (Late Contact Info) Description 11/27/2018 Transcribe Orders Virtual Department 30 [place] [address] Candida Bangura, METAL CNC OPERATOR [address] [place] [address] [email or web address] Thyroid fullness (Primary Dx); Acute pain [...] Pulmonary, Allergy and Critical Care Medicine 10 [place] [address] Ajay Hart MD [address] [place] [address] [email or web address] 05/13/2025 11:00 AM EST Nurse Only [facility] Pulmonary, Allergy and Critical Care Medicine 10 [place] [address] Ajay Hart MD [address] [place] [address] [email or web address] 05/18/2025 11:00 AM EST Nurse Only [facility] Pulmonary, Allergy and Critical Care Medicine 10 [place] [address] Ajay Hart MD [address] [place] [address] [email or web address] 06/14/2025 11:00 AM EST Office Visit [facility] Pulmonary, Allergy and Critical Care Medicine 10 [facility] [place] [address] [place] [address] Ajay Hart MD [address] [place] [address] 2nd [place] [address] [email or web address] documented as of this encounter Results * [...] injury POS - [id number] us Candida Bangura METAL CNC OPERATOR IMG XR UPPER EXTREMITY F inal Result * US Thyroid Gland (12/09/2018 1:18 PM EDT) Anatomical Region Laterality Modality Neck, Head, Chest Ultrasound 12/09/2018 2:18 PM EDT Impressions 12/09/2018 2:19 PM EDT Thyroid ultrasound appears within normal limits. POS - [id number] Narrative 12/09/2018 2:19 PM EDT Ultrasonic examination [...] ultrasound appears within normal limits. POS - [id number] us Candida Bangura METAL CNC OPERATOR IMG US THYROID Final Re sult documented [...] documented as of this encounter Care Teams Keyboard Specialist Relationship Specialty Start Date End Date Candida Bangura CNP [address] [place] [address] [place] [address] [email or web address] PCP - General 04/09/17 01/04/20 Kg Bazan NP [address] [place] [address] [email or web address] PCP - General Family Medicine 01/05/20 03/15/21 Eda Gutierrez NP 73 [place] [address] PCP - General Family Medicine 03/16/21 08/17/22 Esha Hazel PA [address] [facility] [address] [email or web address] PCP - General Physician Alternative Energy Engineer 08/18/22 12/05/22 Kylee Gómez CNP 58 [place] [address] PCP - General Nurse Practitioner 12/06/22 02/04/24 Kylee Gómez CNP 58 [place] [address] PCP - General Nurse Practitioner 02/05/24 Ajay Hart MD [address] [place] [address] [email or web address] Historical LMR Provider 04/13/17 Candida Bangura CNP [address] [place] [address] [email or web address] Historical LMR Provider 04/13/17 Tamar Remy [place] [address] Historical LMR Provider 04/13/17 2 Garrett Schaefer MD [email or web address] Historical LMR Provider 04/13/17 07/01/21 Timo Traylor MD [address] [place] [address] Historical LMR Provider 04/13/17 Timo Moyer DO [address] [place] [address] Orthopedics & Sports [facility], [place] [address] Historical LMR Provider 04/13/17 07/01/21 Willam Sullivan MD [address] [address] Historical LMR Provider 04/13/17 Michelle Woodward PA-C [address] [place] [address] Orthopedics [facility], [place] [address] Historical LMR Provider 04/13/17 07/01/21 Humza Barker METAL CNC OPERATOR [address] [address] Historical LMR Provider 04/13/17 07/01/21 Crystal Kirk MD [address] [place] [address] Orthopedics [facility], [place] [address] Historical LMR Provider 04/13/17 documented as of this encounter Additional Source Comments The information contained in this document represents components of the legal health record. It is not the complete legal health record.[facility]
--- OUTSIDE RECORDS SUMMARY | 2025-04-29 17:12 | XMS_ITS | Encounter Summary ---
Author Organization [facility] Address [address] [place] [address] [place] [address] Phone Care Team Providers Care Stripping Cutter And Winder Name Role Phone Ajay Hart MD Unavailable [phone] Candida Bangura FLATWORK WASHER Unavailable [phone] Candida Bangura FLATWORK WASHER Primary Care Provider + Tamar Remy Unavailable Garrett Schaefer MD Unavailable [email or web address] Timo Traylor MD Unavailable Timo Moyer DO Unavailable [phone] Willam Sullivan MD Unavailable Michelle Woodward PA-C Unavailable [phone] Humza Barker FLATWORK WASHER Unavailable [phone] Crystal Kirk MD Unavailable [phone] Kg Bazan TELEVISION SPECIALIST Primary Care Provider Eda Gutierrez TELEVISION SPECIALIST Primary Care Provider Esha Hazel PA Primary Care Provider [phone] Kylee Gómez FLATWORK WASHER Primary Care Prov ider Kylee Gómez FLATWORK WASHER Primary Care Prov ider Encounter Details Date Type Department Care Team (Late Contact Info) Description 04/17/2018 Procedure Pass [facility] [address] [place] [address] Social History Tobacco Use Types Packs/Day Years [...] Pulmonary, Allergy and Critical Care Medicine [address] [place] [address] Ajay Hart MD [address] [place] [address] [email or web address] 05/13/2025 11:00 AM EST Nurse Only [facility] Pulmonary, Allergy and Critical Care Medicine [address] [place] [address] Ajay Hart MD [address] [place] [address] 05/18/2025 11:00 AM EST Nurse Only [facility] Pulmonary, Allergy and Critical Care Medicine [address] [place] [address] Ajay Hart MD [address] [place] [address] [email or web address] 06/14/2025 11:00 AM EST Office Visit [facility] Pulmonary, Allergy and Critical Care Medicine [address] [place] [address] Ajay Hart MD [address] [place] [address] [email or web address] documented as of this encounter Visit Diagnoses Not on filedocumented in this encounter Additional Health Concerns Infection Onset Date Last Indicated Resolved Time CoV-Exposed Comment:Positive COVID-19 07/26/2024 07/26/2024 07/27/2024 12: 42 AM EST CoV-Risk 07/26/2024 07/26/2024 07/27/2024 12:4 2 AM EST COVID-19 07/26/2024 07/26/2024 08/16/2024 1:21 AM EST documented as of this encounter Care Teams Stripping Cutter And Winder Relationship Specialty Start Date End Date Candida Bangura CNP [address] [place] [address] [email or web address] PCP - General 04/09/17 01/04/20 Kg Bazan NP 73 [place] [address] [email or web address] PCP - General Family Medicine 01/05/20 03/15/21 Eda Gutierrez NP 73 [place] [address] PCP - General Family Medicine 03/16/21 08/17/22 Esha Hazel PA 73 [place] [address] [email or web address] PCP - General Physician Car Chaser 08/18/22 12/05/22 Kylee Gómez CNP 58 [place] [address] PCP - General Nurse Practitioner 12/06/22 02/04/24 GolKylee herr CNP 58 [place] [address] PCP - General Nurse Practitioner 02/05/24 Ajay Hart MD [address] [place] [address] [email or web address] Historical LMR Provider 04/13/17 Candida Bangura CNP [address] [place] [address] [email or web address] Historical LMR Provider 04/13/17 Tamar Remy PA [address] [place] [address] Historical LMR Provider 04/13/17 2 Garrett Schaefer MD [email or web address] Historical LMR Provider 04/13/17 07/01/21 Timo Traylor MD [address] [place] [address] Historical LMR Provider 04/13/17 Timo Moyer DO [address] [place] [address] Orthopedics & Sports Medicine, [place] [address] [email or web address] Historical LMR Provider 04/13/17 07/01/21 Willam Sullivan MD [address] [place] [address] [email or web address] Historical LMR Provider 04/13/17 Michelle Woodward PA-C 4 [facility] [place] [address] Historical LMR Provider 04/13/17 07/01/21 Humza Barker CNP 15 [facility], [address] [place] [address] Historical LMR Provider 04/13/17 07/01/21 Crystal Kirk MD 4 [facility] Orthopedics & Sports Medicine, [place] [address] [email or web address] Historical LMR Provider 04/13/17 documented as of this encounter Additional Source Comments The information contained in this document represents components of the legal health record. It is not the complete legal health record.[facility]
--- OUTSIDE RECORDS SUMMARY | 2025-04-29 17:12 | XMS_ITS | Clinical Summary ---
Author Organization [employer] Address [address] [place] [address] [address] [place] [address] Care Team Providers Care Public Relations Studies Director Name Role Phone Kylee Gómez SANITATION SUPERVISOR Primary Care Provider [phone] Gladys Foster Unavailable Unavailable Allergies Active Allergy [...] for sleep. 90 tablet 2 024 Active naproxen (EC Naprosyn) 500 MG EC [...] 10 mg by mouth at bedtime. Active budesonide (Rhinocort AQ) 32 MCG/ACT nasal spray SPRAY 1 SPRAY BY NASAL ROUTE EVERY DAY Active fexofenadine (Pat) 180 MG tablet Take 180 mg by mouth 2 times daily. 025 Active pregabalin (Lyrica) 25 MG capsuleIndicatio ns:Degenerative disc disease at L5-S1 level Take 1 capsule (25 mg) by mouth 2 times daily. 60 capsule Active Additional Information Patient not taking.Reported on 04/09/2025 cyclobenzaprine (Flexeril) 10 MG tabletIndication s:Chronic pain of left knee TAKE 1 TABLET BY MOUTH AT BEDTIME NEEDED FOR MUSCLE SPASM 30 tablet 025 Active albuterol (2.5 MG/3ML) 0.083% nebulizer solutionIndicati ons:Sinusitis, maxillary, chronic Take 3 mL (2.5 mg) by nebulization Once daily as needed for wheezing. 75 mL 2 025 Active Altavera 0.15-30 MG-MCG tabletIndication s:Encounter for contraceptive management, unspecified TAKE 1 TABLET ORALLY ONCE A DAY. SKIP PLACEBO WEEK 2 MONTHS OUT OF EVERY 3 PACKS 84 DAYS 112 tablet 2 025 Active albuterol (2.5 MG/3ML) 0.083% nebulizer solution PLEASE SEE ATTACHED FOR DETAILED DIRECTIONS 022 2024 Discontinued(R eorder (will not trigger notification to Pharmacy)) Altavera 0.15-30 MG-MCG tabletIndication s:Encounter for contraceptive management, unspecified TAKE 1 TABLET ORALLY ONCE A DAY. SKIP PLACEBO WEEK 2 MONTHS OUT OF EVERY 3 PACKS 84 DAYS 112 tablet 2 025 2024 Discontinued Active Problems Problem Noted [...] (03/02/2024): Chronic back pain. Was seen at [facility] 05/25/22 and recommended non- operative tx. They suggested PT, injections. Referred to [facility] neurosurgery for second opinion and she [...] Encounters Date Type Department Care Team Description 04/29/[address] [address] Kylee Gómez FNP Encounter for contraceptive management, unspecified 04/09/2025 10:00 AM EDT Office Visit [address] [address] Kylee Gómez FNP Sinusitis, maxillary, chronic (Primary Dx); Thoracogenic scoliosis of thoracic region; Degenerative disc disease at L5-S1 level; Neuropathy; Chronic pain of left knee; Spinal stenosis of cervical region; Spondylosis of cervical spine with radiculopathy; Hair loss; Dry scalp; Chronic migraine without aura without status migrainosus, not intractable 03/03/2025 10:00 AM EDT Clinical Support [address] [address] Glenda Bruner LPN Degenerative disc disease, cervical 03/02/[address] [address] Kylee Gómez FNP Toradol shot 02/22/[address] [address] Kylee Gómez FNP Chronic pain of left knee from Last 3 Months Immunizations Immunization Administration [...] Description 05/14/2025 9:40 AM EST Office Visit [facility] MEDICAL [address] [place] [address] Kylee Gómez FNP [address] [place] [address] 07/26/2025 10:10 AM EST Office Visit [facility] DENTAL [address] [place] [address] Jazmine Perez Health Maintenance Due Date Last [...] 07/25/2021 07/25/2011, 12/14/2008 COVID-19 Vaccine (1 - season) 2025 Influenza Vaccine (#1) 2025 Dental [...] Comments Full PROPHYLAXIS - ADULT Routine 025 8:30 [...] Most Recently Relevant to Health Maintenance Insurance [facility] C3 DENTAL-[facility] MEDICAID STAND ADULT DENTAL - HSN FULL (MEDICAID) Care Teams Public Relations Studies Director Relationship Specialty Start Date End Date Kylee Gómez FNP [address] [place] [address] PCP - General Family Medicine 07/05/22 Gladys Foster Health Navigator 04/27/24
--- OUTSIDE RECORDS SUMMARY | 2025-04-29 17:12 | XMS_ITS | Encounter Summary ---
Author Organization [employer] Address [address] [facility] 7t [place] [address] Care Team Providers Care Supervisor Detasseling Crew Name Role Phone Kylee Gómez Primary Care Provider [phone] Gladys Foster Unavailable Unavailable Encounter Details Date Type Department Care Team (Late st Contact Info) Description 05/15/2024 Orders Only [place] [address] [place] [address] Kylee Gómez FNP 58 [place] [address] Social History Tobacco Use Types Packs/Day Years [...] the past 12 months, has t he [employer] gas, oil or [employer] threatened to shut off services in your [...] Description 05/14/2025 9:40 AM EST Office Visit [facility] MEDICAL [address] [place] [address] Kylee Gómez FNP [address] [place] [address] 07/26/2025 10:10 AM EST Office Visit [facility] DENTAL [address] [place] [address] Jazmine Perez documented as of this encounter [...] documented as of this encounter Care Teams Supervisor Detasseling Crew Relationship Specialty Start Date End Date Kylee Gómez FNP [address] [place] [address] PCP - General Family Medicine 07/05/22 Gladys Foster Health Navigator 04/27/24 documented as of this encounter
--- OUTSIDE RECORDS SUMMARY | 2025-04-29 17:12 | XMS_ITS | Encounter Summary ---
Author Organization [facility] Address [address] [place] [address] [place] [address] Phone Care Team Providers Care Eeg Tech Name Role Phone Ajay Hart MD Unavailable [phone] Candida Bangura HOUSE DECORATOR Unavailable [phone] Candida Bangura HOUSE DECORATOR Primary Care Provider + Tamar Remy Unavailable [phone] Garrett Schaefer MD Unavailable [email or web address] Timo Traylor MD Unavailable Timo Moyer DO Unavailable [phone] Willam Sullivan MD Unavailable [phone] Michelle Woodward PA-C Unavailable [phone] Humza Barker HOUSE DECORATOR Unavailable [phone] Crystal Kirk MD Unavailable [phone] Kg Bazan MARKETING CONTENT MANAGER Primary Care Provider [phone] Eda Gutierrez MARKETING CONTENT MANAGER Primary Care Provider Esha Hazel PA Primary Care Provider [phone] Kylee Gómez HOUSE DECORATOR Primary Care Prov ider Kylee Gómez HOUSE DECORATOR Primary Care Prov ider Reason for Referral * Physical Therapy (Routine) - Closed Specialty Diagnoses / Procedures Referred By Contac t Referred To Contact Physical Therapy Diagnoses Encounter for rehabilitation Tonja Carlin PA Phone: tel: fax: mailto:[email or web address] Aaliyah Leyva PT mailto:[email or web address] Referral ID Status Reason Start Date Expiration Date Visits Re quested Visits Authorized [id number] Closed 02/19/2018 02/19/2019 20 20 Encounter Details Date Type Department Care Team (Latest Contact Info) Description 01/31/2018 [facility] [address] [place] [address] Tonja Carlin PA [address] [place] [address] [email or web address] Encounter for rehabilitation (Primary Dx) Social History [...] Pulmonary, Allergy and Critical Care Medicine [address] [place] [address] Ajay [place] MD [address] [place] [address] 05/13/2025 11:00 AM EST Nurse Only [facility] Pulmonary, Allergy and Critical Care Medicine 10 [place] [address] Ajay Hart MD [address] [place] [address] [email or web address] 05/18/2025 11:00 AM EST Nurse Only [facility] Pulmonary, Allergy and Critical Care Medicine 10 [place] [address] Ajay Hart MD [address] [place] [address] [email or web address] 06/14/2025 11:00 AM EST Office Visit [facility] Pulmonary, Allergy and Critical Care Medicine [address] [place] [address] Ajay Hart MD [address] [place] [address] [email or web address] Scheduled Referrals Name Type Priority Associated Diagnoses Orde r Schedule Ambulatory referral to [facility] Physical Therapy Outpatient Referral Routine Encounter [...] documented as of this encounter Care Teams Eeg Tech Relationship Specialty Start Date End Date Candida Bangura CNP [address] [place] [address] [email or web address] PCP - General 04/09/17 01/04/20 Kg Bazan NP [address] [place] [address] [email or web address] PCP - General Family Medicine 01/05/20 03/15/21 Eda Gutierrez NP [address] [place] [address] PCP - General Family Medicine 03/16/21 08/17/22 Esha Hazel PA [address] [place] [address] [email or web address] PCP - General Physician Almond Huller 08/18/22 12/05/22 Kylee Gómez CNP [address] [place] [address] PCP - General Nurse Practitioner 12/06/22 02/04/24 Kylee Gómez CNP [address] [place] [address] PCP - General Nurse Practitioner 02/05/24 Ajay Hart MD [address] [place] [address] [email or web address] Historical LMR Provider 04/13/17 Candida Bangura CNP [address] [place] [address] [email or web address] Historical LMR Provider 04/13/17 Tamar Remy [place] [address] Historical LMR Provider 04/13/17 2 Garrett Schaefer MD [email or web address] Historical LMR Provider 04/13/17 07/01/21 Timo Traylor MD [address] [place] [address] Historical LMR Provider 04/13/17 Timo Moyer DO [address] [place] [address] Orthopedics & Sports [facility], [place] [address] Historical LMR Provider 04/13/17 07/01/21 Willam Sullivan MD [address] [address] Historical LMR Provider 04/13/17 Michelle Woodward PA-C [address] [place] [address] Orthopedics & Sports [facility], [place] [address] Historical LMR Provider 04/13/17 07/01/21 Humaz Barker CNP [address] [address] Historical LMR Provider 04/13/17 07/01/21 Crystal Kirk MD 4 [facility] Orthopedics & Sports [facility], [place] [address] Historical LMR Provider 04/13/17 documented as of this encounter Additional Source Comments The information contained in this document represents components of the legal health record. It is not the complete legal health record.[facility]
--- OUTSIDE RECORDS SUMMARY | 2025-04-29 17:12 | XMS_ITS | Encounter Summary ---
Author Organization [facility] Address [address] [place] [address] 7[address] [place] [address] Care Team Providers Care Front Line Supervisor Name Role Phone Kylee Gómez Primary Care Provider [phone] Gladys Foster Unavailable Unavailable Reason for Visit * Reason Comments Med Change Request Encounter Details Date Type Department Care Team (Late st Contact Info) Description 12/19/[address] [facility] [address] [place] [address] Kylee Gómez FNP [address] [place] [address] Social History Tobacco Use Types Packs/Day Years [...] 12/20/2023 3:14 PM EDT Placed call to [facility], they do not stock this product and state it is OTC. Advised patient to purchase OTC, she is agreeable. documented in this encounter Plan of Treatment Upcoming Encounters Date Type Department Care Team (Late st Contact Info) Description 05/14/2025 9:40 AM EST Office Visit [facility] MEDICAL [address] [place] [address] Kylee Gómez FNP [address] [place] [address] 07/26/2025 10:10 AM EST Office Visit [facility] DENTAL [address] [place] [address] Jazmine Perez documented as of this encounter Visit Diagnoses Not on filedocumented in this encounter Care Teams Front Line Supervisor Relationship Specialty Start Date End Date Kylee Gómez FNP [address] [place] [address] PCP - General Family Medicine 07/05/22 Gladys Foster Health Navigator 04/27/24 documented as of this encounter
--- OUTSIDE RECORDS SUMMARY | 2025-04-29 17:12 | XMS_ITS | Encounter Summary ---
Author Organization [facility] Address [address] [place] [address] [place] [address] Phone Care Team Providers Care Office Worker Name Role Phone Ajay Hart MD Unavailable [phone] Candida Bangura CRITICAL CARE PHYSICIAN Unavailable [phone] Candida Bangura CRITICAL CARE PHYSICIAN Primary Care Provider + Tamar Remy Unavailable [phone] Garrett Schaefer MD Unavailable [email or web address] Timo Traylor MD Unavailable Timo Moyer DO Unavailable [phone] Willam Sullivan MD Unavailable [phone] Michelle Woodward PA-C Unavailable [phone] Humza Barker CRITICAL CARE PHYSICIAN Unavailable [phone] Crystal Kirk MD Unavailable [phone] Kg Bazan TEST EXAMINER Primary Care Provider [phone] Eda Gutierrez TEST EXAMINER Primary Care Provider Esha Hazel PA Primary Care Provider [phone] Kylee Gómez CRITICAL CARE PHYSICIAN Primary Care Prov ider Kylee Gómez CRITICAL CARE PHYSICIAN Primary Care Prov ider Encounter Details Date Type Department Care Team ([facility] Contact Info) Description 01/04/2020 Ancillary Orders Virtual Department [address] [place] [address] Rya Reeves MD [address] [place] [address] [email or web address] Low back pain, unspecified back pain laterality, [...] Pulmonary, Allergy and Critical Care Medicine 10 [place] [address] Ajay [place] MD [address] [place] [address] 05/13/2025 11:00 AM EST Nurse Only [facility] Pulmonary, Allergy and Critical Care Medicine 10 [place] [address] Ajay [place] MD [address] [place] [address] 05/18/2025 11:00 AM EST Nurse Only [facility] Pulmonary, Allergy and Critical Care Medicine [address] [place] [address] Ajay [place] MD [address] [place] [address] [email or web address] 06/14/2025 11:00 AM EST Office Visit [facility] Pulmonary, Allergy and Critical Care Medicine [address] [place] [address] [place] [address] Ajay [place] MD [address] [place] [address] documented as of this encounter Results * XR LUMBOSACRAL SPINE 2-3 VIEWS (01/05/2020 2:38 PM EDT) Anatomical Region Laterality Modality L-spine Computed Radiogr aphy 01/05/2020 2:56 PM EDT Impressions 01/05/2020 3:01 PM EDT Progressive narrowing of the L5-S1 disc space since 2016. No evidence of instability. POS - [id number] [...] documented as of this encounter Care Teams Office Worker Relationship Specialty Start Date End Date Candida Bangura CNP [address] [place] [address] [email or web address] PCP - General 04/09/17 01/04/20 Kg Bazan NP [address] [place] [address] [email or web address] PCP - General Family Medicine 01/05/20 03/15/21 Eda Gutierrez NP [address] [place] [address] PCP - General Family Medicine 03/16/21 08/17/22 Esha Hazel PA [address] [place] [address] [email or web address] PCP - General Physician Cascara Bark Cutter 08/18/22 12/05/22 Kylee Gómez CNP [address] [place] [address] PCP - General Nurse Practitioner 12/06/22 02/04/24 Kylee Gómez CNP [address] [place] [address] PCP - General Nurse Practitioner 02/05/24 Ajay [place] MD [address] [place] [address] [email or web address] Historical LMR Provider 04/13/17 Candida Bangura CNP [address] [place] [address] [email or web address] Historical LMR Provider 04/13/17 Tamar Remy PA [facility] [place] [address] Historical LMR Provider 04/13/17 2 Grarett Schaefer MD [email or web address] Historical LMR Provider 04/13/17 07/01/21 Timo Traylor MD [address] [place] [address] Historical LMR Provider 04/13/17 Timo Moyer DO [address] [place] [address] Orthopedics & Sports Medicine, [place] [address] [email or web address] Historical LMR Provider 04/13/17 07/01/21 Willam [place] MD [address] [address] Historical LMR Provider 04/13/17 Michelle Woodward PA-C 4 [facility] Orthopedics & Sports Medicine, [place] [address] Historical LMR Provider 04/13/17 07/01/21 Humza Barker CNP [address] [address] Historical LMR Provider 04/13/17 07/01/21 Crystal Kirk MD 4 [facility] Orthopedics & Sports [facility], [place] [address] Historical LMR Provider 04/13/17 documented as of this encounter Additional Source Comments The information contained in this document represents components of the legal health record. It is not the complete legal health record.[facility]
--- OUTSIDE RECORDS SUMMARY | 2025-04-29 17:12 | XMS_ITS | Encounter Summary ---
Author Organization [facility] Address [address] [place] [address] [place] [address] Phone Care Team Providers Care Machine Bender Name Role Phone Ajay Hart MD Unavailable [phone] Candida Bangura AUTOMOTIVE TECHNICIAN INSTRUCTOR Unavailable [phone] Candida Bangura AUTOMOTIVE TECHNICIAN INSTRUCTOR Primary Care Provider + Tamar Remy Unavailable [phone] Garrett Schaefer MD Unavailable [email or web address] Timo Traylor MD Unavailable Timo Moyer DO Unavailable [phone] Willam [place] MD Unavailable Michelle Woodward PA-C Unavailable [phone] Humza Barker AUTOMOTIVE TECHNICIAN INSTRUCTOR Unavailable [phone] Crystal Kirk MD Unavailable [phone] Kg Bazan SOAPING DEPARTMENT SUPERVISOR Primary Care Provider Eda Gutierrez SOAPING DEPARTMENT SUPERVISOR Primary Care Provider Esha Hazel PA Primary Care Provider [phone] Kylee Gómez AUTOMOTIVE TECHNICIAN INSTRUCTOR Primary Care Prov ider Kylee Gómez AUTOMOTIVE TECHNICIAN INSTRUCTOR Primary Care Prov ider Encounter Details Date Type Department Care Team (Late Contact Info) Description 07/29/2019 Procedure Pass OR Admitting Dept - Virtual Department [address] [place] [address] Social History Tobacco Use Types Packs/Day Years [...] Upcoming Encounters Date Type Department Care Team ([facility] Contact Info) Description 05/06/2025 11:00 AM EST Nurse Only [facility] Pulmonary, Allergy and Critical Care Medicine [address] [place] [address] Ajay [place] MD [address] [place] [address] [email or web address] 05/13/2025 11:00 AM EST Nurse Only [facility] Pulmonary, Allergy and Critical Care Medicine [address] [place] [address] Ajay [place] MD [address] [place] [address] 05/18/2025 11:00 AM EST Nurse Only [facility] Pulmonary, Allergy and Critical Care Medicine [address] [place] [address] Ajay [place] MD [address] [place] [address] [email or web address] 06/14/2025 11:00 AM EST Office Visit [facility] Pulmonary, Allergy and Critical Care Medicine [address] [place] [address] Ajay [place] MD [address] [place] [address] [email or web address] documented as of this encounter Visit Diagnoses Not on filedocumented in this encounter Additional Health Concerns Infection Onset Date Last Indicated Resolved Time CoV-Exposed Comment:Positive COVID-19 07/26/2024 07/26/2024 07/27/2024 12: 42 AM EST CoV-Risk 07/26/2024 07/26/2024 07/27/2024 12:4 2 AM EST COVID-19 07/26/2024 07/26/2024 08/16/2024 1:21 AM EST documented as of this encounter Care Teams Machine Bender Relationship Specialty Start Date End Date Candida Bangura CNP [address] [place] [address] [email or web address] PCP - General 04/09/17 01/04/20 Kg Bazan, SHAWN [address] [place] [address] [email or web address] PCP - General Family Medicine 01/05/20 03/15/21 Eda Gutierrez NP [address] [place] [address] PCP - General Family Medicine 03/16/21 08/17/22 Esha Hazel PA [address] [place] [address] [email or web address] PCP - General Physician Manufacturing Machine Operator 08/18/22 12/05/22 Kylee Gómez, EDER [address] [place] [address] PCP - General Nurse Practitioner 12/06/22 02/04/24 Kylee Gómez, EDER [address] [place] [address] PCP - General Nurse Practitioner 02/05/24 Ajay [place] MD [address] [place] [address] [email or web address] Historical LMR Provider 04/13/17 Candida Bangura CNP [address] [place] [address] [email or web address] Historical LMR Provider 04/13/17 Tamar Remy PA [address] [place] [address] Historical LMR Provider 04/13/17 2 Garrett Schaefer MD [email or web address] Historical LMR Provider 04/13/17 07/01/21 Timo Traylor MD [address] [place] [address] Historical LMR Provider 04/13/17 Timo Moyer DO [address] [place] [address] Orthopedics & Sports Medicine, [place] [address] [email or web address] Historical LMR Provider 04/13/17 07/01/21 Willam [place] MD [address] [place] [address] [email or web address] Historical LMR Provider 04/13/17 Michelle Woodward PA-C 4 [facility] Orthopedics & Sports [place] [address] Historical LMR Provider 04/13/17 07/01/21 Humza Barker CNP 15 [facility], [address] [place] [address] Historical LMR Provider 04/13/17 07/01/21 Crystal Kirk MD 4 [facility] Orthopedics & Sports Medicine, [place] [address] [email or web address] Historical LMR Provider 04/13/17 documented as of this encounter Additional Source Comments The information contained in this document represents components of the legal health record. It is not the complete legal health record.[facility]
--- OUTSIDE RECORDS SUMMARY | 2025-04-29 17:12 | XMS_ITS | Encounter Summary ---
Author Organization [facility] Address [address] [place] [address] [place] [address] Phone Care Team Providers Care Drafter (Cad) Electrical Name Role Phone Ajay Hart MD Unavailable [phone] Candida Bangura PRESIDENT AND CEO Unavailable [phone] Candida Bangura PRESIDENT AND CEO Primary Care Provider + Tamar Remy Unavailable [phone] Garrett Schaefer MD Unavailable [email or web address] Timo Traylor MD Unavailable Timo Moyer DO Unavailable [phone] Willam Sullivan MD Unavailable [phone] Michelle Woodward PA-C Unavailable [phone] Humza Barker PRESIDENT AND CEO Unavailable [phone] Crystal Kirk MD Unavailable [phone] Kg Bazan CLOTHING BUSHELER Primary Care Provider Eda Gutierrez CLOTHING BUSHELER Primary Care Provider Esha Hazel PA Primary Care Provider [phone] Kylee Gómez PRESIDENT AND CEO Primary Care Prov ider Kylee Gómez PRESIDENT AND CEO Primary Care Prov ider Encounter Details Date Type Department Care Team (Late Contact Info) Description 04/02/2019 Procedure Pass [facility], [place] [facility] [address] [place] [address] Social History Tobacco Use Types Packs/Day Years [...] Pulmonary, Allergy and Critical Care Medicine [address] [place] [address] Ajay [place] MD [address] [place] [address] [email or web address] 05/13/2025 11:00 AM EST Nurse Only [facility] Pulmonary, Allergy and Critical Care Medicine [address] [place] [address] Ajay [place] MD [address] [place] [address] 05/18/2025 11:00 AM EST Nurse Only [facility] Pulmonary, Allergy and Critical Care Medicine [address] [place] [address] Ajay Hart MD [address] [place] [address] [email or web address] 06/14/2025 11:00 AM EST Office Visit [facility] Pulmonary, Allergy and Critical Care Medicine [address] [place] [address] Ajay [place] MD [address] [place] [address] [email or web address] documented as of this encounter Visit Diagnoses Not on filedocumented in this encounter Additional Health Concerns Infection Onset Date Last Indicated Resolved Time CoV-Exposed Comment:Positive COVID-19 07/26/2024 07/26/2024 07/27/2024 12: 42 AM EST CoV-Risk 07/26/2024 07/26/2024 07/27/2024 12:4 2 AM EST COVID-19 07/26/2024 07/26/2024 08/16/2024 1:21 AM EST documented as of this encounter Care Teams Drafter (Cad) Electrical Relationship Specialty Start Date End Date Candida Bangura CNP [address] [place] [address] [email or web address] PCP - General 04/09/17 01/04/20 Kg Bazan NP [address] [place] [address] [email or web address] PCP - General Family Medicine 01/05/20 03/15/21 Eda Gutierrez NP [address] [place] [address] PCP - General Family Medicine 03/16/21 08/17/22 Esha Hazel PA [address] [place] [address] [email or web address] PCP - General Physician Bookbinding Machine Operator 08/18/22 12/05/22 Kylee Gómez CNP [address] [place] [address] PCP - General Nurse Practitioner 12/06/22 02/04/24 GolKylee herr CNP [address] [place] [address] PCP - General Nurse Practitioner 02/05/24 Ajay [place] MD [address] [place] [address] [email or web address] Historical LMR Provider 04/13/17 Candida Bangura CNP [address] [place] [address] [email or web address] Historical LMR Provider 04/13/17 Tamar Remy PA [address] [place] [address] Historical LMR Provider 04/13/17 2 Garrett Schaefer MD [email or web address] Historical LMR Provider 04/13/17 07/01/21 Timo Traylor MD [address] [place] [address] Historical LMR Provider 04/13/17 Timo Moyer DO [address] [place] [address] Orthopedics & Sports Medicine, [place] [address] [email or web address] Historical LMR Provider 04/13/17 07/01/21 Willam [place] MD [address] [place] [address] [email or web address] Historical LMR Provider 04/13/17 Michelle Woodward PA-C 4 [facility] Orthopedics & [place] [address] Historical LMR Provider 04/13/17 07/01/21 Humza Barker CNP 15 [facility], [address] [place] [address] Historical LMR Provider 04/13/17 07/01/21 Crystal Kirk MD 4 [facility] Orthopedics & Sports Medicine, [facility] [place] [address] [email or web address] Historical LMR Provider 04/13/17 documented as of this encounter Additional Source Comments The information contained in this document represents components of the legal health record. It is not the complete legal health record.[facility]
--- OUTSIDE RECORDS SUMMARY | 2025-04-29 17:12 | XMS_ITS | Encounter Summary ---
Author Organization [facility] Address [address] [place] [address] Phone Care Team Providers Care Pile Driving Superintendent Name Role Phone Ajay Hart MD Unavailable [phone] Candida Bangura GAME PROTECTOR Unavailable [phone] Willam Sullivan MD Unavailable Kylee Gómez [facility] Primary Care Prov ider Reason for Visit * Reason Onset Date Comments Medication Refill 04/28/2025 Encounter Details Date Type Department Care Team (Late st Contact Info) Description 04/28/2025 Refill [facility] Pulmonary, Allergy and Critical Care Medicine [address] [place], [place] [id number] Caitlin Andre LPN 10 [place], [place] [id number] Medication Refill Social History Tobacco Use Types [...] Notes * Caitlin Andre LPN - 04/28/2025 10:43 AM EST Rx Care Gap Status - Instructions for Clinical Staff (prescriber discretion applies): > Mismatch review guide > N/a - No action needed Visit Info Last visit: 12/15/2024 Ajay Hart MD - Pulmonology [facility] PULM/ALLGY 10 MAIN > Requested f/u: Return in about 6 months (around 06/16/2025) for MD followup, continue Allergy Injections every 1-2 weeks per patient. Upcoming visit: 06/14/2025 Ajay Hart MD - Pulmonology [facility] PULM/ALLGY 10 MAIN ACTIONS TAKEN BY Caitlin Andre LPN - Criteria met. Asthma / COPD Inhalers Rx Protocol - albuterol sulfate Criteria met; renew for up to 12 months. Visit in the past 14 months: Yes documented in this encounter Plan of Treatment Upcoming Encounters Date Type Department Care Team ([facility] st Contact Info) Description 05/06/2025 11:00 AM EST Nurse Only [facility] Pulmonary, Allergy and Critical Care Medicine 10 [place] [address] Ajay Hart MD [address] [place] [address] [email or web address] 05/13/2025 11:00 AM EST Nurse Only [facility] Pulmonary, Allergy and Critical Care Medicine [address] [place] [address] Ajay Hart MD [address] [place] [address] 05/18/2025 11:00 AM EST Nurse Only [facility] Pulmonary, Allergy and Critical Care Medicine [address] [place] [address] Ajay Hart MD [address] [place] [address] 06/14/2025 11:00 AM EST Office Visit [facility] Pulmonary, Allergy and Critical Care Medicine [address] [place] [address] Ajay Hart MD [address] [place] [address] [email or web address] documented as of this encounter Visit Diagnoses Not on filedocumented in this encounter Care Teams Pile Driving Superintendent Relationship Specialty Start Date End Date Kylee Gómez CNP [address] [place] [address] PCP - General Nurse Practitioner 02/05/24 Ajay Hart MD [address] [place] [address] [email or web address] Historical LMR Provider 04/13/17 Candida Bangura CNP [address] [place] [address] [email or web address] Historical LMR Provider 04/13/17 Willam Sullivan MD [address] [place] [address] [email or web address] Historical LMR Provider 04/13/17 documented as of this encounter Additional Source Comments The information contained in this document represents components of the legal health record. It is not the complete legal health record.[facility]
--- OUTSIDE RECORDS SUMMARY | 2025-04-29 17:12 | XMS_ITS | Encounter Summary ---
Author Organization [facility] Address [address] [place] [address] [place] [address] Phone Care Team Providers Care Radiology Director Name Role Phone Ajay Hart MD Unavailable [phone] Candida Bangura COMPUTER OPERATIONS SPECIALIST Unavailable [phone] Willam Sullivan MD Unavailable [phone] Eda Gutierrez SWEATER OPERATOR Primary Care Provider Esha Hazel Primary Care Provider [phone] Kylee G[facility]mez [facility] Primary Care Prov ider Kylee G[facility]mez [facility] Primary Care Prov ider Reason for Referral * MRI/CAT Scan - Closed Specialty Diagnoses / Procedures Referred By Contmalvin t Referred To Contact Radiology Diagnoses Acute pain of right shoulder Procedures MRI Shoulder (Right) Esha Hazel PA Phone: tel: fax: [email or web address] Referral ID Status Reason Start Date Expiration Date Visits Re quested Visits Authorized [id number] Closed 09/27/2021 09/26/2022 1 1 Encounter Details Date Type Department Care Team (Latest Contact Info) Description 09/27/2021 Transcribe Orders Virtual Department 30 [place] [address] Esha Hazel PA [address] [facility] [place] [address] [email or web address] Acute pain of right shoulder (Primary Dx) [...] Upcoming Encounters Date Type Department Care Team ([facility] st Contact Info) Description 05/06/2025 11:00 AM EST Nurse Only [facility] Pulmonary, Allergy and Critical Care Medicine [address] [place] [address] Ajay Hart MD [address] [place] [address] [email or web address] 05/13/2025 11:00 AM EST Nurse Only [facility] Pulmonary, Allergy and Critical Care Medicine [address] [place] [address] Ajay Hart MD [address] [place] [address] [email or web address] 05/18/2025 11:00 AM EST Nurse Only [facility] Pulmonary, Allergy and Critical Care Medicine [address] [place] [address] Ajay Hart MD [address] [place] [address] [email or web address] 06/14/2025 11:00 AM EST Office Visit [facility] Pulmonary, Allergy and Critical Care Medicine [address] [place] [address] Ajay Hart MD [address] [place] [address] [email or web address] documented as of this encounter Results * [...] glenohumeral and trace subacromial/subdeltoid bursitis. Esha LYLE Rich MR EXTREMITY Final Result documented in this [...] documented as of this encounter Care Teams Radiology Director Relationship Specialty Start Date End Date Eda Gutierrez NP [address] [place] [address] PCP - General Family Medicine 03/16/21 08/17/22 Esha Hazel PA [address] [place] [address] [email or web address] PCP - General Physician Sand Caster 08/18/22 12/05/22 Kylee Gómez CNP [address] [place] [address] PCP - General Nurse Practitioner 12/06/22 02/04/24 Kylee Gómez CNP [address] [place] [address] PCP - General Nurse Practitioner 02/05/24 Ajay Hart MD [address] [place] [address] [email or web address] Historical LMR Provider 04/13/17 Candida Bangura CNP [address] [place] [address] [email or web address] Historical LMR Provider 04/13/17 Willam Sullivan MD [address] [place] [address] [email or web address] Historical LMR Provider 04/13/17 documented as of this encounter Additional Source Comments The information contained in this document represents components of the legal health record. It is not the complete legal health record.[facility]
--- OUTSIDE RECORDS SUMMARY | 2025-04-29 17:12 | XMS_ITS | Encounter Summary ---
Author Organization [facility] Address [address] [place] [address] [place] [address] Phone Care Team Providers Care Electrical Technology Instructor Name Role Phone Ajay Hart MD Unavailable [phone] Candida Bangura DIRECTOR OF MATERIALS MANAGEMENT Unavailable [phone] Candida Bangura DIRECTOR OF MATERIALS MANAGEMENT Primary Care Provider + Tamar Remy Unavailable [phone] Garrett Schaefer MD Unavailable [email or web address] Timo Traylor MD Unavailable Timo Moyer DO Unavailable [phone] Willam Sullivan MD Unavailable [phone] Michelle Woodward PA-C Unavailable [phone] Humza Barker DIRECTOR OF MATERIALS MANAGEMENT Unavailable [phone] Crystal Kirk MD Unavailable [phone] Kg Bazan METAL DOOR ASSEMBLER Primary Care Provider [phone] Eda Gutierrez METAL DOOR ASSEMBLER Primary Care Provider Esha Hazel PA Primary Care Provider [phone] Kylee Gómez DIRECTOR OF MATERIALS MANAGEMENT Primary Care Prov ider Kylee Gómez DIRECTOR OF MATERIALS MANAGEMENT Primary Care Prov ider Encounter Details Date Type Department Care Team (Late st Contact Info) Description 05/21/2017 Ancillary Orders [facility] External Provider Virtual Department 30 [place] [address] Candida Bangura, DIRECTOR OF MATERIALS MANAGEMENT [address] [place] [address] [email or web address] Leg edema, left Social History Tobacco Use [...] Pulmonary, Allergy and Critical Care Medicine 10 [place] [address] Ajay Hart MD [address] [place] [address] 05/13/2025 11:00 AM EST Nurse Only [facility] Pulmonary, Allergy and Critical Care Medicine 10 [place] [address] Ajay Hart MD [address] [place] [address] 05/18/2025 11:00 AM EST Nurse Only [facility] Pulmonary, Allergy and Critical Care Medicine 10 [place] [address] Ajay Hart MD [address] [place] [address] 06/14/2025 11:00 AM EST Office Visit [facility] Pulmonary, Allergy and Critical Care Medicine [address] [place] [address] Ajay Hart MD [address] [place] [address] [email or web address] documented as of this encounter Results * [...] POS [id number] POS [id number] us Candida Bangura DIRECTOR OF MATERIALS MANAGEMENT CV US VASCULAR Final Re sult documented [...] documented as of this encounter Care Teams Electrical Technology Instructor Relationship Specialty Start Date End Date Candida Bangura CNP [address] [place] [address] [email or web address] PCP - General 04/09/17 01/04/20 Kg Bazan, METAL DOOR ASSEMBLER [address] [place] [address] [email or web address] PCP - General Family Medicine 01/05/20 03/15/21 Eda Gutierrez NP [address] [place] [address] PCP - General Family Medicine 03/16/21 08/17/22 Esha Hazel PA [address] [place] [address] [email or web address] PCP - General Physician Grocery Specialist 08/18/22 12/05/22 Kylee Gómez CNP [address] [place] [address] PCP - General Nurse Practitioner 12/06/22 02/04/24 Kylee Gómez CNP [address] [place] [address] PCP - General Nurse Practitioner 02/05/24 Ajay Hart MD [address] [place] [address] Historical LMR Provider 04/13/17 Candida Bangura CNP [address] [place] [address] [email or web address] Historical LMR Provider 04/13/17 Tamar Remy PA [facility] [place] [address] Historical LMR Provider 04/13/17 2 Garrett Schaefer MD [email or web address] Historical LMR Provider 04/13/17 07/01/21 Timo Traylor MD [address] [place] [address] Historical LMR Provider 04/13/17 Timo Moyer DO [address] [place] [address] Orthopedics & Sports Medicine, [place] [address] [email or web address] Historical LMR Provider 04/13/17 07/01/21 Willam Sullivan MD [address] [address] Historical LMR Provider 04/13/17 Michelle Woodward PA-C [address] [place] [address] [facility] Medicine, [place] [address] Historical LMR Provider 04/13/17 07/01/21 Humza Barker CNP [address] [address] [email or web address] Historical LMR Provider 04/13/17 07/01/21 Crystal Kirk MD [address] [place] [address] Orthopedics & Sports Medicine, [facility] [place] [address] [email or web address] Historical LMR Provider 04/13/17 documented as of this encounter Additional Source Comments The information contained in this document represents components of the legal health record. It is not the complete legal health record.[facility]
--- OUTSIDE RECORDS SUMMARY | 2025-04-29 17:12 | XMS_ITS | Encounter Summary ---
Author Organization [facility] Address [address] [place] [address] [place] [address] Phone Care Team Providers Care Mailhouse Operator Name Role Phone Ajay Hart MD Unavailable [phone] Candida Bangura OUTSOLE SKIVER Unavailable [phone] Candida Bangura OUTSOLE SKIVER Primary Care Provider + Tamar Remy Unavailable [phone] Garrett Schaefer MD Unavailable [email or web address] Timo Traylor MD Unavailable Timo Moyer DO Unavailable [phone] Willam Sullivan MD Unavailable [phone] Michelle Woodward PA-C Unavailable [phone] Humza Barker OUTSOLE SKIVER Unavailable [phone] Crystal Kirk MD Unavailable [phone] Kg Bazan COMMISSIONS MANAGER Primary Care Provider Eda Gutierrez COMMISSIONS MANAGER Primary Care Provider Esha Hazel PA Primary Care Provider [phone] Kylee Gómez OUTSOLE SKIVER Primary Care Prov ider Kylee Gómez OUTSOLE SKIVER Primary Care Prov ider Encounter Details Date Type Department Care Team (Late Contact Info) Description 08/19/2018 Ancillary Orders Virtual Department 30 [place] [address] Edilson Box MD [address] [facility], [address] [place] [address] [email or web address] Arm numbness; White matter disease Social [...] Pulmonary, Allergy and Critical Care Medicine 10 [place] [address] Ajay Hart MD [address] [place] [address] 05/13/2025 11:00 AM EST Nurse Only [facility] Pulmonary, Allergy and Critical Care Medicine 10 [place] [address] Ajay Hart MD [address] [place] [address] 05/18/2025 11:00 AM EST Nurse Only [facility] Pulmonary, Allergy and Critical Care Medicine 10 [place] [address] Ajay Hart MD [address] [place] [address] 06/14/2025 11:00 AM EST Office Visit [facility] Pulmonary, Allergy and Critical Care Medicine 10 [facility] [place] [address] Ajay Hart MD [address] [place] [address] [email or web address] documented as of this encounter Visit Diagnoses Diagnosis Arm numbness Disturbance of skin sensation White matter disease documented in this encounter Additional Health Concerns Infection Onset Date Last Indicated Resolved Time CoV-Exposed Comment:Positive COVID-19 07/26/2024 07/26/2024 07/27/2024 12: 42 AM EST CoV-Risk 07/26/2024 07/26/2024 07/27/2024 12:4 2 AM EST COVID-19 07/26/2024 07/26/2024 08/16/2024 1:21 AM EST documented as of this encounter Care Teams Mailhouse Operator Relationship Specialty Start Date End Date Candida Bangura CNP [address] [place] [address] [email or web address] PCP - General 04/09/17 01/04/20 Kg Bazan, SHAWN [address] [place] [address] [email or web address] PCP - General Family Medicine 01/05/20 03/15/21 Eda Gutierrez NP [address] [place] [address] PCP - General Family Medicine 03/16/21 08/17/22 Esha Hazel PA [address] [place] [address] [email or web address] PCP - General Physician Spray Unit Feeder 08/18/22 12/05/22 Kylee Gómez CNP [address] [place] [address] PCP - General Nurse Practitioner 12/06/22 02/04/24 Garrisonbert Kylee EDER [address] [place] [address] PCP - General Nurse Practitioner 02/05/24 Ajay Hart MD [address] [place] [address] [email or web address] Historical LMR Provider 04/13/17 Candida Bangura CNP [address] [place] [address] [email or web address] Historical LMR Provider 04/13/17 Tamar Remy PA [facility] [place] [address] Historical LMR Provider 04/13/17 2 Garrett Schaefer MD [email or web address] Historical LMR Provider 04/13/17 07/01/21 Timo Traylor MD [address] [place] [address] Historical LMR Provider 04/13/17 Timo Moyer DO [address] [place] [address] Orthopedics & Sports Medicine, [place] [address] [email or web address] Historical LMR Provider 04/13/17 07/01/21 Willam [place] MD [address] [address] Historical LMR Provider 04/13/17 Michelle Woodward PA-C [address] [facility] Orthopedics & Sports Medicine, [place] [address] Historical LMR Provider 04/13/17 07/01/21 Humza Barker CNP [address] [address] Historical LMR Provider 04/13/17 07/01/21 Crystal Kirk MD [address] [facility] Orthopedics & Sports [facility], [place] [address] Historical LMR Provider 04/13/17 documented as of this encounter Additional Source Comments The information contained in this document represents components of the legal health record. It is not the complete legal health record.[facility]
--- OUTSIDE RECORDS SUMMARY | 2025-04-29 17:12 | XMS_ITS | Encounter Summary ---
Author Organization [facility] Address [address] [place] [address] [place] [address] Phone Care Team Providers Care V Belt Inspector Name Role Phone Ajay Hart MD Unavailable [phone] Candida Bangura TILE FITTER Unavailable [phone] Candida Bangura TILE FITTER Primary Care Provider + Tamar Remy Unavailable [phone] Garrett Schaefer MD Unavailable [email or web address] Timo Traylor MD Unavailable [phone] Timo Moyer DO Unavailable [phone] Willam Sullivan MD Unavailable Michelle Woodward PA-C Unavailable [phone] Humza Barker TILE FITTER Unavailable [phone] Crystal Kirk MD Unavailable [phone] Kg Bazan CERAMIC COATER MACHINE Primary Care Provider [phone] Eda Gutierrez CERAMIC COATER MACHINE Primary Care Provider Esha Hazel PA Primary Care Provider [phone] Kylee Gómez TILE FITTER Primary Care Prov ider Kylee Gómez TILE FITTER Primary Care Prov ider Encounter Details Date Type Department Care Team (Late Contact Info) Description 11/29/2017 Ancillary Orders [facility] [address] [place] [address] Tonja Carlin, VALDO [address] [place] [address] [email or web address] Sacroiliitis Social History Tobacco Use Types [...] Pulmonary, Allergy and Critical Care Medicine 10 [place] [address] Ajay Hart MD [address] [place] [address] 05/13/2025 11:00 AM EST Nurse Only [facility] Pulmonary, Allergy and Critical Care Medicine 10 [place] [address] Ajay Hart MD [address] [place] [address] 05/18/2025 11:00 AM EST Nurse Only [facility] Pulmonary, Allergy and Critical Care Medicine [address] [place] [address] Ajay Hart MD [address] [place] [address] 06/14/2025 11:00 AM EST Office Visit [facility] Pulmonary, Allergy and Critical Care Medicine [address] [place] [address] [place] [address] Ajay Hart MD [address] [place] [address] [email or web address] documented as of this encounter Results * [...] pelvis and SI joints. POS [id number] us Tonja LYLE IMG XR PELVIS Final [...] documented as of this encounter Care Teams V Belt Inspector Relationship Specialty Start Date End Date Candida Bangura CNP [address] [place] [address] [email or web address] PCP - General 04/09/17 01/04/20 Kg Bazan NP [address] [place] [address] [email or web address] PCP - General Family Medicine 01/05/20 03/15/21 Eda Gutierrez NP [address] [place] [address] PCP - General Family Medicine 03/16/21 08/17/22 Esha Hazel PA [address] [place] [address] [email or web address] PCP - General Physician School Teacher 08/18/22 12/05/22 Kylee Gómez CNP [address] [place] [address] PCP - General Nurse Practitioner 12/06/22 02/04/24 Kylee Gómez CNP [address] [place] [address] PCP - General Nurse Practitioner 02/05/24 Ajay Hart MD [address] [place] [address] Historical LMR Provider 04/13/17 Candida Bangura CNP [address] [place] [address] [email or web address] Historical LMR Provider 04/13/17 Tamar Remy PA Replaced by [facility] [place] [address] [address] Historical LMR Provider 04/13/17 2 Garrett Schaefer MD [email or web address] Historical LMR Provider 04/13/17 07/01/21 Timo Traylor MD [address] [place] [address] Historical LMR Provider 04/13/17 Timo Moyer DO [address] [place] [address] Orthopedics & Sports [facility], [place] [address] [email or web address] Historical LMR Provider 04/13/17 07/01/21 Willam [place] MD [address] [address] [email or web address] Historical LMR Provider 04/13/17 Michelle Woodward PA-C [address] [place] [address] Orthopedics Sports [facility], [place] [address] Historical LMR Provider 04/13/17 07/01/21 Humza Barker CNP [address] [place] [address] 2[address] [place] [address] Historical LMR Provider 04/13/17 07/01/21 Crystal Kirk MD [address] [place] [address] Orthopedics & Sports Medicine, [place] [address] Historical LMR Provider 04/13/17 documented as of this encounter Additional Source Comments The information contained in this document represents components of the legal health record. It is not the complete legal health record.[facility]
--- OUTSIDE RECORDS SUMMARY | 2025-04-29 17:12 | XMS_ITS | Encounter Summary ---
Author Organization [facility] Address [address] [place] [address] [place] [address] Phone Care Team Providers Care Vacuum Repairer Name Role Phone Ajay Hart MD Unavailable [phone] Candida Bangura CHART PICKER Unavailable [phone] Candida Bangura CHART PICKER Primary Care Provider + Tamar Remy Unavailable [phone] Garrett Schaefer MD Unavailable [email or web address] Timo Traylor MD Unavailable Timo Moyer DO Unavailable [phone] Wilalm Sullivan MD Unavailable [phone] Michelle Woodward PA-C Unavailable [phone] Humza Barker CHART PICKER Unavailable [phone] Crystal Kirk MD Unavailable [phone] Kg Bazan AIRCRAFT RESTORER Primary Care Provider Eda Gutierrez AIRCRAFT RESTORER Primary Care Provider Esha Hazel PA Primary Care Provider [phone] Kylee Gómez CHART PICKER Primary Care Prov ider Kylee Gómez CHART PICKER Primary Care Prov ider Encounter Details Date Type Department Care Team (Late Contact Info) Description 04/17/2018 Ancillary Orders Virtual Department 30 [place] [address] Candida Bangura, CHART PICKER 150 [place] [address] [email or web address] Occipital headache Social History Tobacco Use [...] Pulmonary, Allergy and Critical Care Medicine 10 [place] [address] Ajay Hart MD [address] [place] [address] 05/13/2025 11:00 AM EST Nurse Only [facility] Pulmonary, Allergy and Critical Care Medicine 10 [place] [address] Ajay Hart MD [address] [place] [address] 05/18/2025 11:00 AM EST Nurse Only [facility] Pulmonary, Allergy and Critical Care Medicine [address] [place] [address] Ajay aHrt MD [address] [place] [address] 06/14/2025 11:00 AM EST Office Visit [facility] Pulmonary, Allergy and Critical Care Medicine 10 [facility] [address] [place] [address] Ajay Hart MD [address] [address] [email or web address] documented as of this encounter Results * [...] Reese on 04/27/2018 10:45 AM Candida Bangura CHART PICKER IM MR HEAD/NECK Final R esult documented in [...] documented as of this encounter Care Teams Vacuum Repairer Relationship Specialty Start Date End Date Candida Bangura CNP [address] [place] [address] [email or web address] PCP - General 04/09/17 01/04/20 Kg Bazan NP [address] [place] [address] [email or web address] PCP - General Family Medicine 01/05/20 03/15/21 Eda Gutierrez NP 73 [place] [address] PCP - General Family Medicine 03/16/21 08/17/22 Esha Hazel PA 73 [place] [address] [email or web address] PCP - General Physician Regional Economist 08/18/22 12/05/22 Kylee Gómez CNP 58 [place] [address] PCP - General Nurse Practitioner 12/06/22 02/04/24 Kylee Gómez CNP 58 [place] [address] PCP - General Nurse Practitioner 02/05/24 Ajay Hart MD [address] [place] [address] Historical LMR Provider 04/13/17 Candida Bangura CNP [address] [place] [address] [email or web address] Historical LMR Provider 04/13/17 Tamar Remy PA [facility] [place] [address] Historical LMR Provider 04/13/17 2 Garrett Schaefer MD [email or web address] Historical LMR Provider 04/13/17 07/01/21 Timo Traylor MD [address] [place] [address] Historical LMR Provider 04/13/17 Timo Moyer DO [address] [place] [address] Orthopedics & Sports [facility], [place] [address] [email or web address] Historical LMR Provider 04/13/17 07/01/21 Willam Sullivan MD [address] [address] [email or web address] Historical LMR Provider 04/13/17 Michelle Woodward PA-C [address] [place] [address] Orthopedics [facility], [place] [address] Historical LMR Provider 04/13/17 07/01/21 Humza Barker CNP [address] [address] Historical LMR Provider 04/13/17 07/01/21 Crystal Kirk MD [address] [place] [address] Orthopedics & Sports Medicine, [facility] [place] [place] [address] [email or web address] Historical LMR Provider 04/13/17 documented as of this encounter Additional Source Comments The information contained in this document represents components of the legal health record. It is not the complete legal health record.[facility]
--- OUTSIDE RECORDS SUMMARY | 2025-04-29 17:12 | XMS_ITS | Encounter Summary ---
Author Organization [employer] Address [address] [place] [address] [facility] [place] [address] Care Team Providers Care Bottom Liner Name Role Phone Kylee Gómez Primary Care Provider [phone] Gladys Foster Unavailable Unavailable Encounter Details Date Type Department Care Team (Late st Contact Info) Description 12/12/2022 Orders Only [facility] 58 [place] [address] Kylee Gómez FNP 58 [place] [address] Social History Tobacco Use Types Packs/Day Years [...] Description 05/14/2025 9:40 AM EST Office Visit [facility] 58 [place] [address] Kylee Gómez FNP 58 [place] [address] 07/26/2025 10:10 AM EST Office [facility] 58 [place] [address] Jazmine Perez documented as of this encounter Visit Diagnoses Not on filedocumented in this encounter Care Teams Bottom Liner Relationship Specialty Start Date End Date Kylee Gómez FNP 58 [place] [address] PCP - General Family Medicine 07/05/22 Gladys Foster Health Navigator 04/27/24 documented as of this encounter
--- OUTSIDE RECORDS SUMMARY | 2025-04-29 17:12 | XMS_ITS | Encounter Summary ---
Author Organization [employer] Address [address] 7t [place] [address] Care Team Providers Care Rework Machine Operator Name Role Phone Kylee Gómez DITCH CLEANER Primary Care Provider [phone] Gladys Foster Unavailable Unavailable Encounter Details Date Type Department Care Team (Late st Contact Info) Description 12/23/2024 Patient Outreach [facility] Case Management [address] [place], [place] [id number] [place] Social History Tobacco Use Types [...] Description 05/14/2025 9:40 AM EST Office Visit [facility] MEDICAL 58 [place] [address] Kylee Gómez FNP 58 [place] [address] 07/26/2025 10:10 AM EST Office Visit [facility] DENTAL 58 [place] [address] Jazmine Perez documented as of this encounter Visit Diagnoses Not on filedocumented in this encounter Additional Health Concerns Assessment Noted Time PHQ-9 Depression Total Score: 25 024 4:14 PM EST documented as of this encounter Care Teams Rework Machine Operator Relationship Specialty Start Date End Date Kylee Gómez FNP [address] [place] [address] PCP - General Family Medicine 07/05/22 Gladys Foster Health Navigator 04/27/24 documented as of this encounter
--- OUTSIDE RECORDS SUMMARY | 2025-04-29 17:13 | XMS_ITS | Encounter Summary ---
Author Organization [facility] Address [address] [place] [address] [place] [address] Phone Care Team Providers Care Contract Processor Name Role Phone Ajay Hart MD Unavailable [phone] Candida Bangura PROGRAM ADMIN Unavailable [phone] Willam Sullivan MD Unavailable Kylee Gómez [facility] Primary Care Prov ider Kylee Gómez [facility] Primary Care Prov ider Encounter Details Date Type Department Care Team (Latest Contact Info) Description 12/06/2022 Transcribe Orders Virtual Department 30 [place] [address] Kylee Gómez PROGRAM ADMIN 58 [place] [address] Chronic pain of left knee (Primary Dx) [...] Upcoming Encounters Date Type Department Care Team ([facility] st Contact Info) Description 05/06/2025 11:00 AM EST Nurse Only [facility] Pulmonary, Allergy and Critical Care Medicine 10 [place] [address] Ajay Hart MD [address] [place] [address] [email or web address] 05/13/2025 11:00 AM EST Nurse Only [facility] Pulmonary, Allergy and Critical Care Medicine [address] [place] [address] Ajay Hart MD [address] [place] [address] [email or web address] 05/18/2025 11:00 AM EST Nurse Only [facility] Pulmonary, Allergy and Critical Care Medicine [address] [place] [address] Ajay Hart MD [address] [place] [address] 06/14/2025 11:00 AM EST Office Visit [facility] Pulmonary, Allergy and Critical Care Medicine [address] [place] [address] Ajay Hart MD [address] [place] [address] [email or web address] documented as of this encounter Results * [...] mild in all 3 compartments. Kylee Gómez CNP IMG XR LOWER EXTRE MITY Final Result [...] documented as of this encounter Care Teams Contract Processor Relationship Specialty Start Date End Date Kylee Gómez CNP [address] [place] [address] PCP - General Nurse Practitioner 12/06/22 02/04/24 Kylee Gómez CNP 58 [place] [address] PCP - General Nurse Practitioner 02/05/24 Ajay Hart MD [address] [place] [address] [email or web address] Historical LMR Provider 04/13/17 Candida Bangura CNP [address] [place] [address] [email or web address] Historical LMR Provider 04/13/17 Willam Sullivan MD [address] [place] [address] Historical LMR Provider 04/13/17 documented as of this encounter Additional Source Comments The information contained in this document represents components of the legal health record. It is not the complete legal health record.[facility]
--- OUTSIDE RECORDS SUMMARY | 2025-04-29 17:13 | XMS_ITS | Encounter Summary ---
Author Organization [facility] Address [address] [place] [address] [place] [address] Phone Care Team Providers Care Heart Coordinator Name Role Phone Ajay Hart MD Unavailable [phone] Candida Bangura MANAGER QUALITY COMPLIANCE Unavailable [phone] Candida Bangura MANAGER QUALITY COMPLIANCE Primary Care Provider + Tamar Remy Unavailable [phone] Garrett Schaefer MD Unavailable [email or web address] Timo Traylor MD Unavailable [phone] Timo Moyer DO Unavailable [phone] Willam Sullivan MD Unavailable Michelle Woodward PA-C Unavailable [phone] Humza Barker MANAGER QUALITY COMPLIANCE Unavailable [phone] Crystal Kirk MD Unavailable [phone] Kg Bazan CHILD ADOLESCENT CARE Primary Care Provider [phone] Eda Gutierrez CHILD ADOLESCENT CARE Primary Care Provider Esha Hazel PA Primary Care Provider [phone] Kylee Gómez MANAGER QUALITY COMPLIANCE Primary Care Prov ider Kylee Gómez MANAGER QUALITY COMPLIANCE Primary Care Prov ider Encounter Details Date Type Department Care Team (Late Contact Info) Description 03/20/2018 [facility] 30 [place] [address] Tonja Carlin, VALDO [address] [place] [address] [email or web address] Social History Tobacco Use Types [...] Allergy and Critical Care Medicine 10 [place] [address] Ajay Hart MD [address] [place] [address] 05/13/2025 11:00 AM EST Nurse Only [facility] Pulmonary, Allergy and Critical Care Medicine 10 [place] [address] Ajay Hart MD [address] [place] [address] 05/18/2025 11:00 AM EST Nurse Only [facility] Pulmonary, Allergy and Critical Care Medicine [address] [place] [address] Ajay Hart MD [address] [place] [address] 06/14/2025 11:00 AM EST Office Visit [facility] Pulmonary, Allergy and Critical Care Medicine [address] [place] [address] [place] [address] Ajay Hart MD [address] [place] [address] [email or web address] documented as of this encounter [...] Ongoing SI joint pain POS - [id number] Tonja LYLE IMG XR PELVIS Final Resul [...] documented as of this encounter Care Teams Heart Coordinator Relationship Specialty Start Date End Date Candida Bangura CNP [address] [place] [address] [email or web address] PCP - General 04/09/17 01/04/20 Kg Bazan NP 73 [place] [address] [email or web address] PCP - General Family Medicine 01/05/20 03/15/21 Eda Gutierrez NP 73 [place] [address] PCP - General Family Medicine 03/16/21 08/17/22 Esha Hazel PA 73 [place] [address] [email or web address] PCP - General Physician Stable Helper 08/18/22 12/05/22 Kylee Gómez CNP 58 [place] [address] PCP - General Nurse Practitioner 12/06/22 02/04/24 Kylee Gómez CNP [address] [place] [address] PCP - General Nurse Practitioner 02/05/24 Ajay Hart MD [address] [place] [address] [email or web address] Historical LMR Provider 04/13/17 Candida Bangura CNP [address] [place] [address] [email or web address] Historical LMR Provider 04/13/17 Tamar Remy PA [facility] [place] [address] Historical LMR Provider 04/13/17 2 Garrett Schaefer MD [email or web address] Historical LMR Provider 04/13/17 07/01/21 Timo Traylor MD [address] [place] [address] Historical LMR Provider 04/13/17 Timo Moyer DO [address] [place] [address] Orthopedics & Sports Medicine, [facility] [place] [address] [email or web address] Historical LMR Provider 04/13/17 07/01/21 Willam Sullivan MD [address] [place] [address] [email or web address] Historical LMR Provider 04/13/17 Michelle Woodward PAMargaritaC [address] [place] [address] [facility] [place] [address] Historical LMR Provider 04/13/17 07/01/21 Humza Barker CNP 15 [facility], 2nd [place] [address] Historical LMR Provider 04/13/17 07/01/21 Crystal Kirk MD 4 [facility] [place] [address] [email or web address] Historical LMR Provider 04/13/17 documented as of this encounter Additional Source Comments The information contained in this document represents components of the legal health record. It is not the complete legal health record.[facility]
--- OUTSIDE RECORDS SUMMARY | 2025-04-29 17:13 | XMS_ITS | Encounter Summary ---
Author Organization [facility] Address [address] [place] [address] Phone Care Team Providers Care Aircraft Maintenance Engineer Name Role Phone Ajay Hart MD Unavailable [phone] Candida Bangura STREETCAR CONDUCTOR Unavailable [phone] Willam Sullivan MD Unavailable [phone] Kylee Gómez [facility] Primary Care Prov ider Reason for Visit * Reason Comments Medication Refill Encounter Details Date Type Department Care Team (Late st Contact Info) Description 02/09/2025 Refill CD Pulmonary, Allergy and Critical Care Medicine 10 [place] [address] Ajay Hart MD [address] [place] [address] Medication Refill Social History Tobacco Use Types [...] as of this encounter Progress Notes * Odalys Hernández - 02/10/2025 9:23 AM EDT Received [...] Pulmonary, Allergy and Critical Care Medicine 10 [place] [address] Ajay Hart MD [address] [place] [address] 05/13/2025 11:00 AM EST Nurse Only [facility] Pulmonary, Allergy and Critical Care Medicine 10 [place] [address] Ajay Hart MD [address] [place] [address] [email or web address] 05/18/2025 11:00 AM EST Nurse Only [facility] Pulmonary, Allergy and Critical Care Medicine [address] [place] [address] Ajay Hart MD [address] [place] [address] [email or web address] 06/14/2025 11:00 AM EST Office Visit [facility] Pulmonary, Allergy and Critical Care Medicine [address] [place] [address] Ajay Hart MD [address] [place] [address] [email or web address] documented as of this encounter Visit Diagnoses Not on filedocumented in this encounter Care Teams Aircraft Maintenance Engineer Relationship Specialty Start Date End Date Kylee Gómez CNP [address] [place] [address] PCP - General Nurse Practitioner 02/05/24 Ajay Hart MD [address] [place] [address] [email or web address] Historical LMR Provider 04/13/17 Candida Bangura CNP [address] [place] [address] [email or web address] Historical LMR Provider 04/13/17 Willam Sullivan MD [address] [place] [address] Historical LMR Provider 04/13/17 documented as of this encounter Additional Source Comments The information contained in this document represents components of the legal health record. It is not the complete legal health record.[facility]
--- OUTSIDE RECORDS SUMMARY | 2025-04-29 17:13 | XMS_ITS | Encounter Summary ---
Author Organization [facility] Address [address] [place] [address] [place] [address] Phone Care Team Providers Care Litharge Supervisor Name Role Phone Ajay Hart MD Unavailable [phone] Candida Bangura LAB TECHNICIAN Unavailable Willam Sullivan MD Unavailable [phone] Eda Gutierrez REGIONAL PROPERTY MANAGER Primary Care Provider Esha Hazel Primary Care Provider [phone] Kylee Gómez [facility] Primary Care Prov ider Kylee Gómez [facility] Primary Care Prov ider Reason for Referral * MRI/CAT Scan - Closed Specialty Diagnoses / Procedures Referred By Mauricio t Referred To Contact Radiology Diagnoses Nonintractable headache, unspecified chronicity pattern, unspecified headache type Numbness Dizziness White matter disease Procedures MRI Brain Edilson Box MD Phone: tel: fax: [email or web address] Referral ID Status Reason Start Date Expiration Date Visits Re quested Visits Authorized [id number] Closed 11/03/2021 09/26/2022 1 1 Encounter Details Date Type Department Care Team (Latest Contact Info) Description 11/03/2021 Transcribe Orders Virtual Department 30 [place] [address] Edilson Box MD [address] [place] [address], [address] [place] [address] [email or web address] Nonintractable headache, unspecified chronicity pattern, [...] Pulmonary, Allergy and Critical Care Medicine [address] [place] [address] Ajay Hart MD [address] [place] [address] 05/13/2025 11:00 AM EST Nurse Only [facility] Pulmonary, Allergy and Critical Care Medicine [address] [place] [address] Ajay Hart MD [address] [place] [address] 05/18/2025 11:00 AM EST Nurse Only [facility] Pulmonary, Allergy and Critical Care Medicine [address] [place] [address] Ajay Hart MD [address] [place] [address] 06/14/2025 11:00 AM EST Office Visit [facility] Pulmonary, Allergy and Critical Care Medicine 10 [facility] [place] [address] Ajay Hart MD [address] [place] [address] [email or web address] documented as of this encounter [...] clear. The orbits are unremarkable Procedure Note Briana Fields MD - 12/29/2021 MRI BRAIN WITH [...] right mastoid air cells. Edilson Box MD IM MR HEAD/NECK Final Resul t documented in [...] documented as of this encounter Care Teams Litharge Supervisor Relationship Specialty Start Date End Date Eda Gutierrez NP [address] [place] [address], [address] [place] [address] PCP - General Family Medicine 03/16/21 08/17/22 Esha Hazel PA [address] [place] [address] [email or web address] PCP - General Physician Impregnator Helper 08/18/22 12/05/22 Kylee Gómez CNP 58 [place] [address] PCP - General Nurse Practitioner 12/06/22 02/04/24 Kylee Gómez CNP 58 [place] [address] PCP - General Nurse Practitioner 02/05/24 Ajay Hart MD [address] [place] [address] [email or web address] Historical LMR Provider 04/13/17 Candida Bangura CNP [address] [place] [address] [email or web address] Historical LMR Provider 04/13/17 Willam Sullivan MD [address] [place] [address] [email or web address] Historical LMR Provider 04/13/17 documented as of this encounter Additional Source Comments The information contained in this document represents components of the legal health record. It is not the complete legal health record.[facility]
--- OUTSIDE RECORDS SUMMARY | 2025-04-29 17:13 | XMS_ITS | Encounter Summary ---
Author Organization [facility] Address [address] [place] [address] [place] [address] Phone Care Team Providers Care Marker Assembler Name Role Phone Ajay Hart MD Unavailable [phone] Candida Bangura DATA MODELING ARCHITECT Unavailable [phone] Willam Sullivan MD Unavailable [phone] Eda Gutierrez [employer] [facility] Primary Care Provider Esha Hazel Primary Care Provider [phone] Kylee Gómez [facility] Primary Care Prov ider Kylee Gómez [facility] Primary Care Prov ider Encounter Details Date Type Department Care Team (Late st Contact Info) Description 05/25/2022 Procedure Pass [facility], [address] [address] Social History Tobacco Use Types Packs/Day Years [...] Pulmonary, Allergy and Critical Care Medicine [address] [place] [address] Ajay Hart MD [address] [place] [phone] [email or web address] 05/13/2025 11:00 AM EST Nurse Only [facility] Pul[facility], Allergy [facility] Critical [facility] [address] [place] [phone] Ajay Hart MD [address] [place] [phone] [email or web address] 05/18/2025 11:00 AM EST Nurse Only [facility], Allergy [facility] Critical [facility] [address] [place] [phone] Ajay Hart MD [address] [place] [phone] [email or web address] 06/14/2025 11:00 AM EST Office Visit [facility] Pul[facility], Allergy [facility] Critical [facility] [address] [place] [phone] Ajay Hart MD [address] [place] [phone] documented as of this encounter Visit Diagnoses Not on filedocumented in this encounter Additional Health Concerns Infection Onset Date Last Indicated Resolved Time CoV-Exposed Comment:Positive COVID-19 07/26/2024 07/26/2024 07/27/2024 12: 42 AM EST CoV-Risk 07/26/2024 07/26/2024 07/27/2024 12:4 2 AM EST COVID-19 07/26/2024 07/26/2024 08/16/2024 1:21 AM EST documented as of this encounter Care Teams Marker Assembler Relationship Specialty Start Date End Date Eda Gutierrez NP [address] [address] PCP - General Family Medicine 03/16/21 08/17/22 Esha Hazel PA [address] [place] [phone] [email or web address] PCP - General Physician Agriculture Consultant 08/18/22 12/05/22 Kylee Gómez DATA MODELING ARCHITECT [address] [place] [phone] PCP - General Nurse Practitioner 12/06/22 02/04/24 Kylee Gómez DATA MODELING ARCHITECT [address] [place] [phone] PCP - General Nurse Practitioner 02/05/24 Ajay Hart MD [address] [place] [phone] [email or web address] Historical LMR Provider 04/13/17 Candida Bangura CNP [address] [place] [phone] [email or web address] Historical LMR Provider 04/13/17 Willam Sullivan MD [address] [address] Historical LMR Provider 04/13/17 documented as of this encounter Additional Source Comments The information contained in this document represents components of the legal health record. It is not the complete legal health record.[facility]
--- OUTSIDE RECORDS SUMMARY | 2025-04-29 17:13 | XMS_ITS | Encounter Summary ---
Author Organization [facility] Address [address] [place] [address] [address] [place] [address] Phone Care Team Providers Care Communications Scientist Name Role Phone Ajay Hart MD Unavailable [phone] Candida Bangura DIVISION ROADMASTER Unavailable [phone] Willam Sullivan MD Unavailable Kylee Gómez [facility] Primary Care Prov ider Reason for Visit * Reason Onset Date Comments Immunotherapy 03/03/2025 Encounter Details Date Type Department Care Team (Late st Contact Info) Description 03/03/2025 Telephone [facility] Pulmonary, Allergy and Critical Care Medicine [address] [place] [address] [place] [address] Kylee Gómez [address]MA[employer] [address] [place] [address] Immunotherapy Social History Tobacco Use Types Packs/Day [...] detail. Please contact and advise Central Support Pipe Caulker (Please do not reply to this user; this inbox is not monitored.) Thank you. documented in this encounter Plan of Treatment Upcoming Encounters Date Type Department Care Team (Late st Contact Info) Description 05/06/2025 11:00 AM EST Nurse Only [facility] Pulmonary, Allergy and Critical Care Medicine [address] [place] [address] Ajay Hart MD [address] [place] [phone] [email or web address] 05/13/2025 11:00 AM EST Nurse Only [facility] Pul[facility], Allergy and Critical Care Medicine [address] [place] [address] Ajay Hart MD [address] [place] [phone] [email or web address] 05/18/2025 11:00 AM EST Nurse Only [facility] Pulmonary, Allergy and Critical Care Medicine [address] [place] [address] Ajay Hart MD [address] [place] [phone] [email or web address] 06/14/2025 11:00 AM EST Office Visit [facility] Pulmonary, Allergy and Critical Care Medicine [address] [place] [address] Ajay Hart MD [address] [place] [phone] documented as of this encounter Visit Diagnoses Not on filedocumented in this encounter Care Teams Communications Scientist Relationship Specialty Start Date End Date Kylee Gómez CNP [address] [place] [address] PCP - General Nurse Practitioner 02/05/24 Ajay Hart MD [address] [place] [phone] Historical LMR Provider 04/13/17 Candida Bangura CNP [address] [place] [phone] [email or web address] Historical LMR Provider 04/13/17 Willam Sullivan MD [address] [address] Historical LMR Provider 04/13/17 documented as of this encounter Additional Source Comments The information contained in this document represents components of the legal health record. It is not the complete legal health record.[facility]
== END 2025-04-29 14:02 | disposition home or self-care (01) ==
LOC: HO.NEURO 14:01
PROVIDERS: PCP Nurse Practitioner Family; Visit Provider Registered Nurse Emergency
DX: R20.2 Paresthesia of skin (principal); R20.0 Anesthesia of skin; G89.29 Other chronic pain; M54.50 Low back pain, unspecified; M79.605 Pain in left leg
CPT/HCPCS: 95886; 95909

== ENCOUNTER → 2025-04-29 14:05 | Outpatient (BNV) | payer MEDICAID, SELFPAY | PROVIDERS: PCP Nurse Practitioner Family; Visit Provider Physical Medicine & Rehabilitation | DX: R20.2 Paresthesia of skin (principal) | CPT/HCPCS: 95886; 95909 ==

== ENCOUNTER 2025-05-10 10:25 | Outpatient (REF) | payer MEDICAID, SELFPAY ==
--- NOTE | ~2025-05-10 | XR_ITS ---
EXAMINATION: XR CERVICAL SPINE CLINICAL INFORMATION: M54.2 - Cervicalgia COMPARISON: None available. TECHNIQUE: 4 views of the cervical spine were obtained, including flexion and extension views. FINDINGS: There is a minimal levoconvex scoliosis, possibly positional. There is a normal lordosis. There is no subluxation. There is no evidence of instability on flexion and extension views. There is no fracture, compression deformity, or suspicious bone lesion. Craniocervical junction and C1-2 articulation are intact and normally aligned. There is mild disc degeneration C3-4, C4-5, C5-6. Remainder of the intervertebral discs are preserved. There is normal facet alignment bilaterally. There is no significant facet arthrosis. There is no prevertebral soft tissue abnormality. Imaged lung apices are clear. XR/XR cervical spine 4V IMPRESSION: 1. No acute bony or soft tissue abnormality of the cervical spine. 2. Very mild degenerative disc disease C3-4 through C5-6. 3. No subluxation or evidence of instability on flexion and extension views. Electronically signed by: Adam Paez MD 05/10/2025 01:09 PM PR[facility]AN[facility] B[facility]
== END 2025-05-10 10:26 | disposition home or self-care (01) ==
LOC: HO.HOSX 10:25
PROVIDERS: PCP Nurse Practitioner Family; Visit Provider Physician Assistant
DX: M54.12 Radiculopathy, cervical region (principal)
CPT/HCPCS: 72050; 99212

== ENCOUNTER 2025-05-10 10:25 | Outpatient (AMB) | payer MEDICAID, SELFPAY ==
--- NOTE | 2025-05-10 10:44 | HO.SPINEOV ---
Intake Visit Reasons: Neck pain Intake Note: Ms. Zamorano is here today c/o neck pain that start at the bottom of her head into the top of her spine. Allergies codeine Allergy (Severe, Verified 01/13/25 13:07) Anaphylaxis fluticasone (From Flonase) Allergy (Severe, Verified 01/13/25 13:07) Anaphylaxis oxycodone Allergy (Intermediate, Verified 01/13/25 13:07) skin redness morphine Adverse Reaction (Intermediate, Verified 01/13/25 13:07) Nausea and Vomiting silver (From Tegaderm [employer] Mesh) Adverse Reaction (Mild, Verified 01/13/25 13:07) Redness of Skin Opioids - Morphine Analogues Adverse Reaction (Unknown, Verified 01/13/25 13:07) Unknown flu vaccine Allergy (Severe, Uncoded 11/03/24 12:28) Nausea and Vomiting, dehydration, weakness Assessment & Plan Assessment & Plan (1) Radiculopathy, cervical: Code(s): M54.12 - Radiculopathy, cervical region Category: Medical Plan Lise is a pleasant 39-year-old female known to our practice who underwent L5-S1 lumbar microdiskectomy x 2 after recurrent disc herniation. Her last discectomy was 11/13/[address] Rajan. She was last evaluated in our clinic with a repeat MRI due to continued chronic nerve pain. We referred her to our colleagues in pain management who implanted a spinal cord stimulator. She does report that she had fairly good relief of her pain from this spinal cord stimulator (at least 50% overall reduction) however states that she has been having issues with low back pain shooting into her groin when engaging in sexual intercourse, which has been very problematic for her. She comes in today for evaluation of neck pain. She states that over the course of the last year or so she has been experiencing severe posterior neck pain shooting into her right shoulder. She does have several other confounding factors contributing to right-sided arm/shoulder pain. She states that she has bilateral carpal tunnel syndrome, bilateral cubital tunnel syndrome, and previously had a right rotator cuff tear. When describing her pain she states that it starts near the base of her skull shoots all the way down the back her neck travels over the right-sided trapezius and into the right deltoid. She states that she did trial an injection with our colleagues in pain management for this issue, however only reports modest relief of the pain as a result of this. She had a difficult time answering questions regarding arm/hand numbness, dexterity, and weakness due to her carpal and cubital tunnel syndrome diagnoses. On examination today, the patient has about 4/5 strength with bilateral iliopsoas testing, in about 4/5 strength with bilateral hand marketing analyst/interossei testing. The rest of her strength appears 5/5. No notable hyperreflexia. No significant sensational deficits to light touch reported during examination. (-) Mckeon's, (-) clonus, (-) bilateral straight leg raise. She ambulates with the assistance of a cane and does so slowly. Pleasant 39-year-old female known to our practice who underwent L5-S1 lumbar microdiskectomy x 2 after recurrent disc herniation. Her last discectomy was 11/13/[address] Rajan. She comes in today for evaluation of neck pain shooting into her right deltoid after having this issue worked up by our colleagues in pain management. Her clinical picture is most consistent with a right-sided cervical radiculopathy. I would like to send her for a set set of dynamic cervical spine x-rays to evaluate for any gross instability in the cervical spine. Assuming that this is unremarkable I will order a MRI of the cervical spine. When this is complete I would like the patient to come back for a follow-up visit to review this and discuss the need for potential intervention / further workup. Hiren Rajan MD,PhD [facility] Orders: Orders XR cervical spine 4V Today M54.2 - Cervicalgia Coding Level of Care Code Est Pt Level 3 (57859) Diagnoses Radiculopathy, cervical M54.12
== END 2025-05-10 11:14 | disposition home or self-care (01) ==
LOC: HO.HNS 10:25
PROVIDERS: PCP Nurse Practitioner Family; Visit Provider Physician Assistant
DX: M54.12 Radiculopathy, cervical region (principal)
CPT/HCPCS: 99213

== ENCOUNTER → 2025-05-10 11:17 | Outpatient (BNV) | payer MEDICAID, SELFPAY | PROVIDERS: PCP Nurse Practitioner Family; Visit Provider Radiology Diagnostic Radiology | DX: M50.31 Other cervical disc degeneration, high cervical region (principal); M50.321 Other cervical disc degeneration at C4-C5 level; M50.322 Other cervical disc degeneration at C5-C6 level | CPT/HCPCS: 72050 ==

== ENCOUNTER 2025-06-03 12:44 | Outpatient (AMB) | payer MEDICAID, SELFPAY ==
[2025-06-03 13:00] VITALS: BP 141/79; PULSE 95; RESP 16; O2SAT 95; BMI 32.9
--- NOTE | 2025-06-03 13:00 | A.OFFVIS_ITS ---
Vital Signs 06/03/25 13:00 Height 5 ft 2 in Weight 180 lb BMI 32.9 BP 141/79 H Blood Pressure Location Lt brachial Position Sitting Respiration 16 Pulse 95 Pulse Source Pulse Oximeter Pulse Oximetry (%) 95 Oxygen Delivery Method Room Air Intake Visit Reasons: S/P C5-C6 Parasagittal LAUREN 04/20/25 Drilling Field Specialist Required: No Accompanied by: Self / Same As Patient Allergies codeine Allergy (Severe, Verified 06/03/25 13:00) Anaphylaxis fluticasone (From Flonase) Allergy (Severe, Verified 06/03/25 13:00) Anaphylaxis oxycodone Allergy (Intermediate, Verified 06/03/25 13:00) skin redness morphine Adverse Reaction (Intermediate, Verified 06/03/25 13:00) Nausea and Vomiting silver (From Tegaderm [employer] Mesh) Adverse Reaction (Mild, Verified 06/03/25 13:00) Redness of Skin Opioids - Morphine Analogues Adverse Reaction (Unknown, Verified 06/03/25 13:00) Unknown flu vaccine Allergy (Severe, Uncoded 11/03/24 12:28) Nausea and Vomiting, dehydration, weakness HPI Comments Details: Lise is back in my office after cervical interlaminar epidural steroid injection. She reports some pain improvement however less than 50%. She she reports mobility of the neck minimally improved. However I do not think that in this situation continuation of the treatment of the neck pain with epidural steroid injections as a good idea. We discussed possibility of treating her neck pain with extension of her [employer] spinal cord stimulator system. Patient agreed to go for the procedure. We will try to endorse the psychological evaluation which she received in the end of 2023. As soon as psychological evaluation is endorsed we will schedule her for the procedure. The procedure will be a trial of 2 leads of [employer] spinal cord stimulator in cervical placement.. The patient is a 39-year-old female [facility] with neck pain and management of chronic conditions, removal of left cervical sprint. The patient experiences neck pain characterized by a crunching sensation and bone spurs, with the right side feeling better than the left. She is not interested in trying physical therapy at this time. Endorses 70% pain relief of the right side after sprint PNS trial, minimal improvement in her left-sided neck pain. She does state that for the last 2-1/2 weeks the sprint device was not working. She had contacted the [employer] sales representative and was expecting replacement parts in the mail but they did not arrive. Therefore she has not used it in over 2 weeks. The patient has scoliosis, contributing to a hump on her back, which she associates with poor posture. She has been advised to work on posture and consider using a brace to improve alignment. - Neck pain with crunching sensation and bone spurs, right side feels better than left - Burning sensation from spine down side after attempting to get on a swing - Pain does not radiate to shoulder, but history of rotator cuff tear - Affect: Pain impacts daily activities and posture - Analgesia: No specific pain medications discussed - Adverse Effects: None reported - Activities of Daily Living: Pain affects posture and physical activities - Aberrant Drug Related Behaviors: None reported [facility] Medical History Fragrance hypersensitivity Hypoglycemia TMJ tenderness, right Osteoarthritis CTS (carpal tunnel syndrome) PONV (postoperative nausea and vomiting) DJD (degenerative joint disease) Asthma Seasonal allergies Environmental allergies Scoliosis Back pain Surgical History Hx of surgical fusion joint Hx of lumbar discectomy (~2018) History of arthroplasty of left knee Hx of sinus surgery Hx of bilateral breast reduction surgery History of ear surgery Social History Household Members Other:: S.O. parents Are you a primary behavioral health care manager to a significant other at home: No Do you presently have visiting nurse or other home services: No Comment: aware of trip hazard Patient Tobacco Use Status: Former Tobacco user Second Hand Smoke Exposure: Yes (parents smoked in the home) Review of Systems Const All systems reviewed & are unremarkable except as noted in HPI and below Physical Exam Exam Exam: General: awake, alert, oriented. Answers questions appropriately. Fully engaged in examination. Appears uncomfortable Skin: warm, dry, intact. No rashes, redness, warmth, swelling, drainage noted HEENT: Normocephalic. Hearing intact. Cardiac: External chest normal in appearance. Respiratory: No cough, audible wheezing or stridor. Abdomen: without gross distension. MS: No obvious swelling or deformities. CS: Visible inspection without gross abnormality. Neurological: Oriented to person, place, time and situation. Thought process intact. Psychiatric: Appropriate mood and affect. Good judgment and insight. Left cervical Sprint removal: Dressing removed, Site dry, clean, intact. Area cleansed with chloraprep, lead removed with intact tip. Area cleansed again with chloraprep, bacitracin dressing with tegaderm applied. Patient tolerated removal well. Vital Signs: Last Vital Signs Pulse 95 06/03/25 13:00 Resp 16 06/03/25 13:00 BP 141/79 H 06/03/25 13:00 Pulse Ox 95 06/03/25 13:00 Oxygen Delivery Method Room Air 06/03/25 13:00 BMI result Body Mass Index 32.9 Assessment & Plan Assessment & Plan (1) Lower back pain: Code(s): M54.50 - Low back pain, unspecified Category: Medical (2) Trapezius muscle strain: Code(s): S46.819A - Strain of other muscles, fascia and tendons at shoulder and upper arm level, unspecified arm, initial encounter Category: Medical (3) Myofascial muscle pain: Code(s): M79.18 - Myalgia, other site Category: Medical (4) Post laminectomy syndrome: Code(s): M96.1 - Postlaminectomy syndrome, not elsewhere classified Category: Medical (5) Cervical spondylosis: Code(s): M47.812 - Spondylosis without myelopathy or radiculopathy, cervical region Category: Medical Plan See discussion as above for the treatment of the cervical neck pain. PNS sprint resulted in pain aggravation. I offered a trial of [employer]. After endorsement of her psychological evaluation I will schedule her for the trial. I would need to advanced to electrode leads as high in her cervical spine as possible in the epidural space. The risks and benefits were discussed with the patient. Coding Level of Care Code Est Pt Level 3 (29866) Diagnoses Lower back pain M54.50 Trapezius muscle strain S46.819A Myofascial muscle pain M79.18 Post laminectomy syndrome M96.1 Cervical spondylosis M47.812
== END 2025-06-03 13:31 | disposition home or self-care (01) ==
LOC: HO.PMC 12:48
PROVIDERS: PCP Nurse Practitioner Family; Visit Provider Anesthesiology
DX: M54.50 Low back pain, unspecified (principal); S46.819A Strain of other muscles, fascia and tendons at shoulder and upper arm level, unspecified arm, initial encounter; M79.18 Myalgia, other site; M96.1 Postlaminectomy syndrome, not elsewhere classified; M47.812 Spondylosis without myelopathy or radiculopathy, cervical region
CPT/HCPCS: 99213

== ENCOUNTER → 2025-06-03 12:44 | Outpatient (BNVA) | payer MEDICAID, SELFPAY | PROVIDERS: PCP Nurse Practitioner Family; Visit Provider Anesthesiology | DX: S46.819A Strain of other muscles, fascia and tendons at shoulder and upper arm level, unspecified arm, initial encounter (principal); M54.50 Low back pain, unspecified; M79.18 Myalgia, other site; M96.1 Postlaminectomy syndrome, not elsewhere classified; M47.812 Spondylosis without myelopathy or radiculopathy, cervical region; Y92.9 Unspecified place or not applicable; Y93.9 Activity, unspecified; Y99.9 Unspecified external cause status; X58.XXXA Exposure to other specified factors, initial encounter | CPT/HCPCS: 99212 ==